=== PATIENT | male | born 1960 | race Two or more races ===

== ENCOUNTER 2025-01-19 02:18 | Inpatient (IN) | payer MEDICARE, MEDICAID ==
[~2025-01-19] VITALS: Ht 170.2 cm; Wt 87.7 kg
--- NOTE | 2025-01-19 02:33 | ECG ---
[facility] Test Date: 2025-01-19 Test Time: 02:29:07 Pat Name: MAGUI YUSUF Department: ED Room: 0286T Gender: M Stitcher Utility: CAMILA : 1960 Requested By: EMERGENCY EMERGENCY Order Number: [id number] Reading MD: Maxi Yeung Measurements Intervals [place] Rate: 117 P: 83 LA: 109 QRS: 43 QRSD: 100 T: -83 QT: 313 QTc: 437 Interpretive Statements Sinus tachycardia Probable inferior infarct, age indeterminate Repol abnrm, severe global ischemia (LM/MVD) Electronically Signed On 01-21-2025 14:44:02 PDT by Mxai Yeung Please click the below link to view image of tracing.
[2025-01-19 02:56] LABS: Basophils # (auto) 0.1 10 ^3/uL (0-0.2); Basophils % (auto) 0.4 % (0.0-2.0); Eosinophils # (auto) 0 10 ^3/uL (0-0.8); Hematocrit 50.4 % (41.0-53.0); Lymphocytes # (auto) 1.3 10 ^3/uL (0.4-5.4); Lymphocytes % (auto) 7.8 % (10.0-50.0); Mean Corpuscular Hemoglobin 30.3 pg (28.0-32.0); Mean Corpuscular Hgb Conc. 33.8 g/dL (32.0-36.0); Mean Corpuscular Volume 89.9 fL (80.0-100.0); Monocytes # (auto) 0.5 10 ^3/uL (0-1.3); Neutrophils # (auto) 14.8 10 ^3/uL (1.6-8.6); Neutrophils % (auto) 88.8 % (37.0-80.0); Nucleated Red Blood Cells % 0.2 %; Platelet Count (auto) 378 10^3/uL (140-450); Red Blood Cells 5.61 10^6/uL (4.5-5.90); Red Cell Distribution Width 14.1 % (11.8-14.3); White Blood Cell 16.7 10^3/uL (4.4-10.8)
--- NOTE | 2025-01-19 03:00 | ED.PDOC ---
History of Present Illness HPI Comments 64 y/o M presents wtih 3x day history of 7/10 epigastric abdominal pain, that radiates into his right chest-wall, with associated nausea and multiple episodes of vomiting. Patient endorses on no recent injuries, travel, sick contact, spoiled food or illicit substances use, or further relevant information. He denies having any bloody or bilious vomitus, diarrhea, urinary symptoms, fever, chills, or further associated symptoms. Chief Complaint: Chest Pain Time Seen by MD: 02:20 Reviewed Notes: Nurses Notes, Medications, Allergies Allergies: Coded Allergies: NO KNOWN ALLERGIES (Unverified , 01/19/25) Information Source: Patient Mode of Arrival: Ambulatory Severity: Moderate Timing: Days Duration: Since onset Prehospital treatment: None Past Medical History PAST MEDICAL HISTORY: Denies Surgical History: Denies all surgeries Family History Family History: Unknown Social History Smoker: Non-Smoker Alcohol: Denies ETOH Use Drugs: Denies Drug Use Lives In: Home All Other Systems: Reviewed and Negative (Comprehensive systems review obtained and negative except for what is stated in the HPI.) Physical Exam General Appearance: No Apparent Distress, Normal HEENT: Normal ENT Inspection, Pharynx Normal, TMs Normal Neck: Full Range of Motion, Non-Tender, Normal, Normal Inspection Respiratory: Chest Non-Tender, Lungs Clear, No Accessory Muscle Use, No Respiratory Distress, Normal Breath Sounds Cardiovascular: No Edema, No JVD, No Murmur, No Gallop, Normal Peripheral Pulses, Regular Rate/Rhythm Breast Exam: Deferred Gastrointestinal: No Organomegaly, Non Tender, No Pulsatile Mass, Normal Bowel Sounds, Soft Genitalia: Deferred Pelvic: Deferred Rectal: Deferred Extremities: No calf tenderness, Normal capillary refill, Normal inspection, Normal range of motion, Non-tender, No pedal edema Musculoskeletal : Apperance: Normal Neurologic: Alert, carbonation equipment tender II-XII nml as Tested, No Motor Deficits, Normal Affect, Normal Mood, No Sensory Deficits Cerebellar Function: Normal Reflexes: Normal Skin: Dry, Normal Color, Warm Lymphatic: No Adenopathy Was a procedure done? Was a procedure done?: No EKG EKG : Pulse Rate (adult): 117 [place]: Normal Cardiac Rhythm: ST Block: None Hypertrophy: None ST: Normal Differential Dx Considerations may include: gastritis, gastroenteritis, GERD, PUD, OH, PE, ACS, URI, PNA, musculoskeletal pain, among others X-Ray, Labs, Meds, VS Vital Signs Date Time Temp Pulse Resp B/P (MAP) Pulse Ox O2 Delivery O2 Flow Rate FiO2 01/19/25 05:00 108 20 159/74 (102) 100 01/19/25 04:00 103 20 Nasal Cannula* 3 32 01/19/25 04:00 98.4 103 20 147/77 (100) 98.4 01/19/25 03:48 107 17 166/84 01/19/25 03:31 108 01/19/25 03:00 117 01/19/25 02:41 117 01/19/25 02:20 97.5 101 22 102/61 (75) 97 97.5 Lab Test 01/19/25 03:26 01/19/25 02:36 Range/Units Troponin I High Sensitivity 4 5 </=54 ng/L White Blood Count 16.7 H 4.4-10.8 10^3/uL Red Blood Count 5.61 4.5-5.90 10^6/uL Hemoglobin 17.0 13.5-17.5 g/dL Hematocrit 50.4 41.0-53.0 % Mean Corpuscular Volume 89.9 80.0-100.0 fL Mean Corpuscular Hemoglobin 30.3 28.0-32.0 pg Mean Corpuscular Hemoglobin Concent 33.8 32.0-36.0 g/dL Red Cell Distribution Width 14.1 11.8-14.3 % Platelet Count 378 140-450 10^3/uL Mean Platelet Volume 7.3 6.9-10.8 fL Neutrophils (%) (Auto) 88.8 H 37.0-80.0 % Lymphocytes (%) (Auto) 7.8 L 10.0-50.0 % Monocytes (%) (Auto) 3.0 0.0-12.0 % Eosinophils (%) (Auto) 0.0 0.0-7.0 % Basophils (%) (Auto) 0.4 0.0-2.0 % Neutrophils # (Auto) 14.8 H 1.6-8.6 10 ^3/uL Lymphocytes # (Auto) 1.3 0.4-5.4 10 ^3/uL Monocytes # (Auto) 0.5 0-1.3 10 ^3/uL Eosinophils # (Auto) 0 0-0.8 10 ^3/uL Basophils # (Auto) 0.1 0-0.2 10 ^3/uL Nucleated Red Blood Cells 0.2 % Sodium Level 138 136-145 mmol/L Potassium Level 4.3 3.5-5.1 mmol/L Chloride Level 102 98-107 mmol/L Carbon Dioxide Level 18 L 20-31 mmol/L Anion Gap 18 H 5-15 Blood Urea Nitrogen 28 H 9-23 mg/dL Creatinine 1.40 H 0.700-1.30 mg/dL Glomerular Filtration Rate Calc 55 >90 mL/min BUN/Creatinine Ratio 20.0 10.0-20.0 Serum Glucose 195 H 74-106 mg/dL Calcium Level 9.5 8.7-10.4 mg/dL Total Bilirubin 1.5 H 0.2-1.0 mg/dL Aspartate Amino Transferase (AST) 13 13-40 U/L Alanine Aminotransferase (ALT) 12 7-40 U/L Alkaline Phosphatase 145 H 46-116 U/L Total Protein 7.4 5.7-8.2 g/dL Albumin 4.7 3.2-4.8 g/dL Current Medications Medications (Trade) Dose Ordered Sig/Murali Route Start Time Stop Time Status Last Admin Sodium Chloride 1,000 ml @ 1,000 mls/hr Q1H ONCE IV 01/19/25 02:45 01/19/25 03:44 DC 01/19/25 03:46 Ondansetron HCl (Zofran) 4 mg ONCE ONCE IV 01/19/25 02:45 01/19/25 02:46 DC 01/19/25 03:47 Morphine Sulfate 4 mg ONCE ONCE IV 01/19/25 02:45 01/19/25 02:46 DC 01/19/25 03:48 Aspirin 324 mg ONCE ONCE PO 01/19/25 02:45 01/19/25 02:46 DC 01/19/25 03:47 Famotidine (Pepcid Injection) 20 mg ONCE ONCE IV 01/19/25 02:45 01/19/25 02:46 DC 01/19/25 03:57 Time of 1ST Reevaluation: 02:40 Reevaluation 1ST: Unchanged Patient Education/Counseling: Diagnosis, Treatment, Need For Follow Up Family Education/Counseling: No Family Present Additional Information Previous visits reviewed: N/A The following tests were ordered, and results were reviewed by me: troponin, EKG, CXR, CMP, CBC Additional Information was gathered from interviewing the following independent historians: N/A I reviewed and agreed with the following test results read by other providers: CXR I discussed treatment and results with medical personnel and: patient Departure 1 Departure Time of Disposition: 05:31 (Patient presented with abdominal pain that was concerning for possible appendicits, gastritis, cholecystitis, colitis, gastroenteritis, sbo, or orther possible surgical emergency. Data: 1. I ordered and reviewed the result of at least 3 labs including a CBC, BMP, and Urinalysis. 2. I independently interpreted the following tests: CT Abdoment and Pelvis is concerning for ureteral calculus and pancreatic mass .Risk:This patient has a high risk of morbidity due to further diagnostic testing or treatment and may suffer from an acute abdominal process disorder. Workup reveals ureteral calculus and pancreatic mass and patient should be admitted for further workup. and possible expert consultation. ) Impression: Primary Impression: Ureteral calculus Additional Impressions: Pancreatic mass Intractable abdominal pain Disposition: ADMITTED INPATIENT Admit to: Med Surg Condition: Guarded Critical Care Note Critical Care Time?: Yes Critical care comment: Intractable abdominal pain Authorized and Performed by: Momo Rodriguez MD Total critical care time: Approximately 39 minutes Due to a high probability of clinically significant, life threatening deterioration, the patient required my highest level of preparedness to intervene emergently and I personally spent this critical care time directly and personally managing the patient. This critical care time included obtaining a history; examining the patient; pulse oximetry; ordering and review of studies; arranging urgent treatment with development of a management plan; evaluation of patient's response to treatment; frequent reassessment; and, discussions with other providers. This critical care time was performed to assess and manage the high probability of imminent, life-threatening deterioration that could result in multi-organ failure. It was exclusive of separately billable procedures and treating other patients and teaching time. Please see my other sections and the rest of the note for further information on patient assessment and treatment. Stability Stability form required: No Heart Score Heart Score: Heart Score Response (Comments) Value History Slightly Suspicious 0 EKG Normal 0 Age >65 2 Risk Factors 1 or 2 risk factors 1 Troponin 1-2 x's Normal limit 1 Total 4 I personally scribed for MOMO RODRIGUEZ MD ([email or web address]) on 01/19/25 at 03:00. Electronically submitted by Ridge Panchal ([email or web address]). MOMO RODRIGUEZ MD Jan 19, 2025 03:00
[2025-01-19 03:33] LABS: Alanine Aminotransferase 12 U/L (7-40); Albumin 4.7 g/dL (3.2-4.8); Anion Gap 18 (5-15); Calcium 9.5 mg/dL (8.7-10.4); Chloride 102 mmol/L (98-107); Potassium 4.3 mmol/L (3.5-5.1); Sodium 138 mmol/L (136-145); Total Protein 7.4 g/dL (5.7-8.2)
[2025-01-19 03:35] LABS: Alkaline Phosphatase 145 U/L (46-116); Aspartate Aminotransferase 13 U/L (13-40); Bilirubin, Total 1.5 mg/dL (0.2-1.0); Blood Urea Nitrogen 28 mg/dL (9-23); Carbon Dioxide 18 mmol/L (20-31); Glucose 195 mg/dL (74-106)
[2025-01-19] MEDS: SODIUM CHLORIDE 0.9% 1,000 ML IV ONE ×2 (03:46→06:31)
[2025-01-19] MEDS: ASPirin 81 mg TAB PO ONE (03:47)
[2025-01-19] MEDS: ONDANSETRON HCL 4 MG/2 ML VIAL IV ONE (03:47)
[2025-01-19] MEDS: MORPHINE SULFATE 4 MG/ML SYR/VIAL IV ONE (03:48)
[2025-01-19] MEDS: FAMOTIDINE (10MG/ML) 2ML VL IV ONE (03:57)
[2025-01-19 04:00] VITALS: PULSE 103; RESP 20
--- NOTE | 2025-01-19 04:04 | DVH ---
CHEST RADIOGRAPH Indication: CHEST PAIN Technique: Single frontal view of the chest was obtained COMPARISON: None FINDINGS: Lines and Tubes: None Lungs: Clear Pleura: No effusion. No pneumothorax. Cardiomediastinal contours: Unremarkable Bones: Unremarkable IMPRESSION: 1. No acute disease.
--- NOTE | 2025-01-19 05:24 | DVH ---
Exam: CT CT AB PEL WITH IV CON ONLY History: Epigastric pain and vomiting Comparison Study: None Contrast: Type of contrast: Omnipaque 300 Contrast injected: 100 cc Contrast wasted: 0 TECHNIQUE: A digital restaurant hourly team member image was obtained. During the uneventful, intravenous administration of c ontrast material, multislice data acquisition was obtained through the abdomen and pelvis. The data s et was subsequently reconstructed into axial images. Images were reviewed on a work station using a c ombination of axial and multiplanar using a variety of window levels and settings. Radiation Dose Information: CT Dose: CTDI volume is 18.98 mGy. Dose-length product is 1064.98 mGy*cm FINDINGS: Lung Bases: No acute or significant lung base finding. Normal heart size. No pleural or pericardial effusion. Liver: The liver is normal in size. No focal lesions. Normal hepatic vascular enhancement. Gallbladder and Biliary Tree: The gallbladder is unremarkable. No biliary ductal dilatation. Spleen: Unremarkable Pancreas: Diffuse atrophy of the pancreatic parenchyma. There is a solid mass in the pancreatic tail measuring 3.2 cm. No ductal dilatation. Adrenal Glands: Unremarkable Kidneys: Kidneys enhance symmetrically. There is mild left hydroureteronephrosis due to 6 mm distal l eft ureteral calculus. There is a nonobstructing 4 mm right intrarenal calculus. Right renal cyst me asures 4.5 cm. Urinary bladder: Multiple small bladder stones noted. Bowel: Small hiatal hernia. Small bowel is normal in caliber. Sigmoid diverticulosis without acute d iverticulitis. Normal appendix. Peritoneal cavity: No pneumoperitoneum. No ascites. Lymphadenopathy: No mesenteric, retroperitoneal or periportal lymphadenopathy. Abdominal Wall and Mesentery: Unremarkable. Vasculature: The visualized abdominal aorta is normal in size and caliber. Abdominal and pelvic vess els demonstrate normal enhancement. Pelvic Organs: Enlarged prostate measuring 6.3 cm. Musculoskeletal: No acute fracture. Innumerable sclerotic lesions throughout the lumbar spine the la rgest in the L2 vertebral body, as well as in the sacrum and iliac bones. Soft tissues: Fat containing umbilical hernia. IMPRESSION: 1. Left hydroureteronephrosis due to 6 mm obstructing distal left ureteral calculus. Nonobstructive r ight intrarenal calculus. 2. 3.2 cm solid mass in the pancreatic tail. MRI of the abdomen without and with intravenous contrast using a pancreatic protocol, with MRCP and/or tissue sampling is strongly recommended. 3. Bladder calculi. 4. Enlarged prostate. Correlation with PSA levels and/or urological consultation recommended. 5. Multiple sclerotic osseous lesions. Osseous metastases are not excluded. Nuclear medicine bone sc an recommended. All CT scans at this medical facility are performed using dose modulation techniques as appropriate t o a performed exam including the following: Automated exposure control was utilized; adjustment of th e MA and/or KV according to patient size; and use of iterative reconstruction technique.
[2025-01-19] MEDS: KETOROLAC TROMETH 30 MG/ML 1ML VIAL IV ONE (05:38)
[2025-01-19] MEDS: TAMSULOSIN HYDROCHLORIDE 0.4 MG CAP PO ONE (05:38)
[2025-01-19] MEDS ORDERED: VANCOMYCIN PER PHARMACY 0 MG IV SCH (06:15)
[2025-01-19] MEDS ORDERED: MORPHINE SULFATE INJ 2 MG/ml SYRG IV PRN (06:15)
[2025-01-19] MEDS ORDERED: NITROGLYCERIN 0.4 MG SL TAB SL PRN (06:15)
--- NOTE | 2025-01-19 06:19 | DVHHPRES ---
History of Present Illness Resident Creating Document: MALCOLM ART RESIDENT History of Present Illness This is a 64-year-old male with past medical history of kidney stone, status post nephrolithotomy, status post cardiac arrest 3 times, CHF, GERD presented to the ED with a chief complaint of intractable nausea and vomiting for last 3 days prior to this admission. The patient states that he started vomiting since last not able to eat or drink, continuous vomiting, projectile in nature, greenish in sometime contains the regurgitant food material and foul-smelling associated with epigastric pain which is 8 out 10, radiates to the back. Patient also mentioned that 3 years ago he was hospitalized in [place] for 1 month and treated for kidney stone. The patient denies fever, chills, shortness of breath, dizziness, dysuria, hematuria, altered bowel habit, positive sick contact or any recent traveling. Past Medical History Kidney Stone, GERD, CHF Past Surgical History Open nephrolithotomy Family History Noncontributory Past Social History Lives Alone Smoked cigar, nonalcoholic and never tried any drugs Review of Systems Constitutional: No: Fever, Chills, Sweats, Weakness, Malaise, Other Eyes: No: Pain, Vision change, Conjunctivae inflammation, Eyelid inflammation, Other, Redness ENT: No: Ear pain, Ear discharge, Nose pain, Nose discharge, Nose congestion, Mouth pain, Mouth swelling, Throat pain, Throat swelling, Other Respiratory: No: Cough, Dry, Shortness of breath, SOB with excertion, Wheezing, Hemoptysis, Pleuritic Pain, Sputum, Wheezing, Other Cardiovascular: No: Chest Pain, Palpitations, Orthopnea, Paroxysmal Noc. Dyspnea, Edema, Lt Headedness, Other Gastrointestinal: Nausea, Vomiting, Abdominal Pain; No: Diarrhea, Constipation, Melena, Hematochezia, Other Genitourinary: No Dysuria, No Frequency, No Incontinence, No Hematuria, No Retention, No Other Musculoskeletal: No: other, neck pain, shoulder pain, arm pain, back pain, hand pain, leg pain, foot pain Skin: No: Rash, Lesions, Jaundice, Bruising, Other Neurological: No: Weakness, Numbness, Incoordination, Change in speech, Confusion, Seizures, Other Allergies: Coded Allergies: NO KNOWN ALLERGIES (Unverified , 01/19/25) Medications Current Medications Medications Dose Ordered Sig/Murali Route Start Time Stop Time Status Last Admin Dose Admin Nitroglycerin 0.4 mg Q5MINP PRN SL 01/19/25 06:15 UNV Morphine Sulfate 2 mg Q30M PRN IV 01/19/25 06:15 UNV Vancomycin HCl 0 ml @ 0 mls/hr UD IV 01/19/25 06:15 UNV Exam Vital Signs Vital Signs Date Time Temp Pulse Resp B/P (MAP) Pulse Ox O2 Delivery O2 Flow Rate FiO2 01/19/25 05:53 102 01/19/25 05:00 20 159/74 (102) 100 01/19/25 04:00 Nasal Cannula* 3 32 01/19/25 04:00 98.4 98.4 Exam Physical examination: General Appearance: Alert, Oriented X3, Cooperative, mild distress HEENT: Atraumatic, PERRLA, EOMI, Mucous membrane moist/pink Respiratory: Bilateral mild crackles Cardiovascular: Regular rate, Normal S1, Normal S2, No murmurs, no chest wall tenderness Abdominal: Epigastric tenderness present, abdomen is mildly distended Normal bowel sounds, Soft, , No hepatospenomegaly Extremities: No clubbing, No cyanosis, No edema, Normal pulses, No tenderness/swelling Skin: No rashes, No breakdown, No significant lesion Neuro: Normal speech, Strength at 5/5 X4 ext, Normal tone, Sensation intact, grossly intact cranial nerves Psych/Mental Status: Mental status NL, Mood NL Labs/Xrays Labs Test 01/19/25 05:38 01/19/25 02:36 Range/Units White Blood Count 16.7 H 4.4-10.8 10^3/uL Red Blood Count 5.61 4.5-5.90 10^6/uL Hemoglobin 17.0 13.5-17.5 g/dL Hematocrit 50.4 41.0-53.0 % Mean Corpuscular Volume 89.9 80.0-100.0 fL Mean Corpuscular Hemoglobin 30.3 28.0-32.0 pg Mean Corpuscular Hemoglobin Concent 33.8 32.0-36.0 g/dL Red Cell Distribution Width 14.1 11.8-14.3 % Platelet Count 378 140-450 10^3/uL Mean Platelet Volume 7.3 6.9-10.8 fL Neutrophils (%) (Auto) 88.8 H 37.0-80.0 % Lymphocytes (%) (Auto) 7.8 L 10.0-50.0 % Monocytes (%) (Auto) 3.0 0.0-12.0 % Eosinophils (%) (Auto) 0.0 0.0-7.0 % Basophils (%) (Auto) 0.4 0.0-2.0 % Neutrophils # (Auto) 14.8 H 1.6-8.6 10 ^3/uL Lymphocytes # (Auto) 1.3 0.4-5.4 10 ^3/uL Monocytes # (Auto) 0.5 0-1.3 10 ^3/uL Eosinophils # (Auto) 0 0-0.8 10 ^3/uL Basophils # (Auto) 0.1 0-0.2 10 ^3/uL Nucleated Red Blood Cells 0.2 % Sodium Level 138 136-145 mmol/L Potassium Level 4.3 3.5-5.1 mmol/L Chloride Level 102 98-107 mmol/L Carbon Dioxide Level 18 L 20-31 mmol/L Anion Gap 18 H 5-15 Blood Urea Nitrogen 28 H 9-23 mg/dL Creatinine 1.40 H 0.700-1.30 mg/dL Glomerular Filtration Rate Calc 55 >90 mL/min BUN/Creatinine Ratio 20.0 10.0-20.0 Serum Glucose 195 H 74-106 mg/dL Calcium Level 9.5 8.7-10.4 mg/dL Total Bilirubin 1.5 H 0.2-1.0 mg/dL Aspartate Amino Transferase (AST) 13 13-40 U/L Alanine Aminotransferase (ALT) 12 7-40 U/L Alkaline Phosphatase 145 H 46-116 U/L Total Protein 7.4 5.7-8.2 g/dL Albumin 4.7 3.2-4.8 g/dL Assessment/Plan Assessment/Plan Assessment and plan: # Intractable nausea and vomiting secondary to left hydroureteronephrosis # Severe anion gap and non anion gap metabolic acidosis likely due to lactic acidosis and intractable vomiting # Sepsis due to above # Possible pancreatic mass, rule out pancreatitis # History of GERD - CT abdomen pelvis showed . Left hydroureteronephrosis due to 6 mm obstructing distal left ureteral calculus. Nonobstructive right intrarenal calculus. 3.2 cm solid mass in the pancreatic tail. MRI of the abdomen without and with intravenous contrast using a pancreatic protocol, with MRCP and/or tissue sampling is strongly recommended. Bladder calculi. - BMP revealed anion gap metabolic acidosis - 1L IV bolus NS given - Ordered ABG, CEA, CA 19-9, blood culture, urine bacterial culture, lactic acid, ultrasound of whole abdomen - IV normal saline 500 ml bolus - IV vancomycin as per pharmacy and IV meropenem 1 g Q 8 hours - IV Protonix 40 mg daily - IV ondansetron 4 mg Q 8 p.r.n. 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 # PUD prophylaxis - Protonix 40 mg IV daily # DVT prophylaxis - Lovenox 40 mg sc daily Goal of care discussed with the patient for more than 20 minutes full code Plan discussed with Dr. Flynn Plan discussed with: Patient, Other (RN) My Orders Orders - MALCOLM ART RESIDENT Procedure Category Date Status Time Admit ADMIT 01/19/25 Transmitted 06:08 Nitroglycerin PHA 01/19/25 Logged Sublingual (Ntrostat 06:15 Morphine Sulfate PHA 01/19/25 In Process Injection 06:15 Oxygen By Nasal RT 01/19/25 Transmitted Cannula 06:08 Notify Of Changes JON 01/19/25 In Process From Base 06:08 Certified Paralegal For JON 01/19/25 In Process 24 Hours 06:08 Rhythm Strips Once JON 01/19/25 In Process Every Shift 06:08 Abdomen Complete US 01/19/25 Logged Sonogram 06:10 Carcinoembryonic LAB 01/19/25 Logged Antigen 06:10 Carbohydrate Antigen LAB 01/19/25 Logged 19-9 Echo 2d Mode Cardiac US 01/19/25 Logged DOP 06:11 Abg W/ Co-Ox RT 01/19/25 Logged 06:11 Lactic Acid W/ Reflex LAB 01/19/25 Logged Order 06:11 Blood Culture SOFI 01/19/25 Logged 06:11 Urine Bacterial SOFI 01/19/25 Logged Culture 06:11 Sodium Chloride 0.9% PHA 01/19/25 Logged 06:15 Vancomycin Per PHA 01/19/25 Logged Pharmacy 06:15 Meropenem 1gm Ivpb PHA 01/19/25 Logged (Merrem 1gm/ Ns) 06:30 Meropenem 1gm Ivpb PHA 01/19/25 Logged (Merrem 1gm/ Ns) 14:00 Ondansetron Hcl PHA 01/19/25 Transmitted (Zofran) 06:30 Pantoprazole PHA 01/19/25 Transmitted (Protonix) 10:00 Urinalysis LAB 01/19/25 Verified 06:18 Date of Service: Jan 19, 2025 Billing Provider: LAVONNE FLYNN MD Common Visit Codes: 55134-UXTCTUB INP/OBS CARE (HIGH) Secondary Visit Codes: 63414-DFOPLAIT CARE PLAN 30 MINUTES MALCOLM ART RESIDENT Jan 19, 2025 06:19 LAVONNE FLYNN MD Jan 19, 2025 21:50
[2025-01-19] MEDS ORDERED: ONDANSETRON HCL 4 MG/2 ML VIAL IV PRN (06:30)
[2025-01-19] MEDS: MEROPENEM 1GM IVPB 50 ML IV ONE (06:31)
--- NOTE | 2025-01-19 06:37 | ECG ---
[facility] Test Date: 2025-01-19 Test Time: 05:53:49 Pat Name: MAGUI YUSUF Department: ED Room: 0286T Gender: M Cardiothoracic Icu Rn: : 1960 Requested By: EMERGENCY EMERGENCY Order Number: [id number] Reading MD: Maxi Yeung Measurements Intervals [place] Rate: 102 P: 63 [place]: 141 QRS: 53 QRSD: 143 T: -65 QT: 333 QTc: 434 Interpretive Statements Sinus tachycardia Nonspecific intraventricular conduction delay Borderline repolarization abnormality Electronically Signed On 01-21-2025 14:51:14 PDT by Maxi Yeung Please click the below link to view image of tracing.
--- NOTE | 2025-01-19 06:37 | ECG ---
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
[2025-01-19 06:59] LABS: Base Excess -3.5 mmol/L (-2.0-3.0)
[2025-01-19] MEDS: SODIUM CHLORIDE 0.9% 500 ML IV ONE (07:35)
--- NOTE | 2025-01-19 07:49 | DVH ---
INDICATION: Possible pancreatic mass TECHNIQUE: Multiple real-time sonographic images of the abdomen were obtained. COMPARISON: CT scan of the abdomen pelvis performed on 01/19/2025. FINDINGS: The liver is homogenous in echogenicity. The liver measures 14.3 cm. No intrahepatic bilia ry ductal dilatation is noted. The gallbladder wall measures 0.2 cm and is unremarkable. No gallstones or sludge is seen. The com mon duct measures 0.5 cm and is unremarkable. No pericholecystic fluid is noted. The right kidney measures 12.1 cm. No hydronephrosis. There is a cyst in the lower pole of the right kidney measuring 4.6 x 6.3 x 4.3 cm. Punctate nonobstructive right intrarenal calculus adjacent to th e right renal cyst. The left kidney measures 11.3 cm. Mild left hydronephrosis. The spleen measures 11.7 cm, within normal limits. The echogenicity is within normal limits. The pancreas is obscured by bowel gas. The pancreatic mass described on recent CT is not detected by ultrasound. The visualized portions of the IVC and aorta are grossly unremarkable. IMPRESSION: 1. Pancreas obscured by bowel gas and the pancreatic mass in question is not evaluated. MRI of the ab domen, with without and with intravenous contrast using a pancreatic protocol with MRCP is recommende d for further evaluation. 2. Left hydronephrosis. 3. Right renal cyst and nonobstructive intrarenal calculus.
[2025-01-19 08:00] VITALS: PULSE 97; RESP 18; O2SAT 98
[2025-01-19] MEDS: VANCOMYCIN 1GM/250ML KIT 250 ML IV SCH (09:10)
[2025-01-19] MEDS: PANTOPRAZOLE 40 MG/10 ML VIAL INJ IV SCH (10:00)
--- NOTE | 2025-01-19 10:34 | DVHINCON2 ---
Date of service: Jan 19, [address] Palumbo Reason for Consultation ureteral stone, elevated PSA History of Present Illness History Source: RN Notes, Notes HPI 64 yo male admitted for abdominal pain with nausea and vomiting. CT showed a 6 mm distal left sided stone with mild hydro. PSA elevated at 75. Pt is currently pain free. He has urinary incontinence. Home Meds Unable to Obtain Active Prescriptions or Reported Meds Review of Systems Gastrointestinal: Abdominal Pain H&P Exam Vital Signs Vital Signs Date Time Temp Pulse Resp B/P (MAP) Pulse Ox O2 Delivery O2 Flow Rate FiO2 01/19/25 08:01 103 01/19/25 08:00 18 98 Nasal Cannula* 3 32 01/19/25 08:00 98.6 114/61 (78) 98.6 General Appeara: Well developed, Well nourished, Normal Appearance Neuro/Mental St: Alert, Oriented Appearance: Appropriate appearance, Appropriate insight Eye contact/ Speech: Cooperative, Good eye contact, Normal speech Skin Exam: Normal inspection, Normal color, Warm/dry Labs/Xrays [place] [address] Ph: [phone] DIAGNOSTIC IMAGING Diagnostic Imaging Report : [id number] Signed PATIENT: MAGUI YUSUF ACCT: [id number] UNIT: [id number] : 1960 LOC: ER ROOM / BED: / AGE / SEX: 64 / M ADM STATUS: REG ER SERVICE 0411 ORDERING PHYSICIAN: MOMO SEARS MD PROCEDURE(s): ABPLIV - CT AB PEL WITH IV CON ONLY REASON: epigastric pain and vomiting ORDER NUMBER(s): [id number], ACCESSION NUMBER(s): [id number] Exam: CT CT AB PEL WITH IV CON ONLY History: Epigastric pain and vomiting Comparison Study: None Contrast: Type of contrast: Omnipaque 300 Contrast injected: 100 cc Contrast wasted: 0 TECHNIQUE: A digital vibration engineer image was obtained. During the uneventful, intravenous administration of contrast material, multislice data acquisition was obtained through the abdomen and pelvis. The data set was subsequently reconstructed into axial images. Images were reviewed on a work station using a combination of axial and multiplanar using a variety of window levels and settings. Radiation Dose Information: CT Dose: CTDI volume is 18.98 mGy. Dose-length product is 1064.98 mGy*cm FINDINGS: Lung Bases: No acute or significant lung base finding. Normal heart size. No pleural or pericardial effusion. Liver: The liver is normal in size. No focal lesions. Normal hepatic vascular enhancement. Gallbladder and Biliary Tree: The gallbladder is unremarkable. No biliary ductal dilatation. Spleen: Unremarkable Pancreas: Diffuse atrophy of the pancreatic parenchyma. There is a solid mass in the pancreatic tail measuring 3.2 cm. No ductal dilatation. Adrenal Glands: Unremarkable Kidneys: Kidneys enhance symmetrically. There is mild left hydroureteronephrosis due to 6 mm distal left ureteral calculus. There is a nonobstructing 4 mm right intrarenal calculus. Right renal cyst measures 4.5 cm. Urinary bladder: Multiple small bladder stones noted. Bowel: Small hiatal hernia. Small bowel is normal in caliber. Sigmoid diverticulosis without acute diverticulitis. Normal appendix. Peritoneal cavity: No pneumoperitoneum. No ascites. Lymphadenopathy: No mesenteric, retroperitoneal or periportal lymphadenopathy. Abdominal Wall and Mesentery: Unremarkable. Vasculature: The visualized abdominal aorta is normal in size and caliber. Abdominal and pelvic vessels demonstrate normal enhancement. Pelvic Organs: Enlarged prostate measuring 6.3 cm. Musculoskeletal: No acute fracture. Innumerable sclerotic lesions throughout the lumbar spine the largest in the L2 vertebral body, as well as in the sacrum and iliac bones. Soft tissues: Fat containing umbilical hernia. IMPRESSION: 1. Left hydroureteronephrosis due to 6 mm obstructing distal left ureteral calc ulus. Nonobstructive right intrarenal calculus. 2. 3.2 cm solid mass in the pancreatic tail. MRI of the abdomen without and with intravenous contrast using a pancreatic protocol, with MRCP and/or tissue sampling is strongly recommended. 3. Bladder calculi. 4. Enlarged prostate. Correlation with PSA levels and/or urological consultation recommended. 5. Multiple sclerotic osseous lesions. Osseous metastases are not excluded. Nuclear medicine bone scan recommended. All CT scans at this medical facility are performed using dose modulation techniques as appropriate to a performed exam including the following: Automated exposure control was utilized; adjustment of the MA and/or KV according to patient size; and use of iterative reconstruction technique. ATED BY: KEHINDE SANCHEZ MD DICTATED DATE/TIME: 01/19/25521 SIGNED BY: KEHINDE SANCHEZ MD SIGNED DATE/TIME: 01/19/25521 CC: [address] [address] Ph: [phone] DIAGNOSTIC IMAGING Diagnostic Imaging Report : [id number] Signed PATIENT: MAGUI YUSUF ACCT: [id number] UNIT: [id number] : 1960 LOC: [facility] ROOM / BED: [facility] / A AGE / SEX: 64 / M ADM STATUS: ADM IN SERVICE 1710 ORDERING PHYSICIAN: CARMEN PALUMBO MD PROCEDURE(s): BONNM - BONE WHOLE BODY REASON: BONE METS ORDER NUMBER(s): [id number], ACCESSION NUMBER(s): [id number] Procedure: NM BONE WHOLE BODY Exam Date: 01/20/2025 09:59 AM Reason for study/Clinical History: BONE METS Comparison Study: None Prior correlative imaging: CT dated 01/19/2025 Nuclear Medicine Whole Body Bone Scan Technique: Following the intravenous administration of 24.5 millicuries of technetium 99m labeled MDP, whole body images in the anterior and posterior projections were obtained 3 hours following the administration of radiopharmaceutical. Findings: There is mild symmetric multifocal activity overlying both shoulders consistent with mild degenerative change. The expected mild activity is noted overlying both kidneys and the bladder without evidence of obstruction. Multiple increased small areas of increased radiopharmaceutical activity are present including the upper sternum, pelvis and spine. Impression: Multiple areas of increased radiopharmaceutical activity are present including the sternum, pelvis and spine. These likely correspond to sclerotic lesions noted on CT dated 01/19/2025 and are suspicious for metastatic disease. Mild multifocal activity consistent with degenerative changes as described above. ATED BY: WALT STARR MD DICTATED DATE/TIME: 01/20/251215 SIGNED BY: WALT STARR MD SIGNED DATE/TIME: 01/20/251215 CC: Labs Test 01/19/25 07:24 01/19/25 06:53 01/19/25 05:38 01/19/25 02:36 Range/Units Serum Osmolality 302 H 278-298 mOsm/kg Lactic Acid Level 1.6 0.4-2.0 mmol/L Beta-Hydroxybutyric Acid 0.739 H < 0.4 mmol/L Plasma/Serum Blood Alcohol < 3.0 <10 mg/dL Blood Gas Specimen Type Arterial Blood Gas Sample Site Right brachial Blood Gas Patient Temperature 37.0 Arterial Blood Date Drawn [id number] Arterial Blood pH 7.417 7.350-7.450 Arterial Blood Partial Pressure CO2 31.6 L 35.0-48.0 mmHg Arterial Blood Partial Pressure O2 69.7 L 83.0-108.0 mmHg Arterial Blood HCO3 19.9 L 21.0-28.0 mmol/L Arterial Blood Oxygen Saturation 93.8 L 94.0-98.0 % Arterial Blood Base Excess -3.5 L -2.0-3.0 mmol/L Arterial Blood Oxyhemoglobin 91.1 L 94.0-98.0 % Arterial Blood Carboxyhemoglobin 2.5 H 0.5-1.5 % Arterial Blood Methemoglobin 0.4 0.0-1.5 % Arturo Test N/a Blood Gas Total Hemoglobin 15.10 13.5-17.5 g/dL Blood Gas Liter Flow 4.00 Blood Gas Modality Nasal cannula FiO2 % 36.0 Troponin I High Sensitivity 6 </=54 ng/L Lipase 42 12-53 U/L Thyroid Stimulating Hormone (TSH) 0.61 0.55-4.78 uIU/mL White Blood Count 16.7 H 4.4-10.8 10^3/uL Red Blood Count 5.61 4.5-5.90 10^6/uL Hemoglobin 17.0 13.5-17.5 g/dL Hematocrit 50.4 41.0-53.0 % Mean Corpuscular Volume 89.9 80.0-100.0 fL Mean Corpuscular Hemoglobin 30.3 28.0-32.0 pg Mean Corpuscular Hemoglobin Concent 33.8 32.0-36.0 g/dL Red Cell Distribution Width 14.1 11.8-14.3 % Platelet Count 378 140-450 10^3/uL Mean Platelet Volume 7.3 6.9-10.8 fL Neutrophils (%) (Auto) 88.8 H 37.0-80.0 % Lymphocytes (%) (Auto) 7.8 L 10.0-50.0 % Monocytes (%) (Auto) 3.0 0.0-12.0 % Eosinophils (%) (Auto) 0.0 0.0-7.0 % Basophils (%) (Auto) 0.4 0.0-2.0 % Neutrophils # (Auto) 14.8 H 1.6-8.6 10 ^3/uL Lymphocytes # (Auto) 1.3 0.4-5.4 10 ^3/uL Monocytes # (Auto) 0.5 0-1.3 10 ^3/uL Eosinophils # (Auto) 0 0-0.8 10 ^3/uL Basophils # (Auto) 0.1 0-0.2 10 ^3/uL Nucleated Red Blood Cells 0.2 % Sodium Level 138 136-145 mmol/L Potassium Level 4.3 3.5-5.1 mmol/L Chloride Level 102 98-107 mmol/L Carbon Dioxide Level 18 L 20-31 mmol/L Anion Gap 18 H 5-15 Blood Urea Nitrogen 28 H 9-23 mg/dL Creatinine 1.40 H 0.700-1.30 mg/dL Glomerular Filtration Rate Calc 55 >90 mL/min BUN/Creatinine Ratio 20.0 10.0-20.0 Serum Glucose 195 H 74-106 mg/dL Hemoglobin A1c 6.2 H <5.7 % A1C Calcium Level 9.5 8.7-10.4 mg/dL Total Bilirubin 1.5 H 0.2-1.0 mg/dL Aspartate Amino Transferase (AST) 13 13-40 U/L Alanine Aminotransferase (ALT) 12 7-40 U/L Alkaline Phosphatase 145 H 46-116 U/L B-Type Natriuretic Peptide 20.93 0-100 pg/mL Total Protein 7.4 5.7-8.2 g/dL Albumin 4.7 3.2-4.8 g/dL Assessment/Plan Problem List: (1) Ureteral calculus (2) Renal cyst (3) Elevated PSA, greater than or equal to 20 ng/ml (4) Intractable abdominal pain (5) Pancreatic mass (6) Cancer, metastatic to bone Plan NPO after midnight left ESWL and possible stent and TRUS prostate biopsy TBA possibly tomorrow if equipment is available Plan discussed with: Patient, Other MADISON SALAZAR SUPPLIER QUALITY ENGINEERING MANAGER Jan 19, 2025 10:34
[2025-01-19] MEDS: MEROPENEM 1GM IVPB 50 ML IV SCH (14:00)
--- NOTE | 2025-01-19 16:29 | DVHSR ---
APPROVED REPORT EXAM: Two-dimensional and M-mode echocardiogram with Doppler and color Doppler. Blood Pressure: 142/77 mmHg INDICATION CHF RISK FACTORS Height: 67, Weight: 174 DIMENSIONS LVDd4.1 (3.8-5.7cm)LA (2D)3.8 (1.9-4.0cm)Aortic Root3.2 (2.0-3.7cm) LVDs2.8 (2.5-4.0cm)LA (MM) (1.9-4.0cm)Aortic Cusp Exc1.7 (1.5-2.0cm) EF (%) 60.0 (55-70%)Rt. Atrium3.7 (1.9-4.0cm)Asc. Aorta cm Mitral Valve MitralMitral Stenosis E wave0.58m/sMV Mean GR.mmHg A wave0.79m/sMV Peak GR.mmHg E/A ratio0.72D MVAcm2 DECEL [id number] 1/2 Eeev46ve IVRTmsDop MVA4.35cm2 Aortic Valve Aortic ValveAortic Stenosis V10.91m/Macy Mean GR.4mmHg V21.37m/Macy Peak GR.7mmHg LVOT Diameter2.0 (1.8-2.4cm)Doppler AVA2.09cm2 Pulmonic Valve V21.04m/s Tricuspid Valve TR Velocity1.75m/s [id number] Conclusion lvef 70% by visual estimate mild LVH left atrium enlarged no severe valve abnormalities noted
--- NOTE | 2025-01-19 17:17 | DVHPN2 ---
Progress Note Date Seen: Jan 19, 2025 Medical Necessity Reason Pt with a Central, PICC or Fol: No Subjective Patient reports: No new complaints Review of Systems: HEENT:Normal, CVS:Normal, RESPIRATORY:Normal, GI:Normal, :Normal, MSK:Normal, NEURO:Normal Objective vital signs Vital Sign Date Time Temp Pulse Resp B/P (MAP) Pulse Ox O2 Delivery O2 Flow Rate FiO2 01/19/25 12:51 92 01/19/25 12:00 15 92/40 (57) 94 01/19/25 09:45 Room Air* 0 21 01/19/25 08:00 98.6 98.6 Total Intake and Output 01/18/25 01/18/25 01/19/25 15:00 23:00 07:00 Intake Total 1000 ml Balance 1000 ml medications Current Medications Medications Dose Ordered Sig/Murali Route Start Time Stop Time Status Last Admin Dose Admin Nitroglycerin 0.4 mg Q5MINP PRN SL 01/19/25 06:15 Morphine Sulfate 2 mg Q30M PRN IV 01/19/25 06:15 Vancomycin HCl 0 ml @ 0 mls/hr UD IV 01/19/25 06:15 Meropenem 50 ml @ 17 mls/hr Q8HR IV 01/19/25 14:00 01/19/25 14:00 17 MLS/HR Ondansetron HCl 4 mg Q8HPRN PRN IV 01/19/25 06:30 Pantoprazole Sodium 40 mg DAILY IV 01/19/25 10:00 Tamsulosin HCl 0.4 mg QPM PO 01/19/25 18:00 Finasteride 5 mg DAILY PO 01/20/25 10:00 Examination: GENERAL:Normal, HEENT:Normal, NECK:Normal, LUNGS:Normal, CVS:Normal, ABDOMEN:Normal, MSK:Normal, SKIN:Normal, NEURO:Normal, :Normal laboratory and microbiology Laboratory Tests 01/19/25 02:36 Test 01/19/25 02:36 Range/Units Serum Glucose 195 H 74-106 mg/dL Problem List/Assessment/Plan Problem List/Assessment/Plan #1 sepsis with ?uti: cultures, iv antibiotics #2 left renal stone with hydronephrosis: ivf #3 chronic diastolic heart failure #4 ? s/p cardiac arrest #5 bone mets: bone scan #6 pancreatic mass: mri abdomen once kidney function improves #7 acute renal failure ?vasomotor nephropathy #8 elevated psa ?prostate cancer #9 gerd advance care planning- full code- time spent 19 mins Plan discussed with: Patient Date of Service: Jan 19, 2025 Billing Provider: CARMEN RAMIREZ MD Common Visit Codes: [id number] INP/OBS CARE(HIGH) Secondary Visit Codes: [id number] CARE PLAN 30 MINUTES CARMEN RAMIREZ MD Jan 19, 2025 17:17
[2025-01-19] MEDS: SODIUM CHLORIDE 0.9% 1,000 ML IV SCH (17:48)
[2025-01-19] MEDS: TAMSULOSIN HYDROCHLORIDE 0.4 MG CAP PO SCH (18:19)
[2025-01-19 21:34] VITALS: BP 126/66; PULSE 91; RESP 17; TEMP 97.6; O2SAT 97
[2025-01-19 23:11] VITALS: BP 132/67; PULSE 86; RESP 18; TEMP 98; O2SAT 95
[2025-01-20] VITALS (7 sets, daily range): BP systolic 74–129; BP diastolic 48–78; PULSE 52–143; RESP 17–19; TEMP 96.7–99.6; O2SAT 95–96
[2025-01-20 07:00] LABS: Basophils # (auto) 0 10 ^3/uL (0-0.2); Basophils % (auto) 0.3 % (0.0-2.0); Eosinophils # (auto) 0 10 ^3/uL (0-0.8); Eosinophils % (auto) 0.2 % (0.0-7.0); Hematocrit 41.8 % (41.0-53.0); Hemoglobin 14.6 g/dL (13.5-17.5); Lymphocytes # (auto) 1.5 10 ^3/uL (0.4-5.4); Lymphocytes % (auto) 14.3 % (10.0-50.0); Mean Corpuscular Hemoglobin 30.9 pg (28.0-32.0); Mean Corpuscular Hgb Conc. 34.8 g/dL (32.0-36.0); Mean Corpuscular Volume 88.7 fL (80.0-100.0); Monocytes # (auto) 0.8 10 ^3/uL (0-1.3); Monocytes % (auto) 7.6 % (0.0-12.0); Neutrophils # (auto) 8.3 10 ^3/uL (1.6-8.6); Neutrophils % (auto) 77.6 % (37.0-80.0); Nucleated Red Blood Cells % 0.1 %; Platelet Count (auto) 267 10^3/uL (140-450); Red Blood Cells 4.72 10^6/uL (4.5-5.90); White Blood Cell 10.7 10^3/uL (4.4-10.8)
[2025-01-20 07:08] LABS: Anion Gap 11 (5-15); Calcium 9.3 mg/dL (8.7-10.4); Carbon Dioxide 24 mmol/L (20-31); Chloride 105 mmol/L (98-107); Sodium 140 mmol/L (136-145)
[2025-01-20 07:14] LABS: BUN/Creatinine Ratio 15.5 (10.0-20.0); Blood Urea Nitrogen 20 mg/dL (9-23)
[2025-01-20 07:15] LABS: Glucose 131 mg/dL (74-106)
[2025-01-20] MEDS: FINASTERIDE 5 MG TAB PO SCH (08:45)
--- NOTE | 2025-01-20 12:18 | DVH ---
Procedure: NM BONE WHOLE BODY Exam Date: 01/20/2025 09:59 AM Reason for study/Clinical History: BONE METS Comparison Study: None Prior correlative imaging: CT dated 01/19/2025 Nuclear Medicine Whole Body Bone Scan Technique: Following the intravenous administration of 24.5 millicuries of technetium 99m labeled MDP, whole bod y images in the anterior and posterior projections were obtained 3 hours following the administration of radiopharmaceutical. Findings: There is mild symmetric multifocal activity overlying both shoulders consistent with mild degenerativ e change. The expected mild activity is noted overlying both kidneys and the bladder without evidence of obstru ction. Multiple increased small areas of increased radiopharmaceutical activity are present including the up per sternum, pelvis and spine. Impression: Multiple areas of increased radiopharmaceutical activity are present including the sternum, pelvis an d spine. These likely correspond to sclerotic lesions noted on CT dated 01/19/2025 and are suspicious for metastatic disease. Mild multifocal activity consistent with degenerative changes as described above.
--- NOTE | 2025-01-20 12:59 | DVHPN2 ---
Progress Note Date Seen: Jan 20, 2025 Medical Necessity Reason Pt with a Central, PICC or Fol: No Subjective Patient reports: No new complaints Review of Systems: HEENT:Normal, CVS:Normal, RESPIRATORY:Normal, GI:Normal, :Normal, MSK:Normal, NEURO:Normal Objective vital signs Vital Sign Date Time Temp Pulse Resp B/P (MAP) Pulse Ox O2 Delivery O2 Flow Rate FiO2 01/20/25 08:00 88 17 Room Air* 0 21 01/20/25 05:00 98.8 129/78 (95) 95 98.8 Total Intake and Output 01/19/25 01/19/25 01/20/25 15:00 23:00 07:00 Intake Total 333.334 ml 0 ml Balance 333.334 ml 0 ml medications Current Medications Medications Dose Ordered Sig/Murali Route Start Time Stop Time Status Last Admin Dose Admin Nitroglycerin 0.4 mg Q5MINP PRN SL 01/19/25 06:15 Morphine Sulfate 2 mg Q30M PRN IV 01/19/25 06:15 Vancomycin HCl 0 ml @ 0 mls/hr UD IV 01/19/25 06:15 Meropenem 50 ml @ 17 mls/hr Q8HR IV 01/19/25 14:00 01/19/25 14:00 17 MLS/HR Ondansetron HCl 4 mg Q8HPRN PRN IV 01/19/25 06:30 Pantoprazole Sodium 40 mg DAILY IV 01/19/25 10:00 01/20/25 08:45 40 MG Tamsulosin HCl 0.4 mg QPM PO 01/19/25 18:00 01/19/25 18:19 0.4 MG Finasteride 5 mg DAILY PO 01/20/25 10:00 01/20/25 08:45 5 MG Sodium Chloride 1,000 ml @ 75 mls/hr [id number] IV 01/19/25 17:30 01/19/25 17:48 75 MLS/HR Vancomycin HCl 150 ml @ 150 mls/hr Q12H IV 01/20/25 13:00 Examination: GENERAL:Normal, HEENT:Normal, NECK:Normal, LUNGS:Normal, CVS:Normal, ABDOMEN:Normal, MSK:Normal, SKIN:Normal, NEURO:Normal, :Normal laboratory and microbiology Laboratory Tests 01/20/25 06:21 Test 01/20/25 06:21 Range/Units Serum Glucose 131 H 74-106 mg/dL Microbiology Date/Time Source Procedure Growth Status 01/19/25 07:24 Blood Blood Culture - Preliminary NO GROWTH AFTER 24 HOURS OF INCUBATION. Resulted Problem List/Assessment/Plan Problem List/Assessment/Plan #1 sepsis with ?uti: cultures, iv antibiotics #2 left renal stone with hydronephrosis: ivf #3 chronic diastolic heart failure #4 ? s/p cardiac arrest #5 bone mets #6 pancreatic mass: mri abdomen with contrast #7 acute renal failure ?vasomotor nephropathy #8 elevated psa ?prostate cancer #9 gerd advance care planning- full code- time spent 19 mins Plan discussed with: Patient My Orders My Orders Orders - CARMEN RAMIREZ MD Procedure Category Date Status Time Urinalysis LAB 01/19/25 Uncollected 17:10 Urine Bacterial SOFI 01/19/25 Logged Culture 17:10 Sodium Chloride 0.9% PHA 01/19/25 In Process 17:30 * Senior Scientist CONS 01/20/25 Transmitted Consult * Dietary Consult CONS 01/20/25 Transmitted 04:49 Bone Whole Body NM 01/20/25 Resulted 17:10 Dietary Evaluation Review Comments: 1) Ensure enlive 240ml BID if PO intake <50% estimated needs 2) Continue current POC Expected Outcomes/Goals: To maintain weight fu 3-5 days Date of Service: Jan 20, 2025 Billing Provider: CARMEN RAMIREZ MD Common Visit Codes: [id number] INP/OBS CARE(HIGH) Secondary Visit Codes: [id number] CARE PLAN 30 MINUTES CARMEN RAMIREZ MD Jan 20, 2025 12:59
[2025-01-20] MEDS ORDERED: VANCOMYCIN 750mg/150ml 150 ML IV SCH (13:00)
[2025-01-20] MEDS ORDERED: LORazepam 2MG/ML-1ML VIAL IV ONE (13:00)
[2025-01-20 17:48] LABS: Urine Bacteria None Seen /hpf (None Seen)
[2025-01-20 18:23] LABS: Urine Blood 2+ /uL (Negative); Urine Clarity Clear (Clear); Urine Color Yellow (Yellow); Urine Mucus FEW (None Seen); Urine Protein, UAD 1+ (Negative); Urine Specific Gravity 1.034 (1.001-1.035); Urine Squamous Epithelial Cell FEW /hpf (<5); Urine Urobilinogen 2 mg/dL (Negative); Urine WBC 1 /HPF (0-3); Urine pH 5.5 (5.0-9.0)
--- NOTE | 2025-01-20 20:13 | ECG ---
[facility] Test Date: 2025-01-20 Test Time: 19:56:10 Pat Name: MAGUI YUSUF Department: Room: 0286T A Gender: M Technical Mgr: hj : 1960 Requested By: CARMEN ANTHONY Order Number: [id number] Reading MD: Maxi Yeung Measurements Intervals [place] Rate: 144 P: 0 NC: 0 QRS: 48 QRSD: 84 T: 251 QT: 259 QTc: 401 Interpretive Statements Atrial fibrillation Ventricular premature complex Repolarization abnormality, prob rate related Electronically Signed On 01-21-2025 14:40:52 PDT by Maxi Yeung Please click the below link to view image of tracing.
[2025-01-20] MEDS: DIGOXIN (250MCG/ML) 2 ML AMPULE IV ONE (21:47)
[2025-01-20] MEDS: AMIODARONE BOLUS KIT 100 ML IV ONE (23:45)
[2025-01-21] VITALS (8 sets, daily range): BP systolic 97–133; BP diastolic 57–82; PULSE 66–90; RESP 17–20; TEMP 98–99.2; O2SAT 94–98
[2025-01-21] MEDS: AMIODARONE 360mg/200mL PREMIX 200 ML IV ONE
[2025-01-21] MEDS: AMIODARONE 360mg/200mL PREMIX 200 ML IV SCH (06:00)
[2025-01-21 06:13] LABS: Anion Gap 11 (5-15); Carbon Dioxide 24 mmol/L (20-31); Chloride 107 mmol/L (98-107); INR 0.97 (0.9-1.15); Partial Thromboplastin Time 23.9 SEC (24.5-34.5); Potassium 3.6 mmol/L (3.5-5.1); Prothrombin Time 10.3 sec (9.3-11.8); Sodium 142 mmol/L (136-145)
[2025-01-21 06:19] LABS: BUN/Creatinine Ratio 18.4 (10.0-20.0); Blood Urea Nitrogen 23 mg/dL (9-23); Glucose 141 mg/dL (74-106)
[2025-01-21] MEDS: GADOTERATE MEG 10 MMOL/20ml INJ (0.5MMOL/ml) IV ONE (10:22)
--- NOTE | 2025-01-21 13:57 | DVHPN2 ---
Progress Note - Dictate Date Seen: Jan 21, 2025 Has the PT tested + for MRSA If YES, has PT been informed?: No Medical Necessity Reason Pt with a Central, PICC or Fol: No Medical Necessity Reason Patient has PSA of 75.3 and abnormal nuclear medicine bone scan. We suspect that he has metastatic prostate cancer and he is needing to undergo prostate biopsy. Also he has a right nephrolithiasis, 4 mm and left distal ureteral calculus, 6 mm with mild hydronephrosis. vital signs Vital Sign Date Time Temp Pulse Resp B/P (MAP) Pulse Ox O2 Delivery O2 Flow Rate FiO2 01/21/25 08:00 Room Air* 0 21 01/21/25 08:00 87 01/21/25 05:00 98.2 18 123/72 (89) 97 98.2 Total Intake and Output 01/20/25 01/20/25 01/21/25 15:00 23:00 07:00 Intake Total 250 ml 400 ml Output Total 250 ml Balance 250 ml 150 ml medications Current Medications Medications Dose Ordered Sig/Murali Route Start Time Stop Time Status Last Admin Dose Admin Nitroglycerin 0.4 mg Q5MINP PRN SL 01/19/25 06:15 Morphine Sulfate 2 mg Q30M PRN IV 01/19/25 06:15 Meropenem 50 ml @ 17 mls/hr Q8HR IV 01/19/25 14:00 01/21/25 06:31 17 MLS/HR Ondansetron HCl 4 mg Q8HPRN PRN IV 01/19/25 06:30 Pantoprazole Sodium 40 mg DAILY IV 01/19/25 10:00 01/21/25 09:57 40 MG Tamsulosin HCl 0.4 mg QPM PO 01/19/25 18:00 01/20/25 18:16 0.4 MG Finasteride 5 mg DAILY PO 01/20/25 10:00 01/20/25 08:45 5 MG Sodium Chloride 1,000 ml @ 75 mls/hr [id number] IV 01/19/25 17:30 01/21/25 09:58 75 MLS/HR laboratory and microbiology Laboratory Tests 01/21/25 04:38 01/20/25 06:21 Test 01/21/25 04:38 Range/Units Serum Glucose 141 H 74-106 mg/dL Assessment/Plan Elevated PSA Right nephrolithiasis Left ureteral calculus Bladder calculus Transrectal ultrasound-guided prostate needle biopsy Cystoscopy with bladder stone removal and left ureteral stent placement Left ureteral shockwave lithotripsy Right renal shockwave lithotripsy Dietary Evaluation Review Comments: 1) Ensure enlive 240ml BID if PO intake <50% estimated needs 2) Continue current POC Expected Outcomes/Goals: To maintain weight fu 3-5 days Plan discussed with: Patient, Other JESUS GUTIERREZ MD Jan 21, 2025 13:57
--- NOTE | 2025-01-21 15:02 | DVH ---
MRI MRI ABDOMEN W AND WO INDICATION: PANCREATIC MASS COMPARISON: 01/19/25 PROCEDURE: Multiplanar multisequence MRI images were obtained of the abdomen without intravenous cont rast FINDINGS: Lung Base: Normal. Liver: Normal. Gallbladder and biliary tree: Normal Pancreas: Normal. Spleen: 2.7 x 2.9 x 2.2 cm solid lesion in the pancreatic tail with similar diffusion restriction as the spleen and similar enhancement of the spleen. Pancreas appears atrophic. Bowel: Mild colonic diverticulosis. Adrenal glands: Normal. Kidneys and ureters: 6.7 cm right lower pole kidney cyst. Peritoneum: Normal. Lymph nodes: Normal. Vessels: Normal Abdominal wall: Normal. Bones: Multiple small osseous lesions in the thoracic and vertebral bodies. IMPRESSION: 2.7 x 2.9 x 2.2 cm solid lesion in the pancreatic tail with similar diffusion restriction as the sple en and similar enhancement of the spleen. This could be ectopic splenic tissue with other etiology juarez ch as a pancreatic mass not excluded. A nuclear medicine scan could be considered for further evaluat ion.
--- NOTE | 2025-01-21 15:02 | DVHPN2 ---
Progress Note Date Seen: Jan 21, 2025 Medical Necessity Reason Pt with a Central, PICC or Fol: No Subjective Patient reports: No new complaints Review of Systems: HEENT:Normal, CVS:Normal, RESPIRATORY:Normal, GI:Normal, :Normal, MSK:Normal, NEURO:Normal Objective vital signs Vital Sign Date Time Temp Pulse Resp B/P (MAP) Pulse Ox O2 Delivery O2 Flow Rate FiO2 01/21/25 08:00 Room Air* 0 21 01/21/25 08:00 87 01/21/25 05:00 98.2 18 123/72 (89) 97 98.2 Total Intake and Output 01/20/25 01/20/25 01/21/25 15:00 23:00 07:00 Intake Total 250 ml 400 ml Output Total 250 ml Balance 250 ml 150 ml medications Current Medications Medications Dose Ordered Sig/Murali Route Start Time Stop Time Status Last Admin Dose Admin Nitroglycerin 0.4 mg Q5MINP PRN SL 01/19/25 06:15 Morphine Sulfate 2 mg Q30M PRN IV 01/19/25 06:15 Meropenem 50 ml @ 17 mls/hr Q8HR IV 01/19/25 14:00 01/21/25 14:25 17 MLS/HR Ondansetron HCl 4 mg Q8HPRN PRN IV 01/19/25 06:30 Pantoprazole Sodium 40 mg DAILY IV 01/19/25 10:00 01/21/25 09:57 40 MG Tamsulosin HCl 0.4 mg QPM PO 01/19/25 18:00 01/20/25 18:16 0.4 MG Finasteride 5 mg DAILY PO 01/20/25 10:00 01/20/25 08:45 5 MG Sodium Chloride 1,000 ml @ 75 mls/hr [id number] IV 01/19/25 17:30 01/21/25 09:58 75 MLS/HR Examination: GENERAL:Normal, HEENT:Normal, NECK:Normal, LUNGS:Normal, CVS:Normal, ABDOMEN:Normal, MSK:Normal, SKIN:Normal, NEURO:Normal, :Normal laboratory and microbiology Laboratory Tests 01/21/25 04:38 01/20/25 06:21 Test 01/21/25 04:38 Range/Units Serum Glucose 141 H 74-106 mg/dL Microbiology Date/Time Source Procedure Growth Status 01/20/25 17:38 Voided Urine Urine Culture - Preliminary Resulted 01/19/25 07:24 Blood Blood Culture - Preliminary NO GROWTH AFTER 48 HOURS OF INCUBATION. Resulted Problem List/Assessment/Plan Problem List/Assessment/Plan #1 sepsis with ?uti: cultures, iv antibiotics #2 left renal stone with hydronephrosis: ivf, eswl #3 chronic diastolic heart failure #4 ? s/p cardiac arrest #5 bone mets #6 pancreatic mass: mri abdomen with contrast #7 acute renal failure ?vasomotor nephropathy #8 elevated psa ?prostate cancer: cysto in am/biopsy #9 gerd advance care planning- full code- time spent 19 mins Plan discussed with: Patient Dietary Evaluation Review Comments: 1) Ensure enlive 240ml BID if PO intake <50% estimated needs 2) Continue current POC Expected Outcomes/Goals: To maintain weight fu 3-5 days Date of Service: Jan 21, 2025 Billing Provider: CARMEN RAMIREZ MD Common Visit Codes: [id number] INP/OBS CARE(HIGH) CARMEN RAMIREZ MD Jan 21, 2025 15:02
[2025-01-22] VITALS (8 sets, daily range): BP systolic 104–184; BP diastolic 55–95; PULSE 73–98; RESP 18–21; TEMP 97.3–98.6; O2SAT 94–100
--- NOTE | 2025-01-22 10:36 | DVHPN2 ---
Progress Note Date Seen: Jan 22, 2025 Has the PT tested + for MRSA If YES, has PT been informed?: No Medical Necessity Reason Pt with a Central, PICC or Fol: No Subjective Patient reports: No new complaints Review of Systems: HEENT:Normal, CVS:Normal, RESPIRATORY:Normal, GI:Normal, :Normal, MSK:Normal, NEURO:Normal Objective vital signs Vital Sign Date Time Temp Pulse Resp B/P (MAP) Pulse Ox O2 Delivery O2 Flow Rate FiO2 01/22/25 09:00 98.6 81 20 155/86 (109) 96 98.6 01/21/25 20:00 Room Air* 0 21 Total Intake and Output 01/21/25 01/21/25 01/22/25 15:00 23:00 07:00 Intake Total 1040 ml 830 ml Balance 1040 ml 830 ml medications Current Medications Medications Dose Ordered Sig/Murali Route Start Time Stop Time Status Last Admin Dose Admin Nitroglycerin 0.4 mg Q5MINP PRN SL 01/19/25 06:15 Morphine Sulfate 2 mg Q30M PRN IV 01/19/25 06:15 Ondansetron HCl 4 mg Q8HPRN PRN IV 01/19/25 06:30 Pantoprazole Sodium 40 mg DAILY IV 01/19/25 10:00 01/21/25 09:57 40 MG Tamsulosin HCl 0.4 mg QPM PO 01/19/25 18:00 01/21/25 18:02 0.4 MG Finasteride 5 mg DAILY PO 01/20/25 10:00 01/20/25 08:45 5 MG Sodium Chloride 1,000 ml @ 75 mls/hr [id number] IV 01/19/25 17:30 01/21/25 09:58 75 MLS/HR Ceftriaxone Sodium 50 ml @ 100 mls/hr DAILY@09 IV 01/23/25 09:00 UNV Examination: GENERAL:Normal, HEENT:Normal, NECK:Normal, LUNGS:Normal, CVS:Normal, ABDOMEN:Normal, MSK:Normal, SKIN:Normal, NEURO:Normal, :Normal laboratory and microbiology Laboratory Tests 01/22/25 00:19 01/21/25 04:38 01/20/25 06:21 Test 01/21/25 04:38 Range/Units Serum Glucose 141 H 74-106 mg/dL Microbiology Date/Time Source Procedure Growth Status 01/20/25 17:38 Voided Urine Urine Culture - Preliminary Resulted 01/19/25 07:24 Blood Blood Culture - Preliminary NO GROWTH AFTER 72 HOURS OF INCUBATION. Resulted Problem List/Assessment/Plan Problem List/Assessment/Plan #1 sepsis with ?uti: cultures, iv antibiotics #2 left renal stone with hydronephrosis: ivf, eswl #3 chronic diastolic heart failure #4 ? s/p cardiac arrest #5 bone mets #6 pancreatic mass: liver/spleen scan #7 acute renal failure ?vasomotor nephropathy #8 elevated psa ?prostate cancer: cysto in am/biopsy #9 gerd left message for son Hasmukh advance care planning- full code- time spent 19 mins Plan discussed with: Patient My Orders My Orders Orders - CARMEN RAMIREZ MD Procedure Category Date Status Time Ceftriaxone 1gm/50ml PHA 01/23/25 Logged D5w (Rocephin) 09:00 Basic Metabolic Panel LAB 01/23/25 Verified 06:00 Complete Blood Count LAB 01/23/25 Verified 06:00 Liver Spleen Static NM 01/22/25 Logged Only 10:29 Dietary Evaluation Review Comments: 1) Ensure enlive 240ml BID if PO intake <50% estimated needs 2) Continue current POC Expected Outcomes/Goals: To maintain weight fu 3-5 days Date of Service: Jan 22, 2025 Billing Provider: CARMEN RAMIREZ MD Common Visit Codes: [id number] INP/OBS CARE(HIGH) CARMEN RAMIREZ MD Jan 22, 2025 10:36
--- NOTE | 2025-01-22 11:06 | ECG ---
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
[2025-01-22] MEDS: cefTRIAXone 1GM/50ML D5W 50 ML IV SCH (14:00)
[2025-01-22] MEDS: CIPROFLOXACIN 400MG/200ML 200 ML IV ONE (14:18)
[2025-01-22] MEDS ORDERED: MIDAZOLAM HCL 2MG/2ML 2ml VIAL (1mg/ml) ONE (14:22)
[2025-01-22] MEDS ORDERED: fentaNYL CITRATE 100 MCG/2 ML VL ONE (14:22)
[2025-01-22] MEDS ORDERED: PROPOFOL 10 MG/ML 20 ML IV ONE (14:38)
[2025-01-22] MEDS ORDERED: DexAMETHasone SOD PHOS 10MG/1ML VIAL INJ ONE (14:38)
[2025-01-22] MEDS: IOHEXOL 300 MG/ML 100ML BOTTLE IJ ONE (14:38)
--- NOTE | 2025-01-22 15:41 | DVHNC2 ---
Procedure - OPERATIVE REPORT Pre-op. Diagnosis: Elevated PSA- 77.5 / suspect prostate caner left hydronephrosis left distal ureteral calculus 6-8 mm bladder calculi Post-op. Diagnosis: Same as pre-op diagnosis Operation: Prostate Biopsyl, saturation extended pattern - CPT 45288 Transrectal ultrasound - CPT 62923 Anesthesia: general [facility] Indications: Patient has elevated PSA and symptomatic left ureteral calculus with hydronephrosis. Patient had been prepped with fleet enema, was started on antibiotics and had abstained from blood thinners for at least 7 days. Complication including but not limited to infection, bleeding into urethra, bladder, rectum, ejaculate, as well as urinary retention were discussed, informed consent was obtained. Details of Procedure: Patient was placed in the lithotomy position. A trans-rectal ultrasound was inserted, prostate was measured at 80.1 grams. Next, extended twelve core biopsies were obtained thru a transrectall technique and under real-time ultrasound. Patient tolerated the procedure well and was transferred to the recovery in satisfactory condition. next the patient was prepped and draped in usual sterile manner in the lithotomy position. Cystoscope was used to access the urethra in the bladder. Patient has very large prostate with high median lobe, making the evaluation difficult. Bladder stones were identified and removed using evacuation technique of irrigation and grasping forceps. The left ureteric orifice was then cannulated with sensory guidewire and advanced proximally to the renal pelvis. Five Portuguese by 20 6 cm polaris loop ureteral stent was then placed. During the placement of the stent, I attempted to manipulate the distal ureteral stone more proximally into the mid ureteral segment. Unfortunately the stone was in the pelvic inlet and access to the stone for the lithotripsy was not possible in the supine position. Given patient's cardiac history, anesthesiology did not recommend p sera positioning of the patient. So procedure was terminated at this point without performing lithotripsy. When patient is stabilized, we will have patient return for a ureteroscope epic laser lithotripsy of the ureteral calculus. Maldonado catheter was inserted and patient was awakened and taken to recovery room in stable condition Specimens: 12 Cores Complications: None Findings: left distal ureteral calculus attempted for manipulation without success. Left ureteral stent placed Maldonado catheter inserted prostate gland over 80 g in size and 12 core extended biopsies were taken JESUS GUTIERREZ MD Jan 22, 2025 15:41
[2025-01-22] MEDS: hydrALAZINE HCL 20 MG/ML VL IV PRN (18:49)
[2025-01-23] VITALS (8 sets, daily range): BP systolic 100–146; BP diastolic 53–84; PULSE 77–86; RESP 17–18; TEMP 97.3–98.1; O2SAT 95–98
[2025-01-23] MEDS: HYDROcodone-ACET 5/325MG TAB PO PRN (05:33)
[2025-01-23 07:38] LABS: Basophils # (auto) 0 10 ^3/uL (0-0.2); Basophils % (auto) 0.3 % (0.0-2.0); Eosinophils # (auto) 0 10 ^3/uL (0-0.8); Hematocrit 44.6 % (41.0-53.0); Hemoglobin 15.4 g/dL (13.5-17.5); Lymphocytes # (auto) 0.8 10 ^3/uL (0.4-5.4); Lymphocytes % (auto) 7.2 % (10.0-50.0); Mean Corpuscular Hemoglobin 30.4 pg (28.0-32.0); Mean Corpuscular Hgb Conc. 34.7 g/dL (32.0-36.0); Mean Corpuscular Volume 87.6 fL (80.0-100.0); Monocytes # (auto) 0.7 10 ^3/uL (0-1.3); Monocytes % (auto) 5.8 % (0.0-12.0); Neutrophils % (auto) 86.7 % (37.0-80.0); Nucleated Red Blood Cells % 0.1 %; Platelet Count (auto) 279 10^3/uL (140-450); Red Blood Cells 5.09 10^6/uL (4.5-5.90); Red Cell Distribution Width 13.7 % (11.8-14.3); White Blood Cell 11.5 10^3/uL (4.4-10.8)
[2025-01-23 07:55] LABS: Calcium 9.4 mg/dL (8.7-10.4); Potassium 4.1 mmol/L (3.5-5.1); Sodium 141 mmol/L (136-145)
[2025-01-23 07:56] LABS: Anion Gap 9 (5-15); Carbon Dioxide 23 mmol/L (20-31)
[2025-01-23 07:57] LABS: Chloride 109 mmol/L (98-107)
[2025-01-23 08:01] LABS: BUN/Creatinine Ratio 19.3 (10.0-20.0); Blood Urea Nitrogen 21 mg/dL (9-23)
[2025-01-23 08:10] LABS: Glucose 160 mg/dL (74-106)
[2025-01-23] MEDS: amLODIPine BESYLATE 5 MG TAB PO SCH (09:18)
--- NOTE | 2025-01-23 12:15 | DVH ---
Procedure: NM LIVER SPLEEN STATIC ONLY Exam Date: 01/23/2025 10:45 AM Reason for study/Clinical History: ectopic splenic tissue Comparison Study: CT dated 01/19/2025 MRI dated 01/21/2025 Nuclear Medicine Liver Spleen Scan Technique: The patient received an intravenous injection of 5.5 millicuries of technetium 99m labele d sulfur colloid. After a short delay, anterior and posterior images of the upper abdomen, and anter ior and right lateral inspiration and expiration views were obtained. Findings/IMPRESSION: Unremarkable examination. Findings of ectopic splenic tissue versus pancreatic tail mass in question from prior CT and MRI are indeterminate based on current exam due to lack of SPECT imaging and size of lesions in question. Based upon re-review of prior imaging (CT dated 01/19/2025 and MRI dated 01/21/2025) these lesions fa vor benign splenules. Pancreatic tail lesion can not be completely excluded. Endoscopic ultrasound guided biopsy could be considered to further evaluate if clinically indicated. Recommend repeat multiphasic CT or MRI of the abdomen in 3 months could also be considered to assess for stability.
--- NOTE | 2025-01-23 18:17 | DVHPN2 ---
Subjective in bed resting Reviewed: H&P, Labs Changes from previous H/P or p: No Changes Eyes: No Pain, No Vision change, No Conjunctivae inflammation, No Eyelid inflammation, No Other, No Redness ENT: No Ear pain, No Ear discharge, No Nose pain, No Nose discharge, No Nose congestion, No Mouth pain, No Mouth swelling, No Throat pain, No Throat swelling, No Other Cardiovascular: No Chest Pain, No Palpitations, No Orthopnea, No Paroxysmal Noc. Dyspnea, No Edema, No Lt Headedness, No Other Respiratory: No Cough, No Dry, No Shortness of breath, No SOB with excertion, No Wheezing, No Hemoptysis, No Pleuritic Pain, No Sputum, No Other Gastrointestinal: Nausea, Vomiting, Abdominal Pain; No Diarrhea, No Constipation, No Melena, No Hematochezia, No Other Genitourinary: No Dysuria, No Frequency, No Incontinence, No Hematuria, No Retention, No Other Musculoskeletal: No other, No neck pain, No shoulder pain, No arm pain, No back pain, No hand pain, No leg pain, No foot pain Skin: No Rash, No Lesions, No Jaundice, No Bruising, No Other Objective Vitals Vital Signs Date Time Temp Pulse Resp B/P (MAP) Pulse Ox O2 Delivery O2 Flow Rate FiO2 01/23/25 16:30 98.0 82 18 101/53 (69) 97 98.0 01/23/25 08:00 Room Air* 0 21 Intake/Output Intake and Output 01/23/25 07:00 Intake Total 450 ml Output Total 850 ml Balance -400 ml Intake Oral 400 ml IV Total 50 ml Output Urine Total 850 ml # Voids 1 # Bowel Movements 1 General Appearance: Alert, Oriented X3 Cardiovascular: Regular rate, Normal S1, Normal S2 Abdomen: Normal bowel sounds Medications Current Medications Medications Dose Ordered Sig/Murali Route Start Time Stop Time Status Last Admin Dose Admin Nitroglycerin 0.4 mg Q5MINP PRN SL 01/19/25 06:15 Morphine Sulfate 2 mg Q30M PRN IV 01/19/25 06:15 Ondansetron HCl 4 mg Q8HPRN PRN IV 01/19/25 06:30 Pantoprazole Sodium 40 mg DAILY IV 01/19/25 10:00 01/23/25 09:17 40 MG Tamsulosin HCl 0.4 mg QPM PO 01/19/25 18:00 01/23/25 18:07 0.4 MG Finasteride 5 mg DAILY PO 01/20/25 10:00 01/23/25 09:17 5 MG Sodium Chloride 1,000 ml @ 75 mls/hr [id number] IV 01/19/25 17:30 01/21/25 09:58 75 MLS/HR Ceftriaxone Sodium 50 ml @ 100 mls/hr DAILY@09 IV 01/22/25 14:00 01/23/25 09:17 100 MLS/HR Amlodipine Besylate 10 mg DAILY PO 01/23/25 10:00 01/23/25 09:18 10 MG Hydralazine HCl 10 mg Q6HP PRN IV 01/22/25 17:15 01/22/25 18:49 10 MG Acetaminophen/ Hydrocodone Bitart 1 tab Q6HPRN PRN PO 01/23/25 03:30 01/23/25 11:31 1 TAB Laboratory Results Laboratory Tests 01/23/25 06:55 Chemistry Test 01/23/25 06:55 Calcium Level 9.4 mg/dL (8.7-10.4) Urinalysis Test 01/20/25 17:38 Urine Color Yellow (Yellow) Urine Clarity Clear (Clear) Urine pH 5.5 (5.0-9.0) Urine Specific [place] 1.034 (1.001-1.035) Urine Protein 1+ (Negative) H Urine Ketones 1+ (Negative) H Urine Blood 2+ /uL (Negative) H Urine Nitrite Negative (Negative) Urine Bilirubin Negative (Negative) Urine Urobilinogen 2 mg/dL (Negative) H Urine Leukocyte Esterase Negative /uL (Negative) Urine RBC 78 /hpf (0 - 3) Urine Microscopic WBC 1 /HPF (0-3) Urine Squamous Epithelial Cells Few /hpf (<5) Urine Bacteria None seen /hpf (None Seen) Urine Mucus Few (None Seen) Urine Glucose Normal mg/dL (Normal) Microbiology Microbiology Date/Time Source Procedure Growth Status 01/20/25 17:38 Voided Urine Urine Culture - Final Complete 01/19/25 07:24 Blood Blood Culture - Preliminary NO GROWTH AFTER 72 HOURS OF INCUBATION. Resulted Assessment/Plan Assessment/Plan #1 sepsis with ?uti: cultures, iv antibiotics #2 left renal stone with hydronephrosis: ivf, eswl #3 chronic diastolic heart failure #4 ? s/p cardiac arrest #5 bone mets #6 pancreatic mass: liver/spleen scan #7 acute renal failure ?vasomotor nephropathy #8 elevated psa ?prostate cancer: cysto in am/biopsy #9 gerd Plan discussed with: Patient Date of Service: Jan 23, 2025 Billing Provider: RHEA THORNTON MD Common Visit Codes: [id number] INP/OBS CARE(HIGH) RHEA THORNTON MD Jan 23, 2025 18:17
[2025-01-24] VITALS (7 sets, daily range): BP systolic 115–156; BP diastolic 70–88; PULSE 81–91; RESP 16–20; TEMP 96.6–98; O2SAT 96–98
--- NOTE | 2025-01-24 18:25 | DVHPN2 ---
Subjective in bed resting, some hematuria noted on silva bag and tube Reviewed: H&P, Labs Changes from previous H/P or p: No Changes Eyes: No Pain, No Vision change, No Conjunctivae inflammation, No Eyelid inflammation, No Other, No Redness ENT: No Ear pain, No Ear discharge, No Nose pain, No Nose discharge, No Nose congestion, No Mouth pain, No Mouth swelling, No Throat pain, No Throat swelling, No Other Cardiovascular: No Chest Pain, No Palpitations, No Orthopnea, No Paroxysmal Noc. Dyspnea, No Edema, No Lt Headedness, No Other Respiratory: No Cough, No Dry, No Shortness of breath, No SOB with excertion, No Wheezing, No Hemoptysis, No Pleuritic Pain, No Sputum, No Other Gastrointestinal: Nausea, Vomiting, Abdominal Pain; No Diarrhea, No Constipation, No Melena, No Hematochezia, No Other Genitourinary: No Dysuria, No Frequency, No Incontinence, No Hematuria, No Retention, No Other Musculoskeletal: No other, No neck pain, No shoulder pain, No arm pain, No back pain, No hand pain, No leg pain, No foot pain Skin: No Rash, No Lesions, No Jaundice, No Bruising, No Other Objective Vitals Vital Signs Date Time Temp Pulse Resp B/P (MAP) Pulse Ox O2 Delivery O2 Flow Rate FiO2 01/24/25 16:47 96.6 81 20 123/71 (88) 97 96.6 01/24/25 08:00 Room Air* 0 21 Intake/Output Intake and Output 01/24/25 07:00 Intake Total 1450 ml Output Total 950 ml Balance 500 ml Intake Oral 1400 ml IV Total 50 ml Output Urine Total 950 ml General Appearance: Alert, Oriented X3 Cardiovascular: Regular rate, Normal S1, Normal S2 Abdomen: Normal bowel sounds Medications Current Medications Medications Dose Ordered Sig/Murali Route Start Time Stop Time Status Last Admin Dose Admin Nitroglycerin 0.4 mg Q5MINP PRN SL 01/19/25 06:15 Morphine Sulfate 2 mg Q30M PRN IV 01/19/25 06:15 Ondansetron HCl 4 mg Q8HPRN PRN IV 01/19/25 06:30 Pantoprazole Sodium 40 mg DAILY IV 01/19/25 10:00 01/24/25 09:26 40 MG Tamsulosin HCl 0.4 mg QPM PO 01/19/25 18:00 01/24/25 17:22 0.4 MG Finasteride 5 mg DAILY PO 01/20/25 10:00 01/24/25 09:29 5 MG Sodium Chloride 1,000 ml @ 75 mls/hr [id number] IV 01/19/25 17:30 01/24/25 17:23 75 MLS/HR Ceftriaxone Sodium 50 ml @ 100 mls/hr DAILY@09 IV 01/22/25 14:00 01/24/25 09:26 100 MLS/HR Amlodipine Besylate 10 mg DAILY PO 01/23/25 10:00 01/24/25 09:25 10 MG Hydralazine HCl 10 mg Q6HP PRN IV 01/22/25 17:15 01/22/25 18:49 10 MG Acetaminophen/ Hydrocodone Bitart 1 tab Q6HPRN PRN PO 01/23/25 03:30 01/24/25 12:52 1 TAB Laboratory Results Laboratory Tests 01/23/25 06:55 Urinalysis Test 01/20/25 17:38 Urine Color Yellow (Yellow) Urine Clarity Clear (Clear) Urine pH 5.5 (5.0-9.0) Urine Specific [place] 1.034 (1.001-1.035) Urine Protein 1+ (Negative) H Urine Ketones 1+ (Negative) H Urine Blood 2+ /uL (Negative) H Urine Nitrite Negative (Negative) Urine Bilirubin Negative (Negative) Urine Urobilinogen 2 mg/dL (Negative) H Urine Leukocyte Esterase Negative /uL (Negative) Urine RBC 78 /hpf (0 - 3) Urine Microscopic WBC 1 /HPF (0-3) Urine Squamous Epithelial Cells Few /hpf (<5) Urine Bacteria None seen /hpf (None Seen) Urine Mucus Few (None Seen) Urine Glucose Normal mg/dL (Normal) Microbiology Microbiology Date/Time Source Procedure Growth Status 01/20/25 17:38 Voided Urine Urine Culture - Final Complete 01/19/25 07:24 Blood Blood Culture - Final NO GROWTH AFTER 5 DAYS OF INCUBATION. Complete Assessment/Plan Assessment/Plan #1 sepsis with ?uti: cultures, iv antibiotics #2 left renal stone with hydronephrosis: left distal ureteral calculus attempted for manipulation without success. Left ureteral stent placed Silva catheter inserted Continues to have hematuria Monitor CBC and BMP #3 chronic diastolic heart failure #4 ? s/p cardiac arrest #5 bone mets #6 pancreatic mass: liver/spleen scan #7 acute renal failure ?vasomotor nephropathy #8 elevated psa ?prostate cancer: cysto in am/biopsy #9 gerd Plan discussed with: Patient Date of Service: Jan 24, 2025 Billing Provider: RHEA THORNTON MD Common Visit Codes: [id number] INP/OBS CARE(HIGH) RHEA THORNTON MD Jan 24, 2025 18:25
[2025-01-25] VITALS (7 sets, daily range): BP systolic 112–137; BP diastolic 69–90; PULSE 79–86; RESP 16–48; TEMP 97.1–100.4; O2SAT 94–97
[2025-01-25 06:41] LABS: Basophils # (auto) 0 10 ^3/uL (0-0.2); Basophils % (auto) 0.5 % (0.0-2.0); Eosinophils # (auto) 0.2 10 ^3/uL (0-0.8); Eosinophils % (auto) 2.5 % (0.0-7.0); Hematocrit 41.1 % (41.0-53.0); Hemoglobin 14.1 g/dL (13.5-17.5); Lymphocytes # (auto) 1.6 10 ^3/uL (0.4-5.4); Lymphocytes % (auto) 19.6 % (10.0-50.0); Mean Corpuscular Hemoglobin 29.9 pg (28.0-32.0); Mean Corpuscular Hgb Conc. 34.4 g/dL (32.0-36.0); Mean Corpuscular Volume 86.9 fL (80.0-100.0); Monocytes # (auto) 0.8 10 ^3/uL (0-1.3); Neutrophils # (auto) 5.3 10 ^3/uL (1.6-8.6); Neutrophils % (auto) 67.4 % (37.0-80.0); Nucleated Red Blood Cells % 0.1 %; Platelet Count (auto) 274 10^3/uL (140-450); Red Blood Cells 4.73 10^6/uL (4.5-5.90); Red Cell Distribution Width 13.5 % (11.8-14.3); White Blood Cell 7.9 10^3/uL (4.4-10.8)
[2025-01-25 06:48] LABS: Anion Gap 10 (5-15); Carbon Dioxide 23 mmol/L (20-31); Potassium 3.7 mmol/L (3.5-5.1); Sodium 142 mmol/L (136-145)
[2025-01-25 06:50] LABS: Calcium 8.9 mg/dL (8.7-10.4); Chloride 109 mmol/L (98-107)
[2025-01-25 06:55] LABS: BUN/Creatinine Ratio 17.4 (10.0-20.0); Blood Urea Nitrogen 15 mg/dL (9-23)
[2025-01-25 06:59] LABS: Glucose 139 mg/dL (74-106)
--- NOTE | 2025-01-25 19:27 | DVHPN2 ---
Subjective in bed resting, some hematuria noted on silva bag and tube Reviewed: H&P, Labs Changes from previous H/P or p: No Changes Eyes: No Pain, No Vision change, No Conjunctivae inflammation, No Eyelid inflammation, No Other, No Redness ENT: No Ear pain, No Ear discharge, No Nose pain, No Nose discharge, No Nose congestion, No Mouth pain, No Mouth swelling, No Throat pain, No Throat swelling, No Other Cardiovascular: No Chest Pain, No Palpitations, No Orthopnea, No Paroxysmal Noc. Dyspnea, No Edema, No Lt Headedness, No Other Respiratory: No Cough, No Dry, No Shortness of breath, No SOB with excertion, No Wheezing, No Hemoptysis, No Pleuritic Pain, No Sputum, No Other Gastrointestinal: Nausea, Vomiting, Abdominal Pain; No Diarrhea, No Constipation, No Melena, No Hematochezia, No Other Genitourinary: No Dysuria, No Frequency, No Incontinence, No Hematuria, No Retention, No Other Musculoskeletal: No other, No neck pain, No shoulder pain, No arm pain, No back pain, No hand pain, No leg pain, No foot pain Skin: No Rash, No Lesions, No Jaundice, No Bruising, No Other Objective Vitals Vital Signs Date Time Temp Pulse Resp B/P (MAP) Pulse Ox O2 Delivery O2 Flow Rate FiO2 01/25/25 17:00 97.1 84 48 137/90 (106) 97 97.1 01/25/25 08:10 Room Air* 0 21 Intake/Output Intake and Output 01/25/25 07:00 Intake Total 2600 ml Output Total 1220 ml Balance 1380 ml Intake Oral 1600 ml IV Total 1000 ml Output Urine Total 1220 ml General Appearance: Alert, Oriented X3 Cardiovascular: Regular rate, Normal S1, Normal S2 Abdomen: Normal bowel sounds Medications Current Medications Medications Dose Ordered Sig/Murali Route Start Time Stop Time Status Last Admin Dose Admin Nitroglycerin 0.4 mg Q5MINP PRN SL 01/19/25 06:15 Morphine Sulfate 2 mg Q30M PRN IV 01/19/25 06:15 Ondansetron HCl 4 mg Q8HPRN PRN IV 01/19/25 06:30 Pantoprazole Sodium 40 mg DAILY IV 01/19/25 10:00 01/25/25 08:52 40 MG Tamsulosin HCl 0.4 mg QPM PO 01/19/25 18:00 01/25/25 18:25 0.4 MG Finasteride 5 mg DAILY PO 01/20/25 10:00 01/25/25 08:52 5 MG Sodium Chloride 1,000 ml @ 75 mls/hr [id number] IV 01/19/25 17:30 01/25/25 02:21 75 MLS/HR Ceftriaxone Sodium 50 ml @ 100 mls/hr DAILY@09 IV 01/22/25 14:00 01/25/25 08:51 100 MLS/HR Amlodipine Besylate 10 mg DAILY PO 01/23/25 10:00 01/25/25 08:53 10 MG Hydralazine HCl 10 mg Q6HP PRN IV 01/22/25 17:15 01/22/25 18:49 10 MG Acetaminophen/ Hydrocodone Bitart 1 tab Q6HPRN PRN PO 01/23/25 03:30 01/24/25 12:52 1 TAB Laboratory Results Laboratory Tests 01/25/25 06:00 Chemistry Test 01/25/25 06:00 Calcium Level 8.9 mg/dL (8.7-10.4) Urinalysis Test 01/20/25 17:38 Urine Color Yellow (Yellow) Urine Clarity Clear (Clear) Urine pH 5.5 (5.0-9.0) Urine Specific [place] 1.034 (1.001-1.035) Urine Protein 1+ (Negative) H Urine Ketones 1+ (Negative) H Urine Blood 2+ /uL (Negative) H Urine Nitrite Negative (Negative) Urine Bilirubin Negative (Negative) Urine Urobilinogen 2 mg/dL (Negative) H Urine Leukocyte Esterase Negative /uL (Negative) Urine RBC 78 /hpf (0 - 3) Urine Microscopic WBC 1 /HPF (0-3) Urine Squamous Epithelial Cells Few /hpf (<5) Urine Bacteria None seen /hpf (None Seen) Urine Mucus Few (None Seen) Urine Glucose Normal mg/dL (Normal) Microbiology Microbiology Date/Time Source Procedure Growth Status 01/20/25 17:38 Voided Urine Urine Culture - Final Complete 01/19/25 07:24 Blood Blood Culture - Final NO GROWTH AFTER 5 DAYS OF INCUBATION. Complete Assessment/Plan Assessment/Plan #1 sepsis with ?uti: cultures, iv antibiotics #2 left renal stone with hydronephrosis: left distal ureteral calculus attempted for manipulation without success. Left ureteral stent placed Silva catheter inserted Continues to have hematuria Monitor CBC and BMP #3 chronic diastolic heart failure #4 ? s/p cardiac arrest #5 bone mets #6 pancreatic mass: liver/spleen scan #7 acute renal failure ?vasomotor nephropathy #8 elevated psa ?prostate cancer: cysto in am/biopsy #9 gerd Plan discussed with: Patient Date of Service: Jan 25, 2025 Billing Provider: RHEA THORNTON MD Common Visit Codes: [id number] INP/OBS CARE(HIGH) RHEA THORNTON MD Jan 25, 2025 19:27
[2025-01-26] VITALS (8 sets, daily range): BP systolic 97–152; BP diastolic 56–76; PULSE 72–88; RESP 17–18; TEMP 97–98.8; O2SAT 95–98
[2025-01-26 06:43] LABS: Basophils # (auto) 0.1 10 ^3/uL (0-0.2); Basophils % (auto) 0.6 % (0.0-2.0); Eosinophils # (auto) 0.3 10 ^3/uL (0-0.8); Eosinophils % (auto) 2.9 % (0.0-7.0); Hematocrit 40.5 % (41.0-53.0); Lymphocytes # (auto) 1.7 10 ^3/uL (0.4-5.4); Mean Corpuscular Hemoglobin 30.4 pg (28.0-32.0); Mean Corpuscular Hgb Conc. 34.6 g/dL (32.0-36.0); Mean Corpuscular Volume 87.8 fL (80.0-100.0); Monocytes # (auto) 0.8 10 ^3/uL (0-1.3); Monocytes % (auto) 8.7 % (0.0-12.0); Neutrophils # (auto) 6.3 10 ^3/uL (1.6-8.6); Neutrophils % (auto) 68.8 % (37.0-80.0); Nucleated Red Blood Cells % 0.1 %; Platelet Count (auto) 268 10^3/uL (140-450); Red Blood Cells 4.61 10^6/uL (4.5-5.90); Red Cell Distribution Width 13.8 % (11.8-14.3); White Blood Cell 9.1 10^3/uL (4.4-10.8)
[2025-01-26 06:54] LABS: Sodium 144 mmol/L (136-145)
[2025-01-26 06:55] LABS: Anion Gap 10 (5-15); Calcium 8.9 mg/dL (8.7-10.4); Carbon Dioxide 24 mmol/L (20-31)
[2025-01-26 07:00] LABS: BUN/Creatinine Ratio 19.4 (10.0-20.0); Blood Urea Nitrogen 18 mg/dL (9-23)
[2025-01-26 07:01] LABS: Chloride 110 mmol/L (98-107); Glucose 188 mg/dL (74-106)
--- NOTE | 2025-01-26 15:03 | DVHPN2 ---
Progress Note Date Seen: Jan 26, 2025 Has the PT tested + for MRSA If YES, has PT been informed?: No Medical Necessity Reason Pt with a Central, PICC or Fol: Yes The following are medically ne: Silva Catheter Reason for silva catheter: Strict I&O Subjective Patient reports: No new complaints Review of Systems: HEENT:Normal, CVS:Normal, RESPIRATORY:Normal, GI:Normal, :Normal, MSK:Normal, NEURO:Normal Objective vital signs Vital Sign Date Time Temp Pulse Resp B/P (MAP) Pulse Ox O2 Delivery O2 Flow Rate FiO2 01/26/25 12:59 97.0 82 18 109/60 (76) 98 97.0 01/26/25 08:10 Room Air* 0 21 Total Intake and Output 01/25/25 01/25/25 01/26/25 15:00 23:00 07:00 Intake Total 950 ml 250 ml Output Total 650 ml 100 ml Balance 300 ml 150 ml medications Current Medications Medications Dose Ordered Sig/Murali Route Start Time Stop Time Status Last Admin Dose Admin Nitroglycerin 0.4 mg Q5MINP PRN SL 01/19/25 06:15 Morphine Sulfate 2 mg Q30M PRN IV 01/19/25 06:15 Ondansetron HCl 4 mg Q8HPRN PRN IV 01/19/25 06:30 Pantoprazole Sodium 40 mg DAILY IV 01/19/25 10:00 01/26/25 09:33 40 MG Tamsulosin HCl 0.4 mg QPM PO 01/19/25 18:00 01/25/25 18:25 0.4 MG Finasteride 5 mg DAILY PO 01/20/25 10:00 01/26/25 09:33 5 MG Sodium Chloride 1,000 ml @ 75 mls/hr [id number] IV 01/19/25 17:30 01/26/25 09:34 75 MLS/HR Ceftriaxone Sodium 50 ml @ 100 mls/hr DAILY@09 IV 01/22/25 14:00 01/26/25 09:34 100 MLS/HR Amlodipine Besylate 10 mg DAILY PO 01/23/25 10:00 01/26/25 09:34 10 MG Hydralazine HCl 10 mg Q6HP PRN IV 01/22/25 17:15 01/22/25 18:49 10 MG Acetaminophen/ Hydrocodone Bitart 1 tab Q6HPRN PRN PO 01/23/25 03:30 01/24/25 12:52 1 TAB Examination: GENERAL:Normal, HEENT:Normal, NECK:Normal, LUNGS:Normal, CVS:Normal, ABDOMEN:Normal, MSK:Normal, SKIN:Normal, NEURO:Normal, :Normal laboratory and microbiology Laboratory Tests 01/26/25 06:13 Test 01/26/25 06:13 Range/Units Serum Glucose 188 H 74-106 mg/dL Microbiology Date/Time Source Procedure Growth Status 01/20/25 17:38 Voided Urine Urine Culture - Final Complete 01/19/25 07:24 Blood Blood Culture - Final NO GROWTH AFTER 5 DAYS OF INCUBATION. Complete Problem List/Assessment/Plan Problem List/Assessment/Plan #1 sepsis with ?uti: cultures, iv antibiotics #2 left renal stone with hydronephrosis: s/p stent #3 chronic diastolic heart failure #4 ? 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
[2025-01-27 01:00] VITALS: BP 101/59; PULSE 80; RESP 18; TEMP 98.6; O2SAT 99
[2025-01-27 05:00] VITALS: BP 110/62; PULSE 77; RESP 18; TEMP 98.8; O2SAT 96
[2025-01-27] MEDS: PANTOPRAZOLE 40 MG TAB PO SCH (05:57)
[2025-01-27 09:00] VITALS: BP 133/73; PULSE 79; RESP 17; TEMP 98.1; O2SAT 97
[2025-01-27 12:47] VITALS: BP 98/61; PULSE 80; RESP 19; TEMP 97.9; O2SAT 95
--- NOTE | 2025-01-27 14:13 | DVHDS2 ---
Discharge Summary Date of Admission Jan 19, 2025 at 06:08 Date of Discharge: Jan 27, 2025 Labs/Diagnostic Data: Laboratory Results Test 01/26/25 06:13 01/22/25 15:10 01/22/25 00:19 01/21/25 04:38 White Blood Count 9.1 10^3/uL (4.4-10.8) Red Blood Count 4.61 10^6/uL (4.5-5.90) Hemoglobin 14.0 g/dL (13.5-17.5) Hematocrit 40.5 % (41.0-53.0) Mean Corpuscular Volume 87.8 fL (80.0-100.0) Mean Corpuscular Hemoglobin 30.4 pg (28.0-32.0) Mean Corpuscular Hemoglobin Concent 34.6 g/dL (32.0-36.0) Red Cell Distribution Width 13.8 % (11.8-14.3) Platelet Count 268 10^3/uL (140-450) Mean Platelet Volume 7.3 fL (6.9-10.8) Neutrophils (%) (Auto) 68.8 % (37.0-80.0) Lymphocytes (%) (Auto) 19.0 % (10.0-50.0) Monocytes (%) (Auto) 8.7 % (0.0-12.0) Eosinophils (%) (Auto) 2.9 % (0.0-7.0) Basophils (%) (Auto) 0.6 % (0.0-2.0) Neutrophils # (Auto) 6.3 10 ^3/uL (1.6-8.6) Lymphocytes # (Auto) 1.7 10 ^3/uL (0.4-5.4) Monocytes # (Auto) 0.8 10 ^3/uL (0-1.3) Eosinophils # (Auto) 0.3 10 ^3/uL (0-0.8) Basophils # (Auto) 0.1 10 ^3/uL (0-0.2) Nucleated Red Blood Cells 0.1 % Sodium Level 144 mmol/L (136-145) Potassium Level 4.0 mmol/L (3.5-5.1) Chloride Level 110 mmol/L (98-107) Carbon Dioxide Level 24 mmol/L (20-31) Anion Gap 10 (5-15) Blood Urea Nitrogen 18 mg/dL (9-23) Creatinine 0.93 mg/dL (0.700-1.30) Glomerular Filtration Rate Calc 91 mL/min (>90) BUN/Creatinine Ratio 19.4 (10.0-20.0) Serum Glucose 188 mg/dL (74-106) Calcium Level 8.9 mg/dL (8.7-10.4) Vancomycin Level Trough < 3.0 ug/mL (5-10) Prothrombin Time 10.3 sec (9.3-11.8) Prothrombin Time INR 0.97 (0.9-1.15) Activated Partial Thromboplast Time 23.9 SEC (24.5-34.5) Test 01/20/25 17:38 01/20/25 13:27 01/20/25 06:21 01/19/25 07:24 Urine Color Yellow (Yellow) Urine Clarity Clear (Clear) Urine pH 5.5 (5.0-9.0) Urine Specific [place] 1.034 (1.001-1.035) Urine Protein 1+ (Negative) Urine Ketones 1+ (Negative) Urine Blood 2+ /uL (Negative) Urine Nitrite Negative (Negative) Urine Bilirubin Negative (Negative) Urine Urobilinogen 2 mg/dL (Negative) Urine Leukocyte Esterase Negative /uL (Negative) Urine RBC 78 /hpf (0 - 3) Urine Microscopic WBC 1 /HPF (0-3) Urine Squamous Epithelial Cells Few /hpf (<5) Urine Bacteria None seen /hpf (None Seen) Urine Mucus Few (None Seen) Urine Glucose Normal mg/dL (Normal) CA 19-9 Antigen 26 U/mL (0-35) Random Vancomycin Level < 3.0 ug/mL (5-10) Serum Osmolality 302 mOsm/kg (278-298) Lactic Acid Level 1.6 mmol/L (0.4-2.0) Beta-Hydroxybutyric Acid 0.739 mmol/L (< 0.4) Plasma/Serum Blood Alcohol < 3.0 mg/dL (<10) Test 01/19/25 06:53 01/19/25 05:38 01/19/25 02:36 Blood Gas Specimen Type Arterial Blood Gas Sample Site Right brachial Blood Gas Patient Temperature 37.0 Arterial Blood Date Drawn [id number] Arterial Blood pH 7.417 (7.350-7.450) Arterial Blood Partial Pressure CO2 31.6 mmHg (35.0-48.0) Arterial Blood Partial Pressure O2 69.7 mmHg (83.0-108.0) Arterial Blood HCO3 19.9 mmol/L (21.0-28.0) Arterial Blood Oxygen Saturation 93.8 % (94.0-98.0) Arterial Blood Base Excess -3.5 mmol/L (-2.0-3.0) Arterial Blood Oxyhemoglobin 91.1 % (94.0-98.0) Arterial Blood Carboxyhemoglobin 2.5 % (0.5-1.5) Arterial Blood Methemoglobin 0.4 % (0.0-1.5) Arturo Test N/a Blood Gas Total Hemoglobin 15.10 g/dL (13.5-17.5) Blood Gas Liter Flow 4.00 Blood Gas Modality Nasal cannula FiO2 % 36.0 Troponin I High Sensitivity 6 ng/L (</=54) Lipase 42 U/L (12-53) Thyroid Stimulating Hormone (TSH) 0.61 uIU/mL (0.55-4.78) Hemoglobin A1c 6.2 % A1C (<5.7) Total Bilirubin 1.5 mg/dL (0.2-1.0) Aspartate Amino Transferase (AST) 13 U/L (13-40) Alanine Aminotransferase (ALT) 12 U/L (7-40) Alkaline Phosphatase 145 U/L (46-116) B-Type Natriuretic Peptide 20.93 pg/mL (0-100) Total Protein 7.4 g/dL (5.7-8.2) Albumin 4.7 g/dL (3.2-4.8) Carcinoembryonic Antigen 2.55 ng/mL (<=5.0) Prostate Specific Antigen 75.31 ng/mL (0.0-4.0) Other Laboratory Tests 01/26/25 06:13 Brief Hx & Hospital Course: see dictated note Condition at Discharge: Fair Final Diagnosis/Problems List prostate cancer Discharge Disposition: [facility] Facility Discharge Instruct/Medications Diet: Regular Activity: No Restrictions, As Tolerated Follow Up/Referral: fu with urology/oncology in 1-2 wks Medications: per mar dc with silva Discharge Statement: "Patient was advised to return to the ER or call 911 if any headaches, dizziness, shortness of breath, chest pain, abdominal pain, bleeding, fevers, or worsening of medical condition. Patient was counseled about treatment plan, medications, possible side effects, patientverbalized understanding. All questions were answered to the best of my ability. This discharge took greater then 30 minutes in planning, reviewing documentation, counseling the patient, and discussing with other team members." ASSESSMENT ASSESSMENT Assessment prostate cancer Date of Service: Jan 27, 2025 Billing Provider: CARMEN RAMIREZ MD Common Visit Codes: 08425-SYQ/OBS DISCH DAY >30min CARMEN RAMIREZ MD Jan 27, 2025 14:13
--- NOTE | 2025-01-27 14:49 | DVHDS ---
DATE OF DISCHARGE: 01/25/2025 HISTORY OF PRESENT ILLNESS: The patient is a 64-year-old gentleman who was admitted with history of nausea, vomiting and has a previous history of kidney stones, CHF, GERD, and history of cardiac arrest. HOSPITAL COURSE: The patient had a CT of the abdomen and pelvis that showed evidence of left hydronephrosis with a 6 mm obstructing distal left ureteral calculus as well as a mass in the pancreatic tail and bladder calculi and BPH along with multiple sclerotic osseous lesions. The patient had a bone scan that showed evidence of increased uptake in sternum, pelvis, and spine suggestive of metastatic disease. The patient had MRI of the abdomen and pelvis that showed a solid lesion on the pancreatic tail with similar diffusion restriction as the spleen. Liver, spleen scan done also suggested possible findings of ectopic splenic tissue. The patient had urine cultures that were negative. The patient's PSA was elevated at 75 and the CEA and CA 19-9 were negative. Hemoglobin A1c was 6.2. The patient was seen in Urology consult by Dr. Jenkins. The patient underwent prostate biopsy along with a left ureteral stent placement. Left ureteral calculus removal was unsuccessful. The patient will now be discharged to a halfway facility with medications as per med reconciliation. He will follow up with Oncology as well as Dr. Jenkins in the next 1-2 weeks. I have also explained this in detail to his son, Hasmukh. Echocardiogram done showed an ejection fraction of 70%. FINAL DIAGNOSES: * Sepsis, questionably secondary to UTI. * Left renal stone with hydronephrosis, status post stent placement. * Metastatic prostate cancer. * Chronic diastolic heart failure. * Prior history of cardiac arrest. * Acute renal failure, questionable vasomotor nephropathy. 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 * GERD. Time spent in discharge plan, review of plan with the patient, nursing, and family was 39 minutes. MD HERMAN Goins/MICHAEL/AMI TID: [id number] RECEIPT: [id number]
== END 2025-01-27 19:05 | DRG 853 ==
LOC: ER 02:18 → OVERFLOW 06:08 → TELE-WESTW 21:34 → WEST WING 01-26 23:54
PROVIDERS: ADMIT Internal Medicine; ATTEND Internal Medicine
PROC: 0TCB8ZZ Extirpation of Matter from Bladder, Via Natural or Artificial Opening Endoscopic (ICD-10-PCS; 2025-01-22)
PROC: 0VB08ZX Excision of Prostate, Via Natural or Artificial Opening Endoscopic, Diagnostic (ICD-10-PCS; principal; 2025-01-22 14:47)
PROC: 0T778DZ Dilation of Left Ureter with Intraluminal Device, Via Natural or Artificial Opening Endoscopic (ICD-10-PCS; 2025-01-22 14:47)
DX: A41.9 Sepsis, unspecified organism (principal); N17.0 Acute kidney failure with tubular necrosis; N13.6 Pyonephrosis; C79.51 Secondary malignant neoplasm of bone; I50.32 Chronic diastolic (congestive) heart failure; E87.20 Acidosis, unspecified; N21.0 Calculus in bladder; K21.9 Gastro-esophageal reflux disease without esophagitis; K86.9 Disease of pancreas, unspecified; F17.210 Nicotine dependence, cigarettes, uncomplicated; E80.6 Other disorders of bilirubin metabolism; I11.0 Hypertensive heart disease with heart failure; C61 Malignant neoplasm of prostate; N40.0 Benign prostatic hyperplasia without lower urinary tract symptoms; Z87.442 Personal history of urinary calculi; Z86.74 Personal history of sudden cardiac arrest
CPT/HCPCS: 36415; 36600; 71045; 74177; 74183; 76700; 78215; 78306; 80048; 80053; 80202; 80320; 81001; 82010; 82360; 82378; 82565; 82805; 83036; 83605; 83690; 83880; 83930; 84153; 84443; 84484; 85025; 85610; 85730; 86301; 86850; 86900; 86901; 87040; 87086; 93005; 93306; 97110; 97116; 97163; 97530; 99291; A4344; G0378; J1100; J1885; J2185; J2250; J2405; J2470; J2704; J3490

== ENCOUNTER 2025-03-24 08:22 | Inpatient (IN) | payer MEDICARE, MEDICAID ==
[~2025-03-24] VITALS: Ht 167.6 cm; Wt 75.8 kg
--- NOTE | 2025-03-24 08:40 | ECG ---
[facility] Test Date: 2025-03-24 Test Time: 08:29:00 Pat Name: MAGUI YUSUF Department: ED Room: [facility]T Gender: M Orthotic Aide: BASILIO : 1960 Requested By: LICO MAKI Order Number: [id number] Reading MD: Maxi Yeung Measurements Intervals [place] Rate: 100 P: 81 IN: 125 QRS: 68 QRSD: 97 T: -87 QT: 361 QTc: 466 Interpretive Statements Sinus tachycardia Abnormal R-wave progression, late transition Inferior infarct, age indeterminate Lateral leads are also involved Electronically Signed On 03-30-2025 17:28:16 PDT by Maxi Yeung Please click the below link to view image of tracing.
--- NOTE | 2025-03-24 08:54 | ED.PDOC ---
Altered Mental Status HPI Comments 65 y/o M, BIBA, with PMHx of CHF and HTN presents to the ED for CC of ALOC. EMS reports, patient is coming from nursing facility where staff called d/t patient becoming increasingly altered x1day. EMS relays, per staff patient's baseline is normally altered however, he has now had a change in behavior. In route to the ED, patient was given 500mL IVF with no change in behavior. At this time patient c/o pain to his penile area by holding the area; patient has a Maldonado catheter in place. No other symptoms or modifying factors are obtainable at this time. Time Seen by MD: 08:45 Reviewed Notes: Nurses Notes, Hospice Director Notes, Medications, Allergies Allergies: Coded Allergies: NO KNOWN ALLERGIES (Unverified , 03/24/25) Information Source: Emergency Med Personnel Mode of Arrival: EMS Severity: Moderate Timing: Days Duration: Since onset Prehospital treatment: IVF Quality: Change in Behavior Recent: None History of: Indwelling Maldonado Associated Signs and Symptoms: None Past Medical History PAST MEDICAL HISTORY: CHF, HTN Surgical History: Unknown Family History Family History: Unknown Social History Smoker: Non-Smoker Alcohol: Denies ETOH Use Drugs: Denies Drug Use Lives In: Home Genitourinary: reports: others (penile pain) Unable to Obtain due to: Altered Mental Status Physical Exam General Appearance: Moderate Distress HEENT: Normal ENT Inspection, Pharynx Normal, TMs Normal Neck: Full Range of Motion, Non-Tender, Normal, Normal Inspection Respiratory: Chest Non-Tender, Lungs Clear, No Accessory Muscle Use, No Respiratory Distress, Normal Breath Sounds Cardiovascular: No Edema, No JVD, No Murmur, No Gallop, Normal Peripheral Pulses, Regular Rate/Rhythm Breast Exam: Deferred Gastrointestinal: No Organomegaly, Non Tender, No Pulsatile Mass, Normal Bowel Sounds, Soft Genitalia: Deferred Pelvic: Deferred Rectal: Deferred Extremities: Decreased range of motion, No calf tenderness, No pedal edema Musculoskeletal : Apperance: Normal Neurologic: Disoriented Cerebellar Function: NOT DONE Reflexes: NOT DONE Skin: Pallor Lymphatic: No Adenopathy EKG EKG : Pulse Rate (adult): 100 [place]: Normal Cardiac Rhythm: ST Block: None Hypertrophy: None ST: Normal Was a procedure done? Was a procedure done?: No Differential Diagnosis (ALOC) Differential Diagnosis: Dehydration, Hypoglycemia, Sepsis X-Ray, Labs, Meds, VS Vital Signs Date Time Temp Pulse Resp B/P (MAP) Pulse Ox O2 Delivery O2 Flow Rate FiO2 03/24/25 08:55 98.8 101 18 102/71 95 98.8 03/24/25 08:55 100 03/24/25 08:29 100 Lab Test 03/24/25 11:04 Range/Units White Blood Count Pending Red Blood Count Pending Hemoglobin Pending Hematocrit Pending Mean Corpuscular Volume Pending Mean Corpuscular Hemoglobin Pending Mean Corpuscular Hemoglobin Concent Pending Red Cell Distribution Width Pending Platelet Count Pending Mean Platelet Volume Pending Neutrophils (%) (Auto) Pending Lymphocytes (%) (Auto) Pending Monocytes (%) (Auto) Pending Basophils (%) (Auto) Pending Neutrophils # (Auto) Pending Lymphocytes # (Auto) Pending Monocytes # (Auto) Pending Sodium Level Pending Potassium Level Pending Chloride Level Pending Carbon Dioxide Level Pending Anion Gap Pending Blood Urea Nitrogen Pending Creatinine Pending Glomerular Filtration Rate Calc Pending BUN/Creatinine Ratio Pending Serum Glucose Pending Calcium Level Pending Troponin I High Sensitivity Pending [place] [id number] Ph: [phone] DIAGNOSTIC IMAGING Diagnostic Imaging Report : [id number] Signed PATIENT: MAGUI VEGA ACCT: [id number] UNIT: [id number] : 1960 LOC: ER ROOM / BED: / AGE / SEX: 65 / M ADM STATUS: REG ER SERVICE [id number] ORDERING PHYSICIAN: LICO MAKI MD PROCEDURE(s): CXRP - CHEST PORTABLE REASON: sob ORDER NUMBER(s): [id number], ACCESSION NUMBER(s): [id number] INDICATION: sob TECHNIQUE: Frontal view of the chest. COMPARISON: None FINDINGS: . The heart and mediastinal contours are grossly unremarkable. There is no evidence of pleural disease. The lungs are clear. The bony structures of the chest are intact without fracture. IMPRESSION: 1. No evidence of acute disease. ATED BY: TO PLASCENCIA MD DICTATED DATE/TIME: 03/24/25 1005 SIGNED BY: TO PLASCENCIA MD SIGNED DATE/TIME: 03/24/25 1005 CC: Patient alert. Chronic condition. Chest x-ray reviewed does not show any acute changes. Vitals stable. He does not ambulate. Establish intravenous access. Was given fluids. Reviewed his history. Difficult to get any information from the patient. Continue monitoring. Time of 1ST Reevaluation: 09:15 Reevaluation 1ST: Unchanged Patient Education/Counseling: Diagnosis, Treatment Family Education/Counseling: No Family Present SEPSIS Sepsis Screen Physician Orders Troponin-I Hs (03/24/25 09:41) Complete Blood Count (03/24/25 09:41) Urinalysis (03/24/25 09:41) Chest Portable (03/24/25 09:41) Hardwood Floor Installation Helper (03/24/25 09:41) Troponin-I Hs (03/24/25 10:41) Troponin-I Hs (03/24/25 12:41) Basic Metabolic Panel (03/24/25 09:41) Vital Signs Date Time Temp Pulse Resp B/P (MAP) Pulse Ox O2 Delivery O2 Flow Rate FiO2 03/24/25 08:55 98.8 101 18 102/71 95 98.8 03/24/25 08:55 100 03/24/25 08:29 100 Laboratory Tests Test 03/24/25 11:04 White Blood Count Pending Departure 1 Departure Time of Disposition: 11:20 Impression: Primary Impression: Metabolic encephalopathy Disposition: ADMITTED INPATIENT Admit to: Med Surg Condition: Guarded Critical Care Note Critical Care Time?: No Stability Stability form required: No Heart Score Heart Score: Heart Score Response (Comments) Value History N/A 0 EKG N/A 0 Age N/A 0 Risk Factors N/A 0 Troponin N/A 0 Total 0 I personally scribed for LICO MAKI MD ([email or web address]) on 03/24/25 at 08:54. Electronically submitted by Aracelis Sidhu ([email or web address]). I personally scribed for LICO MAKI MD ([email or web address]) on 03/24/25 at 08:55. Electronically submitted by Aracelis Sidhu ([email or web address]). I personally scribed for LICO MAKI MD ([email or web address]) on 03/24/25 at 10:11. Electronically submitted by Aracelis Sidhu ([email or web address]). LICO MAKI MD Mar 24, 2025 08:54
--- NOTE | 2025-03-24 10:08 | DVH ---
INDICATION: sob TECHNIQUE: Frontal view of the chest. COMPARISON: None FINDINGS: . The heart and mediastinal contours are grossly unremarkable. There is no evidence of pleural disea se. The lungs are clear. The bony structures of the chest are intact without fracture. IMPRESSION: 1. No evidence of acute disease.
[2025-03-24 11:21] LABS: Hematocrit 33.5 % (41.0-53.0); Hemoglobin 11.4 g/dL (13.5-17.5); Mean Corpuscular Hemoglobin 29.0 pg (28.0-32.0); Mean Corpuscular Volume 85.0 fL (80.0-100.0); Nucleated Red Blood Cells % 0.0 %
[2025-03-24 11:30] LABS: Chloride 105 mmol/L (98-107); Potassium 4.0 mmol/L (3.5-5.1); Sodium 142 mmol/L (136-145)
[2025-03-24 11:31] LABS: Anion Gap 6 (5-15); Calcium 8.7 mg/dL (8.7-10.4); Carbon Dioxide 31 mmol/L (20-31)
[2025-03-24 11:36] LABS: BUN/Creatinine Ratio 27.6 (10.0-20.0)
[2025-03-24 11:37] LABS: Blood Urea Nitrogen 34 mg/dL (9-23); Glucose 137 mg/dL (74-106)
[2025-03-24 12:15] VITALS: PULSE 99; RESP 16; O2SAT 99
[2025-03-24] MEDS: SODIUM CHLORIDE 0.9% 1,000 ML IVB ONE (14:33)
[2025-03-24] MEDS ORDERED: ONDANSETRON HCL 4 MG/2 ML VIAL IV PRN (15:00)
--- NOTE | 2025-03-24 17:54 | DVHHP2 ---
History of Present Illness Reason for Visit: Altered mental status History of Present Illness The patient is a 65-year-old male with past medical history of CHF and hypertension who presented to [facility] ED for evaluation of altered level of consciousness. As reported by EMS, patient is residing at nursing facility when staff member called related to patient becoming increasingly altered for the past 1 day. As reported by staff, patient's baseline is normally altered however, he has now had a change in behavior, complaining of penile pain by holding the area, has Maldonado catheter in place. Patient was seen and evaluated in the ED, laboratory data shows WBC 10.1, platelets 393, sodium 142, potassium 4.0, BUN 34, creatinine 1.23, glucose 137, troponin 8, calcium 8.7, blood pressure 102/71, heart rate 99, temperature 98.8 F, O2 saturation 95% on room air. Chest x-ray show no evidence of acute disease. Please see medication orders section in the computer. On my assessment, patient denied chest pain, no headache, no dizziness, no shortness of breath, no diarrhea, no nausea, no vomiting, no fever, no chills. Patient was admitted for further evaluation and medical management. Past Medical History CHF, HTN Past Surgical History Unknown given patient's mental status Family History Reviewed, noncontributory to the management of this case. Past Social History The patient lives at home, denies smoking, alcohol or illicit drugs abuse. Review of Systems Constitutional: Yes: Weakness; No: Fever, Chills, Sweats, Malaise, Other Eyes: No: Pain, Vision change, Conjunctivae inflammation, Eyelid inflammation, Other, Redness ENT: No: Ear pain, Ear discharge, Nose pain, Nose discharge, Nose congestion, Mouth pain, Mouth swelling, Throat pain, Throat swelling, Other Respiratory: No: Cough, Dry, Shortness of breath, SOB with excertion, Wheezing, Hemoptysis, Pleuritic Pain, Sputum, Wheezing, Other Cardiovascular: No: Chest Pain, Palpitations, Orthopnea, Paroxysmal Noc. Dyspnea, Edema, Lt Headedness, Other Gastrointestinal: No: Nausea, Vomiting, Abdominal Pain, Diarrhea, Constipation, Melena, Hematochezia, Other Genitourinary: No Dysuria, No Frequency, No Incontinence, No Hematuria, No Retention; Other (Maldonado catheter in place) Musculoskeletal: No: other, neck pain, shoulder pain, arm pain, back pain, hand pain, leg pain, foot pain Skin: No: Rash, Lesions, Jaundice, Bruising, Other Neurological: Confusion; No: Weakness, Numbness, Incoordination, Change in speech, Seizures, Other Allergies: Coded Allergies: NO KNOWN ALLERGIES (Unverified , 03/24/25) Medications Current Medications Medications Dose Ordered Sig/Murali Route Start Time Stop Time Status Last Admin Dose Admin Tamsulosin HCl 0.4 mg QPM PO 03/24/25 18:00 Finasteride 5 mg DAILY PO 03/25/25 10:00 Amlodipine Besylate 5 mg DAILY PO 03/25/25 10:00 Pantoprazole Sodium 40 mg DAILY IV 03/25/25 10:00 Sodium Chloride 10 ml Q8HR IV 03/24/25 22:00 Acetaminophen/ Hydrocodone Bitart 1 tab Q4HP PRN PO 03/24/25 15:00 Ondansetron HCl 4 mg Q4HP PRN IV 03/24/25 15:00 Docusate Sodium 100 mg BIDPRN PRN PO 03/24/25 15:00 Acetaminophen 650 mg Q6HP PRN PO 03/24/25 15:00 Exam Vital Signs Vital Signs Date Time Temp Pulse Resp B/P (MAP) Pulse Ox O2 Delivery O2 Flow Rate FiO2 03/24/25 16:30 105 17 111/76 (88) 96 03/24/25 12:15 Nasal Cannula* 2 28 03/24/25 08:55 98.8 98.8 General Appearance: Alert, Cooperative, No acute distress, Other (Oriented x2) HEENT: Atraumatic, PERRLA, EOMI, Mucous membr. moist/pink Respiratory: Normal air movement Cardiovascular: Regular rate, Normal S1, Normal S2, No murmurs Abdominal: Normal bowel sounds, Soft, No tenderness, No hepatospenomegaly, No masses Extremities: No clubbing, No cyanosis, No edema, Normal pulses, No tenderness/swelling Skin: No rashes, No significant lesion Neuro: Normal speech, Normal tone, Sensation intact, Cranial nerves 3-12 NL, Reflexes 2+, Other (Generalized weakness) Psych/Mental Status: Mood NL, Other (Altered mental status) Labs/Xrays Labs Test 03/24/25 15:10 03/24/25 11:04 Range/Units Troponin I High Sensitivity 9 </=54 ng/L White Blood Count 10.1 4.4-10.8 10^3/uL Red Blood Count 3.94 L 4.5-5.90 10^6/uL Hemoglobin 11.4 L 13.5-17.5 g/dL Hematocrit 33.5 L 41.0-53.0 % Mean Corpuscular Volume 85.0 80.0-100.0 fL Mean Corpuscular Hemoglobin 29.0 28.0-32.0 pg Mean Corpuscular Hemoglobin Concent 34.1 32.0-36.0 g/dL Red Cell Distribution Width 15.0 H 11.8-14.3 % Platelet Count 393 140-450 10^3/uL Mean Platelet Volume 6.7 L 6.9-10.8 fL Neutrophils (%) (Auto) 77.0 37.0-80.0 % Lymphocytes (%) (Auto) 16.2 10.0-50.0 % Monocytes (%) (Auto) 5.6 0.0-12.0 % Eosinophils (%) (Auto) 0.6 0.0-7.0 % Basophils (%) (Auto) 0.6 0.0-2.0 % Neutrophils # (Auto) 7.8 1.6-8.6 10 ^3/uL Lymphocytes # (Auto) 1.6 0.4-5.4 10 ^3/uL Monocytes # (Auto) 0.6 0-1.3 10 ^3/uL Eosinophils # (Auto) 0.1 0-0.8 10 ^3/uL Basophils # (Auto) 0.1 0-0.2 10 ^3/uL Nucleated Red Blood Cells 0.0 % Sodium Level 142 136-145 mmol/L Potassium Level 4.0 3.5-5.1 mmol/L Chloride Level 105 98-107 mmol/L Carbon Dioxide Level 31 20-31 mmol/L Anion Gap 6 5-15 Blood Urea Nitrogen 34 H 9-23 mg/dL Creatinine 1.23 0.700-1.30 mg/dL Glomerular Filtration Rate Calc 64 >90 mL/min BUN/Creatinine Ratio 27.6 H 10.0-20.0 Serum Glucose 137 H 74-106 mg/dL Calcium Level 8.7 8.7-10.4 mg/dL B-Type Natriuretic Peptide 33.45 0-100 pg/mL PATIENT: MAGUI VEGA ACCT: [id number] UNIT: [id number] : 1960 LOC: ER ROOM / BED: / AGE / SEX: 65 / M ADM STATUS: REG ER SERVICE [id number] ORDERING PHYSICIAN: LICO MAKI MD PROCEDURE(s): CXRP - CHEST PORTABLE REASON: sob ORDER NUMBER(s): [id number], ACCESSION NUMBER(s): [id number] INDICATION: sob TECHNIQUE: Frontal view of the chest. COMPARISON: None FINDINGS: The heart and mediastinal contours are grossly unremarkable. There is no evidence of pleural disease. The lungs are clear. The bony structures of the chest are intact without fracture. IMPRESSION: 1. No evidence of acute disease. SEPSIS Sepsis Screen Date sepsis recognized/suspect: Mar 24, 2025 Time Sepsis recognized/suspect: 1214 Recent Procedure: No On Antibiotic Therapy: No Respiratory Rate >20: No Heart Rate >90: No Temp<36 C (96.8 F) or >38.3 C: No SBP <90 or MAP <65 mmHG: No New Acute Mental Status Change: No Is the patient on CPAP, BIPAP,: No Physician Orders Tamsulosin Hydrochloride (Flomax) (03/24/25 18:00) Finasteride Tablet (Proscar Tablet) (03/25/25 10:00) Amlodipine Tablet (Norvasc Tablet) (03/25/25 10:00) Pantoprazole (Protonix) (03/25/25 10:00) Allergies (03/24/25 14:53) Code Status (03/24/25 14:53) Sodium Chloride Lock (Saline Lock Ns) (03/24/25 22:00) Oxygen Per Hour (03/24/25 14:53) Hydrocodone-Acet 5/325mg Tab ([place] 5/32 (03/24/25 15:00) Ondansetron Hcl (Zofran) (03/24/25 15:00) Docusate Sodium Capsule (Colace Capsule) (03/24/25 15:00) Fall Risk Precautions In Place QSHIFT (03/24/25 14:53) Complete Blood Count (03/25/25 04:00) Comprehensive Metabolic Panel (03/25/25 04:00) Cardiac Diet-2gna,Lofat,Lochol (03/24/25 Dinner) Condition: Serious (03/24/25 14:53) Acetaminophen Tablet (Tylenol Tablet) (03/24/25 15:00) Maintain Bed Rest (03/24/25 14:53) Sequential Compression Device (03/24/25 ) Admit (03/24/25 17:53) Nitroglycerin Sublingual (Ntrostat Subli (03/24/25 18:00) Morphine Sulfate Injection (03/24/25 18:00) Stat Ekg For Chest Pain (03/24/25 17:53) Notify Md Of Changes From Base (03/24/25 17:53) Welder Fitter Gas For 24 Hours (03/24/25 17:53) Emergency Dysrhythmia Protocol (03/24/25 17:53) Rhythm Strips Once Every Shift (03/24/25 17:53) Oxygen By Nasal Cannula (03/24/25 17:53) Vital Signs Date Time Temp Pulse Resp B/P (MAP) Pulse Ox O2 Delivery O2 Flow Rate FiO2 03/24/25 16:30 105 17 111/76 (88) 96 03/24/25 16:17 106 03/24/25 14:43 97 17 97/59 (72) 03/24/25 12:15 99 16 99 Nasal Cannula* 2 28 03/24/25 12:15 14 16 165/147 (153) 99 03/24/25 12:09 99 Laboratory Tests Test 03/24/25 11:04 White Blood Count 10.1 10^3/uL (4.4-10.8) Assessment/Plan Assessment/Plan Metabolic encephalopathy Altered mental status Generalized weakness Plan 1. Admit to telemetry unit 2. Breathing treatment 3. Pain control management 4. Management of fluids and electrolytes 5. Consultation for hospitalist 6. Diagnostic tests head CT 7. DVT prophylaxis-on SCDs 8. Repeat labs CBC, CMP in a.m. 9. Continue with current medical management 10. Treatment plan discussed with patient and RN. Patient verbalized understanding. Plan discussed with: Patient, Other (RN) My Orders Orders - BABAR HANNON DNP Procedure Category Date Status Time Tamsulosin PHA 03/24/25 In Process Hydrochloride (Flomax) 18:00 Finasteride Tablet PHA 03/25/25 In Process (Proscar Tablet) 10:00 Amlodipine Tablet PHA 03/25/25 In Process (Norvasc Tablet) 10:00 Pantoprazole PHA 03/25/25 In Process (Protonix) 10:00 Allergies JON 03/24/25 In Process 14:53 Code Status CODE 03/24/25 Transmitted 14:53 Sodium Chloride Lock PHA 03/24/25 In Process (Saline Lock Ns) 22:00 Oxygen Per Hour RT 03/24/25 Transmitted 14:53 Hydrocodone-Acet PHA 03/24/25 In Process 5/325mg Tab ([place] 15:00 Ondansetron Hcl PHA 03/24/25 In Process (Zofran) 15:00 Docusate Sodium PHA 03/24/25 In Process Capsule (Colace 15:00 Fall Risk Precautions JON 03/24/[address] 14:53 Complete Blood Count LAB 03/25/25 Verified 04:00 Comprehensive LAB 03/25/25 Verified Metabolic Panel 04:00 Cardiac DIET 03/24/25 Transmitted Diet-2gna,Lofat,Lochol Dinner Condition: Serious JON 03/24/25 In Process 14:53 Acetaminophen Tablet PHA 03/24/25 In Process (Tylenol Tablet) 15:00 Maintain Bed Rest JON 03/24/25 In Process 14:53 Sequential JON 03/24/25 In Process Compression Device Admit ADMIT 03/24/25 Verified 17:53 Nitroglycerin [facility] 03/24/25 Verified Sublingual (Ntrostat 18:00 Morphine Sulfate PHA 03/24/25 Verified Injection 18:00 Stat Ekg For Chest [facility] 03/24/25 Verified Pain 17:53 Notify Md Of Changes [facility] 03/24/25 Verified From Base 17:53 Welder Fitter Gas For [facility] 03/24/25 Verified 24 Hours 17:53 Emergency Dysrhythmia [facility] 03/24/25 Verified Protocol 17:53 Rhythm Strips Once [facility] 03/24/25 Verified Every Shift 17:53 Oxygen By Nasal RT 03/24/25 Verified Cannula 17:53 Problem List: (1) Metabolic encephalopathy (2) Altered mental status (3) Generalized weakness Date of Service: Mar 24, 2025 Billing Provider: BABAR HANNON DNP Common Visit Codes: [id number] INP/OBS CARE (HIGH) BABAR HANNON DNP Mar 24, 2025 17:54
[2025-03-24] MEDS ORDERED: NITROGLYCERIN 0.4 MG SL TAB SL PRN (18:00)
[2025-03-24] MEDS ORDERED: MORPHINE SULFATE INJ 2 MG/ml SYRG IV PRN (18:00)
[2025-03-24] MEDS: TAMSULOSIN HYDROCHLORIDE 0.4 MG CAP PO SCH (18:36)
[2025-03-24] MEDS: SODIUM CHLOR 0.9% PF (SALINE LOCK) 10ML VIAL/SYR IV SCH (20:41)
[2025-03-25] VITALS (7 sets, daily range): BP systolic 81–136; BP diastolic 60–79; PULSE 103–109; RESP 16–18; TEMP 97.5–97.7; O2SAT 93–99
[2025-03-25 06:28] LABS: Hematocrit 33.8 % (41.0-53.0); Hemoglobin 11.3 g/dL (13.5-17.5); Mean Corpuscular Hemoglobin 28.5 pg (28.0-32.0); Mean Corpuscular Volume 85.3 fL (80.0-100.0); Nucleated Red Blood Cells % 0.1 %
[2025-03-25 07:17] LABS: Alanine Aminotransferase 16 U/L (7-40); Albumin 3.3 g/dL (3.2-4.8); Alkaline Phosphatase 79 U/L (46-116); Anion Gap 12 (5-15); BUN/Creatinine Ratio 30.6 (10.0-20.0); Bilirubin, Total 0.8 mg/dL (0.2-1.0); Carbon Dioxide 22 mmol/L (20-31); Potassium 3.6 mmol/L (3.5-5.1); Sodium 143 mmol/L (136-145); Total Protein 6.0 g/dL (5.7-8.2)
[2025-03-25 07:20] LABS: Blood Urea Nitrogen 33 mg/dL (9-23); Calcium 8.3 mg/dL (8.7-10.4); Chloride 109 mmol/L (98-107); Glucose 150 mg/dL (74-106)
[2025-03-25] MEDS: FINASTERIDE 5 MG TAB PO SCH (10:44)
[2025-03-25] MEDS: PANTOPRAZOLE 40 MG/10 ML VIAL INJ IV SCH (10:44)
--- NOTE | 2025-03-25 15:42 | DVHPN2 ---
Subjective Patient denies any symptoms. Encephalopathic. Reviewed: Care Plan, H&P, Labs, Medications Changes from previous H/P or p: No Changes General: Per HPI Eyes: No Pain, No Vision change, No Conjunctivae inflammation, No Eyelid inflammation, No Other, No Redness ENT: No Ear pain, No Ear discharge, No Nose pain, No Nose discharge, No Nose congestion, No Mouth pain, No Mouth swelling, No Throat pain, No Throat swelling, No Other Cardiovascular: No Chest Pain, No Palpitations, No Orthopnea, No Paroxysmal Noc. Dyspnea, No Edema, No Lt Headedness, No Other Respiratory: No Cough, No Dry, No Shortness of breath, No SOB with excertion, No Wheezing, No Hemoptysis, No Pleuritic Pain, No Sputum, No Other Gastrointestinal: No Nausea, No Vomiting, No Abdominal Pain, No Diarrhea, No Constipation, No Melena, No Hematochezia, No Other Genitourinary: No Dysuria, No Frequency, No Incontinence, No Hematuria, No Retention; Other (Maldonado catheter in place) Musculoskeletal: No other, No neck pain, No shoulder pain, No arm pain, No back pain, No hand pain, No leg pain, No foot pain Skin: No Rash, No Lesions, No Jaundice, No Bruising, No Other Objective Vitals Vital Signs Date Time Temp Pulse Resp B/P (MAP) Pulse Ox O2 Delivery O2 Flow Rate FiO2 03/25/25 14:20 105 23 103/67 (79) 100 03/25/25 14:18 97.7 97.7 03/24/25 12:15 Nasal Cannula* 2 28 General Appearance: Alert, Oriented X3, Cooperative, No acute distress HEENT: Atraumatic, PERRLA Neck: Carotid [place] Cardiovascular: Normal S1, Normal S2 Abdomen: Normal bowel sounds, Soft, No tenderness, No hepatospenomegaly, No masses Musculoskeletal: Normal sensory function, Normal motor function Skin: Dry, Intact Psych/Mental Status: Mental status NL, Mood NL Medications Current Medications Medications Dose Ordered Sig/Murali Route Start Time Stop Time Status Last Admin Dose Admin Tamsulosin HCl 0.4 mg QPM PO 03/24/25 18:00 03/24/25 18:36 0.4 MG Finasteride 5 mg DAILY PO 03/25/25 10:00 03/25/25 10:44 5 MG Amlodipine Besylate 5 mg DAILY PO 03/25/25 10:00 Pantoprazole Sodium 40 mg DAILY IV 03/25/25 10:00 03/25/25 10:44 40 MG Sodium Chloride 10 ml Q8HR IV 03/24/25 22:00 03/25/25 14:14 10 ML Acetaminophen/ Hydrocodone Bitart 1 tab Q4HP PRN PO 03/24/25 15:00 Ondansetron HCl 4 mg Q4HP PRN IV 03/24/25 15:00 Docusate Sodium 100 mg BIDPRN PRN PO 03/24/25 15:00 Acetaminophen 650 mg Q6HP PRN PO 03/24/25 15:00 Nitroglycerin 0.4 mg Q5MINP PRN SL 03/24/25 18:00 Morphine Sulfate 2 mg Q30M PRN IV 03/24/25 18:00 Ceftriaxone Sodium 50 ml @ 100 mls/hr DAILY@09 IV 03/25/25 14:45 Laboratory Results Laboratory Tests 03/25/25 06:03 Chemistry Test 03/25/25 06:03 Albumin 3.3 g/dL (3.2-4.8) Calcium Level 8.3 mg/dL (8.7-10.4) L Total Protein 6.0 g/dL (5.7-8.2) LFT Test 03/25/25 06:03 Alanine Aminotransferase (ALT) 16 U/L (7-40) Alkaline Phosphatase 79 U/L (46-116) Aspartate Amino Transferase (AST) 26 U/L (13-40) Total Bilirubin 0.8 mg/dL (0.2-1.0) Labs and/or images reviewed: Labs reviewed by me, Image(s) reviewed by me Assessment/Plan Assessment/Plan Impression: -acute metabolic encephalopathy -rule out sepsis -history of dementia -chronic systolic heart failure Plan: -CT scan of the head -IV hydration -antibiotic therapy: Rocephin -blood and urine cultures -repeat labs in a.m. Total time spent with patient discussing and formulating plan of care: 35 minutes. This medical document was created using an electronic medical record system with [employer] dictation system. Although this document has been carefully reviewed, there may still be some phonetic and typographical errors. These areas are purely typographical due to imperfections of the software programs, and do not reflect any compromise in the patient's medical care. Plan discussed with: Patient, Other (RN) My Orders Orders - CHARLETTE SANDERS NP Procedure Category Date Status Time Urinalysis LAB 03/25/25 Logged 14:42 Blood Culture SOFI 03/25/25 Logged 14:[address] 03/25/25 Logged 14:42 Ceftriaxone 1gm/50ml PHA 03/25/25 In Process D5w (Rocephin) 14:45 Date of Service: Mar 25, 2025 Billing Provider: CHARLETTE SANDERS NP Common Visit Codes: [id number] INP/OBS CARE(HIGH) CHARLETTE SANDERS NP Mar 25, 2025 15:42
--- NOTE | 2025-03-25 16:12 | DVH ---
Procedure: CT HEAD WITHOUT CONTRAST Study Date and Requested Time: 03/25/2025 03:29 PM History: aloc Comparison: None Dose: CTDI: 60.23 mGy DLP: 1.71 mGycm Technique: Multiplanar images obtained through the brain without intravenous contrast. Findings: Vtul-ep-ffggbrwl diffuse brain Atrophy. Mild chronic small vessel ischemic changes. No hemorrhages, masses, mass effect, midline shift, herniation or cytotoxic edema following a large v ascular territory. No intra-axial or extra-axial fluid collections. Mild prominence of the ventricles , the proportion with cortical atrophy. The basal cisterns are patent. The pituitary gland, sella and parasellar regions are unremarkable. The cerebellar tonsils are in nor mal position. The cerebellum is unremarkable. The orbits and globes are unremarkable. The paranasal sinuses and mastoids are clear. There are no wo rrisome calvarial lesions. There is density within the left external auditory canal. Correlate for p ossible cerumen versus foreign body. Recommend further evaluation under direct visualization. Impression: No evidence of acute intracranial abnormality. Mild prominence of the ventricles out of proportion with cortical atrophy which may be seen with norm al pressure hydrocephalus in the right clinical setting.
[2025-03-25] MEDS: cefTRIAXone 1GM/50ML D5W 50 ML IV SCH (17:12)
[2025-03-25 20:02] LABS: Urine Amorphous Crystal FEW /hpf (None Seen); Urine Protein, UAD 1+ (Negative); Urine WBC Clumps PRESENT /hpf (None Seen)
[2025-03-26] VITALS (10 sets, daily range): BP systolic 111–140; BP diastolic 59–99; PULSE 98–105; RESP 17–20; TEMP 96.7–97.8; O2SAT 95–98
--- NOTE | 2025-03-26 10:55 | DVHPN2 ---
Subjective Patient denies any symptoms. Encephalopathic. Reviewed: Care Plan, H&P, Labs, Medications Changes from previous H/P or p: No Changes General: Per HPI Eyes: No Pain, No Vision change, No Conjunctivae inflammation, No Eyelid inflammation, No Other, No Redness ENT: No Ear pain, No Ear discharge, No Nose pain, No Nose discharge, No Nose congestion, No Mouth pain, No Mouth swelling, No Throat pain, No Throat swelling, No Other Cardiovascular: No Chest Pain, No Palpitations, No Orthopnea, No Paroxysmal Noc. Dyspnea, No Edema, No Lt Headedness, No Other Respiratory: No Cough, No Dry, No Shortness of breath, No SOB with excertion, No Wheezing, No Hemoptysis, No Pleuritic Pain, No Sputum, No Other Gastrointestinal: No Nausea, No Vomiting, No Abdominal Pain, No Diarrhea, No Constipation, No Melena, No Hematochezia, No Other Genitourinary: No Dysuria, No Frequency, No Incontinence, No Hematuria, No Retention; Other (Maldonado catheter in place) Musculoskeletal: No other, No neck pain, No shoulder pain, No arm pain, No back pain, No hand pain, No leg pain, No foot pain Skin: No Rash, No Lesions, No Jaundice, No Bruising, No Other Objective Vitals Vital Signs Date Time Temp Pulse Resp B/P (MAP) Pulse Ox O2 Delivery O2 Flow Rate FiO2 03/26/25 09:15 126/59 03/26/25 09:04 97.7 99 20 96 97.7 03/26/25 08:00 Room Air* 0 21 Intake/Output Intake and Output 03/26/25 07:00 Intake Total 150 ml Output Total 900 ml Balance -750 ml Intake Oral 100 ml IV Total 50 ml Output Urine Total 900 ml # Bowel Movements 1 General Appearance: Alert, Oriented X3, Cooperative, No acute distress HEENT: Atraumatic, PERRLA Neck: Carotid [place] Cardiovascular: Normal S1, Normal S2 Abdomen: Normal bowel sounds, Soft, No tenderness, No hepatospenomegaly, No masses Musculoskeletal: Normal sensory function, Normal motor function Skin: Dry, Intact Psych/Mental Status: Mental status NL, Mood NL Medications Current Medications Medications Dose Ordered Sig/Murali Route Start Time Stop Time Status Last Admin Dose Admin Tamsulosin HCl 0.4 mg QPM PO 03/24/25 18:00 03/24/25 18:36 0.4 MG Finasteride 5 mg DAILY PO 03/25/25 10:00 03/26/25 09:15 5 MG Amlodipine Besylate 5 mg DAILY PO 03/25/25 10:00 03/26/25 09:15 5 MG Pantoprazole Sodium 40 mg DAILY IV 03/25/25 10:00 03/26/25 09:15 40 MG Sodium Chloride 10 ml Q8HR IV 03/24/25 22:00 03/26/25 06:27 10 ML Acetaminophen/ Hydrocodone Bitart 1 tab Q4HP PRN PO 03/24/25 15:00 Ondansetron HCl 4 mg Q4HP PRN IV 03/24/25 15:00 Docusate Sodium 100 mg BIDPRN PRN PO 03/24/25 15:00 Acetaminophen 650 mg Q6HP PRN PO 03/24/25 15:00 Nitroglycerin 0.4 mg Q5MINP PRN SL 03/24/25 18:00 Morphine Sulfate 2 mg Q30M PRN IV 03/24/25 18:00 Ceftriaxone Sodium 50 ml @ 100 mls/hr DAILY@09 IV 03/25/25 14:45 03/26/25 09:12 100 MLS/HR Laboratory Results Laboratory Tests 03/25/25 06:03 Urinalysis Test 03/25/25 18:18 Urine Color Light-orange (Yellow) Urine Clarity Turbid (Clear) H Urine pH 5.5 (5.0-9.0) Urine Specific [place] 1.020 (1.001-1.035) Urine Protein 1+ (Negative) H Urine Ketones 1+ (Negative) H Urine Blood 1+ /uL (Negative) H Urine Nitrite Negative (Negative) Urine Bilirubin Negative (Negative) Urine Urobilinogen Normal mg/dL (Negative) Urine Leukocyte Esterase 3+ /uL (Negative) Urine RBC 14 /hpf (0 - 3) Urine WBC Clumps Present /hpf (None Seen) Urine Microscopic WBC 146 /HPF (0-3) H Urine Squamous Epithelial Cells Few /hpf (<5) Urine Amorphous Crystals Few /hpf (None Seen) Urine Bacteria Few /hpf (None Seen) H Urine Mucus Few (None Seen) Urine Glucose Normal mg/dL (Normal) Labs and/or images reviewed: Labs reviewed by me, Image(s) reviewed by me Assessment/Plan Assessment/Plan Impression: -acute metabolic encephalopathy , secondary to UTI -rule out sepsis -history of dementia -chronic systolic heart failure -complicated cystitis Plan: -CT scan of the head: Negative for any acute intracranial pathology -IV hydration -antibiotic therapy: Rocephin -blood and urine cultures: Pending -PUD, DVT prophylaxis Total time spent with patient discussing and formulating plan of care: 35 minutes. This medical document was created using an electronic medical record system with [employer] dictation system. Although this document has been carefully reviewed, there may still be some phonetic and typographical errors. These areas are purely typographical due to imperfections of the software programs, and do not reflect any compromise in the patient's medical care. Plan discussed with: Patient, Other (RN) My Orders Orders - CHARLETTE SANDERS NP Procedure Category Date Status Time Blood Culture SOFI 03/25/25 In Process 14:[address] 03/25/25 Resulted 14:42 Ceftriaxone 1gm/50ml PHA 03/25/25 In Process D5w (Rocephin) 14:45 Date of Service: Mar 26, 2025 Billing Provider: CHARLETTE SANDERS NP Common Visit Codes: [id number] INP/OBS CARE(HIGH) CHARLETTE SANDERS NP Mar 26, 2025 10:55
[2025-03-26] MEDS ORDERED: VANCOMYCIN PER PHARMACY 0 MG IV SCH (14:00)
[2025-03-26] MEDS: VANCOMYCIN 1GM/250ML KIT 250 ML IV ONE (15:11)
[2025-03-26] MEDS: Ensure HIGH Protein Chocolate 8oz Bottle PO SCH (18:00)
[2025-03-27] VITALS (8 sets, daily range): BP systolic 104–135; BP diastolic 64–85; PULSE 90–106; RESP 15–20; TEMP 97.5–98.9; O2SAT 92–99
[2025-03-27 08:05] LABS: Hematocrit 31.6 % (41.0-53.0); Hemoglobin 10.5 g/dL (13.5-17.5); Mean Corpuscular Hemoglobin 28.7 pg (28.0-32.0); Mean Corpuscular Volume 86.8 fL (80.0-100.0); Nucleated Red Blood Cells % 0.3 %
--- NOTE | 2025-03-27 16:23 | DVHPN2 ---
Subjective Patient denies any symptoms. Encephalopathic. Reviewed: Care Plan, H&P, Labs, Medications Changes from previous H/P or p: No Changes General: Per HPI Eyes: No Pain, No Vision change, No Conjunctivae inflammation, No Eyelid inflammation, No Other, No Redness ENT: No Ear pain, No Ear discharge, No Nose pain, No Nose discharge, No Nose congestion, No Mouth pain, No Mouth swelling, No Throat pain, No Throat swelling, No Other Cardiovascular: No Chest Pain, No Palpitations, No Orthopnea, No Paroxysmal Noc. Dyspnea, No Edema, No Lt Headedness, No Other Respiratory: No Cough, No Dry, No Shortness of breath, No SOB with excertion, No Wheezing, No Hemoptysis, No Pleuritic Pain, No Sputum, No Other Gastrointestinal: No Nausea, No Vomiting, No Abdominal Pain, No Diarrhea, No Constipation, No Melena, No Hematochezia, No Other Genitourinary: No Dysuria, No Frequency, No Incontinence, No Hematuria, No Retention; Other (Maldonado catheter in place) Musculoskeletal: No other, No neck pain, No shoulder pain, No arm pain, No back pain, No hand pain, No leg pain, No foot pain Skin: No Rash, No Lesions, No Jaundice, No Bruising, No Other Objective Vitals Vital Signs Date Time Temp Pulse Resp B/P (MAP) Pulse Ox O2 Delivery O2 Flow Rate FiO2 03/27/25 12:59 98.5 101 20 120/64 (82) 95 98.5 03/27/25 09:07 Room Air* 0 21 Intake/Output Intake and Output 03/27/25 07:00 Intake Total 790 ml Output Total 500 ml Balance 290 ml Intake Oral 790 ml Output Urine Total 500 ml # Bowel Movements 1 General Appearance: Alert, Oriented X3, Cooperative, No acute distress HEENT: Atraumatic, PERRLA Neck: Carotid [place] Cardiovascular: Normal S1, Normal S2 Abdomen: Normal bowel sounds, Soft, No tenderness, No hepatospenomegaly, No masses Musculoskeletal: Normal sensory function, Normal motor function Skin: Dry, Intact Psych/Mental Status: Mental status NL, Mood NL Medications Current Medications Medications Dose Ordered Sig/Murali Route Start Time Stop Time Status Last Admin Dose Admin Tamsulosin HCl 0.4 mg QPM PO 03/24/25 18:00 03/24/25 18:36 0.4 MG Finasteride 5 mg DAILY PO 03/25/25 10:00 03/26/25 09:15 5 MG Amlodipine Besylate 5 mg DAILY PO 03/25/25 10:00 03/26/25 09:15 5 MG Pantoprazole Sodium 40 mg DAILY IV 03/25/25 10:00 03/27/25 11:30 40 MG Sodium Chloride 10 ml Q8HR IV 03/24/25 22:00 03/27/25 13:42 10 ML Acetaminophen/ Hydrocodone Bitart 1 tab Q4HP PRN PO 03/24/25 15:00 Ondansetron HCl 4 mg Q4HP PRN IV 03/24/25 15:00 Docusate Sodium 100 mg BIDPRN PRN PO 03/24/25 15:00 Acetaminophen 650 mg Q6HP PRN PO 03/24/25 15:00 Nitroglycerin 0.4 mg Q5MINP PRN SL 03/24/25 18:00 Morphine Sulfate 2 mg Q30M PRN IV 03/24/25 18:00 Ceftriaxone Sodium 50 ml @ 100 mls/hr DAILY@09 IV 03/25/25 14:45 03/27/25 09:11 100 MLS/HR Vancomycin HCl 0 ml @ 0 mls/hr UD IV 03/26/25 14:00 Enteral Nutritional Formula 240 ml BIDWM PO 03/26/25 18:00 03/27/25 09:11 240 ML Mupirocin 1 applic BID EACHNOSTRI 03/27/25 22:00 04/01/25 21:59 UNV Laboratory Results Laboratory Tests 03/25/25 06:03 03/27/25 05:51 Urinalysis Test 03/25/25 18:18 Urine Color Light-orange (Yellow) Urine Clarity Turbid (Clear) H Urine pH 5.5 (5.0-9.0) Urine Specific [place] 1.020 (1.001-1.035) Urine Protein 1+ (Negative) H Urine Ketones 1+ (Negative) H Urine Blood 1+ /uL (Negative) H Urine Nitrite Negative (Negative) Urine Bilirubin Negative (Negative) Urine Urobilinogen Normal mg/dL (Negative) Urine Leukocyte Esterase 3+ /uL (Negative) Urine RBC 14 /hpf (0 - 3) Urine WBC Clumps Present /hpf (None Seen) Urine Microscopic WBC 146 /HPF (0-3) H Urine Squamous Epithelial Cells Few /hpf (<5) Urine Amorphous Crystals Few /hpf (None Seen) Urine Bacteria Few /hpf (None Seen) H Urine Mucus Few (None Seen) Urine Glucose Normal mg/dL (Normal) Microbiology Microbiology Date/Time Source Procedure Growth Status 03/26/25 10:48 Nose MRSA Screen - Final Methicillin Resistant S.aureus Complete 03/25/25 15:27 Blood Blood Culture - Preliminary NO GROWTH AFTER 48 HOURS OF INCUBATION. Resulted Labs and/or images reviewed: Labs reviewed by me, Image(s) reviewed by me Assessment/Plan Assessment/Plan Impression: -acute metabolic encephalopathy , secondary to UTI -rule out sepsis -history of dementia -chronic systolic heart failure -complicated cystitis Plan: Events: MRSA of the nares. Start nasal Bactroban. Poor oral intake continue nutritional supplementation with meals -CT scan of the head: Negative for any acute intracranial pathology -IV hydration -antibiotic therapy: Rocephin -blood culture, probable contamination -PUD, DVT prophylaxis Total time spent with patient discussing and formulating plan of care: 35 minutes. This medical document was created using an electronic medical record system with Splother dictation system. Although this document has been carefully reviewed, there may still be some phonetic and typographical errors. These areas are purely typographical due to imperfections of the software programs, and do not reflect any compromise in the patient's medical care. Plan discussed with: Patient, Other (RN) My Orders Orders - CHARLETTE SANDERS NP Procedure Category Date Status Time Mupirocin 2% Oint PHA 03/27/25 Logged Mrsa Nares (Bactroban 22:00 NS PHA 03/27/25 Verified 16:30 Basic Metabolic Panel LAB 03/28/25 Verified 04:00 Pt Request For Service PT 03/27/25 Verified 16:20 * Canteen Operator CONS 03/27/25 Verified Consult Date of Service: Mar 27, 2025 Billing Provider: CHARLETTE SANDERS NP Common Visit Codes: [id number] INP/OBS CARE(HIGH) CHARLETTE SANDERS NP Mar 27, 2025 16:23
[2025-03-27] MEDS: SODIUM CHLORIDE 0.9% 1,000 ML IV SCH (17:00)
[2025-03-27] MEDS: VANCOMYCIN 1GM/250ML KIT 250 ML IV SCH (17:01)
[2025-03-27] MEDS: LORazepam 2MG/ML-1ML VIAL IV ONE (17:24)
[2025-03-27] MEDS: MUPIROCIN 2% OINT 15gm or 22gm FOR MRSA NARES EACHNOSTRI SCH (21:36)
[2025-03-28] VITALS (9 sets, daily range): BP systolic 99–128; BP diastolic 47–90; PULSE 94–104; RESP 16–20; TEMP 96.9–98; O2SAT 92–99
[2025-03-28 07:44] LABS: Hematocrit 38.0 % (41.0-53.0); Hemoglobin 13.4 g/dL (13.5-17.5); Mean Corpuscular Hemoglobin 32.8 pg (28.0-32.0); Mean Corpuscular Volume 92.8 fL (80.0-100.0); Nucleated Red Blood Cells % 0.1 %
[2025-03-28 07:52] LABS: Potassium 4.5 mmol/L (3.5-5.1)
[2025-03-28 07:53] LABS: Anion Gap 12 (5-15)
[2025-03-28 07:58] LABS: BUN/Creatinine Ratio 16.5 (10.0-20.0); Glucose 96 mg/dL (74-106)
[2025-03-28 08:00] LABS: Blood Urea Nitrogen 30 mg/dL (9-23); Calcium 8.6 mg/dL (8.7-10.4); Carbon Dioxide 20 mmol/L (20-31); Chloride 95 mmol/L (98-107); Sodium 127 mmol/L (136-145)
[2025-03-28] MEDS: SODIUM CHLORIDE 0.9% 1,000 ML IV SCH (10:49)
--- NOTE | 2025-03-28 14:14 | DVHPN2 ---
Subjective Patient denies any symptoms. Encephalopathic. Reviewed: Care Plan, H&P, Labs, Medications Changes from previous H/P or p: No Changes General: Per HPI Eyes: No Pain, No Vision change, No Conjunctivae inflammation, No Eyelid inflammation, No Other, No Redness ENT: No Ear pain, No Ear discharge, No Nose pain, No Nose discharge, No Nose congestion, No Mouth pain, No Mouth swelling, No Throat pain, No Throat swelling, No Other Cardiovascular: No Chest Pain, No Palpitations, No Orthopnea, No Paroxysmal Noc. Dyspnea, No Edema, No Lt Headedness, No Other Respiratory: No Cough, No Dry, No Shortness of breath, No SOB with excertion, No Wheezing, No Hemoptysis, No Pleuritic Pain, No Sputum, No Other Gastrointestinal: No Nausea, No Vomiting, No Abdominal Pain, No Diarrhea, No Constipation, No Melena, No Hematochezia, No Other Genitourinary: No Dysuria, No Frequency, No Incontinence, No Hematuria, No Retention; Other (Maldonado catheter in place) Musculoskeletal: No other, No neck pain, No shoulder pain, No arm pain, No back pain, No hand pain, No leg pain, No foot pain Skin: No Rash, No Lesions, No Jaundice, No Bruising, No Other Objective Vitals Vital Signs Date Time Temp Pulse Resp B/P (MAP) Pulse Ox O2 Delivery O2 Flow Rate FiO2 03/28/25 09:00 97.2 104 18 106/47 (66) 96 97.2 03/28/25 08:00 Room Air* 0 21 Intake/Output Intake and Output 03/28/25 07:00 Intake Total 0 ml Output Total 350 ml Balance -350 ml Intake Oral 0 ml Output Urine Total 350 ml # Bowel Movements 4 General Appearance: Alert, Oriented X3, Cooperative, No acute distress HEENT: Atraumatic, PERRLA Neck: Carotid [place] Cardiovascular: Normal S1, Normal S2 Abdomen: Normal bowel sounds, Soft, No tenderness, No hepatospenomegaly, No masses Musculoskeletal: Normal sensory function, Normal motor function Skin: Dry, Intact Psych/Mental Status: Mental status NL, Mood NL Medications Current Medications Medications Dose Ordered Sig/Murali Route Start Time Stop Time Status Last Admin Dose Admin Tamsulosin HCl 0.4 mg QPM PO 03/24/25 18:00 03/24/25 18:36 0.4 MG Finasteride 5 mg DAILY PO 03/25/25 10:00 03/28/25 10:02 5 MG Amlodipine Besylate 5 mg DAILY PO 03/25/25 10:00 03/26/25 09:15 5 MG Pantoprazole Sodium 40 mg DAILY IV 03/25/25 10:00 03/28/25 10:00 40 MG Sodium Chloride 10 ml Q8HR IV 03/24/25 22:00 03/28/25 14:03 10 ML Acetaminophen/ Hydrocodone Bitart 1 tab Q4HP PRN PO 03/24/25 15:00 Ondansetron HCl 4 mg Q4HP PRN IV 03/24/25 15:00 Docusate Sodium 100 mg BIDPRN PRN PO 03/24/25 15:00 Acetaminophen 650 mg Q6HP PRN PO 03/24/25 15:00 Nitroglycerin 0.4 mg Q5MINP PRN SL 03/24/25 18:00 Morphine Sulfate 2 mg Q30M PRN IV 03/24/25 18:00 Ceftriaxone Sodium 50 ml @ 100 mls/hr DAILY@09 IV 03/25/25 14:45 03/28/25 10:00 100 MLS/HR Vancomycin HCl 0 ml @ 0 mls/hr UD IV 03/26/25 14:00 Enteral Nutritional Formula 240 ml BIDWM PO 03/26/25 18:00 03/28/25 09:52 240 ML Mupirocin 1 applic BID EACHNOSTRI 03/27/25 22:00 04/01/25 21:59 03/28/25 10:12 1 APPLIC Vancomycin HCl 250 ml @ 200 mls/hr Q12H IV 03/27/25 17:00 03/28/25 05:04 200 MLS/HR Sodium Chloride 1,000 ml @ 100 mls/hr Q10H IV 03/28/25 10:15 03/28/25 10:49 100 MLS/HR Laboratory Results Laboratory Tests 03/28/25 06:08 Chemistry Test 03/28/25 06:08 Calcium Level 8.6 mg/dL (8.7-10.4) L Urinalysis Test 03/25/25 18:18 Urine Color Light-orange (Yellow) Urine Clarity Turbid (Clear) H Urine pH 5.5 (5.0-9.0) Urine Specific [place] 1.020 (1.001-1.035) Urine Protein 1+ (Negative) H Urine Ketones 1+ (Negative) H Urine Blood 1+ /uL (Negative) H Urine Nitrite Negative (Negative) Urine Bilirubin Negative (Negative) Urine Urobilinogen Normal mg/dL (Negative) Urine Leukocyte Esterase 3+ /uL (Negative) Urine RBC 14 /hpf (0 - 3) Urine WBC Clumps Present /hpf (None Seen) Urine Microscopic WBC 146 /HPF (0-3) H Urine Squamous Epithelial Cells Few /hpf (<5) Urine Amorphous Crystals Few /hpf (None Seen) Urine Bacteria Few /hpf (None Seen) H Urine Mucus Few (None Seen) Urine Glucose Normal mg/dL (Normal) Microbiology Microbiology Date/Time Source Procedure Growth Status 03/26/25 10:48 Nose MRSA Screen - Final Methicillin Resistant S.aureus Complete 03/25/25 15:27 Blood Blood Culture - Preliminary NO GROWTH AFTER 48 HOURS OF INCUBATION. Resulted Labs and/or images reviewed: Labs reviewed by me, Image(s) reviewed by me Assessment/Plan Assessment/Plan Impression: -acute metabolic encephalopathy , secondary to UTI -rule out sepsis -history of dementia -chronic systolic heart failure -complicated cystitis -metastatic prostate cancer Plan: Events: Continues to have altered mental status. Patient unable to have MRI yesterday given inability to remain still despite receiving IV Ativan. Sitter CT of the head with IV contrast once renal function has improved. -stop vancomycin -increase normal saline to 100 mL/hour -antibiotic therapy: Rocephin -blood culture, probable contamination -PUD, DVT prophylaxis -long discussion made with the patient's sister, Shaniqua Boateng, regarding plan of care and patient's current diagnosis. She is agreeable for imaging of the brain before making any decision on treatment for patient's metastatic cancer. Total time spent with patient discussing and formulating plan of care: 35 minutes. This medical document was created using an electronic medical record system with [employer] dictation system. Although this document has been carefully reviewed, there may still be some phonetic and typographical errors. These areas are purely typographical due to imperfections of the software programs, and do not reflect any compromise in the patient's medical care. Plan discussed with: Patient, Other (RN, Sister) My Orders Orders - CHARLETTE SANDERS [employer]SPORTER RADIOLOGY Procedure Category Date Status Time Mupirocin 2% Oint PHA 03/27/25 In Process Mrsa Nares (Bactroban 22:00 Pt Request For Service PT 03/27/25 Logged 16:20 * L D Rn CONS 03/27/25 Transmitted Consult * Urology Consult CONS 03/27/25 Transmitted 16:41 Vancomycin Per JON 03/29/25 In Process Pharmacy Protoc 05:00 Vancomycin,Trough LAB 03/29/25 Verified 04:00 Vancomycin 1gm/250ml PHA 03/27/25 In Process Kit 17:00 Brain Head Wo W MRI 03/28/25 Logged Contrast 16:48 Sodium Chloride 0.9% PHA 03/28/25 In Process 10:15 Urine Bacterial SOFI 03/28/25 In Process Culture 10:04 * Neurology Consult CONS 03/28/25 Transmitted 10:12 Vitamin D 25-Hydroxy LAB 03/28/25 In Process D2 + D3 10:22 Vitamin B1 (Thiamine) LAB 03/28/25 In Process 10:22 Vitamin B12 LAB 03/28/25 In Process 10:22 Basic Metabolic Panel LAB 03/29/25 Verified 05:00 Basic Metabolic Panel LAB 03/30/25 Verified 05:00 Basic Metabolic Panel LAB 03/31/25 Verified 05:00 Complete Blood Count LAB 03/29/25 Verified 05:00 Complete Blood Count LAB 03/30/25 Verified 05:00 Complete Blood Count LAB 03/31/25 Verified 05:00 * L D Rn CONS 03/28/25 Transmitted Consult Date of Service: Mar 28, 2025 Billing Provider: CHARLETTE SANDERS TRANSPOR[employer] RADIOLOGY Common Visit Codes: [id number] INP/OBS CARE(HIGH) CHARLETTE SANDERS NP Mar 28, 2025 14:14
[2025-03-29] VITALS (11 sets, daily range): BP systolic 86–151; BP diastolic 49–87; PULSE 95–104; RESP 16–19; TEMP 97–97.9; O2SAT 98–100
[2025-03-29 07:00] LABS: Hematocrit 29.8 % (41.0-53.0); Hemoglobin 10.0 g/dL (13.5-17.5); Mean Corpuscular Hemoglobin 28.9 pg (28.0-32.0); Mean Corpuscular Volume 86.5 fL (80.0-100.0); Nucleated Red Blood Cells % 0.2 %
[2025-03-29 07:10] LABS: Anion Gap 12 (5-15); Carbon Dioxide 24 mmol/L (20-31)
[2025-03-29 07:15] LABS: BUN/Creatinine Ratio 15.5 (10.0-20.0); Blood Urea Nitrogen 15 mg/dL (9-23)
[2025-03-29 07:17] LABS: Calcium 8.4 mg/dL (8.7-10.4); Chloride 112 mmol/L (98-107); Glucose 113 mg/dL (74-106); Potassium 3.4 mmol/L (3.5-5.1); Sodium 148 mmol/L (136-145)
[2025-03-29] MEDS: POTASSIUM CHLORIDE 40 MEQ, LIDOCAINE 1% (LOCAL ANESTH.) 4 ML in SODIUM CHL 0.9% 250 ML IV ONE (08:00)
[2025-03-29] MEDS: SOD CHL 0.45% 1,000 ML IV SCH (10:45)
--- NOTE | 2025-03-29 13:55 | DVHPN2 ---
Subjective Patient denies any symptoms. Encephalopathic. Reviewed: Care Plan, H&P, Labs, Medications Changes from previous H/P or p: No Changes General: Per HPI Eyes: No Pain, No Vision change, No Conjunctivae inflammation, No Eyelid inflammation, No Other, No Redness ENT: No Ear pain, No Ear discharge, No Nose pain, No Nose discharge, No Nose congestion, No Mouth pain, No Mouth swelling, No Throat pain, No Throat swelling, No Other Cardiovascular: No Chest Pain, No Palpitations, No Orthopnea, No Paroxysmal Noc. Dyspnea, No Edema, No Lt Headedness, No Other Respiratory: No Cough, No Dry, No Shortness of breath, No SOB with excertion, No Wheezing, No Hemoptysis, No Pleuritic Pain, No Sputum, No Other Gastrointestinal: No Nausea, No Vomiting, No Abdominal Pain, No Diarrhea, No Constipation, No Melena, No Hematochezia, No Other Genitourinary: No Dysuria, No Frequency, No Incontinence, No Hematuria, No Retention; Other (Maldonado catheter in place) Musculoskeletal: No other, No neck pain, No shoulder pain, No arm pain, No back pain, No hand pain, No leg pain, No foot pain Skin: No Rash, No Lesions, No Jaundice, No Bruising, No Other Objective Vitals Vital Signs Date Time Temp Pulse Resp B/P (MAP) Pulse Ox O2 Delivery O2 Flow Rate FiO2 03/29/25 09:15 128/87 03/29/25 08:39 97.8 97 18 100 97.8 03/29/25 08:00 Room Air* 0 21 Intake/Output Intake and Output 03/29/25 07:00 Intake Total 1400 ml Output Total 800 ml Balance 600 ml Intake Oral 1400 ml Output Urine Total 800 ml # Bowel Movements 14 General Appearance: Alert, Oriented X3, Cooperative, No acute distress HEENT: Atraumatic, PERRLA Neck: Carotid [place]its [place] Cardiovascular: Normal S1, Normal S2 Abdomen: Normal bowel sounds, Soft, No tenderness, No hepatospenomegaly, No masses Musculoskeletal: Normal sensory function, Normal motor function Skin: Dry, Intact Psych/Mental Status: Mental status NL, Mood NL Medications Current Medications Medications Dose Ordered Sig/Murali Route Start Time Stop Time Status Last Admin Dose Admin Tamsulosin HCl 0.4 mg QPM PO 03/24/25 18:00 03/24/25 18:36 0.4 MG Finasteride 5 mg DAILY PO 03/25/25 10:00 03/29/25 09:14 5 MG Amlodipine Besylate 5 mg DAILY PO 03/25/25 10:00 03/29/25 09:15 5 MG Pantoprazole Sodium 40 mg DAILY IV 03/25/25 10:00 03/29/25 09:14 40 MG Sodium Chloride 10 ml Q8HR IV 03/24/25 22:00 03/29/25 05:06 10 ML Acetaminophen/ Hydrocodone Bitart 1 tab Q4HP PRN PO 03/24/25 15:00 Ondansetron HCl 4 mg Q4HP PRN IV 03/24/25 15:00 Docusate Sodium 100 mg BIDPRN PRN PO 03/24/25 15:00 Acetaminophen 650 mg Q6HP PRN PO 03/24/25 15:00 Nitroglycerin 0.4 mg Q5MINP PRN SL 03/24/25 18:00 Morphine Sulfate 2 mg Q30M PRN IV 03/24/25 18:00 Ceftriaxone Sodium 50 ml @ 100 mls/hr DAILY@09 IV 03/25/25 14:45 03/29/25 09:13 100 MLS/HR Enteral Nutritional Formula 240 ml BIDWM PO 03/26/25 18:00 03/29/25 08:00 240 ML Mupirocin 1 applic BID EACHNOSTRI 03/27/25 22:00 04/01/25 21:59 03/29/25 10:00 1 APPLIC Sodium Chloride 1,000 ml @ 100 mls/hr Q10H IV 03/29/25 10:45 03/29/25 10:45 100 MLS/HR Laboratory Results Laboratory Tests 03/29/25 04:45 Chemistry Test 03/29/25 04:45 Calcium Level 8.4 mg/dL (8.7-10.4) L Urinalysis Test 03/25/25 18:18 Urine Color Light-orange (Yellow) Urine Clarity Turbid (Clear) H Urine pH 5.5 (5.0-9.0) Urine Specific [place] 1.020 (1.001-1.035) Urine Protein 1+ (Negative) H Urine Ketones 1+ (Negative) H Urine Blood 1+ /uL (Negative) H Urine Nitrite Negative (Negative) Urine Bilirubin Negative (Negative) Urine Urobilinogen Normal mg/dL (Negative) Urine Leukocyte Esterase 3+ /uL (Negative) Urine RBC 14 /hpf (0 - 3) Urine WBC Clumps Present /hpf (None Seen) Urine Microscopic WBC 146 /HPF (0-3) H Urine Squamous Epithelial Cells Few /hpf (<5) Urine Amorphous Crystals Few /hpf (None Seen) Urine Bacteria Few /hpf (None Seen) H Urine Mucus Few (None Seen) Urine Glucose Normal mg/dL (Normal) Microbiology Microbiology Date/Time Source Procedure Growth Status 03/28/25 13:15 Urine - [place] Urine Culture - Preliminary Resulted 03/26/25 10:48 Nose MRSA Screen - Final Methicillin Resistant S.aureus Complete 03/25/25 15:27 Blood Blood Culture - Preliminary NO GROWTH AFTER 72 HOURS OF INCUBATION. Resulted Labs and/or images reviewed: Labs reviewed by me, Image(s) reviewed by me Assessment/Plan Assessment/Plan Impression: -acute metabolic encephalopathy , secondary to UTI -rule out sepsis -history of dementia -chronic systolic heart failure -complicated cystitis -metastatic prostate cancer Plan: Events: Improvement with his neurological, although still confused. Renal function improved. Repeat urine culture with no growth -potassium replacement -continue IV hydration -CT scan with IV contrast to the brain pending -antibiotic therapy: Rocephin -blood culture, probable contamination -PUD, DVT prophylaxis Plan of care discussed with the patient's sister. Total time spent with patient discussing and formulating plan of care: 35 minutes. This medical document was created using an electronic medical record system with [employer] dictation system. Although this document has been carefully reviewed, there may still be some phonetic and typographical errors. These areas are purely typographical due to imperfections of the software programs, and do not reflect any compromise in the patient's medical care. Plan discussed with: Patient, Other (RN) My Orders Orders - CHARLETTE SANDERS [employer]SEM[employer]ER Procedure Category Date Status Time Urinalysis LAB 03/29/25 Uncollected 07:53 Blood Culture SOFI 03/29/25 In Process 07:[address] 03/29/25 Logged 10:29 Pt Request For Service PT 03/29/25 Logged 10:29 Sod Chl 0.45% (Sodium PHA 03/29/25 In Process Chloride 0.45% Via 10:45 Communication Order ORDERS 03/29/25 Transmitted 10:31 Date of Service: Mar 29, 2025 Billing Provider: CHARLETTE SANDERS NP Common Visit Codes: [id number] INP/OBS CARE(HIGH) CHARLETTE SANDERS NP Mar 29, 2025 13:55
[2025-03-29 19:10] LABS: Urine Protein, UAD 2+ (Negative)
[2025-03-30] VITALS (7 sets, daily range): BP systolic 98–128; BP diastolic 45–86; PULSE 77–103; RESP 18–19; TEMP 97.6–98.3; O2SAT 96–100
--- NOTE | 2025-03-30 10:48 | DVH ---
PROCEDURE: MRI BRAIN HEAD WO W CONTRAST INDICATION: METS EXAM DATE: 03/28/2025 08:45 AM COMPARISON: None TECHNIQUE: MRI of the brain with 15 cc clariscan intravenous contrast. FINDINGS: Diffusion-weighted imaging was not obtained. There is no evidence of acute intracranial hemorrhage, extra-axial collection, mass effect, midline s hift, herniation or hydrocephalus. The ventricles, sulci and cisterns appear age appropriate. Mild periventricular white matter disease including a lesion in the left de luna radiata measuring up to 14 mml with associated enhancement. The major vascular flow voids are present. The visualized paranasal sinuses and mastoid air cells are clear. The surrounding soft tissues and o sseous structures are unremarkable. IMPRESSION: 1. Mild white matter disease including a lesion in the left de luna radiata measuring up to 14 mm with associated enhancement raising concern for demyelinating disease. A mass lesion is not entirely excl uded. Clinical correlation and continued follow-up is recommended. HS:Y
[2025-03-30] MEDS ORDERED: IOHEXOL 300 MG/ML 100ML BOTTLE IJ ONE (11:47)
--- NOTE | 2025-03-30 12:24 | DVH ---
CT brain without contrast CLINICAL INDICATION: rule out metastatic disease Comparison: MR brain done 03/28/2025 FINDINGS: The study was performed in a multidetector scanner. This study performed taking axial image s from the skull base up to the vertex prior to and following IV administration of 100 mL Omnipaque 3 00. Both brain and bone windows are photographed. Dose lowering techniques have been used including automated exposure control and adjustment of mA and /or KV according to patient size. No areas of parenchymal hemorrhage or edema No abnormal enhancing masses in the brain No hydrocephalus or midline shift. On bone windows no lytic or blastic lesions of bone. IMPRESSION: 1. No evidence of metastatic disease or of acute intracranial pathology 2. Senescent changes. Computed Tomographic Radiation Dosimetry Report: Total CTDI vol = 54 mGy Total DLP = 870 mGy-cm All C T scans at this medical facility are performed using dose modulation techniques as appropriate to a p erformed exam including the following: Automated exposure control was utilized; adjustment of the MA and/or KvP according to patient size; and use of iterative reconstruction technique.
[2025-03-30 13:52] LABS: Hematocrit 29.8 % (41.0-53.0); Hemoglobin 9.9 g/dL (13.5-17.5); Mean Corpuscular Hemoglobin 28.8 pg (28.0-32.0); Mean Corpuscular Volume 86.7 fL (80.0-100.0); Nucleated Red Blood Cells % 0.0 %
[2025-03-30 13:56] LABS: Potassium 3.8 mmol/L (3.5-5.1); Sodium 144 mmol/L (136-145)
[2025-03-30 13:57] LABS: Anion Gap 11 (5-15); Carbon Dioxide 21 mmol/L (20-31)
[2025-03-30 13:59] LABS: Calcium 8.0 mg/dL (8.7-10.4); Chloride 112 mmol/L (98-107)
[2025-03-30 14:02] LABS: BUN/Creatinine Ratio 23.8 (10.0-20.0); Blood Urea Nitrogen 19 mg/dL (9-23)
[2025-03-30 14:04] LABS: Glucose 131 mg/dL (74-106)
--- NOTE | 2025-03-30 14:31 | ECG ---
[facility] Test Date: 2025-03-26 Test Time: 01:39:32 Pat Name: MAGUI YUSUF Department: [facility] ED Room: [facility] A Gender: M Demand Generator Manager: RYLAN : 1960 Requested By: LICO MAKI Order Number: [id number] Reading MD: Maxi Yeung Measurements Intervals [place] Rate: 137 P: 0 FL: 0 QRS: 78 QRSD: 130 T: 268 QT: 445 QTc: 672 Interpretive Statements baseline artifact precludes adequate Rhythm assessment. Artifact in lead(s) I,II,aVR,aVL,aVF,V1,V3,V4,V5,V6 Electronically Signed On 03-30-2025 18:01:08 PDT by Maxi Yeung Please click the below link to view image of tracing.
--- NOTE | 2025-03-30 15:33 | DVHPN2 ---
Subjective Patient denies any symptoms. Encephalopathic. Reviewed: Care Plan, H&P, Labs, Medications Changes from previous H/P or p: No Changes General: Per HPI Eyes: No Pain, No Vision change, No Conjunctivae inflammation, No Eyelid inflammation, No Other, No Redness ENT: No Ear pain, No Ear discharge, No Nose pain, No Nose discharge, No Nose congestion, No Mouth pain, No Mouth swelling, No Throat pain, No Throat swelling, No Other Cardiovascular: No Chest Pain, No Palpitations, No Orthopnea, No Paroxysmal Noc. Dyspnea, No Edema, No Lt Headedness, No Other Respiratory: No Cough, No Dry, No Shortness of breath, No SOB with excertion, No Wheezing, No Hemoptysis, No Pleuritic Pain, No Sputum, No Other Gastrointestinal: No Nausea, No Vomiting, No Abdominal Pain, No Diarrhea, No Constipation, No Melena, No Hematochezia, No Other Genitourinary: No Dysuria, No Frequency, No Incontinence, No Hematuria, No Retention; Other ([place] catheter in place) Musculoskeletal: No other, No neck pain, No shoulder pain, No arm pain, No back pain, No hand pain, No leg pain, No foot pain Skin: No Rash, No Lesions, No Jaundice, No Bruising, No Other Objective Vitals Vital Signs Date Time Temp Pulse Resp B/P (MAP) Pulse Ox O2 Delivery O2 Flow Rate FiO2 03/30/25 09:47 98/45 03/30/25 09:00 97.6 77 18 97 97.6 03/30/25 08:00 Room Air* 0 21 Intake/Output Intake and Output 03/30/25 07:00 Intake Total 2074 ml Output Total 700 ml Balance 1374 ml Intake Oral 950 ml IV Total 1124 ml Output Urine Total 700 ml # Bowel Movements 11 General Appearance: Alert, Oriented X3, Cooperative, No acute distress HEENT: Atraumatic, PERRLA Neck: Carotid [place] Cardiovascular: Normal S1, Normal S2 Abdomen: Normal bowel sounds, Soft, No tenderness, No hepatospenomegaly, No masses Musculoskeletal: Normal sensory function, Normal motor function Skin: Dry, Intact Psych/Mental Status: Mental status NL, Mood NL Medications Current Medications Medications Dose Ordered Sig/Murali Route Start Time Stop Time Status Last Admin Dose Admin Tamsulosin HCl 0.4 mg QPM PO 03/24/25 18:00 03/24/25 18:36 0.4 MG Finasteride 5 mg DAILY PO 03/25/25 10:00 03/30/25 09:42 5 MG Amlodipine Besylate 5 mg DAILY PO 03/25/25 10:00 03/29/25 09:15 5 MG Pantoprazole Sodium 40 mg DAILY IV 03/25/25 10:00 03/30/25 09:43 40 MG Sodium Chloride 10 ml Q8HR IV 03/24/25 22:00 03/30/25 04:40 10 ML Acetaminophen/ Hydrocodone Bitart 1 tab Q4HP PRN PO 03/24/25 15:00 Ondansetron HCl 4 mg Q4HP PRN IV 03/24/25 15:00 Docusate Sodium 100 mg BIDPRN PRN PO 03/24/25 15:00 Acetaminophen 650 mg Q6HP PRN PO 03/24/25 15:00 Nitroglycerin 0.4 mg Q5MINP PRN SL 03/24/25 18:00 Morphine Sulfate 2 mg Q30M PRN IV 03/24/25 18:00 Ceftriaxone Sodium 50 ml @ 100 mls/hr DAILY@09 IV 03/25/25 14:45 03/30/25 09:43 100 MLS/HR Enteral Nutritional Formula 240 ml BIDWM PO 03/26/25 18:00 03/30/25 08:00 240 ML Mupirocin 1 applic BID EACHNOSTRI 03/27/25 22:00 04/01/25 21:59 03/30/25 09:46 1 APPLIC Sodium Chloride 1,000 ml @ 100 mls/hr Q10H IV 03/29/25 10:45 03/29/25 19:45 100 MLS/HR Laboratory Results Laboratory Tests 03/30/25 13:26 Chemistry Test 03/30/25 13:26 Calcium Level 8.0 mg/dL (8.7-10.4) L Urinalysis Test 03/25/25 18:18 03/29/25 18:43 Urine RBC 14 /hpf (0 - 3) Urine WBC Clumps Present /hpf (None Seen) Urine Microscopic WBC 146 /HPF (0-3) H Urine Squamous Epithelial Cells Few /hpf (<5) Urine Amorphous Crystals Few /hpf (None Seen) Urine Bacteria Few /hpf (None Seen) H Urine Mucus Few (None Seen) Urine Color Light-orange (Yellow) Urine Clarity Ex.turbid (Clear) Urine pH 5.5 (5.0-9.0) Urine Specific [place] 1.017 (1.001-1.035) Urine Protein 2+ (Negative) H Urine Ketones 1+ (Negative) H Urine Blood 2+ /uL (Negative) H Urine Nitrite Negative (Negative) Urine Bilirubin Negative (Negative) Urine Urobilinogen Normal mg/dL (Negative) Urine Leukocyte Esterase 3+ /uL (Negative) Urine Glucose Normal mg/dL (Normal) Microbiology Microbiology Date/Time Source Procedure Growth Status 03/29/25 09:29 Blood Blood Culture - Preliminary NO GROWTH AFTER 24 HOURS OF INCUBATION. Resulted 03/28/25 13:15 Urine - [place] Urine Culture - Final Complete 03/26/25 10:48 Nose MRSA Screen - Final Methicillin Resistant S.aureus Complete Labs and/or images reviewed: Labs reviewed by me, Image(s) reviewed by me Assessment/Plan Assessment/Plan Impression: -acute metabolic encephalopathy , secondary to UTI -rule out sepsis -history of dementia -chronic systolic heart failure -complicated cystitis -metastatic prostate cancer Plan: Events: Patient with worsening neurological status. Patient appears to have visual hallucinations., questionable acute delirium. Repeat blood culture negative. Repeat urine culture negative. BNP and CBC unremarkable. CT scan of the head with IV contrast negative for any metastatic disease. -potassium replacement -continue IV hydration -awaiting neurology consultation -antibiotic therapy: Rocephin -blood culture, probable contamination -PUD, DVT prophylaxis Plan of care discussed with the patient's sister. Total time spent with patient discussing and formulating plan of care: 35 minutes. This medical document was created using an electronic medical record system with [employer] dictation system. Although this document has been carefully reviewed, there may still be some phonetic and typographical errors. These areas are purely typographical due to imperfections of the software programs, and do not reflect any compromise in the patient's medical care. Plan discussed with: Patient, Other (RN) Date of Service: Mar 30, 2025 Billing Provider: CHARLETTE SANDERS NP Common Visit Codes: 51146-[id number] INP/OBS CARE(HIGH) Procedure Codes: 42913-[id number] SEDATION INITIAL 15 CHARLETTE SANDERS NP Mar 30, 2025 15:33
[2025-03-30] MEDS: HYDROcodone-ACET 5/325MG TAB PO PRN (20:28)
[2025-03-31] VITALS (7 sets, daily range): BP systolic 95–138; BP diastolic 45–68; PULSE 83–125; RESP 12–18; TEMP 97.2–98.1; O2SAT 95–100
[2025-03-31] MEDS: TEMAZEPAM 15 MG CAP PO PRN (00:51)
[2025-03-31 07:16] LABS: Hematocrit 26.7 % (41.0-53.0); Hemoglobin 8.9 g/dL (13.5-17.5); Mean Corpuscular Hemoglobin 28.7 pg (28.0-32.0); Mean Corpuscular Volume 85.8 fL (80.0-100.0); Nucleated Red Blood Cells % 0.2 %
[2025-03-31 07:26] LABS: Anion Gap 9 (5-15); Carbon Dioxide 24 mmol/L (20-31)
[2025-03-31 07:31] LABS: BUN/Creatinine Ratio 13.9 (10.0-20.0); Blood Urea Nitrogen 11 mg/dL (9-23); Glucose 97 mg/dL (74-106)
[2025-03-31 07:33] LABS: Calcium 8.0 mg/dL (8.7-10.4); Chloride 112 mmol/L (98-107); Potassium 3.3 mmol/L (3.5-5.1); Sodium 145 mmol/L (136-145)
[2025-03-31] MEDS: POTASSIUM CHLORIDE 40 MEQ in SOD CHL 0.45% 1,000 ML IV SCH (11:45)
--- NOTE | 2025-03-31 13:18 | DVHPN2 ---
Subjective Patient denies any symptoms. Encephalopathic. Reviewed: Care Plan, H&P, Labs, Medications Changes from previous H/P or p: No Changes General: Per HPI Eyes: No Pain, No Vision change, No Conjunctivae inflammation, No Eyelid inflammation, No Other, No Redness ENT: No Ear pain, No Ear discharge, No Nose pain, No Nose discharge, No Nose congestion, No Mouth pain, No Mouth swelling, No Throat pain, No Throat swelling, No Other Cardiovascular: No Chest Pain, No Palpitations, No Orthopnea, No Paroxysmal Noc. Dyspnea, No Edema, No Lt Headedness, No Other Respiratory: No Cough, No Dry, No Shortness of breath, No SOB with excertion, No Wheezing, No Hemoptysis, No Pleuritic Pain, No Sputum, No Other Gastrointestinal: No Nausea, No Vomiting, No Abdominal Pain, No Diarrhea, No Constipation, No Melena, No Hematochezia, No Other Genitourinary: No Dysuria, No Frequency, No Incontinence, No Hematuria, No Retention; Other ([place]on[place] catheter in place) Musculoskeletal: No other, No neck pain, No shoulder pain, No arm pain, No back pain, No hand pain, No leg pain, No foot pain Skin: No Rash, No Lesions, No Jaundice, No Bruising, No Other Objective Vitals Vital Signs Date Time Temp Pulse Resp B/P (MAP) Pulse Ox O2 Delivery O2 Flow Rate FiO2 03/31/25 10:00 95/45 03/31/25 08:00 87 16 99 Room Air* 0 21 03/31/25 01:00 97.9 97.9 Intake/Output Intake and Output 03/31/25 07:00 Intake Total 1300 ml Output Total 700 ml Balance 600 ml Intake Oral 350 ml IV Total 950 ml Output Urine Total 700 ml General Appearance: Alert, Oriented X3, Cooperative, No acute distress HEENT: Atraumatic, PERRLA Neck: Carotid [place]its [place] Cardiovascular: Normal S1, Normal S2 Abdomen: Normal bowel sounds, Soft, No tenderness, No hepatospenomegaly, No masses Musculoskeletal: Normal sensory function, Normal motor function Skin: Dry, Intact Psych/Mental Status: Mental status NL, Mood NL Medications Current Medications Medications Dose Ordered Sig/Murali Route Start Time Stop Time Status Last Admin Dose Admin Tamsulosin HCl 0.4 mg QPM PO 03/24/25 18:00 03/30/25 18:03 0.4 MG Finasteride 5 mg DAILY PO 03/25/25 10:00 03/31/25 09:35 5 MG Amlodipine Besylate 5 mg DAILY PO 03/25/25 10:00 03/29/25 09:15 5 MG Pantoprazole Sodium 40 mg DAILY IV 03/25/25 10:00 03/31/25 09:34 40 MG Sodium Chloride 10 ml Q8HR IV 03/24/25 22:00 03/31/25 06:28 10 ML Acetaminophen/ Hydrocodone Bitart 1 tab Q4HP PRN PO 03/24/25 15:00 03/30/25 20:28 1 TAB Ondansetron HCl 4 mg Q4HP PRN IV 03/24/25 15:00 Docusate Sodium 100 mg BIDPRN PRN PO 03/24/25 15:00 Acetaminophen 650 mg Q6HP PRN PO 03/24/25 15:00 Nitroglycerin 0.4 mg Q5MINP PRN SL 03/24/25 18:00 Morphine Sulfate 2 mg Q30M PRN IV 03/24/25 18:00 Ceftriaxone Sodium 50 ml @ 100 mls/hr DAILY@09 IV 03/25/25 14:45 03/31/25 09:36 100 MLS/HR Enteral Nutritional Formula 240 ml BIDWM PO 03/26/25 18:00 03/31/25 08:06 240 ML Mupirocin 1 applic BID EACHNOSTRI 03/27/25 22:00 04/01/25 21:59 03/31/25 10:00 1 APPLIC Temazepam 30 mg HSPRN PRN PO 03/31/25 00:45 03/31/25 00:51 30 MG Potassium Chloride 40 meq/ Sodium Chloride 1,020 ml @ 60 mls/hr Q17H IV 03/31/25 11:45 04/01/25 04:44 Laboratory Results Laboratory Tests 03/31/25 06:35 Chemistry Test 03/30/25 13:26 03/31/25 06:35 Calcium Level 8.0 mg/dL (8.7-10.4) L 8.0 mg/dL (8.7-10.4) L Urinalysis Test 03/25/25 18:18 03/29/25 18:43 Urine RBC 14 /hpf (0 - 3) Urine WBC Clumps Present /hpf (None Seen) Urine Microscopic WBC 146 /HPF (0-3) H Urine Squamous Epithelial Cells Few /hpf (<5) Urine Amorphous Crystals Few /hpf (None Seen) Urine Bacteria Few /hpf (None Seen) H Urine Mucus Few (None Seen) Urine Color Light-orange (Yellow) Urine Clarity Ex.turbid (Clear) Urine pH 5.5 (5.0-9.0) Urine Specific [place] 1.017 (1.001-1.035) Urine Protein 2+ (Negative) H Urine Ketones 1+ (Negative) H Urine Blood 2+ /uL (Negative) H Urine Nitrite Negative (Negative) Urine Bilirubin Negative (Negative) Urine Urobilinogen Normal mg/dL (Negative) Urine Leukocyte Esterase 3+ /uL (Negative) Urine Glucose Normal mg/dL (Normal) Microbiology Microbiology Date/Time Source Procedure Growth Status 03/29/25 09:29 Blood Blood Culture - Preliminary NO GROWTH AFTER 48 HOURS OF INCUBATION. Resulted 03/28/25 13:15 Urine - [place] Urine Culture - Final Complete 03/26/25 10:48 Nose MRSA Screen - Final Methicillin Resistant S.aureus Complete Labs and/or images reviewed: Labs reviewed by me, Image(s) reviewed by me Assessment/Plan Assessment/Plan Impression: -acute metabolic encephalopathy , secondary to UTI -rule out sepsis -history of dementia -chronic systolic heart failure -complicated cystitis -metastatic prostate cancer Plan: Events: Patient with worsening neurological status. Medicated with Temazepam yesterday evening. Remains altered mental status -potassium replacement -continue IV hydration -awaiting neurology consultation -antibiotic therapy: Rocephin -blood culture, probable contamination -PUD, DVT prophylaxis Plan of care discussed with the patient's sister. Total time spent with patient discussing and formulating plan of care: 35 minutes. This medical document was created using an electronic medical record system with [employer] dictation system. Although this document has been carefully reviewed, there may still be some phonetic and typographical errors. These areas are purely typographical due to imperfections of the software programs, and do not reflect any compromise in the patient's medical care. Plan discussed with: Patient, Other (Rn) My Orders Orders - CHARLETTE SANDERS ECHO TECHNICIAN Procedure Category Date Status Time Sod Chl 0.45% PHA 03/31/25 In Process (Sodi... W/Potassium 11:45 Date of Service: Mar 31, 2025 Billing Provider: CHARLETTE SANDERS NP Common Visit Codes: [id number] INP/OBS CARE(HIGH) CHARLETTE SANDERS NP Mar 31, 2025 13:18
--- NOTE | 2025-03-31 22:34 | DVHINCON2 ---
Date of service: Mar 31, 2025 Referring Physician Kingsley Reason for Consultation Altered mental status History of Present Illness Mr. De Oliveira is a 65 years old gentleman with a history of hypertension, congestive heart failure, he was brought to the [facility] on 03/24[facility]2025 with a chief company of altered mental status. At this time, he is awake, oriented to person, place, he knows year, but is not a good historian. Apparently, the patient was noticed to be increasingly altered mentally for one days before he was brought to the hospital, and in the hospital, the patient was found to have urinary tract infection, according to her his nurse, on 03/30/2025, the patient was agitated, combative, and uncooperative. And he has a lot of improvement mentally today MRI showed abnormal enhancement, but I have no access to the imaging, I have left message to the radiology Re imaging loading Blood culture, 03/25/2025: Staphylococcus hominis subsp homis Urinalysis, 03/25/2025: WBC: 146, urine WBC clumps: Present, urine leukocyte esterase: 3+ WBC/HB/PLT/MCV, 03/31/2025: 4.4/8.9/312/85.8 Liver function tests, 03/25/2025: Unremarkable BUN/CR, 03/24/25: 3 4/1.23, 03/25/2025:33/1.08, 03/28/2025: 30/1.82, 03/29/2025: 15/0.97, 03/31/2025: 11/0.79 CRP, 03/25/25: 1.81 Vitamin B12, 03/28/2025: 218 CT head, 03/30/2025: 1. No evidence of metastatic disease or of acute intracranial pathology 2. Senescent changes. MRI head wwo 03/28/2025: Mild white matter disease including a lesion in the left de luna radiata measuring up to 14 mm with associated enhancement raising concern for demyelinating disease. A mass lesion is not entirely excluded. Clinical correlation and continued follow-up is recommended. Past Medical History Hypertension, congestive heart failure Past Surgical History Unknown Family History: FH: liver cancer G8 FATHER FH: stomach cancer G8 MOTHER Family History Liver cancer, stomach cancer Social History Smoker: Non-Smoker Alcohol: Denies ETOH Use Drugs: Denies Drug Use Allergies: Coded Allergies: NO KNOWN ALLERGIES (Unverified , 01/19/25) Home Meds Unable to Obtain Active Prescriptions or Reported Meds Current Medications Current Medications Medications (Trade) Dose Ordered Sig/Murali Route PRN Reason Start Time Stop Time Status Last Admin Temazepam (Restoril) 30 mg HSPRN PRN PO FOR INSOMNIA 03/31/25 00:45 03/31/25 13:19 DC 03/31/25 00:51 Potassium Chloride 40 meq/ Sodium Chloride 1,020 ml @ 60 mls/hr Q17H IV 03/31/25 11:45 04/01/25 04:44 03/31/25 11:45 Review of Systems Unobtainable Vital Signs Vital Signs Date Time Temp Pulse Resp B/P (MAP) Pulse Ox O2 Delivery O2 Flow Rate FiO2 03/31/25 21:00 98.1 98 18 112/61 (78) 95 98.1 03/31/25 08:00 Room Air* 0 21 Physical Exam GENERAL EXAM: General: the patient is well developed and nourished. No acute distress. HEENT: Normocephalic, neck is supple, no carotid bruits. No mass. RESPIRATORY: Normal respiratory effort with symmetrical lung expansion. Lungs clear to auscultation. CARDIOVASCULAR: Regular rate and rhythm with no murmurs. S1, S2. ABDOMEN: Soft, nontender, normal bowel sound NEUROLOGICAL: MENTAL STATUS: Awake and alert. Oriented to person, place, time and general circumstances. Able to give personal history. The patient is aware of recent events SPEECH, LANGUAGE, HIGHER CORTICAL FUNCTION: no aphasia or dysathria. CRANIAL NERVES: #2: Intact visual [place] to confrontation. #3,4,6: Pupils are equal, round and reactive. EOMs full and conjugate. #5: Facial sensation intact in all three divisions bilaterally. Mandibular strength intact. #7: Facial muscles symmetrical and strength intact. #8: Hearing grossly normal to voice. #9,10: Uvula and soft palate rise in the midline. Swallow and voice are normal. #11: Trapezius and sternomastoid strength intact bilaterally. #12: Tongue midline. No fasciculations or atrophy. SENSATION: Sensation to touch and pinprick is normal. MOTOR: Normal tone in the upper and lower extremity. Normal muscle bulk. No fasciculations. No abnormal movements or posturing. Muscle strength of the major groups in the upper extremities is 5/5. Muscle strength of the major groups in the lower extremities is 5/5. REFLEXES: Deep tendon reflexes are symmetrical. No pathological reflexes. CEREBELLAR/COORDINATION: Deferred GAIT/STATION: deferred. Labs/Diagnostic Data Labs Test 03/31/25 06:35 03/29/25 18:43 03/28/25 12:00 03/28/25 06:08 Range/Units White Blood Count 4.4 # 4.4-10.8 10^3/uL Red Blood Count 3.11 L 4.5-5.90 10^6/uL Hemoglobin 8.9 L 13.5-17.5 g/dL Hematocrit 26.7 #L 41.0-53.0 % Mean Corpuscular Volume 85.8 80.0-100.0 fL Mean Corpuscular Hemoglobin 28.7 28.0-32.0 pg Mean Corpuscular Hemoglobin Concent 33.4 32.0-36.0 g/dL Red Cell Distribution Width 15.7 H 11.8-14.3 % Platelet Count 312 140-450 10^3/uL Mean Platelet Volume 6.9 6.9-10.8 fL Neutrophils (%) (Auto) 61.2 37.0-80.0 % Lymphocytes (%) (Auto) 26.9 10.0-50.0 % Monocytes (%) (Auto) 8.0 0.0-12.0 % Eosinophils (%) (Auto) 3.0 0.0-7.0 % Basophils (%) (Auto) 0.9 0.0-2.0 % Neutrophils # (Auto) 2.7 1.6-8.6 10 ^3/uL Lymphocytes # (Auto) 1.2 0.4-5.4 10 ^3/uL Monocytes # (Auto) 0.4 0-1.3 10 ^3/uL Eosinophils # (Auto) 0.1 0-0.8 10 ^3/uL Basophils # (Auto) 0 0-0.2 10 ^3/uL Nucleated Red Blood Cells 0.2 % Sodium Level 145 136-145 mmol/L Potassium Level 3.3 L 3.5-5.1 mmol/L Chloride Level 112 H 98-107 mmol/L Carbon Dioxide Level 24 20-31 mmol/L Anion Gap 9 5-15 Blood Urea Nitrogen 11 9-23 mg/dL Creatinine 0.79 0.700-1.30 mg/dL Glomerular Filtration Rate Calc 97 >90 mL/min BUN/Creatinine Ratio 13.9 10.0-20.0 Serum Glucose 97 74-106 mg/dL Calcium Level 8.0 L 8.7-10.4 mg/dL Urine Color Light-orange Yellow Urine Clarity Ex.turbid Clear Urine pH 5.5 5.0-9.0 Urine Specific [place] 1.017 1.001-1.035 Urine Protein 2+ H Negative Urine Ketones 1+ H Negative Urine Blood 2+ H Negative /uL Urine Nitrite Negative Negative Urine Bilirubin Negative Negative Urine Urobilinogen Normal Negative mg/dL Urine Leukocyte Esterase 3+ Negative /uL Urine Glucose Normal Normal mg/dL Vitamin B12 Level 218 211-911 pg/mL Test 03/27/25 05:51 03/25/25 18:18 03/25/25 06:03 03/24/25 15:10 Range/Units Random Vancomycin Level 8.7 5-10 ug/mL Urine RBC 14 0 - 3 /hpf Urine WBC Clumps Present None Seen /hpf Urine Microscopic WBC 146 H 0-3 /HPF Urine Squamous Epithelial Cells Few <5 /hpf Urine Amorphous Crystals Few None Seen /hpf Urine Bacteria Few H None Seen /hpf Urine Mucus Few None Seen Erythrocyte Sedimentation Rate 33 H 0-20 mm/hr Total Bilirubin 0.8 0.2-1.0 mg/dL Aspartate Amino Transferase (AST) 26 13-40 U/L Alanine Aminotransferase (ALT) 16 7-40 U/L Alkaline Phosphatase 79 46-116 U/L C-Reactive Protein High Sensitivity 1.81 H <1.0 mg/dL Total Protein 6.0 5.7-8.2 g/dL Albumin 3.3 3.2-4.8 g/dL Troponin I High Sensitivity 9 </=54 ng/L Test 03/24/25 11:04 Range/Units B-Type Natriuretic Peptide 33.45 0-100 pg/mL Microbiology Date/Time Source Procedure Growth Status 03/29/25 09:29 Blood Blood Culture - Preliminary NO GROWTH AFTER 48 HOURS OF INCUBATION. Resulted 03/28/25 13:15 Urine - [place] Urine Culture - Final Complete 03/26/25 10:48 Nose MRSA Screen - Final Methicillin Resistant S.aureus Complete Assessment Altered mental status, combative, Likely metabolic encephalopathy secondary to UTI Rule out other etiology Abnormal MR brain scan ? Etiology Urinary tract infection Sepsis Plan/Recommendation Monitoring Supportive treatment Telemetry IV antibiotics Haldol for agitation GI prophylaxis DVT prophylaxis More recommendation per clinical course Progress: Poor This medical document was created using an electronic medical record system with [employer] dictation system. Although this document has been carefully reviewed, there may still be some phonetic and typographical errors. These areas are purely typographical due to imperfections of the software programs, and do not reflect any compromise in the patient's medical care. Plan discussed with: Other LUNA BARBA MD Mar 31, 2025 22:34
[2025-04-01] VITALS (9 sets, daily range): BP systolic 91–121; BP diastolic 35–70; PULSE 87–96; RESP 16–18; TEMP 97.2–98.6; O2SAT 94–98
--- NOTE | 2025-04-01 09:56 | DVHPN2 ---
Progress Note - Dictate Date Seen: Apr 01, 2025 Medical Necessity Reason Pt with a Central, PICC or Fol: Yes The following are medically ne: Maldonado Catheter Subjective Mr. De Oliveira is a 65 years old gentleman with a history of hypertension, congestive heart failure, he was brought to the [facility] on 03/24/2025 with a chief company of altered mental status. I have seen and examined the patient, I have discussed with his nurse and sitter, he is oriented to person, place, he knows year, socially appropriate, no new complaints Again I have worked with MRI center again, and we found out the patient did not have MRI scan, the report was wrong. Radiology has deleted the MR report in his chart Blood culture, 03/25/2025: Staphylococcus hominis subsp homis Urinalysis, 03/25/2025: WBC: 146, urine WBC clumps: Present, urine leukocyte esterase: 3+ WBC/HB/PLT/MCV, 03/31/2025: 4.4/8.9/312/85.8 Liver function tests, 03/25/2025: Unremarkable BUN/CR, 03/24/25: 3 4/1.23, 03/25/2025:33/1.08, 03/28/2025: 30/1.82, 03/29/2025: 15/0.97, 03/31/2025: 11/0.79 CRP, 03/25/25: 1.81 Vitamin B12, 03/28/2025: 218 CT head, 03/30/2025: 1. No evidence of metastatic disease or of acute intracranial pathology 2. Senescent changes. vital signs Vital Sign Date Time Temp Pulse Resp B/P (MAP) Pulse Ox O2 Delivery O2 Flow Rate FiO2 04/01/25 08:45 98.6 95 16 91/50 (64) 98 98.6 03/31/25 20:00 Room Air* 0 21 Total Intake and Output 03/31/25 03/31/25 04/01/25 15:00 23:00 07:00 Intake Total 50 ml 0 ml 1560 ml Output Total 325 ml 400 ml Balance 50 ml -325 ml 1160 ml medications Current Medications Medications Dose Ordered Sig/Murali Route Start Time Stop Time Status Last Admin Dose Admin Tamsulosin HCl 0.4 mg QPM PO 03/24/25 18:00 03/31/25 18:19 0.4 MG Finasteride 5 mg DAILY PO 03/25/25 10:00 03/31/25 09:35 5 MG Amlodipine Besylate 5 mg DAILY PO 03/25/25 10:00 03/29/25 09:15 5 MG Pantoprazole Sodium 40 mg DAILY IV 03/25/25 10:00 03/31/25 09:34 40 MG Sodium Chloride 10 ml Q8HR IV 03/24/25 22:00 04/01/25 06:00 10 ML Ondansetron HCl 4 mg Q4HP PRN IV 03/24/25 15:00 Docusate Sodium 100 mg BIDPRN PRN PO 03/24/25 15:00 Acetaminophen 650 mg Q6HP PRN PO 03/24/25 15:00 Nitroglycerin 0.4 mg Q5MINP PRN SL 03/24/25 18:00 Enteral Nutritional Formula 240 ml BIDWM PO 03/26/25 18:00 03/31/25 18:20 240 ML Mupirocin 1 applic BID EACHNOSTRI 03/27/25 22:00 04/01/25 21:59 03/31/25 22:00 1 APPLIC Haloperidol Lactate 2.5 mg Q8HP PRN IM 03/31/25 23:15 objective General: the patient is well developed and nourished. No acute distress. MENTAL STATUS: Subjective SPEECH, LANGUAGE, HIGHER CORTICAL FUNCTION: no aphasia or dysathria. CRANIAL NERVES: Pupils are equal, round and reactive. EOMs full and conjugate.Facial sensation intact in all three divisions bilaterally. Mandibular strength intact. Facial muscles symmetrical and strength intact. Tongue midline. No fasciculations or atrophy. SENSATION: Sensation to touch and pinprick is normal. MOTOR: Normal tone in the upper and lower extremity. Normal muscle bulk. No fasciculations. No abnormal movements or posturing. Muscle strength of the major groups in the extremities is 5/5. REFLEXES: Deep tendon reflexes are symmetrical. No pathological reflexes. CEREBELLAR/COORDINATION: Deferred GAIT/STATION: deferred. laboratory and microbiology Laboratory Tests 03/31/25 06:35 Test 03/31/25 06:35 Range/Units Serum Glucose 97 74-106 mg/dL Problem List Altered mental status, combative, Likely metabolic encephalopathy secondary to UTI Rule out other etiology Abnormal MR brain scan ? Etiology Urinary tract infection Sepsis Assessment/Plan Monitoring Supportive treatment Telemetry IV antibiotics Haldol for agitation GI prophylaxis DVT prophylaxis More recommendation per clinical course This medical document was created using an electronic medical record system with [employer] dictation system. Although this document has been carefully reviewed, there may still be some phonetic and typographical errors. These areas are purely typographical due to imperfections of the software programs, and do not reflect any compromise in the patient's medical care. Prognosis poor Dietary Evaluation Review Comments: 1) Continue Ensure High Protein bid 2) Encourage optimal PO intake 3) Follow-up with cardiology, urology, and neurology 4) Continue to monitor I&O, labs, and skin integrity Expected Outcomes/Goals: 1) appetite and labs to improve 2) f/u in 3-5 days Plan discussed with: Other Total Time (mins): 45 LUNA BARBA MD Apr 01, 2025 09:56
[2025-04-01] MEDS: ACETAMINOPHEN 325 MG TAB PO PRN (10:22)
--- NOTE | 2025-04-01 15:32 | DVHPN2 ---
Subjective Patient denies any symptoms. Reviewed: Care Plan, H&P, Labs, Medications Changes from previous H/P or p: No Changes General: Per HPI Eyes: No Pain, No Vision change, No Conjunctivae inflammation, No Eyelid inflammation, No Other, No Redness ENT: No Ear pain, No Ear discharge, No Nose pain, No Nose discharge, No Nose congestion, No Mouth pain, No Mouth swelling, No Throat pain, No Throat swelling, No Other Cardiovascular: No Chest Pain, No Palpitations, No Orthopnea, No Paroxysmal Noc. Dyspnea, No Edema, No Lt Headedness, No Other Respiratory: No Cough, No Dry, No Shortness of breath, No SOB with excertion, No Wheezing, No Hemoptysis, No Pleuritic Pain, No Sputum, No Other Gastrointestinal: No Nausea, No Vomiting, No Abdominal Pain, No Diarrhea, No Constipation, No Melena, No Hematochezia, No Other Genitourinary: No Dysuria, No Frequency, No Incontinence, No Hematuria, No Retention; Other (Maldonado catheter in place) Musculoskeletal: No other, No neck pain, No shoulder pain, No arm pain, No back pain, No hand pain, No leg pain, No foot pain Skin: No Rash, No Lesions, No Jaundice, No Bruising, No Other Objective Vitals Vital Signs Date Time Temp Pulse Resp B/P (MAP) Pulse Ox O2 Delivery O2 Flow Rate FiO2 04/01/25 13:00 98.4 90 18 95/48 (64) 98 98.4 04/01/25 08:00 Room Air* 0 21 Intake/Output Intake and Output 04/01/25 06:59 Intake Total 1610 ml Output Total 725 ml Balance 885 ml Intake Oral 600 ml IV Total 1010 ml Output Urine Total 725 ml Stool Total 0 ml General Appearance: Alert, Oriented X3, Cooperative, No acute distress HEENT: Atraumatic, PERRLA Neck: Carotid Bruits [place] Cardiovascular: Normal S1, Normal S2 Abdomen: Normal bowel sounds, Soft, No tenderness, No hepatospenomegaly, No masses Musculoskeletal: Normal sensory function, Normal motor function Skin: Dry, Intact Psych/Mental Status: Mental status NL, Mood NL Medications Current Medications Medications Dose Ordered Sig/Murali Route Start Time Stop Time Status Last Admin Dose Admin Tamsulosin HCl 0.4 mg QPM PO 03/24/25 18:00 03/31/25 18:19 0.4 MG Finasteride 5 mg DAILY PO 03/25/25 10:00 04/01/25 10:13 5 MG Amlodipine Besylate 5 mg DAILY PO 03/25/25 10:00 03/29/25 09:15 5 MG Pantoprazole Sodium 40 mg DAILY IV 03/25/25 10:00 04/01/25 10:13 40 MG Sodium Chloride 10 ml Q8HR IV 03/24/25 22:00 04/01/25 06:00 10 ML Ondansetron HCl 4 mg Q4HP PRN IV 03/24/25 15:00 Docusate Sodium 100 mg BIDPRN PRN PO 03/24/25 15:00 Acetaminophen 650 mg Q6HP PRN PO 03/24/25 15:00 04/01/25 10:22 650 MG Nitroglycerin 0.4 mg Q5MINP PRN SL 03/24/25 18:00 Enteral Nutritional Formula 240 ml BIDWM PO 03/26/25 18:00 04/01/25 08:00 240 ML Mupirocin 1 applic BID EACHNOSTRI 03/27/25 22:00 04/01/25 21:59 03/31/25 22:00 1 APPLIC Haloperidol Lactate 2.5 mg Q8HP PRN IM 03/31/25 23:15 Laboratory Results Laboratory Tests 03/31/25 06:35 Urinalysis Test 03/25/25 18:18 03/29/25 18:43 Urine RBC 14 /hpf (0 - 3) Urine WBC Clumps Present /hpf (None Seen) Urine Microscopic WBC 146 /HPF (0-3) H Urine Squamous Epithelial Cells Few /hpf (<5) Urine Amorphous Crystals Few /hpf (None Seen) Urine Bacteria Few /hpf (None Seen) H Urine Mucus Few (None Seen) Urine Color Light-orange (Yellow) Urine Clarity Ex.turbid (Clear) Urine pH 5.5 (5.0-9.0) Urine Specific [place] 1.017 (1.001-1.035) Urine Protein 2+ (Negative) H Urine Ketones 1+ (Negative) H Urine Blood 2+ /uL (Negative) H Urine Nitrite Negative (Negative) Urine Bilirubin Negative (Negative) Urine Urobilinogen Normal mg/dL (Negative) Urine Leukocyte Esterase 3+ /uL (Negative) Urine Glucose Normal mg/dL (Normal) Microbiology Microbiology Date/Time Source Procedure Growth Status 03/29/25 09:29 Blood Blood Culture - Preliminary NO GROWTH AFTER 72 HOURS OF INCUBATION. Resulted 03/28/25 13:15 Urine - Maldonado Port Urine Culture - Final Complete 03/26/25 10:48 Nose MRSA Screen - Final Methicillin Resistant S.aureus Complete Labs and/or images reviewed: Labs reviewed by me, Image(s) reviewed by me Assessment/Plan Assessment/Plan Impression: -acute metabolic encephalopathy , secondary to UTI -rule out sepsis -history of dementia -chronic systolic heart failure -complicated cystitis -metastatic prostate cancer Plan: Events: Patient now alert and oriented x4. neurology consultation/recommendations were reviewed. Patient is requesting treatment for his metastatic cancer. Social service consultation placed for transfer to higher level of care. We will discuss plan of care with family. -potassium replacement -continue IV hydration -antibiotic therapy: Rocephin -PUD, DVT prophylaxis -repeat labs in a.m. Total time spent with patient discussing and formulating plan of care: 35 minutes. This medical document was created using an electronic medical record system with [employer] dictation system. Although this document has been carefully reviewed, there may still be some phonetic and typographical errors. These areas are purely typographical due to imperfections of the software programs, and do not reflect any compromise in the patient's medical care. Plan discussed with: Patient, Other (RN) Date of Service: Apr 01, 2025 Billing Provider: CHARLETTE SANDERS NP Common Visit Codes: [id number] INP/OBS CARE(HIGH) CHARLETTE SANDERS NP Apr 01, 2025 15:32
[2025-04-02] VITALS (9 sets, daily range): BP systolic 93–110; BP diastolic 40–68; PULSE 79–89; RESP 16–20; TEMP 97.5–98.7; O2SAT 95–100
[2025-04-02 08:16] LABS: Anion Gap 8 (5-15); Carbon Dioxide 23 mmol/L (20-31); Chloride 113 mmol/L (98-107); Potassium 3.6 mmol/L (3.5-5.1); Sodium 144 mmol/L (136-145)
[2025-04-02 08:22] LABS: BUN/Creatinine Ratio 12.8 (10.0-20.0); Blood Urea Nitrogen 11 mg/dL (9-23); Calcium 7.9 mg/dL (8.7-10.4); Glucose 136 mg/dL (74-106)
[2025-04-02 08:23] LABS: Magnesium 1.8 mg/dL (1.6-2.6)
--- NOTE | 2025-04-02 14:01 | DVHPN2 ---
Subjective Patient denies any symptoms. Reviewed: Care Plan, H&P, Labs, Medications Changes from previous H/P or p: No Changes General: Per HPI Eyes: No Pain, No Vision change, No Conjunctivae inflammation, No Eyelid inflammation, No Other, No Redness ENT: No Ear pain, No Ear discharge, No Nose pain, No Nose discharge, No Nose congestion, No Mouth pain, No Mouth swelling, No Throat pain, No Throat swelling, No Other Cardiovascular: No Chest Pain, No Palpitations, No Orthopnea, No Paroxysmal Noc. Dyspnea, No Edema, No Lt Headedness, No Other Respiratory: No Cough, No Dry, No Shortness of breath, No SOB with excertion, No Wheezing, No Hemoptysis, No Pleuritic Pain, No Sputum, No Other Gastrointestinal: No Nausea, No Vomiting, No Abdominal Pain, No Diarrhea, No Constipation, No Melena, No Hematochezia, No Other Genitourinary: No Dysuria, No Frequency, No Incontinence, No Hematuria, No Retention; Other (Maldonado catheter in place) Musculoskeletal: No other, No neck pain, No shoulder pain, No arm pain, No back pain, No hand pain, No leg pain, No foot pain Skin: No Rash, No Lesions, No Jaundice, No Bruising, No Other Objective Vitals Vital Signs Date Time Temp Pulse Resp B/P (MAP) Pulse Ox O2 Delivery O2 Flow Rate FiO2 04/02/25 13:14 98.3 87 18 101/51 (68) 95 98.3 04/02/25 08:00 Room Air* 0 21 Intake/Output Intake and Output 04/02/25 07:00 Intake Total 880 ml Output Total 800 ml Balance 80 ml Intake Oral 880 ml Output Urine Total 800 ml # Bowel Movements 1 General Appearance: Alert, Oriented X3, Cooperative, No acute distress HEENT: Atraumatic, PERRLA Neck: Carotid Bruits [place] Cardiovascular: Normal S1, Normal S2 Abdomen: Normal bowel sounds, Soft, No tenderness, No hepatospenomegaly, No masses Musculoskeletal: Normal sensory function, Normal motor function Skin: Dry, Intact Psych/Mental Status: Mental status NL, Mood NL Medications Current Medications Medications Dose Ordered Sig/Murali Route Start Time Stop Time Status Last Admin Dose Admin Tamsulosin HCl 0.4 mg QPM PO 03/24/25 18:00 03/31/25 18:19 0.4 MG Finasteride 5 mg DAILY PO 03/25/25 10:00 04/02/25 09:12 5 MG Amlodipine Besylate 5 mg DAILY PO 03/25/25 10:00 03/29/25 09:15 5 MG Pantoprazole Sodium 40 mg DAILY IV 03/25/25 10:00 04/02/25 09:12 40 MG Sodium Chloride 10 ml Q8HR IV 03/24/25 22:00 04/02/25 13:28 10 ML Ondansetron HCl 4 mg Q4HP PRN IV 03/24/25 15:00 Docusate Sodium 100 mg BIDPRN PRN PO 03/24/25 15:00 Acetaminophen 650 mg Q6HP PRN PO 03/24/25 15:00 04/02/25 01:47 650 MG Nitroglycerin 0.4 mg Q5MINP PRN SL 03/24/25 18:00 Enteral Nutritional Formula 240 ml BIDWM PO 03/26/25 18:00 04/02/25 08:10 240 ML Haloperidol Lactate 2.5 mg Q8HP PRN IM 03/31/25 23:15 Laboratory Results Laboratory Tests 03/31/25 06:35 04/02/25 07:20 Chemistry Test 04/02/25 07:20 Calcium Level 7.9 mg/dL (8.7-10.4) L Magnesium Level 1.8 mg/dL (1.6-2.6) Urinalysis Test 03/25/25 18:18 03/29/25 18:43 Urine RBC 14 /hpf (0 - 3) Urine WBC Clumps Present /hpf (None Seen) Urine Microscopic WBC 146 /HPF (0-3) H Urine Squamous Epithelial Cells Few /hpf (<5) Urine Amorphous Crystals Few /hpf (None Seen) Urine Bacteria Few /hpf (None Seen) H Urine Mucus Few (None Seen) Urine Color Light-orange (Yellow) Urine Clarity Ex.turbid (Clear) Urine pH 5.5 (5.0-9.0) Urine Specific [place] 1.017 (1.001-1.035) Urine Protein 2+ (Negative) H Urine Ketones 1+ (Negative) H Urine Blood 2+ /uL (Negative) H Urine Nitrite Negative (Negative) Urine Bilirubin Negative (Negative) Urine Urobilinogen Normal mg/dL (Negative) Urine Leukocyte Esterase 3+ /uL (Negative) Urine Glucose Normal mg/dL (Normal) Microbiology Microbiology Date/Time Source Procedure Growth Status 03/29/25 09:29 Blood Blood Culture - Preliminary NO GROWTH AFTER 72 HOURS OF INCUBATION. Resulted 03/28/25 13:15 Urine - Maldonado Port Urine Culture - Final Complete 03/26/25 10:48 Nose MRSA Screen - Final Methicillin Resistant S.aureus Complete Labs and/or images reviewed: Labs reviewed by me, Image(s) reviewed by me Assessment/Plan Assessment/Plan Impression: -acute metabolic encephalopathy , secondary to UTI -rule out sepsis -history of dementia -chronic systolic heart failure -complicated cystitis -metastatic prostate cancer Plan: Events: Social service consultation was placed for transfer to higher level of care for oncology services. Contacted hospitalist here at capacity. Discussion was made with patient's son, Carroll regarding discharge planning. Patient will be transferred back to long term facility for physical therapy, as well as follow up with outpatient Oncology. -antibiotic therapy: Rocephin -PUD, DVT prophylaxis Total time spent with patient discussing and formulating plan of care: 35 minutes. This medical document was created using an electronic medical record system with [employer] dictation system. Although this document has been carefully reviewed, there may still be some phonetic and typographical errors. These areas are purely typographical due to imperfections of the software programs, and do not reflect any compromise in the patient's medical care. Plan discussed with: Patient, Other (RN) My Orders Orders - CHARLETTE SANDERS NP Procedure Category Date Status Time * Epic Interface Analyst CONS 04/01/25 Transmitted Consult Date of Service: Apr 02, 2025 Billing Provider: CHARLETTE SANDERS NP Common Visit Codes: [id number] INP/OBS CARE(HIGH) CHARLETTE SANDERS NP Apr 02, 2025 14:01
[2025-04-02 18:07] LABS: Vitamin D-2 25-Hydroxy <1.0 ng/mL (.); Vitamin D-3 25-Hydroxy 4.2 ng/mL (.)
[2025-04-02] MEDS: HALOPERIDOL LACTATE 5 MG/ML INJ VIAL IM PRN (18:14)
[2025-04-02] MEDS ORDERED: LORazepam 2MG/ML-1ML VIAL IV PRN (21:30)
--- NOTE | 2025-04-02 22:10 | DVHPN2 ---
Progress Note - Dictate Date Seen: Apr 02, 2025 Medical Necessity Reason Pt with a Central, PICC or Fol: Yes The following are medically ne: Maldonado Catheter Subjective Mr. De Oliveira is a 65 years old gentleman with a history of hypertension, congestive heart failure, he was brought to the [facility] on 03/24/2025 with a chief company of altered mental status. I have seen and examined the patient, I have discussed with his nurse and sitter, he is oriented to person, place, he knows year, socially appropriate, no new complaints But he was agitated earlier and received Haldol Blood culture, 03/25/2025: Staphylococcus hominis subsp homis Urinalysis, 03/25/2025: WBC: 146, urine WBC clumps: Present, urine leukocyte esterase: 3+ WBC/HB/PLT/MCV, 03/31/2025: 4.4/8.9/312/85.8 Liver function tests, 03/25/2025: Unremarkable BUN/CR, 03/24/25: 3 4/1.23, 03/25/2025:33/1.08, 03/28/2025: 30/1.82, 03/29/2025: 15/0.97, 03/31/2025: 11/0.79 CRP, 03/25/25: 1.81 Vitamin B12, 03/28/2025: 218 CT head, 03/30/2025: 1. No evidence of metastatic disease or of acute intracranial pathology 2. Senescent changes. vital signs Vital Sign Date Time Temp Pulse Resp B/P (MAP) Pulse Ox O2 Delivery O2 Flow Rate FiO2 04/02/25 21:00 97.9 89 18 108/68 (81) 97 97.9 04/02/25 20:21 Room Air* 0 21 Total Intake and Output 04/01/25 04/01/25 04/02/25 15:00 23:00 07:00 Intake Total 400 ml 480 ml Output Total 550 ml 250 ml Balance -150 ml 230 ml medications Current Medications Medications Dose Ordered Sig/Murali Route Start Time Stop Time Status Last Admin Dose Admin Tamsulosin HCl 0.4 mg QPM PO 03/24/25 18:00 04/02/25 17:26 0.4 MG Finasteride 5 mg DAILY PO 03/25/25 10:00 04/02/25 09:12 5 MG Amlodipine Besylate 5 mg DAILY PO 03/25/25 10:00 03/29/25 09:15 5 MG Pantoprazole Sodium 40 mg DAILY IV 03/25/25 10:00 04/02/25 09:12 40 MG Sodium Chloride 10 ml Q8HR IV 03/24/25 22:00 04/02/25 21:04 10 ML Ondansetron HCl 4 mg Q4HP PRN IV 03/24/25 15:00 Docusate Sodium 100 mg BIDPRN PRN PO 03/24/25 15:00 Acetaminophen 650 mg Q6HP PRN PO 03/24/25 15:00 04/02/25 01:47 650 MG Nitroglycerin 0.4 mg Q5MINP PRN SL 03/24/25 18:00 Enteral Nutritional Formula 240 ml BIDWM PO 03/26/25 18:00 04/02/25 18:00 240 ML Haloperidol Lactate 2.5 mg Q8HP PRN IM 03/31/25 23:15 04/02/25 18:14 2.5 MG Lorazepam 1 mg ONCE PRN IV 04/02/25 21:30 04/02/25 23:59 objective General: the patient is well developed and nourished. No acute distress. MENTAL STATUS: Subjective SPEECH, LANGUAGE, HIGHER CORTICAL FUNCTION: no aphasia or dysathria. CRANIAL NERVES: Pupils are equal, round and reactive. EOMs full and conjugate.Facial sensation intact in all three divisions bilaterally. Mandibular strength intact. Facial muscles symmetrical and strength intact. Tongue midline. No fasciculations or atrophy. SENSATION: Sensation to touch and pinprick is normal. MOTOR: Normal tone in the upper and lower extremity. Normal muscle bulk. No fasciculations. No abnormal movements or posturing. Muscle strength of the major groups in the extremities is 5/5. REFLEXES: Deep tendon reflexes are symmetrical. No pathological reflexes. CEREBELLAR/COORDINATION: Deferred GAIT/STATION: deferred. laboratory and microbiology Laboratory Tests 04/02/25 07:20 03/31/25 06:35 Test 04/02/25 07:20 Range/Units Serum Glucose 136 H 74-106 mg/dL Problem List Altered mental status, combative, Likely metabolic encephalopathy secondary to UTI Rule out other etiology Abnormal MR brain scan ? Etiology Urinary tract infection Sepsis Assessment/Plan Monitoring Supportive treatment Telemetry MRI head IV antibiotics Haldol for agitation GI prophylaxis DVT prophylaxis More recommendation per clinical course This medical document was created using an electronic medical record system with [employer] dictation system. Although this document has been carefully reviewed, there may still be some phonetic and typographical errors. These areas are purely typographical due to imperfections of the software programs, and do not reflect any compromise in the patient's medical care. Prognosis poor Dietary Evaluation Review Comments: 1) Continue Ensure High Protein bid 2) Encourage optimal PO intake 3) Follow-up with cardiology, urology, and neurology 4) Continue to monitor I&O, labs, and skin integrity Expected Outcomes/Goals: 1) appetite and labs to improve 2) f/u in 3-5 days Plan discussed with: Other LUNA BARBA MD Apr 02, 2025 22:10
[2025-04-02] MEDS: DOCUSATE SOD 100 MG CAP PO PRN (22:32)
[2025-04-03 01:00] VITALS: BP 106/70; PULSE 93; RESP 18; TEMP 98.2; O2SAT 95
[2025-04-03 05:01] VITALS: BP 94/54; PULSE 98; RESP 18; TEMP 98.1; O2SAT 96
[2025-04-03 08:45] VITALS: BP 111/70; PULSE 92; RESP 20; TEMP 98.4; O2SAT 96
[2025-04-03 12:24] VITALS: BP 126/72; PULSE 89; RESP 20; TEMP 98.1; O2SAT 98
--- NOTE | 2025-04-03 13:59 | DVHDS2 ---
Discharge Summary Date of Admission Mar 24, 2025 at 17:53 Date of Discharge: Apr 03, 2025 Admitting Diagnosis Altered mental status Labs/Diagnostic Data: Laboratory Results Test 04/02/25 07:20 03/31/25 06:35 03/29/25 18:43 03/28/25 12:00 Sodium Level 144 mmol/L (136-145) Potassium Level 3.6 mmol/L (3.5-5.1) Chloride Level 113 mmol/L (98-107) Carbon Dioxide Level 23 mmol/L (20-31) Anion Gap 8 (5-15) Blood Urea Nitrogen 11 mg/dL (9-23) Creatinine 0.86 mg/dL (0.700-1.30) Glomerular Filtration Rate Calc 95 mL/min (>90) BUN/Creatinine Ratio 12.8 (10.0-20.0) Serum Glucose 136 mg/dL (74-106) Calcium Level 7.9 mg/dL (8.7-10.4) Magnesium Level 1.8 mg/dL (1.6-2.6) White Blood Count 4.4 10^3/uL (4.4-10.8) Red Blood Count 3.11 10^6/uL (4.5-5.90) Hemoglobin 8.9 g/dL (13.5-17.5) Hematocrit 26.7 % (41.0-53.0) Mean Corpuscular Volume 85.8 fL (80.0-100.0) Mean Corpuscular Hemoglobin 28.7 pg (28.0-32.0) Mean Corpuscular Hemoglobin Concent 33.4 g/dL (32.0-36.0) Red Cell Distribution Width 15.7 % (11.8-14.3) Platelet Count 312 10^3/uL (140-450) Mean Platelet Volume 6.9 fL (6.9-10.8) Neutrophils (%) (Auto) 61.2 % (37.0-80.0) Lymphocytes (%) (Auto) 26.9 % (10.0-50.0) Monocytes (%) (Auto) 8.0 % (0.0-12.0) Eosinophils (%) (Auto) 3.0 % (0.0-7.0) Basophils (%) (Auto) 0.9 % (0.0-2.0) Neutrophils # (Auto) 2.7 10 ^3/uL (1.6-8.6) Lymphocytes # (Auto) 1.2 10 ^3/uL (0.4-5.4) Monocytes # (Auto) 0.4 10 ^3/uL (0-1.3) Eosinophils # (Auto) 0.1 10 ^3/uL (0-0.8) Basophils # (Auto) 0 10 ^3/uL (0-0.2) Nucleated Red Blood Cells 0.2 % Urine Color Light-orange (Yellow) Urine Clarity Ex.turbid (Clear) Urine pH 5.5 (5.0-9.0) Urine Specific [place] 1.017 (1.001-1.035) Urine Protein 2+ (Negative) Urine Ketones 1+ (Negative) Urine Blood 2+ /uL (Negative) Urine Nitrite Negative (Negative) Urine Bilirubin Negative (Negative) Urine Urobilinogen Normal mg/dL (Negative) Urine Leukocyte Esterase 3+ /uL (Negative) Urine Glucose Normal mg/dL (Normal) Vitamin D 25-Hydroxy 4.5 ng/mL (.) 25-Hydroxy Vitamin D2 <1.0 ng/mL (.) 25-Hydroxy Vitamin D3 4.2 ng/mL (.) Test 03/28/25 06:08 03/27/25 05:51 03/25/25 18:18 03/25/25 06:03 Vitamin B12 Level 218 pg/mL (211-911) Random Vancomycin Level 8.7 ug/mL (5-10) Urine RBC 14 /hpf (0 - 3) Urine WBC Clumps Present /hpf (None Seen) Urine Microscopic WBC 146 /HPF (0-3) Urine Squamous Epithelial Cells Few /hpf (<5) Urine Amorphous Crystals Few /hpf (None Seen) Urine Bacteria Few /hpf (None Seen) Urine Mucus Few (None Seen) Erythrocyte Sedimentation Rate 33 mm/hr (0-20) Total Bilirubin 0.8 mg/dL (0.2-1.0) Aspartate Amino Transferase (AST) 26 U/L (13-40) Alanine Aminotransferase (ALT) 16 U/L (7-40) Alkaline Phosphatase 79 U/L (46-116) C-Reactive Protein High Sensitivity 1.81 mg/dL (<1.0) Total Protein 6.0 g/dL (5.7-8.2) Albumin 3.3 g/dL (3.2-4.8) Test 03/24/25 15:10 03/24/25 11:04 Troponin I High Sensitivity 9 ng/L (</=54) B-Type Natriuretic Peptide 33.45 pg/mL (0-100) Other Laboratory Tests 04/02/25 07:20 03/31/25 06:35 Brief Hx & Hospital Course: History of Present Illness The patient is a 65-year-old male with past medical history of CHF and hypertension who presented to [facility] ED for evaluation of altered level of consciousness. As reported by EMS, patient is residing at nursing facility when staff member called related to patient becoming increasingly altered for the past 1 day. As reported by staff, patient's baseline is normally altered however, he has now had a change in behavior, complaining of penile pain by holding the area, has Maldonado catheter in place. Patient was seen and evaluated in the ED, laboratory data shows WBC 10.1, platelets 393, sodium 142, potassium 4.0, BUN 34, creatinine 1.23, glucose 137, troponin 8, calcium 8.7, blood pressure 102/71, heart rate 99, temperature 98.8 F, O2 saturation 95% on room air. Chest x-ray show no evidence of acute disease. Please see medication orders section in the computer. On my assessment, patient denied chest pain, no headache, no dizziness, no shortness of breath, no diarrhea, no nausea, no vomiting, no fever, no chills. Patient was admitted for further evaluation and medical management. Course of hospitalization: Patient had CT scan of the head with with out IV contrast rule out metastatic disease to the brain given recent diagnosis of metastatic prostate cancer. Patient was started on empiric antibiotic therapy for UTI. Blood and urine cultures thus far negative. Patient had persistent metabolic encephalopathy/delirium while in the hospital. Neurology consultation was obtained. Patient regained appropriate neurological status, now A&O x4. Long discussion was made with the patient regarding discharge planning with respect to treatment of his cancer versus hospice care. At this time he wishes to be seen by an oncologist for treatment if deemed appropriate. Attempts for made to transfer patient to higher level of care, for which acceptance was denied due to capacity at multiple facilities. Long discussion was also made with the patient's family including sister Shaniqua as well as son Carroll. They are agreeable to assist with outpatient follow up with Oncology and are agreeable for the patient to be discharged back to [facility]. Physical examination General: Alert and Oriented x3. No acute distress. Well-nourished. Eyes: EOMI. Anicteric. HENT: Moist mucous membranes. Lungs: Clear to auscultation bilaterally. No accessory muscle use. Cardiovascular: Regular rate and rhythm. No murmur. No JVD. Abdomen: Soft, non-tender and non-distended. No palpable masses. Extremities: No edema. Non-tender. Skin: No rashes or lesions. Warm. Neurologic: No focal neurological deficits. CN II-XII grossly intact, but not individually tested. Psychiatric: Cooperative. Appropriate mood and affect. Total time spent with patient discussing and formulating plan of care: 35 minutes. This medical document was created using an electronic medical record system with [employer] dictation system. Although this document has been carefully reviewed, there may still be some phonetic and typographical errors. These areas are purely typographical due to imperfections of the software programs, and do not reflect any compromise in the patient's medical care. Consults/Reason for consult Neurology: Altered mental status Condition at Discharge: Poor Final Diagnosis/Problems List -acute metabolic encephalopathy , secondary to UTI -rule out sepsis -history of dementia -chronic systolic heart failure -complicated cystitis -metastatic prostate cancer Discharge Disposition: [facility] Discharge Instruct/Medications Diet: Regular Activity: No Restrictions, As Tolerated Follow Up/Referral: Follow up with Oncology as outpatient patient Medications: Continue all home medications Unable to Obtain Active Prescriptions or Reported Meds 36 Discharge Statement: "Patient was advised to return to the ER or call 911 if any headaches, dizziness, shortness of breath, chest pain, abdominal pain, bleeding, fevers, or worsening of medical condition. Patient was counseled about treatment plan, medications, possible side effects, patientverbalized understanding. All questions were answered to the best of my ability. This discharge took greater then 30 minutes in planning, reviewing documentation, counseling the patient, and discussing with other team members." ASSESSMENT ASSESSMENT Assessment Metabolic Encephalopathy Date of Service: Apr 03, 2025 Billing Provider: CHARLETTE SANDERS NP Common Visit Codes: 95966-JZF/OBS DISCH DAY >30min CHARLETTE SANDERS NP Apr 03, 2025 13:59
[2025-04-03 16:41] VITALS: BP 111/69; TEMP 36.7
[2025-04-03 17:44] VITALS: BP 107/60; PULSE 91; RESP 20; TEMP 97.9; O2SAT 99
[2025-04-05 09:06] LABS: Vitamin B1, Whole Blood 64.1 nmol/L (66.5-200.0)
== END 2025-04-03 18:45 | DRG 871 ==
LOC: ER 08:22 → EDBD 08:22 → EDUNIT# 17:53 → OVERFLOW 17:53 → TELE-WESTW 17:54
PROVIDERS: ADMIT Nurse Practitioner Acute Care; ATTEND Nurse Practitioner Acute Care
DX: A41.9 Sepsis, unspecified organism (principal); G93.41 Metabolic encephalopathy; I50.22 Chronic systolic (congestive) heart failure; C79.31 Secondary malignant neoplasm of brain; N17.9 Acute kidney failure, unspecified; I11.0 Hypertensive heart disease with heart failure; N30.90 Cystitis, unspecified without hematuria; C61 Malignant neoplasm of prostate; Z80.0 Family history of malignant neoplasm of digestive organs
CPT/HCPCS: 36415; 70450; 70460; 70553; 71045; 80048; 80053; 80202; 81001; 81003; 82306; 82565; 82607; 83735; 83880; 84425; 84484; 85025; 85652; 86141; 87040; 87077; 87081; 87086; 87186; 93005; 97110; 97163; G0378; J2003; J2470

== ENCOUNTER 2025-04-13 20:58 | Inpatient (IN) | payer MEDICARE, MEDICAID ==
[~2025-04-13] VITALS: Ht 170.2 cm; Wt 77.5 kg
[2025-04-13 22:45] LABS: Hematocrit 29.8 % (41.0-53.0); Hemoglobin 10.2 g/dL (13.5-17.5); Mean Corpuscular Hemoglobin 28.6 pg (28.0-32.0); Mean Corpuscular Volume 83.5 fL (80.0-100.0); Nucleated Red Blood Cells % 0.1 %
[2025-04-13] MEDS: NITROGLYCERIN 0.4 MG SL TAB SL ONE (22:50)
[2025-04-13 23:03] LABS: Alanine Aminotransferase 13 U/L (7-40); Alkaline Phosphatase 79 U/L (46-116); Anion Gap 9 (5-15); BUN/Creatinine Ratio 20.4 (10.0-20.0); Bilirubin, Total 0.4 mg/dL (0.2-1.0); Blood Urea Nitrogen 23 mg/dL (9-23); Carbon Dioxide 32 mmol/L (20-31); Chloride 105 mmol/L (98-107); Potassium 2.9 mmol/L (3.5-5.1); Sodium 146 mmol/L (136-145)
[2025-04-13 23:04] LABS: Albumin 3.0 g/dL (3.2-4.8); Calcium 8.2 mg/dL (8.7-10.4); Glucose 183 mg/dL (74-106); Total Protein 5.5 g/dL (5.7-8.2)
--- NOTE | 2025-04-13 23:43 | ED.PDOC ---
History of Present Illness HPI Comments HPI: Poor Historian. 65-year-old male presents to the emergency department by ambulance from the post acute care for chief complaint left chest pain nonradiating constant with the associated nausea and vomiting and mild shortness of breath. Patient states that he had this chest pain for at least four months but got worse. He was given ASA en route by paramedics. Denies any other acute symptoms. When evaluated patient is noted to have left upper quadrant tenderness to palpation as well. Past Medical History: Past Surgical History: 01/19/25 Left Hydroureteronephrosis admission Final Diagnosis/Problems List * Sepsis, questionably secondary to UTI. * Left renal stone with hydronephrosis, status post stent placement. * Metastatic prostate cancer. * Chronic diastolic heart failure. * Prior history of cardiac arrest. * Acute renal failure, questionable vasomotor nephropathy. 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 * GERD. 03/24/25 AMS admission FINAL DIAGNOSES: -acute metabolic encephalopathy , secondary to UTI -rule out sepsis -history of dementia -chronic systolic heart failure -complicated cystitis -metastatic prostate cancer REVIEW OF SYSTEMS: CONSTITUTIONAL: Denies acute: fever, diaphoresis, chills, generalized weakness. HEAD: Denies acute: headache, photophobia Eyes: Denies acute: Double vision, vision loss, eye pain, eye discharge. EARS: Denies acute: tinnitus, hearing loss, ear discharge, ear pain, THROAT: Denies acute: sore throat, swelling, difficulty swallowing , pain with swallowing, change in voice. NECK: Denies acute: neck pain, neck swelling, stiff neck. HEART: Denies acute : palpitations, LUNGS: Denies acute: SOB, wheezing, cough, hemoptysis ABDOMEN: Denies acute: abdominal pain, diarrhea, melena , hematemesis, hematochezia SKIN: Denies acute: rash, redness, lesions, itchiness. EXTREMITIES: Denies acute: calf pain, numbness, tingling, weakness, denies pain in extremity. Denies acute: Low back pain. Neuro: Denies acute: focal neurological deficit, motor or sensory focal neurological deficit, tremors, seizure like activity, confusion, dizziness, change in mental status, loss of bowel or bladder function, cauda equina like symptoms. : Denies acute: dysuria, hematuria, flank pain, increase in urinary frequency. PSYCH: Denies acute: hallucination, suicidal ideation, homicidal ideation. PHYSICAL EXAM: General: -----mild---acute distress, awake and alert. Head: normocephalic, atraumatic. Neck: supple, trachea is midline, no swelling. Throat: Normal phonation. Eyes:, no erythema, no purulent discharge, no proptosis, no icterus. Heart: regular rate, regular rhythm, noted slight number. Lungs: no apparent respiratory distress, Able to speak in full sentences. No wheezing, no rhonchi, no crackles. No stridors Clear to auscultation bilaterally. Abdomen: Left upper quadrant tender to palpation, non distended, soft, no guarding, no rebound, + bowel sounds. Neuro: Awake, Alert, oriented to name, self, situation, follows commands GCS=15. Speech is normal. Skin: no petechia, no purpura, no cyanosis, slightly-pale, not jaundice. Lower extremities: --no - Pitting edema no deformity, no focal swelling, no calf TTP. Makes eye contact. moves all four extremities. Face: no apparent facial droop. ED COURSE: DISCLAIMER: This medical document was created using an electronic medical record system with voice recognition software and computerized dictation system. Although this document has been carefully reviewed, there might still be some phonetic and typographical errors. Occasional wrong-word or "sound-alike" substitutions may have occurred due to the inherent limitations of voice recognition software. These areas are purely typographical due to imperfections of the software programs and do not reflect any compromise in the patient's medical care. Please read the chart carefully and recognize, using context, where these substitutions have occurred. Chief Complaint: Chest Pain Time Seen by MD: 23:28 Reviewed Notes: Allergies Allergies: Coded Allergies: NO KNOWN ALLERGIES (Unverified , 01/19/25) Home Meds Active Scripts Pantoprazole Sodium Sesquihydr (Pantoprazole Sodium) 40 Mg Tab, 40 MG PO DAILY@0600 for 30 Days, #30 TAB Prov:ISRAEL ECHEVERRIA RESIDENT 04/17/25 Ergocalciferol (VITAMIN D 49957 UNIT) 50,[address] [place], [address] UNIT PO Q7D for 30 Days, #4 CAP Prov:ISRAEL ECHEVERRIA RESIDENT 04/17/25 Acetaminophen (Acetaminophen) 325 Mg Tab, 650 MG PO Q6HP PRN for 5 Days, #40 TAB Prov:ISRAEL ECHEVERRIA RESIDENT 04/17/25 Information Source: Patient Mode of Arrival: EMS Past Medical History PAST MEDICAL HISTORY: CHF, HTN Surgical History: Unknown Family History Family History: Unknown Social History Smoker: Non-Smoker Alcohol: Denies ETOH Use Drugs: Denies Drug Use Lives In: Home Was a procedure done? Was a procedure done?: No Differential Dx Considerations may include: Ddx include but not limitied to gastritis, musculoskeletal pain, radiculopathy, atypical chest pain, dissection, aneurysm, ACS, unstable angina, hiatal hernia, GERD, anxiety, costochondritis, PE, pneumothroax, neoplasm, cardiac ischemia, drug abuse, anemia. X-Ray, Labs, Meds, VS Vital Signs Date Time Temp Pulse Resp B/P (MAP) Pulse Ox O2 Delivery O2 Flow Rate FiO2 04/14/25 00:00 92 15 102/60 (74) 98 04/13/25 23:50 120/102 04/13/25 23:09 98.7 87 19 120/102 (108) 99 98.7 04/13/25 23:08 Room Air* 0 21 04/13/25 23:05 102 04/13/25 22:50 111/73 04/13/25 22:12 95 04/13/25 21:21 98.5 102 18 108/62 99 98.5 04/13/25 21:02 99 Lab Test 04/13/25 23:31 04/13/25 22:04 Range/Units Troponin I High Sensitivity 3 L < 3 L </=54 ng/L White Blood Count 8.6 4.4-10.8 10^3/uL Red Blood Count 3.57 L 4.5-5.90 10^6/uL Hemoglobin 10.2 L 13.5-17.5 g/dL Hematocrit 29.8 L 41.0-53.0 % Mean Corpuscular Volume 83.5 80.0-100.0 fL Mean Corpuscular Hemoglobin 28.6 28.0-32.0 pg Mean Corpuscular Hemoglobin Concent 34.3 32.0-36.0 g/dL Red Cell Distribution Width 16.8 H 11.8-14.3 % Platelet Count 444 140-450 10^3/uL Mean Platelet Volume 7.1 6.9-10.8 fL Neutrophils (%) (Auto) 78.3 37.0-80.0 % Lymphocytes (%) (Auto) 14.6 10.0-50.0 % Monocytes (%) (Auto) 6.4 0.0-12.0 % Eosinophils (%) (Auto) 0.3 0.0-7.0 % Basophils (%) (Auto) 0.4 0.0-2.0 % Neutrophils # (Auto) 6.7 1.6-8.6 10 ^3/uL Lymphocytes # (Auto) 1.2 0.4-5.4 10 ^3/uL Monocytes # (Auto) 0.5 0-1.3 10 ^3/uL Eosinophils # (Auto) 0 0-0.8 10 ^3/uL Basophils # (Auto) 0 0-0.2 10 ^3/uL Nucleated Red Blood Cells 0.1 % Sodium Level 146 H 136-145 mmol/L Potassium Level 2.9 L 3.5-5.1 mmol/L Chloride Level 105 98-107 mmol/L Carbon Dioxide Level 32 H 20-31 mmol/L Anion Gap 9 5-15 Blood Urea Nitrogen 23 9-23 mg/dL Creatinine 1.13 0.700-1.30 mg/dL Glomerular Filtration Rate Calc 71 >90 mL/min BUN/Creatinine Ratio 20.4 H 10.0-20.0 Serum Glucose 183 H 74-106 mg/dL Hemoglobin A1c 6.0 H <5.7 % A1C Calcium Level 8.2 L 8.7-10.4 mg/dL Total Bilirubin 0.4 0.2-1.0 mg/dL Aspartate Amino Transferase (AST) 12 L 13-40 U/L Alanine Aminotransferase (ALT) 13 7-40 U/L Alkaline Phosphatase 79 46-116 U/L B-Type Natriuretic Peptide 76.54 0-100 pg/mL Total Protein 5.5 L 5.7-8.2 g/dL Albumin 3.0 L 3.2-4.8 g/dL [address] [address] Ph: [phone] DIAGNOSTIC IMAGING Diagnostic Imaging Report : [id number] Signed PATIENT: MAGUI YUSUF ACCT: [id number] UNIT: [id number] : 1960 LOC: ER ROOM / BED: / AGE / SEX: 65 / M ADM STATUS: REG ER SERVICE 234 ORDERING PHYSICIAN: PATRICIA MILLS DO PROCEDURE(s): ABPL - CT AB PEL WO CON-NO ORAL OR IV REASON: n/v L sided abd pain. ORDER NUMBER(s): [id number], ACCESSION NUMBER(s): [id number] Exam: CT CT AB PEL WO CON-NO ORAL OR IV History: n/v L sided abd pain. Comparison Study: None Technique: Multidetector spiral CT of the abdomen was performed from lung bases to pubic symphysis. Imaging was performed without IV contrast. Axial, coronal and sagittal multiplanar reformats were obtained from the axial data set by the technologist. Radiation Dose : 1. Abdomen/Pelvis: CTDIvol 13.59 mGy, DLP 3.92 mGy*cm. Findings: Evaluation of solid organs is limited due to lack of intravenous contrast use. Assessment further limited by beam hardening and streak artifact from arms down positioning. Lower Chest: Trace right pleural effusion and pericardial effusion. Mild right basilar atelectasis. Normal heart size. Multivessel coronary atherosclerosis. Liver: Unremarkable. Gallbladder and Biliary Tree: Unremarkable Pancreas: Diffuse atrophy with unchanged homogeneous 2.4 cm lesion in the tail. Spleen: Unremarkable. Adrenal Glands: Unremarkable. Kidneys/Ureters: Left ureteral stent adequately positioned with mild persistent hydroureter. Mild right hydroureter also present. Unchanged right renal sinus cyst with wall or adjacent calcifications. Bladder: Circumferential wall thickening. Small layering intraluminal calcifications redemonstrated. Pelvic Organs: Prostatomegaly. Bowel: Similar wall thickening of the distal esophagus. The stomach, duodenum, and small bowel are unremarkable. The appendix is normal. Mild circumferential rectal wall thickening. Otherwise unremarkable large bowel. Vasculature: Mild atherosclerosis. Lymphadenopathy: No obvious adenopathy. Peritoneum: No ascites, free air, or fluid collection. Abdominal Wall: No significant hernia. Musculoskeletal: No acute findings. Similar burden of diffuse sclerotic metastases throughout the imaged spine and pelvis, with some interval increase in size. IMPRESSION: 1. Adequately positioned left ureteral stent with bilateral hydroureter. No evidence of ureteral stone. Nonobstructing calcifications in the right collecting system and the urinary bladder. 2. Circumferential bladder wall thickening and prostatomegaly suggesting chronic outlet obstruction. 3. Circumferential rectal thickening suggestive of proctitis, correlate with symptoms. 4. Unchanged pancreatic tail mass. 5. Interval enlargement of several sclerotic osseous metastases from 01/19/2025, although no definitive new lesion is identified. Radiation optimization: All CT scans at this facility use at least one of these dose optimization techniques: automated exposure control mA and/or kV adjustment per patient size (includes targeted exams where dose is matched to clinical indication) or iterative reconstruction. ATED BY: ANABELA STARR MD DICTATED DATE/TIME: 04/14/2519 SIGNED BY: ANABELA STARR MD SIGNED DATE/TIME: 04/14/2519 CC: Time of 1ST Reevaluation: 23:58 Reevaluation 1ST: Unchanged Patient Education/Counseling: Other (patient has dementia) Family Education/Counseling: Other Comments MDM: patient presented with the above HPI.--chest pain---workup was initiated. patient was found with the above mentioned diagnosis. the following medications were ordered: please refer to order lists of meds and tests obtained by myself Dr. Mills. Patient ED course and VS have been stabilized. Patient has been reassessed in the ED and remained in a stable condition. Pertinent incidental findings were discussed with the patient and/or family. Patient/family voices understanding and is agreeable with plan. Patient has been observed in the ED adequate length of time to insure improvement/stability. Escalation of care considered: Consideration of escalation to observation or admission Patient was ADMITTED to the medicine team for further evaluation and treatment of their presentation. All the reports of any imaging studies that were ordered by myself were reviewed by myself. SEPSIS Sepsis Screen Date sepsis recognized/suspect: Apr 13, 2025 Time Sepsis recognized/suspect: 2120 Recent Procedure: No On Antibiotic Therapy: No Respiratory Rate >20: No Heart Rate >90: Yes Temp<36 C (96.8 F) or >38.3 C: No SBP <90 or MAP <65 mmHG: No New Acute Mental Status Change: No Is the patient on CPAP, BIPAP,: No Physician Orders Electrocardigram (04/13/25 21:27) Electrocardigram (04/13/25 22:27) Electrocardigram (04/14/25 00:27) Radiation Oncology Therapist (04/13/25 ) Chest Portable (04/13/25 21:44) Ct Ab Pel Wo Con-No Oral Or Iv (04/13/25 23:42) Vital Signs Date Time Temp Pulse Resp B/P (MAP) Pulse Ox O2 Delivery O2 Flow Rate FiO2 04/14/25 00:00 92 15 102/60 (74) 98 04/13/25 23:50 120/102 04/13/25 23:09 98.7 87 19 120/102 (108) 99 98.7 04/13/25 23:08 Room Air* 0 21 04/13/25 23:05 102 04/13/25 22:50 111/73 04/13/25 22:12 95 04/13/25 21:21 98.5 102 18 108/62 99 98.5 04/13/25 21:02 99 Laboratory Tests Test 04/13/25 22:04 White Blood Count 8.6 10^3/uL (4.4-10.8) Departure 1 Departure Time of Disposition: 23:43 Impression: Primary Impression: Chest pain Additional Impression: Abnormal finding on CT scan Disposition: ADMITTED INPATIENT Admit to: Tele Condition: Guarded e-Prescriptions Pantoprazole Sodium Sesquihydr (Pantoprazole Sodium) 40 Mg Tab 40 MG PO DAILY@0600 for 30 Days, #30 TAB Prov: ISRAEL ECHEVERRIA RESIDENT 04/17/25 Ergocalciferol (VITAMIN D 66823 UNIT) 50,[address] [place] [address] UNIT PO Q7D for 30 Days, #4 CAP Prov: ISRAEL ECHEVERRIA RESIDENT 04/17/25 Acetaminophen (Acetaminophen) 325 Mg Tab 650 MG PO Q6HP PRN for 5 Days, #40 TAB Prov: ISRAEL ECHEVERRIA RESIDENT 04/17/25 Discharged With: Self Critical Care Note Critical Care Time?: No Heart Score Heart Score: Heart Score Response (Comments) Value History Moderate Suspicious 1 EKG Normal 0 Age >65 2 Risk Factors >3 or Hx ASHD 2 Troponin Normal limit 0 Total 5 I personally scribed for PATRICIA MILLS DO ([email or web address]) on 04/13/25 at 23:43. Electronically submitted by Ridge Panchal ([email or web address]). I personally scribed for PATRICIA MILLS DO ([email or web address]) on 04/13/25 at 23:51. Electronically submitted by Ridge Panchal ([email or web address]). PATRICIA MILLS DO Apr 13, 2025 23:43
[2025-04-14] MEDS ORDERED: ACETAMINOPHEN 325 MG TAB PO PRN (00:15)
[2025-04-14] MEDS ORDERED: MORPHINE SULFATE INJ 2 MG/ml SYRG IV PRN (00:15)
[2025-04-14] MEDS ORDERED: HYDROcodone-ACET 5/325MG TAB PO PRN (00:15)
[2025-04-14] MEDS ORDERED: NITROGLYCERIN 0.4 MG SL TAB SL PRN (00:15)
--- NOTE | 2025-04-14 00:17 | DVH ---
CHEST RADIOGRAPH Indication: cp Technique: 1 view Comparison: XY CHEST PORTABLE on DOS: 01/19/25 FINDINGS: Lines and Tubes: None Lungs/Pleura: Development of bilateral interstitial opacities. No focal consolidation. No evident pl eural abnormality. Nodular opacities in the right apex are unchanged and likely represent calcified g ranulomas. Cardiomediastinum: Heart size within normal limits for technique. Other: No acute osseous abnormality. IMPRESSION: 1. Bilateral interstitial opacities new from prior exam suggesting pulmonary edema or atypical infect ion.
--- NOTE | 2025-04-14 00:23 | DVH ---
Exam: CT CT AB PEL WO CON-NO ORAL OR IV History: n/v L sided abd pain. Comparison Study: None Technique: Multidetector spiral CT of the abdomen was performed from lung bases to pubic symphysis. I maging was performed without IV contrast. Axial, coronal and sagittal multiplanar reformats were obta ined from the axial data set by the technologist. Radiation Dose : 1. Abdomen/Pelvis: CTDIvol 13.59 mGy, DLP 3.92 mGy*cm. Findings: Evaluation of solid organs is limited due to lack of intravenous contrast use. Assessment further castellanos ited by beam hardening and streak artifact from arms down positioning. Lower Chest: Trace right pleural effusion and pericardial effusion. Mild right basilar atelectasis. N ormal heart size. Multivessel coronary atherosclerosis. Liver: Unremarkable. Gallbladder and Biliary Tree: Unremarkable Pancreas: Diffuse atrophy with unchanged homogeneous 2.4 cm lesion in the tail. Spleen: Unremarkable. Adrenal Glands: Unremarkable. Kidneys/Ureters: Left ureteral stent adequately positioned with mild persistent hydroureter. Mild rig ht hydroureter also present. Unchanged right renal sinus cyst with wall or adjacent calcifications. Bladder: Circumferential wall thickening. Small layering intraluminal calcifications redemonstrated. Pelvic Organs: Prostatomegaly. Bowel: Similar wall thickening of the distal esophagus. The stomach, duodenum, and small bowel are un remarkable. The appendix is normal. Mild circumferential rectal wall thickening. Otherwise unremarka ble large bowel. Vasculature: Mild atherosclerosis. Lymphadenopathy: No obvious adenopathy. Peritoneum: No ascites, free air, or fluid collection. Abdominal Wall: No significant hernia. Musculoskeletal: No acute findings. Similar burden of diffuse sclerotic metastases throughout the livier ged spine and pelvis, with some interval increase in size. IMPRESSION: 1. Adequately positioned left ureteral stent with bilateral hydroureter. No evidence of ureteral ston e. Nonobstructing calcifications in the right collecting system and the urinary bladder. 2. Circumferential bladder wall thickening and prostatomegaly suggesting chronic outlet obstruction. 3. Circumferential rectal thickening suggestive of proctitis, correlate with symptoms. 4. Unchanged pancreatic tail mass. 5. Interval enlargement of several sclerotic osseous metastases from 01/19/2025, although no definiti ve new lesion is identified. Radiation optimization: All CT scans at this facility use at least one of these dose optimization tami hniques: automated exposure control mA and/or kV adjustment per patient size (includes targeted exam s where dose is matched to clinical indication) or iterative reconstruction.
[2025-04-14] MEDS: ONDANSETRON HCL 4 MG/2 ML VIAL IV PRN (00:31)
[2025-04-14] MEDS: POTASSIUM CHL 20 Meq TABLET PO ONE (00:31)
--- NOTE | 2025-04-14 00:55 | DVHHP2 ---
History of Present Illness Reason for Visit: Chest pain History of Present Illness The patient is a 65-year-old male with past medical history of CHF, hypertension, GERD, and kidney stones who presented to [facility] ED with complaint of chest pain for the past 4 months. Patient reports has been experiencing left-sided chest pain, nonradiating, constant, associated with nausea, vomiting, shortness of breaths, getting worse that prompted this visit. Patient was recently admitted here at [facility] on January 19, 2025 for altered mental status and discharged home with multiple diagnosis. Patient was seen and evaluated in the ED, laboratory data shows WBC 8.6, hemoglobin 10.2, hematocrit 29.8, platelets 444, sodium 146, potassium 2.9, BUN 23, creatinine 1.13, glucose 183, BNP 76.54, protein 5.0, albumin 3.0, troponin < 3, blood pressure 120/102, heart rate 86, temperature 98.7 F, O2 saturation 99% on room air. Imaging reports pending, please see medication orders section in the computer. On my assessment, patient denied chest pain, no headache, no dizziness, no diaphore sis, currently on oxygen, no nausea, no vomiting, no fever, no chills. Patient was admitted for further evaluation and medical management. Past Medical History CHF, HTN, GERD, Kidney stones, Metastatic prostate cancer. Past Surgical History Left renal stone with hydronephrosis, status post stent placement. Family History Reviewed, noncontributory to the management of this case. Past Social History The patient lives at home, denies smoking, alcohol or illicit drugs abuse. Review of Systems Constitutional: Yes: Weakness; No: Fever, Chills, Sweats, Malaise, Other Eyes: No: Pain, Vision change, Conjunctivae inflammation, Eyelid inflammation, Other, Redness ENT: No: Ear pain, Ear discharge, Nose pain, Nose discharge, Nose congestion, Mouth pain, Mouth swelling, Throat pain, Throat swelling, Other Respiratory: Shortness of breath; No: Cough, Dry, SOB with excertion, Wheezing, Hemoptysis, Pleuritic Pain, Sputum, Wheezing, Other Cardiovascular: Chest Pain; No: Palpitations, Orthopnea, Paroxysmal Noc. Dyspnea, Edema, Lt Headedness, Other Gastrointestinal: No: Nausea, Vomiting, Abdominal Pain, Diarrhea, Constipation, Melena, Hematochezia, Other Genitourinary: No Dysuria, No Frequency, No Incontinence, No Hematuria, No Retention, No Other Musculoskeletal: No: other, neck pain, shoulder pain, arm pain, back pain, hand pain, leg pain, foot pain Neurological: No: Weakness, Numbness, Incoordination, Change in speech, Confusion, Seizures, Other Allergies: Coded Allergies: NO KNOWN ALLERGIES (Unverified , 01/19/25) Exam Vital Signs Vital Signs Date Time Temp Pulse Resp B/P (MAP) Pulse Ox O2 Delivery O2 Flow Rate FiO2 04/13/25 23:50 120/102 04/13/25 23:09 98.7 87 19 99 98.7 04/13/25 23:08 Room Air* 0 21 General Appearance: Alert, Oriented X3, Cooperative, No acute distress HEENT: Atraumatic, PERRLA, EOMI, Mucous membr. moist/pink Respiratory: Normal air movement Cardiovascular: Regular rate, Normal S1, Normal S2, No murmurs Abdominal: Normal bowel sounds, Soft, No tenderness, No hepatospenomegaly, No masses Extremities: No clubbing, No cyanosis, No edema, Normal pulses, No tenderness/swelling Skin: No rashes, No breakdown, No significant lesion Neuro: Normal speech, Normal tone, Sensation intact, Cranial nerves 3-12 NL, Reflexes 2+, Other (Generalized weakness) Psych/Mental Status: Mental status NL, Mood NL Labs/Xrays Labs Test 04/13/25 23:31 04/13/25 22:04 Range/Units Troponin I High Sensitivity 3 L </=54 ng/L White Blood Count 8.6 4.4-10.8 10^3/uL Red Blood Count 3.57 L 4.5-5.90 10^6/uL Hemoglobin 10.2 L 13.5-17.5 g/dL Hematocrit 29.8 L 41.0-53.0 % Mean Corpuscular Volume 83.5 80.0-100.0 fL Mean Corpuscular Hemoglobin 28.6 28.0-32.0 pg Mean Corpuscular Hemoglobin Concent 34.3 32.0-36.0 g/dL Red Cell Distribution Width 16.8 H 11.8-14.3 % Platelet Count 444 140-450 10^3/uL Mean Platelet Volume 7.1 6.9-10.8 fL Neutrophils (%) (Auto) 78.3 37.0-80.0 % Lymphocytes (%) (Auto) 14.6 10.0-50.0 % Monocytes (%) (Auto) 6.4 0.0-12.0 % Eosinophils (%) (Auto) 0.3 0.0-7.0 % Basophils (%) (Auto) 0.4 0.0-2.0 % Neutrophils # (Auto) 6.7 1.6-8.6 10 ^3/uL Lymphocytes # (Auto) 1.2 0.4-5.4 10 ^3/uL Monocytes # (Auto) 0.5 0-1.3 10 ^3/uL Eosinophils # (Auto) 0 0-0.8 10 ^3/uL Basophils # (Auto) 0 0-0.2 10 ^3/uL Nucleated Red Blood Cells 0.1 % Sodium Level 146 H 136-145 mmol/L Potassium Level 2.9 L 3.5-5.1 mmol/L Chloride Level 105 98-107 mmol/L Carbon Dioxide Level 32 H 20-31 mmol/L Anion Gap 9 5-15 Blood Urea Nitrogen 23 9-23 mg/dL Creatinine 1.13 0.700-1.30 mg/dL Glomerular Filtration Rate Calc 71 >90 mL/min BUN/Creatinine Ratio 20.4 H 10.0-20.0 Serum Glucose 183 H 74-106 mg/dL Calcium Level 8.2 L 8.7-10.4 mg/dL Total Bilirubin 0.4 0.2-1.0 mg/dL Aspartate Amino Transferase (AST) 12 L 13-40 U/L Alanine Aminotransferase (ALT) 13 7-40 U/L Alkaline Phosphatase 79 46-116 U/L B-Type Natriuretic Peptide 76.54 0-100 pg/mL Total Protein 5.5 L 5.7-8.2 g/dL Albumin 3.0 L 3.2-4.8 g/dL SEPSIS Sepsis Screen Date sepsis recognized/suspect: Apr 13, 2025 Time Sepsis recognized/suspect: 2120 Recent Procedure: No On Antibiotic Therapy: No Respiratory Rate >20: No Heart Rate >90: Yes Temp<36 C (96.8 F) or >38.3 C: No SBP <90 or MAP <65 mmHG: No New Acute Mental Status Change: No Is the patient on CPAP, BIPAP,: No Physician Orders Electrocardigram (04/13/25 21:27) Troponin-I Hs (04/14/25 00:27) Electrocardigram (04/13/25 22:27) Electrocardigram (04/14/25 00:27) Sewage Plant Supervisor (04/13/25 ) Chest Portable (04/13/25 21:44) Ct Ab Pel Wo Con-No Oral Or Iv (04/13/25 23:42) Admit (04/14/25 00:12) Allergies (04/14/25 00:12) Code Status (04/14/25 00:12) Sodium Chloride Lock (Saline Lock Ns) (04/14/25 06:00) Oxygen Per Hour (04/14/25 00:12) Hydrocodone-Acet 5/325mg Tab (Bryan 5/32 (04/14/25 00:15) Ondansetron Hcl (Zofran) (04/14/25 00:15) Docusate Sodium Capsule (Colace Capsule) (04/14/25 00:15) Complete Blood Count (04/15/25 04:00) Comprehensive Metabolic Panel (04/15/25 04:00) Cardiac Diet-2gna,Lofat,Lochol (04/14/25 Breakfast) Condition: Serious (04/14/25 00:12) Acetaminophen Tablet (Tylenol Tablet) (04/14/25 00:15) Bedrest With Bathroom Privileg (04/14/25 00:12) Sequential Compression Device (04/14/25 ) Nitroglycerin Sublingual (Ntrostat Subli (04/14/25 00:15) Morphine Sulfate Injection (04/14/25 00:15) Stat Ekg For Chest Pain (04/14/25 00:12) Notify Md Of Changes From Base (04/14/25 00:12) Pipefitter For 24 Hours (04/14/25 00:12) Emergency Dysrhythmia Protocol (04/14/25 00:12) Rhythm Strips Once Every Shift (04/14/25 00:12) Oxygen By Nasal Cannula (04/14/25 00:12) Hemoglobin A1c (04/14/25 00:12) Potassium Er Tablet (Klor-Con Tablet) (04/14/25 00:15) Vital Signs Date Time Temp Pulse Resp B/P (MAP) Pulse Ox O2 Delivery O2 Flow Rate FiO2 04/13/25 23:50 120/102 04/13/25 23:09 98.7 87 19 120/102 (108) 99 98.7 04/13/25 23:08 Room Air* 0 21 04/13/25 22:50 111/73 04/13/25 22:12 95 04/13/25 21:21 98.5 102 18 108/62 99 98.5 04/13/25 21:02 99 Laboratory Tests Test 04/13/25 22:04 White Blood Count 8.6 10^3/uL (4.4-10.8) Medications Medications Dose Ordered Sig/Murali Route Start Time Stop Time Status Last Admin Dose Admin Nitroglycerin 0.4 mg ONCE ONCE SL 04/13/25 21:45 04/13/25 21:47 DC 04/13/25 22:50 0.4 MG Assessment/Plan Assessment/Plan Chest pain Hyperglycemia Hypokalemia Generalized weakness Plan 1. Admit to telemetry unit 2. Breathing treatment 3. Pain control management 4. Management of fluids and electrolytes 5. Consultation for hospitalist 6. Diagnostic tests chest x-ray 7. DVT prophylaxis on aspirin 8. Repeat labs CBC, CMP in a.m. 9. Continue with current medical management 10. Treatment plan discussed with patient and RN. Patient verbalized understanding. Plan discussed with: Patient, Other (RN) My Orders Orders - BABAR HANNON DNP Procedure Category Date Status Time Admit ADMIT 04/14/25 Transmitted 00:12 Allergies JON 04/14/25 Transmitted 00:12 Code Status CODE 04/14/25 Transmitted 00:12 Sodium Chloride Lock PHA 04/14/25 Transmitted (Saline Lock Ns) 06:00 Oxygen Per Hour RT 04/14/25 Transmitted 00:12 Hydrocodone-Acet PHA 04/14/25 Transmitted 5/325mg Tab (Bryan 00:15 Ondansetron Hcl PHA 04/14/25 Transmitted (Zofran) 00:15 Docusate Sodium PHA 04/14/25 Transmitted Capsule (Colace 00:15 Complete Blood Count LAB 04/15/25 Verified 04:00 Comprehensive LAB 04/15/25 Verified Metabolic Panel 04:00 Cardiac DIET 04/14/25 Transmitted Diet-2gna,Lofat,Lochol Breakfast Condition: Serious JON 04/14/25 Transmitted 00:12 Acetaminophen Tablet PHA 04/14/25 Transmitted (Tylenol Tablet) 00:15 Bedrest With Bathroom [facility] 04/14/25 Transmitted Privileg 00:12 Sequential [facility] 04/14/25 Transmitted Compression Device Nitroglycerin [facility] 04/14/25 Transmitted Sublingual (Ntrostat 00:15 Morphine Sulfate [facility] 04/14/25 Transmitted Injection 00:15 Stat Ekg For Chest [facility] 04/14/25 Transmitted Pain 00:12 Notify Md Of Changes [facility] 04/14/25 Transmitted From Base 00:12 Pipefitter For [facility] 04/14/25 Transmitted 24 Hours 00:12 Emergency Dysrhythmia [facility] 04/14/25 Transmitted Protocol 00:12 Rhythm Strips Once [facility] 04/14/25 Transmitted Every Shift 00:12 Oxygen By Nasal 04/14/25 Transmitted Cannula 00:12 Hemoglobin A1c LAB 04/14/25 Transmitted 00:12 Potassium Er Tablet [facility] 04/14/25 Transmitted (Klor-Con Tablet) 00:15 Problem List: (1) Chest pain (2) Hyperglycemia (3) Hypokalemia (4) Generalized weakness Date of Service: Apr 14, 2025 Billing Provider: BABAR HANNON DNP Common Visit Codes: [id number] INP/OBS CARE (HIGH) BABAR HANNON DNP Apr 14, 2025 00:55
[2025-04-14] MEDS: SODIUM CHLOR 0.9% PF (SALINE LOCK) 10ML VIAL/SYR IV SCH (05:42)
--- NOTE | 2025-04-14 06:26 | ECG ---
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
--- NOTE | 2025-04-14 06:26 | ECG ---
[facility] Test Date: 2025-04-13 Test Time: 21:02:15 Pat Name: MAGUI YUSUF Department: [facility] ED Patient ID: [facility]-[id number] Room: 0217T Gender: M Aerial Crop Duster: CAMILA : 1960 Requested By: PATRICIA MILLS Order Number: [id number] Reading MD: Maxi Yeung Measurements Intervals [place] Rate: 99 P: 71 GA: 123 QRS: 53 QRSD: 88 T: 269 QT: 320 QTc: 411 Interpretive Statements Sinus rhythm Borderline repolarization abnormality Electronically Signed On 04-15-2025 18:46:14 PDT by Maxi Yeung Please click the below link to view image of tracing.
[2025-04-14] MEDS: IOHEXOL 350 MG/ML 100ML IJ ONE (09:36)
[2025-04-14 09:40] LABS: Hematocrit 30.4 % (41.0-53.0); Hemoglobin 10.5 g/dL (13.5-17.5); Mean Corpuscular Hemoglobin 29.2 pg (28.0-32.0); Mean Corpuscular Volume 84.8 fL (80.0-100.0); Nucleated Red Blood Cells % 0.1 %
[2025-04-14 09:46] LABS: Anion Gap 14 (5-15); Carbon Dioxide 31 mmol/L (20-31); Chloride 104 mmol/L (98-107)
[2025-04-14 09:47] LABS: Calcium 8.7 mg/dL (8.7-10.4)
[2025-04-14 09:52] LABS: BUN/Creatinine Ratio 17.5 (10.0-20.0); Blood Urea Nitrogen 20 mg/dL (9-23); Triglycerides 122 mg/dL (< 150)
[2025-04-14 09:53] LABS: Magnesium 2.0 mg/dL (1.6-2.6)
[2025-04-14 09:54] LABS: Cholesterol 136 mg/dL (< 200); HDL Cholesterol 40 mg/dL (40-59)
--- NOTE | 2025-04-14 10:06 | ECG ---
[facility] Test Date: 2025-04-14 Test Time: 10:03:42 Pat Name: MAGUI YUSUF Department: ED Room: 0217T Gender: M Email Campaign Specialist: SKIP : 1960 Requested By: PATRICIA MILLS Order Number: [id number] Reading MD: Maxi Yeung Measurements Intervals [place] Rate: 103 P: 70 ME: 178 QRS: 67 QRSD: 92 T: 258 QT: 339 QTc: 444 Interpretive Statements Sinus tachycardia Ventricular premature complex Abnormal T, consider ischemia, diffuse leads Electronically Signed On 04-15-2025 18:46:53 PDT by Maxi Yeung Please click the below link to view image of tracing.
[2025-04-14 10:14] LABS: Glucose 153 mg/dL (74-106); Potassium 3.0 mmol/L (3.5-5.1); Sodium 149 mmol/L (136-145)
--- NOTE | 2025-04-14 11:02 | DVH ---
CTA Chest with intravenous contrast INDICATION: Rule out PE COMPARISON: None TECHNIQUE: Multidetector spiral CTA of the chest was performed of the chest with intravenous contrast . PULMONARY ANGIOGRAPHY PROTOCOL was utilized using a bolus-tracking technique centered on the main p ulmonary artery. Axial, coronal and sagittal multiplanar and MIP reformats were performed. Radiation Dose : 1. Chest: CTDI volume is 20.72 mGy. Dose-length product is 540.55 mGy*cm The dose indicators for CT are the volume Computed Tomography (CT) Dose Index (CTDIvol) and the Dose Length Product (DLP), and are measured in units of mGy and mGy-cm, respectively. These indicators are not patient dose, but values generated from the CT scanner acquisition factors. The report includes radiation exposure data for exposures received during this examination. Findings: Pulmonary artery: No pulmonary embolism Lower neck: Moderate diffuse thickening of the esophagus. Lungs: No focal consolidation, pleural effusion or pneumothorax. Heart/Vascular Structures: Cardiomegaly. Coronary artery calcifications. Vascular calcifications of t he aorta. Lymph Nodes: No adenopathy Pleura: Small right pleural effusion. Musculoskeletal: No acute osseous abnormality. Diffuse sclerotic osseous metastatic disease. Soft tissues: Normal. Upper abdomen: Limited portions of the upper abdomen are unremarkable. IMPRESSION: No pulmonary embolism. Small right pleural effusion. Nonspecific diffuse esophageal wall thickening. This can be seen in esophagitis. Clinical correlatio n advised.
[2025-04-14 11:12] LABS: INR 1.03 (0.9-1.15); Partial Thromboplastin Time 25.9 SEC (24.5-34.5); Prothrombin Time 10.9 sec (9.3-11.8)
--- NOTE | 2025-04-14 16:59 | DVHPNRES ---
Progress Note Date Seen: Apr 14, 2025 Resident Creating Document: KESHAV EMRCEDES RESIDENT Medical Necessity Reason Pt with a Central, PICC or Fol: No Subjective Review of Systems Aaron De Oliveira is a 65-year-old male patient who presents to ED with chief complaint of ground coffee emesis, dyspnea in Functional Class III and increased stabbing chest pain in the past 24 hours. Patient has relevant history of prostate cancer with metastases to bone (including spine and sternum). Patient denies chills, fever, unintentional weight loss, diarrhea, constipation, nausea and motor or sensory deficits. Past medical history: Hypertension, prostate cancer with bone metastases (including spine and sternum) status post ureteral stent placement, stable pancreatic tail mass, GERD, history of multiple UTIs, dementia, questionable COPD Surgical history: Ureteral stents placed Family history: Noncontributory Social history: Lives in [place] alone (next of kin are two sons). Current tobacco abuse (20 pack-year history of smoking). Denies current alcohol and other drug abuse Allergies: Denies Home medication: Pantoprazole Patient seen and examined at bedside. Last episode of vomiting was approximately 24 hours ago. We will progress to clear liquid diet. Due to presenting desaturation and history of prostate cancer, completed Angio CT which ruled out pulmonary embolism, and thickening of esophagus. Objective vital signs Vital Sign Date Time Temp Pulse Resp B/P (MAP) Pulse Ox O2 Delivery O2 Flow Rate FiO2 04/14/25 15:10 99 17 104/49 (67) 94 04/14/25 11:52 97.6 97.6 04/13/25 23:08 Room Air* 0 21 Total Intake and Output 04/13/25 04/13/25 04/14/25 15:00 23:00 07:00 Output Total 35 ml Balance -35 ml medications Current Medications Medications Dose Ordered Sig/Murali Route Start Time Stop Time Status Last Admin Dose Admin Sodium Chloride 10 ml Q8HR IV 04/14/25 06:00 04/14/25 14:00 10 ML Acetaminophen/ Hydrocodone Bitart 1 tab Q4HP PRN PO 04/14/25 00:15 Docusate Sodium 100 mg BIDPRN PRN PO 04/14/25 00:15 Acetaminophen 650 mg Q6HP PRN PO 04/14/25 00:15 Examination Patient lying in bed, in no acute distress General: Lucid, afebrile, mucosae are moist Cardiovascular: Normal S1 and S2. No murmurs, gallops or rubs Respiratory: Normal ventilation mechanics. Clear lung sounds on auscultation. Saturating 88% in room air Abdomen: Soft, nontender, no organomegaly, normal bowel sounds MSK/skin: Mobilizes 4 limbs. Skin is dry and warm Neurological: Oriented in 3 spheres, Bradypsychia. No motor no sensitive deficits. Pupils are isocoric and reactive laboratory and microbiology Laboratory Tests 04/14/25 01:14 Test 04/14/25 01:14 Range/Units Serum Glucose 153 H 74-106 mg/dL Problem List/Assessment/Plan Problem List/Assessment/Plan ASSESSMENT Questionable upper GI bleed Ruled out pulmonary embolism Ruled out acute coronary syndrome Musculoskeletal chest pain secondary to bone metastases Prostate cancer with bone metastases (spine and sternum) - status post ureteral stent placement Hypokalemia Normocytic anemia Questionable COPD Stable pancreatic tail mass GERD History of multiple UTIs Probable dementia Hypertension PLAN Completed angio CT which ruled out pulmonary embolism, evidenced thickening of esophagus. Currently on IV pantoprazole, avoid blood thinners, patient is on SCDs for DVT prophylaxis Progress diet to clear liquid diet Monitor H&H. If stable, we will recommend follow up with GI as outpatient. If hemoglobin decreases, we will consult GI for eventual EGD Obtain troponin (negative in three opportunities), EKG and type of chest pain rule out acute coronary syndrome. Chest pain likely secondary to musculoskeletal due to metastasis Goals of care discussed with patient for over 18 minutes: Full code status. He also asked to discuss with son, son agrees with full code status at this time. Discussed plan with Dr. Mcleod, patient and nurses: Patient's last emesis was approximately 24 hours, we will progress diet to clear liquid diet at this point. Currently on IV pantoprazole, avoiding blood thinners, on SCDs. We will evaluate 18 and trend, in if anemia worsens we will consult GI specialist. Patient has poor prognosis. Plan discussed with: Patient, Son (Hasmukh), Other (Nurses) My Orders My Orders Orders - KESHAV MERCEDES RESIDENT Procedure Category Date Status Time Drug Screen LAB 04/14/25 Logged 08:14 Urinalysis LAB 04/14/25 Logged 08:14 Rapid Influenza A&B LAB 04/14/25 Logged 08:17 Covid19 Antigen Mandie LAB 04/14/25 Logged Mrsa Screen SOFI 04/14/25 Uncollected 08:[address] 04/14/25 Resulted Contrast 09:29 Date of Service: Apr 14, 2025 Billing Provider: ISMAEL MCLEOD MD Common Visit Codes: [id number] INP/OBS CARE(HIGH) KESHAV MERCEDES RESIDENT Apr 14, 2025 16:59 ISMAEL MCLEOD MD Apr 21, 2025 21:20
[2025-04-14 17:00] VITALS: BP 121/61; PULSE 103; RESP 16; TEMP 97.9; O2SAT 95
[2025-04-14 17:09] VITALS: BP 125/65; PULSE 103
[2025-04-14] MEDS: PANTOPRAZOLE 40 MG/10 ML VIAL INJ IV ONE (18:36)
[2025-04-14] MEDS: POTASSIUM CHL 20MEQ/100ML 100 ML IV SCH ×2 (18:42→23:50)
[2025-04-14 20:00] VITALS: PULSE 112; PULSE 92; RESP 18; O2SAT 95
[2025-04-14] MEDS: PANTOPRAZOLE 40 MG/10 ML VIAL INJ IV SCH (21:40)
[2025-04-14 22:49] VITALS: BP 145/66; PULSE 86; RESP 19; TEMP 98.2; O2SAT 98
[2025-04-15] VITALS (9 sets, daily range): BP systolic 97–119; BP diastolic 52–72; PULSE 63–93; RESP 16–18; TEMP 97.7–98.1; O2SAT 95–100
[2025-04-15 03:11] LABS: COVID19 ANTIGEN SOFIA FIA NEGATIVE (NEGATIVE)
--- NOTE | 2025-04-15 07:27 | ECG ---
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
[2025-04-15 10:57] LABS: Hematocrit 26.1 % (41.0-53.0); Mean Corpuscular Hemoglobin 28.4 pg (28.0-32.0); Mean Corpuscular Volume 85.2 fL (80.0-100.0); Nucleated Red Blood Cells % 0.0 %
[2025-04-15 11:09] LABS: Chloride 104 mmol/L (98-107); Potassium 4.1 mmol/L (3.5-5.1); Sodium 143 mmol/L (136-145)
[2025-04-15 11:10] LABS: Anion Gap 5 (5-15)
[2025-04-15 11:13] LABS: Hemoglobin 8.7 g/dL (13.5-17.5)
[2025-04-15 11:15] LABS: BUN/Creatinine Ratio 21.4 (10.0-20.0)
[2025-04-15 11:16] LABS: Magnesium 1.9 mg/dL (1.6-2.6)
[2025-04-15 11:23] LABS: Blood Urea Nitrogen 27 mg/dL (9-23); Calcium 8.3 mg/dL (8.7-10.4); Carbon Dioxide 34 mmol/L (20-31); Glucose 171 mg/dL (74-106)
--- NOTE | 2025-04-15 17:14 | DVHPNRES ---
Progress Note Date Seen: Apr 15, 2025 Resident Creating Document: ISRAEL LONGORIA RESIDENT Medical Necessity Reason Pt with a Central, PICC or Fol: No Subjective Review of Systems Aaron De Oliveira is a 65-year-old male patient who presents to ED with chief complaint of ground coffee emesis, dyspnea in Functional Class III and increased stabbing chest pain in the past 24 hours. Patient has relevant history of prostate cancer with metastases to bone (including spine and sternum). Patient denies chills, fever, unintentional weight loss, diarrhea, constipation, nausea and motor or sensory deficits. Past medical history: Hypertension, prostate cancer with bone metastases (including spine and sternum) status post ureteral stent placement, stable pancreatic tail mass, GERD, history of multiple UTIs, dementia, questionable COPD Surgical history: Ureteral stents placed Family history: Noncontributory Social history: Lives in [place] alone (next of kin are two sons). Current tobacco abuse (20 pack-year history of smoking). Denies current alcohol and other drug abuse Allergies: Denies Home medication: Pantoprazole 04/15/2025 interval events: Patient seen and examined at bedside. He denies any chest pain, shortness of breath, fever, back pain, or any other complaints today. Objective vital signs Vital Sign Date Time Temp Pulse Resp B/P (MAP) Pulse Ox O2 Delivery O2 Flow Rate FiO2 04/15/25 16:55 97.7 85 18 108/59 (75) 98 97.7 04/15/25 07:40 Room Air* 0 21 Total Intake and Output 04/14/25 04/14/25 04/15/25 15:00 23:00 07:00 Intake Total 100 ml 300 ml Balance 100 ml 300 ml medications Current Medications Medications Dose Ordered Sig/Murali Route Start Time Stop Time Status Last Admin Dose Admin Sodium Chloride 10 ml Q8HR IV 04/14/25 06:00 04/15/25 14:00 10 ML Acetaminophen/ Hydrocodone Bitart 1 tab Q4HP PRN PO 04/14/25 00:15 Docusate Sodium 100 mg BIDPRN PRN PO 04/14/25 00:15 Acetaminophen 650 mg Q6HP PRN PO 04/14/25 00:15 Pantoprazole Sodium 40 mg BID IV 04/14/25 22:00 04/15/25 09:41 40 MG Examination Pt is lying on bed General Appearance: Alert, Oriented X3, Cooperative, Mild distress HEENT: Atraumatic, Mucous membranes moist/pink Respiratory: Clear to auscultation, Normal air movement, No added sounds Cardiovascular: Regular rate, Normal S1, Normal S2, No murmurs Abdominal/ : Active bowel sounds, Soft, no distention, no tenderness Extremities: No edema, Normal pulses, No tenderness/swelling Skin: No Significant rash, except past surgical scars Neuro: Normal speech, sensorimotor deficits none Psych/Mental Status: Mental status NL, Mood NL Nurse was there as senior restaurant manager during examination laboratory and microbiology Laboratory Tests 04/15/25 10:07 Test 04/15/25 10:07 Range/Units Serum Glucose 171 H 74-106 mg/dL Microbiology Date/Time Source Procedure Growth Status 04/15/25 01:30 Nose MRSA Screen - Final Complete Problem List/Assessment/Plan Problem List/Assessment/Plan Assessment Chest pain secondary to bone metastasis Prostate cancer with bone metastases (spine and sternum) - status post ureteral stent placement Questionable upper GI bleed Ruled out pulmonary embolism Ruled out acute coronary syndrome Hypokalemia Normocytic anemia Questionable COPD Stable pancreatic tail mass GERD History of multiple UTIs Probable dementia Hypertension PLAN Completed angio CT which ruled out pulmonary embolism, evidenced thickening of esophagus. Currently on IV pantoprazole, avoid blood thinners, patient is on SCDs for DVT prophylaxis Progress diet to clear liquid diet Monitor H&H. If stable, we will recommend follow up with GI as outpatient. If hemoglobin decreases, we will consult GI for eventual EGD Obtain troponin (negative in three opportunities), EKG and type of chest pain rule out acute coronary syndrome. Chest pain likely secondary to musculoskeletal due to metastasis Discussion regarding hospice in a longterm facility continued with the patient and son GI prophylaxis: Not indicated DVT prophylaxis: Lovenox Diet: Cardiac Goals of care discussed with the patient for more than 27 minutes: Full code status Case discussed with Dr. Purcell, patient and RN Cosigned by Dr Nguyễn PGY2, Resident Plan discussed with: Patient, Other (RN) Date of Service: Apr 15, 2025 Billing Provider: ISMAEL PURCELL MD Common Visit Codes: [id number] INP/OBS CARE(HIGH) ISRAEL LONGORIA RESIDENT Apr 15, 2025 17:13 ISRAEL ECHEVERRIA RESIDENT Apr 16, 2025 07:13 KESHAV MERCEDES RESIDENT Apr 17, 2025 07:00 ISMAEL PURCELL MD Apr 21, 2025 22:08
[2025-04-16] VITALS (8 sets, daily range): BP systolic 110–137; BP diastolic 60–83; PULSE 83–92; RESP 16–18; TEMP 97.6–98.4; O2SAT 95–100
[2025-04-16 06:58] LABS: Alkaline Phosphatase 69 U/L (46-116); Anion Gap 8 (5-15); BUN/Creatinine Ratio 14.6 (10.0-20.0); Blood Urea Nitrogen 18 mg/dL (9-23); Carbon Dioxide 30 mmol/L (20-31); Chloride 106 mmol/L (98-107); Potassium 4.0 mmol/L (3.5-5.1); Sodium 144 mmol/L (136-145)
[2025-04-16 06:59] LABS: Alanine Aminotransferase < 9 U/L (7-40); Calcium 8.4 mg/dL (8.7-10.4); Glucose 143 mg/dL (74-106); Total Protein 5.6 g/dL (5.7-8.2)
[2025-04-16 07:00] LABS: Bilirubin, Total 0.6 mg/dL (0.2-1.0)
[2025-04-16 07:03] LABS: Albumin 3.0 g/dL (3.2-4.8)
[2025-04-16 07:07] LABS: Hematocrit 25.3 % (41.0-53.0); Hemoglobin 8.5 g/dL (13.5-17.5); Mean Corpuscular Hemoglobin 28.8 pg (28.0-32.0); Mean Corpuscular Volume 85.5 fL (80.0-100.0)
[2025-04-16 08:06] LABS: Total Cells Counted 100.0 (100)
--- NOTE | 2025-04-16 20:14 | DVHPNRES ---
Progress Note Date Seen: Apr 16, 2025 Resident Creating Document: ISRAEL LONGORIA RESIDENT Medical Necessity Reason Pt with a Central, PICC or Fol: No Subjective Review of Systems Alvino De Oliveira is a 65-year-old male patient who presents to ED with chief complaint of ground coffee emesis, dyspnea in Functional Class III and increased stabbing chest pain in the past 24 hours. Patient has relevant history of prostate cancer with metastases to bone (including spine and sternum). Patient denies chills, fever, unintentional weight loss, diarrhea, constipation, nausea and motor or sensory deficits. Past medical history: Hypertension, prostate cancer with bone metastases (including spine and sternum) status post ureteral stent placement, stable pancreatic tail mass, GERD, history of multiple UTIs, dementia, questionable COPD Surgical history: Ureteral stents placed Family history: Noncontributory Social history: Lives in [place] alone (next of kin are two sons). Current tobacco abuse (20 pack-year history of smoking). Denies current alcohol and other drug abuse Allergies: Denies Home medication: Pantoprazole 04/16/2025 interval events: Patient seen and examined at bedside. Disposition to custodial facility was discussed with patient, patient is kin to go home with rehab facilities. He denies any chest pain, shortness of breath, fever, back pain, or any other complaints today Objective vital signs Vital Sign Date Time Temp Pulse Resp B/P (MAP) Pulse Ox O2 Delivery O2 Flow Rate FiO2 04/16/25 17:00 98.4 89 16 116/67 (83) 99 98.4 04/16/25 08:00 Room Air* 0 21 Total Intake and Output 04/15/25 04/15/25 04/16/25 15:00 23:00 07:00 Intake Total 240 ml 400 ml Balance 240 ml 400 ml medications Current Medications Medications Dose Ordered Sig/Murali Route Start Time Stop Time Status Last Admin Dose Admin Sodium Chloride 10 ml Q8HR IV 04/14/25 06:00 04/16/25 13:59 10 ML Acetaminophen/ Hydrocodone Bitart 1 tab Q4HP PRN PO 04/14/25 00:15 Docusate Sodium 100 mg BIDPRN PRN PO 04/14/25 00:15 Acetaminophen 650 mg Q6HP PRN PO 04/14/25 00:15 Pantoprazole Sodium 40 mg DAILY@0600 PO 04/17/25 06:00 Examination Pt is lying on bed General Appearance: Alert, Oriented X3, Cooperative, Mild distress HEENT: Atraumatic, Mucous membranes moist/pink Respiratory: Clear to auscultation, Normal air movement, No added sounds Cardiovascular: Regular rate, Normal S1, Normal S2, No murmurs Abdominal/ : Active bowel sounds, Soft, no distention, no tenderness Extremities: No edema, Normal pulses, No tenderness/swelling Skin: No Significant rash, except past surgical scars Neuro: Normal speech, sensorimotor deficits none Psych/Mental Status: Mental status NL, Mood NL Nurse was there as power lineman technician during examination laboratory and microbiology Laboratory Tests 04/16/25 05:59 Test 04/16/25 05:59 Range/Units Serum Glucose 143 H 74-106 mg/dL Microbiology Date/Time Source Procedure Growth Status 04/15/25 01:30 Nose MRSA Screen - Final Complete Problem List/Assessment/Plan Problem List/Assessment/Plan ASSESSMENT #Questionable upper GI bleed #Ruled out pulmonary embolism #Ruled out acute coronary syndrome #Musculoskeletal chest pain secondary to bone metastases #Prostate cancer with bone metastases (spine and sternum) - status post ureteral stent placement #Hypokalemia #Normocytic anemia #Questionable COPD #Stable pancreatic tail mass #GERD #History of multiple UTIs #Probable dementia #Hypertension PLAN Completed angio CT which ruled out pulmonary embolism, evidenced thickening of esophagus. Currently on PO pantoprazole, avoid blood thinners, patient is on SCDs for DVT prophylaxis Progress diet to clear liquid diet Monitor H&H. If stable, we will recommend follow up with GI as outpatient. If hemoglobin decreases, we will consult GI for eventual EGD Obtain troponin (negative in three opportunities), EKG and type of chest pain rule out acute coronary syndrome. Chest pain likely secondary to musculoskeletal due to metastasis Social service on board: Planning discharge with home health for physical therapy sessions. GI prophylaxis: protonix DVT prophylaxis: On SCDs due to possible GI bleeding, anemia Diet: Cardiac Goals of care discussed with the patient for more than 27 minutes: Full code status Case discussed with Dr. Purcell, patient and RN Cosigning senior Resident: Chica Mercedes, agree with progress note Cosigned Dr Nguyễn PGY2, resident Plan discussed with: Patient, Other (RN) My Orders My Orders Orders - ISRAEL LONGORIA Procedure Category Date Status Time * Event Marketing Specialist CONS 04/16/25 Transmitted Consult Date of Service: Apr 16, 2025 Billing Provider: ISMAEL PURCELL MD Common Visit Codes: [id number] INP/OBS CARE(HIGH) ISRAEL LONGORIA RESIDENT Apr 16, 2025 20:13 ISRAEL ECHEVERRIA RESIDENT Apr 17, 2025 06:55 CHICA MERCEDES RESIDENT Apr 17, 2025 07:06 ISMAEL PURCELL MD Apr 24, 2025 21:13
[2025-04-17 01:00] VITALS: BP 101/55; PULSE 79; RESP 16; TEMP 97.9; O2SAT 98
[2025-04-17 05:00] VITALS: BP 106/70; PULSE 80; RESP 17; TEMP 98; O2SAT 98
[2025-04-17] MEDS: PANTOPRAZOLE 40 MG TAB PO SCH (05:30)
[2025-04-17 06:10] LABS: Hematocrit 26.0 % (41.0-53.0); Hemoglobin 8.9 g/dL (13.5-17.5); Mean Corpuscular Hemoglobin 29.0 pg (28.0-32.0); Mean Corpuscular Volume 85.1 fL (80.0-100.0); Nucleated Red Blood Cells % 0.1 %
[2025-04-17 06:33] LABS: Alkaline Phosphatase 69 U/L (46-116); Anion Gap 8 (5-15); BUN/Creatinine Ratio 15.8 (10.0-20.0); Bilirubin, Total 0.7 mg/dL (0.2-1.0); Blood Urea Nitrogen 19 mg/dL (9-23); Chloride 106 mmol/L (98-107); Potassium 3.7 mmol/L (3.5-5.1); Sodium 145 mmol/L (136-145); Total Protein 5.7 g/dL (5.7-8.2)
[2025-04-17 06:41] LABS: Alanine Aminotransferase < 9 U/L (7-40); Albumin 3.0 g/dL (3.2-4.8); Calcium 8.6 mg/dL (8.7-10.4); Carbon Dioxide 31 mmol/L (20-31); Glucose 124 mg/dL (74-106)
[2025-04-17] MEDS: ERGOCALCIFEROL 50,000 UNIT(1.25MG) CAP PO SCH (08:56)
[2025-04-17 09:00] VITALS: BP 109/68; PULSE 87; RESP 20; TEMP 97; O2SAT 96
--- NOTE | 2025-04-17 11:01 | DVHDSRES ---
Discharge Summary Date of Admission Resident Creating Document: ISRAEL LONGORIA Apr 14, 2025 at 00:12 Date of Discharge: Apr 17, 2025 Admitting Diagnosis Chest pain due to Prostate cancer with bone metastasis Upper/lower GI bleeding secondary to thickening in esophagus and rectum Labs/Diagnostic Data: Laboratory Results Test 04/17/25 05:20 04/16/25 05:59 04/15/25 10:07 04/15/25 01:30 White Blood Count 7.2 10^3/uL (4.4-10.8) Red Blood Count 3.06 10^6/uL (4.5-5.90) Hemoglobin 8.9 g/dL (13.5-17.5) Hematocrit 26.0 % (41.0-53.0) Mean Corpuscular Volume 85.1 fL (80.0-100.0) Mean Corpuscular Hemoglobin 29.0 pg (28.0-32.0) Mean Corpuscular Hemoglobin Concent 34.1 g/dL (32.0-36.0) Red Cell Distribution Width 17.1 % (11.8-14.3) Platelet Count 428 10^3/uL (140-450) Mean Platelet Volume 6.8 fL (6.9-10.8) Neutrophils (%) (Auto) 66.6 % (37.0-80.0) Lymphocytes (%) (Auto) 24.8 % (10.0-50.0) Monocytes (%) (Auto) 7.2 % (0.0-12.0) Eosinophils (%) (Auto) 0.9 % (0.0-7.0) Basophils (%) (Auto) 0.5 % (0.0-2.0) Neutrophils # (Auto) 4.8 10 ^3/uL (1.6-8.6) Lymphocytes # (Auto) 1.8 10 ^3/uL (0.4-5.4) Monocytes # (Auto) 0.5 10 ^3/uL (0-1.3) Eosinophils # (Auto) 0.1 10 ^3/uL (0-0.8) Basophils # (Auto) 0 10 ^3/uL (0-0.2) Nucleated Red Blood Cells 0.1 % Sodium Level 145 mmol/L (136-145) Potassium Level 3.7 mmol/L (3.5-5.1) Chloride Level 106 mmol/L (98-107) Carbon Dioxide Level 31 mmol/L (20-31) Anion Gap 8 (5-15) Blood Urea Nitrogen 19 mg/dL (9-23) Creatinine 1.20 mg/dL (0.700-1.30) Glomerular Filtration Rate Calc 66 mL/min (>90) BUN/Creatinine Ratio 15.8 (10.0-20.0) Serum Glucose 124 mg/dL (74-106) Calcium Level 8.6 mg/dL (8.7-10.4) Total Bilirubin 0.7 mg/dL (0.2-1.0) Aspartate Amino Transferase (AST) 11 U/L (13-40) Alanine Aminotransferase (ALT) < 9 U/L (7-40) Alkaline Phosphatase 69 U/L (46-116) Total Protein 5.7 g/dL (5.7-8.2) Albumin 3.0 g/dL (3.2-4.8) Differential Total Cells Counted 100.0 (100) Neutrophils % (Manual) 80 (37.0-80.0) Band Neutrophils % (Manual) 1 Lymphocytes % (Manual) 17 (10.0-50.0) Monocytes % (Manual) 2 (0-12) Eosinophils % (Manual) 0 (0-7) Basophils % (Manual) 0 (0.0-2.0) Metamyelocytes % (manual) 0 Myelocytes % (Manual) 0 Promyelocytes % (Manual) 0 Blast Cells % (Manual) 0 Reactive Lymphocytes 0 Platelet Estimate Adequate Phosphorus Level 2.3 mg/dL (2.4-5.1) Magnesium Level 1.9 mg/dL (1.6-2.6) Influenza Type A Antigen Negative (Negative) Influenza Type B Antigen Negative (Negative) SARS-CoV-2 Antigen (Rapid) Negative (NEGATIVE) Test 04/14/25 10:33 04/14/25 01:14 04/13/25 22:04 Prothrombin Time 10.9 sec (9.3-11.8) Prothrombin Time INR 1.03 (0.9-1.15) Activated Partial Thromboplast Time 25.9 SEC (24.5-34.5) Vitamin B12 Level 381 pg/mL (211-911) Vitamin D 25-Hydroxy 7.7 ng/mL (30.0-100) Troponin I High Sensitivity 3 ng/L (</=54) Triglycerides Level 122 mg/dL (< 150) Cholesterol Level 136 mg/dL (< 200) LDL Cholesterol 81 mg/dL (< 100) HDL Cholesterol 40 mg/dL (40-59) Thyroid Stimulating Hormone (TSH) 1.44 uIU/mL (0.55-4.78) Hemoglobin A1c 6.0 % A1C (<5.7) B-Type Natriuretic Peptide 76.54 pg/mL (0-100) Other Laboratory Tests 04/17/25 05:20 Brief Hx & Hospital Course: 65-year-old male with a history of metastatic prostate cancer involving the spine and sternum presented to the ED with ground coffee emesis, class 3 dyspnea on exertion, and worsening stabbing chest pain over the past 24 hours. His medical history include hypertension GERD, pancreatic tail mass, multiple UTIs, probable dementia and questionable COPD. He is status post ureteral stent placement and has a 20 pack year of smoking history. On admission pulmonary embolism and acute coronary syndrome was ruled out by CT angio and EKG respectively. Chest pain was attributed to musculoskeletal causes related to bone metastasis. Also, the upper/ lower GI bleeding can be attributed to the esophageal and rectum thickening, patient refused any further treatment, hb was on range that transfusion was not required. The patient was managed conservatively with oral pantoprazole, SCDs for DVT prophylaxis and a cardiac diet. However, the patient started having coffee-ground hematemesis on 04/18/2025, GI was consulted. Endoscopy done today revealed, sliding hiatal hernia, erosive gastritis, mild gastroparesis, duodenitis of the duodenal bulb and postbulbar area with superficial erosions. The patient was continued on Protonix 40 mg oral b.i.d, Reglan 5 mg IV, Carafate suspension. That was advanced to soft mechanical diet, the patient was able to tolerate the diet. The patient deemed hemodynamically stable on the day of discharge, verbalized understanding of the discharge plan, patient is discharge to SNF and advised to follow up with PCP and GI in 2 weeks. Pt is lying on bed General Appearance: Alert, Oriented X3, Cooperative, Mild distress HEENT: Atraumatic, Mucous membranes moist/pink Respiratory: Clear to auscultation, Normal air movement, No added sounds Cardiovascular: Regular rate, Normal S1, Normal S2, No murmurs Abdominal/ : Active bowel sounds, Soft, no distention, no tenderness Extremities: No edema, Normal pulses, No tenderness/swelling Skin: No Significant rash, except past surgical scars Neuro: Normal speech, sensorimotor deficits none Psych/Mental Status: Mental status NL, Mood NL Nurse was there as grease remover during examination Operations or Procedures CT abdomen pelvis: abdomen pelvis CT:1. Adequately positioned left ureteral stent with bilateral hydroureter. No evidence of ureteral stone. Nonobstructing calcifications in the right collecting system and the urinary bladder. 2. Circumferential bladder wall thickening and prostatomegaly suggesting chronic outlet obstruction. 3. Circumferential rectal thickening suggestive of proctitis, correlate with symptoms. 4. Unchanged pancreatic tail mass. CT angiogram: No evidence of pulmonary embolism, notable for esophageal wall thickening, raising concern for possible upper GI pathology. EKG: No ischemic changes. Findings not consistent with acute coronary syndrome. Chest x-ray: 1. Bilateral interstitial opacities new from prior exam suggesting pulmonary edema or atypical infection. Endoscopy of the upper GI tract: 3 cm sliding-type hiatal hernia with grade C linear erosive esophagitis with circumferential and linear ulcers extending into the distal 10 cm of the esophagus from which biopsies were obtained, mild gastroparesis with retained gastric food contents, [id number] duodenitis of the duodenal bulb and postbulbar area with superficial erosions. Condition at Discharge: Stable Final Diagnosis/Problems List Musculoskeletal chest pain secondary to bone metastasis Prostate cancer with bone metastasis to spine and sternum status post ureteral stent placement Ruled out pulmonary embolism Ruled out acute coronary syndrome Hypokalemia resolved Normocytic anemia, possible due to upper/lower GI Bleeding COPD, stable upper/lower GI Bleeding possible due to esophageal and rectum thickening Stable pancreatic tail mass GERD History of multiple UTIs Probable dementia Hypertension Discharge Disposition: Home Discharge Instruct/Medications Diet: Consistent carbohydrate, Cardiac 2g Na,low cholest Activity: No Restrictions, As Tolerated Follow Up/Referral: Follow up with PCP in 2 weeks Scheduled Ergocalciferol (Vitamin D 38456 Unit), 50,000 UNIT PO Q7D Pantoprazole Sodium Sesquihydr (Pantoprazole Sodium), 40 MG PO DAILY@0600 Scheduled PRN Acetaminophen (Acetaminophen), 650 MG PO Q6HP PRN Discharge Statement: "Patient was advised to return to the ER or call 911 if any headaches, dizziness, shortness of breath, chest pain, abdominal pain, bleeding, fevers, or worsening of medical condition. Patient was counseled about treatment plan, medications, possible side effects, patientverbalized understanding. All questions were answered to the best of my ability. This discharge took greater then 30 minutes in planning, reviewing documentation, counseling the patient, and discussing with other team members." ASSESSMENT ASSESSMENT Assessment Ruled out pulmonary embolism Ruled out acute coronary syndrome Musculoskeletal chest pain secondary to bone metastasis Prostate cancer with bone metastasis to spine and sternum status post ureteral stent placement Hypokalemia resolved Normocytic anemia Questionable COPD Questionable GI bleed Stable pancreatic tail mass GERD History of multiple UTIs Probable dementia Hypertension Date of Service: Apr 17, 2025 Billing Provider: ISMAEL MCLEOD MD Common Visit Codes: [id number]/[id number] DISCH DAY >30min ISRAEL LONGORIA RESIDENT Apr 17, 2025 11:01 ISRAEL ECHEVERRIA RESIDENT Apr 17, 2025 20:14 KESHAV MERCEDES RESIDENT Apr 17, 2025 20:56 ISMAEL MCLEOD MD Apr 24, 2025 21:16
[2025-04-17 13:00] VITALS: BP 89/58; PULSE 89; RESP 20; TEMP 96.9; O2SAT 99
[2025-04-17 16:50] VITALS: BP 118/75; PULSE 92; RESP 20; TEMP 98.2; O2SAT 98
[2025-04-17] MEDS ORDERED: ERGO1CAP23 PO (20:59)
[2025-04-17] MEDS ORDERED: ACET-1882 PO (20:59)
[2025-04-17] MEDS ORDERED: PANT40T PO (20:59)
[2025-04-17 21:00] VITALS: BP 133/77; PULSE 97; RESP 18; TEMP 98.2; O2SAT 98
[2025-04-18 05:00] VITALS: BP 103/57; PULSE 83; RESP 17; TEMP 98; O2SAT 97
[2025-04-18 07:01] LABS: Anion Gap 8 (5-15); Carbon Dioxide 28 mmol/L (20-31); Potassium 3.9 mmol/L (3.5-5.1); Sodium 144 mmol/L (136-145)
[2025-04-18 07:02] LABS: Calcium 8.4 mg/dL (8.7-10.4); Chloride 108 mmol/L (98-107)
[2025-04-18 07:03] LABS: Hematocrit 25.9 % (41.0-53.0); Hemoglobin 8.7 g/dL (13.5-17.5); Mean Corpuscular Hemoglobin 29.2 pg (28.0-32.0); Mean Corpuscular Volume 86.7 fL (80.0-100.0); Nucleated Red Blood Cells % 0.1 %
[2025-04-18 07:07] LABS: BUN/Creatinine Ratio 12.2 (10.0-20.0); Blood Urea Nitrogen 15 mg/dL (9-23)
[2025-04-18 07:08] LABS: Glucose 129 mg/dL (74-106)
[2025-04-18 09:00] VITALS: BP 109/60; PULSE 75; RESP 18; TEMP 97.8; O2SAT 100
[2025-04-18] MEDS: Ensure HIGH Protein Chocolate 8oz Bottle PO SCH (11:46)
[2025-04-18 13:00] VITALS: BP 106/65; PULSE 62; RESP 18; TEMP 98; O2SAT 96
--- NOTE | 2025-04-18 15:32 | DVHPNRES ---
Progress Note Date Seen: Apr 18, 2025 Resident Creating Document: ISRAEL LONGORIA RESIDENT Medical Necessity Reason Pt with a Central, PICC or Fol: No Subjective Review of Systems Aaron De Oliveira is a 65-year-old male patient who presents to ED with chief complaint of ground coffee emesis, dyspnea in Functional Class III and increased stabbing chest pain in the past 24 hours. Patient has relevant history of prostate cancer with metastases to bone (including spine and sternum). Patient denies chills, fever, unintentional weight loss, diarrhea, constipation, nausea and motor or sensory deficits. Past medical history: Hypertension, prostate cancer with bone metastases (including spine and sternum) status post ureteral stent placement, stable pancreatic tail mass, GERD, history of multiple UTIs, dementia, questionable COPD Surgical history: Ureteral stents placed Family history: Noncontributory Social history: Lives in [place] alone (next of kin are two sons). Current tobacco abuse (20 pack-year history of smoking). Denies current alcohol and other drug abuse Allergies: Denies Home medication: Pantoprazole Patient was seen and examined at bedside. Overnight events were reviewed. Patient endorsed active coffee-ground emesis and complaint of chest pain in the afternoon. The patient was kept NPO, IV fluid was given, pantoprazole IV added, GI was consulted. He denies shortness of breath, fever, abdominal pain or any other complaints today. Objective vital signs Vital Sign Date Time Temp Pulse Resp B/P (MAP) Pulse Ox O2 Delivery O2 Flow Rate FiO2 04/18/25 13:00 98.0 62 18 106/65 (79) 96 98.0 04/18/25 08:00 Room Air* 0 21 Total Intake and Output 04/17/25 04/17/25 04/18/25 15:00 23:00 07:00 Intake Total 760 ml 475 ml Output Total 400 ml Balance 360 ml 475 ml medications Current Medications Medications Dose Ordered Sig/Murali Route Start Time Stop Time Status Last Admin Dose Admin Sodium Chloride 10 ml Q8HR IV 04/14/25 06:00 04/18/25 13:19 10 ML Acetaminophen/ Hydrocodone Bitart 1 tab Q4HP PRN PO 04/14/25 00:15 Docusate Sodium 100 mg BIDPRN PRN PO 04/14/25 00:15 Acetaminophen 650 mg Q6HP PRN PO 04/14/25 00:15 Pantoprazole Sodium 40 mg DAILY@0600 PO 04/17/25 06:00 04/18/25 06:18 40 MG Ergocalciferol 50,000 unit Q7D PO 04/17/25 07:00 04/17/25 08:56 50,000 UNIT Enteral Nutritional Formula 240 ml TIDWM PO 04/18/25 12:00 04/18/25 11:46 240 ML Examination Pt is lying on bed General Appearance: Alert, Oriented X3, Cooperative, Mild distress HEENT: Atraumatic, Mucous membranes moist/pink Respiratory: Clear to auscultation, Normal air movement, No added sounds Cardiovascular: Regular rate, Normal S1, Normal S2, No murmurs Abdominal/ : Active bowel sounds, Soft, no distention, no tenderness Extremities: No edema, Normal pulses, No tenderness/swelling Skin: No Significant rash, except past surgical scars Neuro: Normal speech, sensorimotor deficits none Psych/Mental Status: Mental status NL, Mood NL Nurse was there as tank car reconditioner during examination laboratory and microbiology Laboratory Tests 04/18/25 05:50 Test 04/18/25 05:50 Range/Units Serum Glucose 129 H 74-106 mg/dL Microbiology Date/Time Source Procedure Growth Status 04/15/25 01:30 Nose MRSA Screen - Final Complete Labs and/or images reviewed: Labs reviewed by me, Image(s) reviewed by me Problem List/Assessment/Plan Problem List/Assessment/Plan Assessment and plan: Upper GI bleed Diffuse esophageal wall thickening most likely esophagitis Circumferential rectal thickening suggestive of proctitis Patient started on clear liquid diet and well tolerated Keep patient NPO from midnight and EGD tomorrow GI consult appreciated Protonix 40 mg b.i.d. Carafate 1 g t.i.d. SCDs for DVT prophylaxis Monitor H&H. Chest pain rule out ACS Musculoskeletal chest pain secondary to bone metastases Ruled out pulmonary embolism Ruled out acute coronary syndrome EKG: No ischemic changes Troponin ordered, results pending Completed angio CT which ruled out pulmonary embolism, evidenced thickening of esophagus. Chest pain likely secondary to musculoskeletal due to metastasis Prostate cancer with bone metastases (spine and sternum) - status post ureteral stent placement History of multiple UTIs Hypokalemia Repleted Normocytic anemia monitor labs Questionable COPD Probable dementia Hypertension GI prophylaxis: protonix DVT prophylaxis: SCD Diet: Clear liquid, NPO midnight Goals of care discussed with the patient for more than 23 minutes: Full code status Case discussed with Dr. Purcell, patient and RN Plan discussed with: Patient, Other (RN) My Orders My Orders Orders - ISRAEL LONGORIA Procedure Category Date Status Time Schedule For Dc JON 04/17/25 In Process Clinic F/U 15:58 Cardiac DIET 04/18/25 Transmitted Diet-2gna,Lofat,Lochol Breakfast Nutritional PHA 04/18/25 In Process Supplements (Ensure 12:00 Date of Service: Apr 18, 2025 Billing Provider: ISMAEL PURCELL MD Common Visit Codes: [id number] INP/OBS CARE(HIGH) ISRAEL LONGORIA Apr 18, 2025 15:32 ISRAEL ECHEVERRIA Apr 18, 2025 19:07 CHRISTOPHER PACE Apr 19, 2025 15:44 ISMAEL PURCELL MD Apr 24, 2025 21:35
[2025-04-18 17:00] VITALS: BP 102/72; PULSE 89; RESP 20; TEMP 98.1; O2SAT 96
[2025-04-18] MEDS: PANTOPRAZOLE 40 MG/10 ML VIAL INJ IV SCH (17:47)
[2025-04-18 17:50] LABS: Hemoglobin 9.5 g/dL (13.5-17.5); Mean Corpuscular Hemoglobin 28.9 pg (28.0-32.0); Nucleated Red Blood Cells % 0.1 %
[2025-04-18 17:52] LABS: Hematocrit 28.3 % (41.0-53.0); Mean Corpuscular Volume 86.4 fL (80.0-100.0)
[2025-04-18 18:05] LABS: Alanine Aminotransferase 10 U/L (7-40); Alkaline Phosphatase 72 U/L (46-116); Anion Gap 8 (5-15); BUN/Creatinine Ratio 14.3 (10.0-20.0); Blood Urea Nitrogen 18 mg/dL (9-23); Carbon Dioxide 29 mmol/L (20-31); Chloride 107 mmol/L (98-107); Potassium 3.7 mmol/L (3.5-5.1); Sodium 144 mmol/L (136-145); Total Protein 6.0 g/dL (5.7-8.2)
[2025-04-18 18:06] LABS: Bilirubin, Total 0.6 mg/dL (0.2-1.0)
[2025-04-18 18:09] LABS: Albumin 3.1 g/dL (3.2-4.8); Calcium 8.5 mg/dL (8.7-10.4); Glucose 173 mg/dL (74-106)
--- NOTE | 2025-04-18 18:10 | DVH ---
ABDOMEN, (KUB) ONE VIEW REASON FOR EXAM: New episode of coffee ground emesis COMPARISON: CT CT AB PEL WO CON-NO ORAL OR IV on DOS: 04/13/25, MRI MRI ABDOMEN W AND WO on DOS: 5, US ABDOMEN COMPLETE SONOGRAM on DOS: 01/19/25, CT CT AB PEL WITH IV CON ONLY on DOS: 01/19/25 TECHNIQUE: A single view of the abdomen is obtained. FINDINGS: There is air within numerous small bowel loops without pathologic distention. There is mod erate air distending the stomach. The bowel gas pattern is nonspecific. The colonic stool burden is s mall. There is a left double-J stent. There is no supine evidence of pneumoperitoneum. There are dege nerative changes throughout the spine. Numerous blastic bony lesions are seen. IMPRESSION: Nonspecific bowel gas pattern.
[2025-04-18 20:00] VITALS: PULSE 92; RESP 17; O2SAT 100
[2025-04-18 20:59] VITALS: BP 90/63; PULSE 92; RESP 17; TEMP 97.9; O2SAT 100
[2025-04-19] VITALS (8 sets, daily range): BP systolic 95–110; BP diastolic 67–74; PULSE 89–95; RESP 16–17; TEMP 96.1–98.2; O2SAT 91–100
[2025-04-19 11:39] LABS: Hematocrit 29.2 % (41.0-53.0); Hemoglobin 9.7 g/dL (13.5-17.5); Mean Corpuscular Hemoglobin 28.8 pg (28.0-32.0); Mean Corpuscular Volume 86.5 fL (80.0-100.0); Nucleated Red Blood Cells % 0.0 %
[2025-04-19 11:45] LABS: Potassium 3.8 mmol/L (3.5-5.1); Sodium 145 mmol/L (136-145)
[2025-04-19 11:46] LABS: Anion Gap 10 (5-15); Carbon Dioxide 28 mmol/L (20-31)
[2025-04-19 11:50] LABS: Calcium 8.6 mg/dL (8.7-10.4); Chloride 107 mmol/L (98-107)
[2025-04-19 11:51] LABS: BUN/Creatinine Ratio 14.6 (10.0-20.0); Blood Urea Nitrogen 19 mg/dL (9-23)
[2025-04-19 11:56] LABS: Glucose 129 mg/dL (74-106)
[2025-04-19] MEDS: SUCRALFATE 1 GM/10 ML ORAL SUSP PO SCH (12:11)
--- NOTE | 2025-04-19 15:29 | DVHPNRES ---
Progress Note Date Seen: Apr 19, 2025 Resident Creating Document: CHRISTOPHER PACE RESIDENT Medical Necessity Reason Pt with a Central, PICC or Fol: No Subjective Review of Systems Aaron De Oliveira is a 65-year-old male patient who presents to ED with chief complaint of ground coffee emesis, dyspnea in Functional Class III and increased stabbing chest pain in the past 24 hours. Patient has relevant history of prostate cancer with metastases to bone (including spine and sternum). Patient denies chills, fever, unintentional weight loss, diarrhea, constipation, nausea and motor or sensory deficits. Past medical history: Hypertension, prostate cancer with bone metastases (including spine and sternum) status post ureteral stent placement, stable pancreatic tail mass, GERD, history of multiple UTIs, dementia, questionable COPD Surgical history: Ureteral stents placed Family history: Noncontributory Social history: Lives in [place] alone (next of kin are two sons). Current tobacco abuse (20 pack-year history of smoking). Denies current alcohol and other drug abuse Allergies: Denies Home medication: Pantoprazole Patient was seen and examined at bedside. No acute event happened overnight. Patient currently seen on bed and denies any abdominal pain, nausea, vomiting, diarrhea, fever. Vaping episode of hematemesis yesterday and repeat hemoglobin shows hemoglobin 7.6 on 04/18/2025 and 9.0 on 04/19/2025. GI consulted and recommended pantoprazole and sucralfate. Keep patient NPO midnight EGD tomorrow. Called NOK-Son (Ryan) and discussed the current management plan and agreed. Objective vital signs Vital Sign Date Time Temp Pulse Resp B/P (MAP) Pulse Ox O2 Delivery O2 Flow Rate FiO2 04/19/25 09:00 98.2 89 16 110/74 (86) 96 98.2 04/19/25 08:00 Room Air* 0 21 Total Intake and Output 04/18/25 04/18/25 04/19/25 15:00 23:00 07:00 Intake Total 613 ml 0 ml Balance 613 ml 0 ml medications Current Medications Medications Dose Ordered Sig/Murali Route Start Time Stop Time Status Last Admin Dose Admin Sodium Chloride 10 ml Q8HR IV 04/14/25 06:00 04/19/25 14:00 10 ML Acetaminophen/ Hydrocodone Bitart 1 tab Q4HP PRN PO 04/14/25 00:15 Docusate Sodium 100 mg BIDPRN PRN PO 04/14/25 00:15 Acetaminophen 650 mg Q6HP PRN PO 04/14/25 00:15 Ergocalciferol 50,000 unit Q7D PO 04/17/25 07:00 04/17/25 08:56 50,000 UNIT Enteral Nutritional Formula 240 ml TIDWM PO 04/18/25 12:00 04/19/25 08:00 240 ML Pantoprazole Sodium 40 mg BID IV 04/18/25 17:30 04/19/25 10:09 40 MG Sucralfate 1 gm QID@0600,1130,1700,2200 PO 04/19/25 11:30 04/19/25 12:11 1 GM Examination General Appearance: Alert, Oriented X3, Cooperative HEENT: Atraumatic, Mucous membranes moist/pink Respiratory: Clear to auscultation, Normal air movement, No added sounds Cardiovascular: Regular rate, Normal S1, Normal S2, No murmurs Abdominal/ : Active bowel sounds, Soft, no distention, no tenderness Extremities: No edema, Normal pulses, No tenderness/swelling Skin: No Significant rash, except past surgical scars Neuro: Normal speech, sensorimotor deficits none Psych/Mental Status: Mental status NL, Mood NL laboratory and microbiology Laboratory Tests 04/19/25 10:43 Test 04/19/25 10:43 Range/Units Serum Glucose 129 H 74-106 mg/dL Microbiology Date/Time Source Procedure Growth Status 04/15/25 01:30 Nose MRSA Screen - Final Complete Problem List/Assessment/Plan Problem List/Assessment/Plan Assessment and plan: Upper GI bleed and history of hematemesis yesterday Diffuse esophageal wall thickening most likely esophagitis Circumferential rectal thickening suggestive of proctitis Patient started on clear liquid diet and well tolerated Keep patient NPO from midnight and EGD tomorrow GI consult appreciated Protonix 40 mg b.i.d. Carafate 1 g t.i.d. SCDs for DVT prophylaxis Monitor H&H. Chest pain rule out ACS Musculoskeletal chest pain secondary to bone metastases Ruled out pulmonary embolism Ruled out acute coronary syndrome EKG: No ischemic changes Troponin ordered, results pending Completed angio CT which ruled out pulmonary embolism, evidenced thickening of esophagus. Chest pain likely secondary to musculoskeletal due to metastasis Prostate cancer with bone metastases (spine and sternum) - status post ureteral stent placement History of multiple UTIs Currently not on medication Hypokalemia Repleted Normocytic anemia monitor labs Questionable COPD Probable dementia Hypertension NS, NCS, low-fat diet GI prophylaxis: protonix DVT prophylaxis: SCD Diet: Clear liquid, NPO midnight Goals of care discussed with the patient for more than 21 minutes: Full code status Case discussed with Dr. Mcleod Plan discussed with: Patient, Other (Nurse, son over the phone) Date of Service: Apr 19, 2025 Billing Provider: ISMAEL MCLEOD MD Common Visit Codes: [id number] INP/OBS CARE(HIGH) CHRISTOPHER PACE RESIDENT Apr 19, 2025 15:29 ISMAEL MCLEOD MD Apr 24, 2025 22:13
--- NOTE | 2025-04-19 17:23 | DVHINCON2 ---
Date of service: Apr 19, [address] Nguyễn Reason for Consultation Upper GI bleed suspected esophagitis History of Present Illness The patient is a 65-year-old male with past medical history of CHF, hypertension, GERD, and kidney stones who presented to [facility] ED with complaint of chest pain for the past 4 months. Patient reports has been experiencing left-sided chest pain, nonradiating, constant, associated with nausea, vomiting, shortness of breaths, getting worse that prompted this visit. Patient was recently admitted here at [facility] on January 19, 2025 for altered mental status and discharged home with multiple diagnosis. GI was consulted because of an episode of moderate amount coffee-ground emesis and atypical chest pain. The patient was kept NPO, IV fluid was given, pantoprazole IV added, CT angiography on 04/14 had shown diffuse esophageal wall thickening suggestive of esophagitis. Patient also had minimal rectal wall thickening that could be related to his prostate cancer Past Medical History Past Medical History CHF, HTN, GERD, Kidney stones, Metastatic prostate cancer. Past Surgical History Past Surgical History Left renal stone with hydronephrosis, status post stent placement. Family History: FH: liver cancer G8 FATHER FH: stomach cancer G8 MOTHER Allergies: Coded Allergies: NO KNOWN ALLERGIES (Unverified , 01/19/25) Home Meds Active Scripts Pantoprazole Sodium Sesquihydr (Pantoprazole Sodium) 40 Mg Tab, 40 MG PO DAILY@0600 for 30 Days, #30 TAB Prov:ISRAEL ECHEVERRIA RESIDENT 04/17/25 Ergocalciferol (VITAMIN D 83948 UNIT) 50,000 [place], [address] UNIT PO Q7D for 30 Days, #4 CAP Prov:ISRAEL ECHEVERRIA 04/17/25 Acetaminophen (Acetaminophen) 325 Mg Tab, 650 MG PO Q6HP PRN for 5 Days, #40 TAB Prov:ISRAEL ECHEVERRIA 04/17/25 Current Medications Current Medications Medications (Trade) Dose Ordered Sig/Murali Route PRN Reason Start Time Stop Time Status Last Admin Pantoprazole Sodium (Protonix) 40 mg BID IV 04/18/25 17:30 04/19/25 10:09 Sucralfate (Carafate Susp) 1 gm QID@0600,1130,1700,2200 PO 04/19/25 11:30 04/19/25 12:11 Vital Signs Vital Signs Date Time Temp Pulse Resp B/P (MAP) Pulse Ox O2 Delivery O2 Flow Rate FiO2 04/19/25 13:00 97.7 95 16 100/67 (78) 97 97.7 04/19/25 08:00 Room Air* 0 21 Physical Exam General Appearance: Alert, Oriented X3, Cooperative, weak and lethargic HEENT: Atraumatic, Mucous membranes moist/pink Respiratory: Clear to auscultation, Normal air movement, No added sounds Cardiovascular: Regular rate, Normal S1, Normal S2, No murmurs Abdominal/ : Active bowel sounds, Soft, no distention, no tenderness Extremities: No edema, Normal pulses, No tenderness/swelling Skin: No Significant rash, except past surgical scars Neuro: Normal speech, sensorimotor deficits none Psych/Mental Status: Mental status NL, Mood NL Labs/Diagnostic Data Labs Test 04/19/25 10:43 04/18/25 17:40 04/16/25 05:59 04/15/25 10:07 Range/Units White Blood Count 9.0 4.4-10.8 10^3/uL Red Blood Count 3.37 L 4.5-5.90 10^6/uL Hemoglobin 9.7 L 13.5-17.5 g/dL Hematocrit 29.2 L 41.0-53.0 % Mean Corpuscular Volume 86.5 80.0-100.0 fL Mean Corpuscular Hemoglobin 28.8 28.0-32.0 pg Mean Corpuscular Hemoglobin Concent 33.3 32.0-36.0 g/dL Red Cell Distribution Width 17.2 H 11.8-14.3 % Platelet Count 453 H 140-450 10^3/uL Mean Platelet Volume 6.8 L 6.9-10.8 fL Neutrophils (%) (Auto) 71.2 37.0-80.0 % Lymphocytes (%) (Auto) 22.2 10.0-50.0 % Monocytes (%) (Auto) 5.3 0.0-12.0 % Eosinophils (%) (Auto) 0.8 0.0-7.0 % Basophils (%) (Auto) 0.5 0.0-2.0 % Neutrophils # (Auto) 6.4 1.6-8.6 10 ^3/uL Lymphocytes # (Auto) 2.0 0.4-5.4 10 ^3/uL Monocytes # (Auto) 0.5 0-1.3 10 ^3/uL Eosinophils # (Auto) 0.1 0-0.8 10 ^3/uL Basophils # (Auto) 0 0-0.2 10 ^3/uL Nucleated Red Blood Cells 0.0 % Sodium Level 145 136-145 mmol/L Potassium Level 3.8 3.5-5.1 mmol/L Chloride Level 107 98-107 mmol/L Carbon Dioxide Level 28 20-31 mmol/L Anion Gap 10 5-15 Blood Urea Nitrogen 19 9-23 mg/dL Creatinine 1.30 0.700-1.30 mg/dL Glomerular Filtration Rate Calc 60 >90 mL/min BUN/Creatinine Ratio 14.6 10.0-20.0 Serum Glucose 129 H 74-106 mg/dL Calcium Level 8.6 L 8.7-10.4 mg/dL Total Bilirubin 0.6 0.2-1.0 mg/dL Aspartate Amino Transferase (AST) 14 13-40 U/L Alanine Aminotransferase (ALT) 10 7-40 U/L Alkaline Phosphatase 72 46-116 U/L Total Protein 6.0 5.7-8.2 g/dL Albumin 3.1 L 3.2-4.8 g/dL Differential Total Cells Counted 100.0 100 Neutrophils % (Manual) 80 37.0-80.0 Band Neutrophils % (Manual) 1 Lymphocytes % (Manual) 17 10.0-50.0 Monocytes % (Manual) 2 0-12 Eosinophils % (Manual) 0 0-7 Basophils % (Manual) 0 0.0-2.0 Metamyelocytes % (manual) 0 Myelocytes % (Manual) 0 Promyelocytes % (Manual) 0 Blast Cells % (Manual) 0 Reactive Lymphocytes 0 Platelet Estimate Adequate Phosphorus Level 2.3 L 2.4-5.1 mg/dL Magnesium Level 1.9 1.6-2.6 mg/dL Test 04/15/25 01:30 04/14/25 10:33 04/14/25 01:14 04/13/25 22:04 Range/Units Influenza Type A Antigen Negative Negative Influenza Type B Antigen Negative Negative SARS-CoV-2 Antigen (Rapid) Negative NEGATIVE Prothrombin Time 10.9 9.3-11.8 sec Prothrombin Time INR 1.03 0.9-1.15 Activated Partial Thromboplast Time 25.9 24.5-34.5 SEC Vitamin B12 Level 381 211-911 pg/mL Vitamin D 25-Hydroxy 7.7 L 30.0-100 ng/mL Troponin I High Sensitivity 3 L </=54 ng/L Triglycerides Level 122 < 150 mg/dL Cholesterol Level 136 < 200 mg/dL LDL Cholesterol 81 < 100 mg/dL HDL Cholesterol 40 40-59 mg/dL Thyroid Stimulating Hormone (TSH) 1.44 0.55-4.78 uIU/mL Hemoglobin A1c 6.0 H <5.7 % A1C B-Type Natriuretic Peptide 76.54 0-100 pg/mL Microbiology Date/Time Source Procedure Growth Status 04/15/25 01:30 Nose MRSA Screen - Final Complete Chest and Abdominal X ray IMPRESSION: Nonspecific bowel gas pattern. Problems(with codes): (1) Coffee ground emesis (2) Chest pain (3) Abnormal finding on CT scan (4) Generalized weakness (5) Cancer, metastatic to bone (6) Elevated PSA, greater than or equal to 20 ng/ml (7) Metabolic encephalopathy Plan/Recommendation Plan Patient has been started on Protonix 40 mg IV q.12 hours I added sucralfate 1 g p.o. 4 times a day suspension Start him on clear liquid diet advance to full liquid I will arrange endoscopy in the next 24-48 hours pending OR availability Plan discussed with: Patient, Other (Nurse and resident) GERARDO PERSAUD MD Apr 19, 2025 17:23
[2025-04-20] VITALS (8 sets, daily range): BP systolic 102–128; BP diastolic 67–85; PULSE 85–97; RESP 14–18; TEMP 97.4–98.3; O2SAT 98–100
[2025-04-20] MEDS: DOCUSATE SOD 100 MG CAP PO PRN (04:28)
--- NOTE | 2025-04-20 07:13 | DVHPNRES ---
Progress Note Date Seen: Apr 20, 2025 Resident Creating Document: ISRAEL LONGORIA RESIDENT Medical Necessity Reason Pt with a Central, PICC or Fol: No Subjective Review of Systems A 65-year-old male patient who presents to ED with chief complaint of ground coffee emesis, dyspnea in Functional Class III and increased stabbing chest pain in the past 24 hours. Patient has relevant history of prostate cancer with metastases to bone (including spine and sternum). Patient denies chills, fever, unintentional weight loss, diarrhea, constipation, nausea and motor or sensory deficits. Past medical history: Hypertension, prostate cancer with bone metastases (including spine and sternum) status post ureteral stent placement, stable pancreatic tail mass, GERD, history of multiple UTIs, dementia, questionable COPD Surgical history: Ureteral stents placed Family history: Noncontributory Social history: Lives in [place] alone (next of kin are two sons). Current tobacco abuse (20 pack-year history of smoking). Denies current alcohol and other drug abuse Allergies: Denies Home medication: Pantoprazole Patient was seen and examined at bedside. No acute event happened overnight. He denies any chest pain, sob, fever, abdominal pain or any other complaints today. Scheduled for endoscopy tomorrow. Objective vital signs Vital Sign Date Time Temp Pulse Resp B/P (MAP) Pulse Ox O2 Delivery O2 Flow Rate FiO2 04/20/25 05:00 97.6 86 14 119/76 (90) 98 97.6 04/19/25 20:00 Room Air* 0 21 Total Intake and Output 04/19/25 04/19/25 04/20/25 15:00 23:00 07:00 Intake Total 720 ml Balance 720 ml medications Current Medications Medications Dose Ordered Sig/Murali Route Start Time Stop Time Status Last Admin Dose Admin Sodium Chloride 10 ml Q8HR IV 04/14/25 06:00 04/20/25 06:15 10 ML Acetaminophen/ Hydrocodone Bitart 1 tab Q4HP PRN PO 04/14/25 00:15 Docusate Sodium 100 mg BIDPRN PRN PO 04/14/25 00:15 04/20/25 04:28 100 MG Acetaminophen 650 mg Q6HP PRN PO 04/14/25 00:15 Ergocalciferol 50,000 unit Q7D PO 04/17/25 07:00 04/17/25 08:56 50,000 UNIT Enteral Nutritional Formula 240 ml TIDWM PO 04/18/25 12:00 04/19/25 08:00 240 ML Pantoprazole Sodium 40 mg BID IV 04/18/25 17:30 04/19/25 22:06 40 MG Sucralfate 1 gm QID@0600,1130,1700,2200 PO 04/19/25 11:30 04/20/25 06:11 1 GM Examination General Appearance: Alert, Oriented X3, Cooperative HEENT: Atraumatic, Mucous membranes moist/pink Respiratory: Clear to auscultation, Normal air movement, No added sounds Cardiovascular: Regular rate, Normal S1, Normal S2, No murmurs Abdominal/ : Active bowel sounds, Soft, no distention, no tenderness Extremities: No edema, Normal pulses, No tenderness/swelling Skin: No Significant rash, except past surgical scars Neuro: Normal speech, sensorimotor deficits none Psych/Mental Status: Mental status NL, Mood NL Nurse was with me as a material handling equipment stevedore. laboratory and microbiology Test 04/20/25 05:53 Range/Units Serum Glucose Pending Microbiology Date/Time Source Procedure Growth Status 04/15/25 01:30 Nose MRSA Screen - Final Complete Labs and/or images reviewed: Labs reviewed by me, Image(s) reviewed by me Problem List/Assessment/Plan Problem List/Assessment/Plan #Upper GI bleed #Diffuse esophageal wall thickening most likely esophagitis #Circumferential rectal thickening suggestive of proctitis Soft mechanical diet, IV fluids given Protonix 40 mg b.i.d. added GI on board Carafate started, scheduled for endoscopy tomorrow; to be kept NPO after breakfast tomorrow avoid blood thinners, patient is on SCDs for DVT prophylaxis Monitor H&H. #Chest pain rule out ACS #Musculoskeletal chest pain secondary to bone metastases #Ruled out acute coronary syndrome #Ruled out pulmonary embolism EKG: No ischemic changes Troponin ordered, results pending Completed angio CT which ruled out pulmonary embolism, evidenced thickening of esophagus. #Prostate cancer with bone metastases (spine and sternum) - status post ureteral stent placement #History of multiple UTIs #KETTY due to VMN Urinalysis ordered IV fluids given #Hypokalemia Repleted #Normocytic anemia, possible due to GI bleeding no need of transfusion for now Questionable COPD, stable Probable dementia Hypertension GI prophylaxis: Protonix DVT prophylaxis: patient has GI bleeding; on SCDs Diet: Soft mechanical diet; to be kept NPO after breakfast tomorrow Goals of care discussed with the patient for 20 minutes: Full code status Case discussed with Dr. Daley, patient and RN Plan discussed with: Patient, Other (RN) Addendum Addendum Addendum I was physically present for the steele portions of the service provided to patient by THE RESIDENT. I have reviewed the documentation, discussed the case with resident and agree with the resident's documentation except as noted. Also the patient's clinical case was discussed with the patient's nurse. This medical document was created using an electronic medical record system with computerized dictation system. Although this document has been carefully reviewed, there might still be some phonetic and typographical errors. These areas are purely typographical due to imperfections of the software programs, and do not reflect any compromise in the patient's medical care. Late signature. Date of Service: Apr 20, 2025 Billing Provider: VALERIY DALEY MD Common Visit Codes: [id number] INP/OBS CARE(HIGH) Secondary Visit Codes: [id number] CARE PLAN 30 MINUTES (20 minutes) ISRAEL LONGORIA RESIDENT Apr 20, 2025 07:13 ISRAEL ECHEVERRIA RESIDENT Apr 20, 2025 21:38 VALERIY DALEY MD Apr 21, 2025 06:37
[2025-04-20 07:19] LABS: Hematocrit 27.6 % (41.0-53.0); Hemoglobin 9.4 g/dL (13.5-17.5); Mean Corpuscular Hemoglobin 29.0 pg (28.0-32.0); Mean Corpuscular Volume 85.7 fL (80.0-100.0); Nucleated Red Blood Cells % 0.1 %
[2025-04-20 07:31] LABS: Anion Gap 12 (5-15); Carbon Dioxide 27 mmol/L (20-31); Potassium 3.8 mmol/L (3.5-5.1)
[2025-04-20 07:37] LABS: BUN/Creatinine Ratio 12.4 (10.0-20.0); Blood Urea Nitrogen 19 mg/dL (9-23); Magnesium 1.9 mg/dL (1.6-2.6)
[2025-04-20 07:46] LABS: Calcium 8.5 mg/dL (8.7-10.4); Chloride 107 mmol/L (98-107); Glucose 128 mg/dL (74-106); Sodium 146 mmol/L (136-145)
--- NOTE | 2025-04-20 14:21 | DVHPNRES ---
Progress Note Date Seen: Apr 20, 2025 Resident Creating Document: ISRAEL LONGORIA Medical Necessity Reason Pt with a Central, PICC or Fol: No Objective vital signs Vital Sign Date Time Temp Pulse Resp B/P (MAP) Pulse Ox O2 Delivery O2 Flow Rate FiO2 04/20/25 09:00 97.4 89 16 102/72 (82) 100 97.4 04/20/25 08:00 Room Air* 0 21 Total Intake and Output 04/19/25 04/19/25 04/20/25 15:00 23:00 07:00 Intake Total 720 ml Balance 720 ml medications Current Medications Medications Dose Ordered Sig/Murali Route Start Time Stop Time Status Last Admin Dose Admin Sodium Chloride 10 ml Q8HR IV 04/14/25 06:00 04/20/25 06:15 10 ML Acetaminophen/ Hydrocodone Bitart 1 tab Q4HP PRN PO 04/14/25 00:15 Docusate Sodium 100 mg BIDPRN PRN PO 04/14/25 00:15 04/20/25 04:28 100 MG Acetaminophen 650 mg Q6HP PRN PO 04/14/25 00:15 Ergocalciferol 50,000 unit Q7D PO 04/17/25 07:00 04/17/25 08:56 50,000 UNIT Enteral Nutritional Formula 240 ml TIDWM PO 04/18/25 12:00 04/19/25 08:00 240 ML Pantoprazole Sodium 40 mg BID IV 04/18/25 17:30 04/20/25 10:36 40 MG Sucralfate 1 gm QID@0600,1130,1700,2200 PO 04/19/25 11:30 04/20/25 06:11 1 GM laboratory and microbiology Laboratory Tests 04/20/25 05:53 Test 04/20/25 05:53 Range/Units Serum Glucose 128 H 74-106 mg/dL Microbiology Date/Time Source Procedure Growth Status 04/15/25 01:30 Nose MRSA Screen - Final Complete Problem List/Assessment/Plan Problem List/Assessment/Plan Upper GI bleed Diffuse esophageal wall thickening most likely esophagitis Circumferential rectal thickening suggestive of proctitis NPO, IV fluids given Protonix 40 mg b.i.d. added GI consulted. Carafate started, scheduled for endoscopy today. Currently on IV pantoprazole, avoid blood thinners, patient is on SCDs for DVT prophylaxis Monitor H&H. If stable, we will recommend follow up with GI as outpatient. If hemoglobin decreases, we will consult GI for eventual EGD Progress diet to soft diet. Chest pain rule out ACS EKG: No ischemic changes Troponin ordered, results pending Ruled out pulmonary embolism Completed angio CT which ruled out pulmonary embolism, evidenced thickening of esophagus. Musculoskeletal chest pain secondary to bone metastases Ruled out acute coronary syndrome EKG no ischemic changes, troponinx3 negative. Chest pain likely secondary to musculoskeletal due to metastasis Prostate cancer with bone metastases (spine and sternum) - status post ureteral stent placement History of multiple UTIs Hypokalemia Repleted Normocytic anemia monitor labs Questionable COPD Probable dementia Hypertension Social The patient is keen to go home with rehab facilities for physical therapy. Social service consulted regarding disposition. GI prophylaxis: Not indicated DVT prophylaxis: Lovenox Diet: Cardiac Goals of care discussed with the patient for more than 27 minutes: Full code status Case discussed with Dr. Purcell, patient and RN My Orders My Orders Orders - ISRAEL LONGORIA Procedure Category Date Status Time Basic Metabolic Panel LAB 04/21/25 Verified 04:00 Complete Blood Count LAB 04/21/25 Verified 04:00 ISRAEL LONGORIA Apr 20, 2025 14:21
--- NOTE | 2025-04-20 20:38 | DVHPN2 ---
Progress Note - Dictate Date Seen: Apr 20, 2025 Medical Necessity Reason Pt with a Central, PICC or Fol: No Subjective Patient is resting comfortably and sleepy Upper endoscopy was canceled today because of OR non availability vital signs Vital Sign Date Time Temp Pulse Resp B/P (MAP) Pulse Ox O2 Delivery O2 Flow Rate FiO2 04/20/25 19:51 15 Room Air* 0 21 04/20/25 17:00 97.7 96 128/85 (99) 98 97.7 Total Intake and Output 04/19/25 04/19/25 04/20/25 15:00 23:00 07:00 Intake Total 720 ml Balance 720 ml medications Current Medications Medications Dose Ordered Sig/Murali Route Start Time Stop Time Status Last Admin Dose Admin Sodium Chloride 10 ml Q8HR IV 04/14/25 06:00 04/20/25 14:00 10 ML Acetaminophen/ Hydrocodone Bitart 1 tab Q4HP PRN PO 04/14/25 00:15 Docusate Sodium 100 mg BIDPRN PRN PO 04/14/25 00:15 04/20/25 16:04 100 MG Acetaminophen 650 mg Q6HP PRN PO 04/14/25 00:15 Ergocalciferol 50,000 unit Q7D PO 04/17/25 07:00 04/17/25 08:56 50,000 UNIT Enteral Nutritional Formula 240 ml TIDWM PO 04/18/25 12:00 04/20/25 18:00 240 ML Pantoprazole Sodium 40 mg BID IV 04/18/25 17:30 04/20/25 10:36 40 MG Sucralfate 1 gm QID@0600,1130,1700,2200 PO 04/19/25 11:30 04/20/25 16:04 1 GM objective General Appearance: Alert, Oriented X3, Cooperative, weak and lethargic HEENT: Atraumatic, Mucous membranes moist/pink Respiratory: Clear to auscultation, Normal air movement, No added sounds Cardiovascular: Regular rate, Normal S1, Normal S2, No murmurs Abdominal/ : Active bowel sounds, Soft, no distention, no tenderness Extremities: No edema, Normal pulses, No tenderness/swelling Skin: No Significant rash, except past surgical scars Neuro: Normal speech, sensorimotor deficits none Psych/Mental Status: Mental status NL, Mood NL laboratory and microbiology Laboratory Tests 04/20/25 05:53 Test 04/20/25 05:53 Range/Units Serum Glucose 128 H 74-106 mg/dL Problems(with codes): (1) Esophagitis (2) Coffee ground emesis (3) Metabolic encephalopathy (4) Cancer, metastatic to bone (5) Generalized weakness (6) Abnormal finding on CT scan Prognosis Plan Soft mechanical diet tonight NPO at breakfast tomorrow Reschedule EGD for 04/21/2025 Discharge planning after the above Continue PPI and Carafate Dietary Evaluation Review Comments: protein and energy supplementation when off NPO, Pro-stat 1 pkt BID, Glucerna PO 240ml BID Expected Outcomes/Goals: Improved nutrition status, gradual wt increase Plan discussed with: Patient, Other (Nurse) GERARDO PERSAUD MD Apr 20, 2025 20:38
[2025-04-20 22:57] LABS: Urine Protein, UAD 2+ (Negative); Urine WBC Clumps PRESENT /hpf (None Seen)
[2025-04-21] VITALS (8 sets, daily range): BP systolic 95–125; BP diastolic 60–78; PULSE 82–94; RESP 12–20; TEMP 97.4–98.6; O2SAT 95–100
[2025-04-21] MEDS: SODIUM CHLORIDE 0.9% 1,000 ML IV SCH (05:11)
[2025-04-21 07:06] LABS: Hematocrit 26.0 % (41.0-53.0); Hemoglobin 8.9 g/dL (13.5-17.5); Mean Corpuscular Hemoglobin 29.0 pg (28.0-32.0); Mean Corpuscular Volume 85.1 fL (80.0-100.0); Nucleated Red Blood Cells % 0.1 %
[2025-04-21 07:14] LABS: Anion Gap 9 (5-15); Carbon Dioxide 26 mmol/L (20-31); Potassium 3.5 mmol/L (3.5-5.1); Sodium 143 mmol/L (136-145)
[2025-04-21 07:20] LABS: BUN/Creatinine Ratio 13.3 (10.0-20.0); Blood Urea Nitrogen 20 mg/dL (9-23)
[2025-04-21 07:23] LABS: Calcium 8.4 mg/dL (8.7-10.4); Chloride 108 mmol/L (98-107); Glucose 135 mg/dL (74-106)
[2025-04-21] MEDS ORDERED: GLYCOPYRROLATE 0.2 MG/ML 1ML VIAL ONE (13:25)
[2025-04-21] MEDS ORDERED: PROPOFOL 10 MG/ML 20 ML IV ONE (13:25)
--- NOTE | 2025-04-21 13:45 | DVHOP2 ---
Operative Report DATE OF OPERATION: 04/21/25 PROCEDURE: Upper Endoscopy with biopsy. PREOPERATIVE INDICATION: The patient is a 65 -year-old male undergoing endoscopy for upper GI bleed suspected esophagitis POSTOPERATIVE DIAGNOSES: 1. 3 cm sliding-type hiatal hernia with grade C linear erosive esophagitis with circumferential and linear ulcers extending into the distal 10 cm of the esophagus from which biopsies were obtained 2. Mild gastroparesis with retained gastric food contents 3. [id number] duodenitis of the duodenal bulb and postbulbar area with superficial erosions PROCEDURE PERFORMED BY: Gerardo Azul GI NURSE: Cameron SCOPE: Olympus videoendoscope. ASA CLASS: 3 PREOPERATIVE MEDICATIONS: MAC sedation, Clayton Braun PROCEDURE IN DETAIL: After obtaining an informed consent, the patient was placed on left lateral decubitus position. The patient was then sedated with the above medications. A bite block was placed between his teeth. The endoscope was then passed through the oropharynx, into the esophagus, and through the stomach and pylorus up to the second and third part of the duodenum. The endoscope was then withdrawn. The 2nd and 3rd part of the duodenum were normal and the duodenal bulb and postbulbar area showed duodenitis with superficial inflammatory nodules and erosions The pre-pyloric area and antrum showed mild antral gastritis. On retroflexion patient had moderate gastroparesis with retained gastric food contents. The endoscope was then withdrawn into distal esophagus where the patient had a 3 cm sliding-type hiatal hernia with the acute severe erosive esophagitis There were linear and circumferential ulcers extending into the distal 8-10 cm of the esophagus from which biopsies were obtained There was no fresh or old blood in the GI tract. The remaining distal and proximal esophagus and oropharynx were unremarkable The patient tolerated the procedure well without difficulty. COMPLICATIONS : None SPECIMENS: Duodenal biopsies Gastric biopsies Esophageal biopsies DISPOSITION: Transfer back to the floor Stable PLAN: 1. Await for biopsy result 2. Will place pt on Protonix 40 mg bid 3. Reglan 5 mg IV q.8 hours 4. Carafate suspension 1 g p.o. 4 times a day 5. Resume full liquid diet advance to soft mechanical GERARDO AZUL MD Apr 21, 2025 13:45
[2025-04-21] MEDS: METOCLOPRAMIDE HCL 5MG/ml INJ 2ml VIAL IV ONE (15:24)
--- NOTE | 2025-04-21 17:06 | DVHPNRES ---
Progress Note Date Seen: Apr 21, 2025 Resident Creating Document: ISRAEL LONGORIA RESIDENT Medical Necessity Reason Pt with a Central, PICC or Fol: No Subjective Review of Systems A 65-year-old male patient who presents to ED with chief complaint of ground coffee emesis, dyspnea in Functional Class III and increased stabbing chest pain in the past 24 hours. Patient has relevant history of prostate cancer with metastases to bone (including spine and sternum). Patient denies chills, fever, unintentional weight loss, diarrhea, constipation, nausea and motor or sensory deficits. Past medical history: Hypertension, prostate cancer with bone metastases (including spine and sternum) status post ureteral stent placement, stable pancreatic tail mass, GERD, history of multiple UTIs, dementia, questionable COPD Surgical history: Ureteral stents placed Family history: Noncontributory Social history: Lives in [place] alone (next of kin are two sons). Current tobacco abuse (20 pack-year history of smoking). Denies current alcohol and other drug abuse Allergies: Denies Home medication: Pantoprazole Patient was seen and examined at bedside. No acute event happened overnight. He denies any chest pain, sob, fever, abdominal pain or any other complaints today Objective vital signs Vital Sign Date Time Temp Pulse Resp B/P (MAP) Pulse Ox O2 Delivery O2 Flow Rate FiO2 04/21/25 14:10 82 15 107/58 (74) 95 04/21/25 13:40 Mask 6.0 95 04/21/25 13:40 97.8 97.8 Total Intake and Output 04/20/25 04/20/25 04/21/25 15:00 23:00 07:00 Intake Total 240 ml 0 ml Balance 240 ml 0 ml medications Current Medications Medications Dose Ordered Sig/Murali Route Start Time Stop Time Status Last Admin Dose Admin Sodium Chloride 10 ml Q8HR IV 04/14/25 06:00 04/21/25 14:00 10 ML Acetaminophen/ Hydrocodone Bitart 1 tab Q4HP PRN PO 04/14/25 00:15 Docusate Sodium 100 mg BIDPRN PRN PO 04/14/25 00:15 04/20/25 16:04 100 MG Acetaminophen 650 mg Q6HP PRN PO 04/14/25 00:15 Ergocalciferol 50,000 unit Q7D PO 04/17/25 07:00 04/17/25 08:56 50,000 UNIT Enteral Nutritional Formula 240 ml TIDWM PO 04/18/25 12:00 04/20/25 18:00 240 ML Pantoprazole Sodium 40 mg BID IV 04/18/25 17:30 04/21/25 09:49 40 MG Sucralfate 1 gm QID@0600,1130,1700,2200 PO 04/19/25 11:30 04/20/25 21:25 1 GM Sodium Chloride 1,000 ml @ 60 mls/hr [id number] IV 04/20/25 21:45 04/21/25 14:25 60 MLS/HR Examination Pt is lying on bed General Appearance: Alert, Oriented X3, Cooperative, Mild distress HEENT: Atraumatic, Mucous membranes moist/pink Respiratory: Clear to auscultation, Normal air movement, No added sounds Cardiovascular: Regular rate, Normal S1, Normal S2, No murmurs Abdominal/ : Active bowel sounds, Soft, no distention, no tenderness Extremities: No edema, Normal pulses, No tenderness/swelling Skin: No Significant rash, except past surgical scars Neuro: Normal speech, sensorimotor deficits none Psych/Mental Status: Mental status NL, Mood NL Nurse was there as reading coach during examination laboratory and microbiology Laboratory Tests 04/21/25 06:16 Test 04/21/25 06:16 Range/Units Serum Glucose 135 H 74-106 mg/dL Microbiology Date/Time Source Procedure Growth Status 04/15/25 01:30 Nose MRSA Screen - Final Complete Labs and/or images reviewed: Labs reviewed by me, Image(s) reviewed by me Problem List/Assessment/Plan Problem List/Assessment/Plan #Upper GI bleed secondary to erosive esophagitis and duodenitis #Diffuse esophageal wall thickening most likely esophagitis #Circumferential rectal thickening suggestive of proctitis On admission required NPO, currently tolerating soft mechanical diet, IV fluids given GI on board: Completed endoscopy which showed revealed, 3 cm sliding-type hiatal hernia with grade saline at erosive esophagitis with circumferential and linear ulcers extending into the distal 10 cm of the esophagus from which biopsies were obtained, mild gastroparesis with retained gastric food contents, [id number] duodenitis of the duodenal bulb and postbulbar area with superficial erosions. Patient placed on Carafate and Protonix b.i.d.. avoid blood thinners, patient is on SCDs for DVT prophylaxis Monitor H&H. #Musculoskeletal chest pain secondary to bone metastases #Ruled out acute coronary syndrome #Ruled out pulmonary embolism Troponin negative x3, EKG shows no ST-elevation, noncardiac chest pain (stabbing and reproduces with palpation). Completed angio CT which ruled out pulmonary embolism, evidenced thickening of esophagus. #Prostate cancer with bone metastases (spine and sternum) - status post ureteral stent placement #History of multiple UTIs #KETTY due to VMN Urinalysis ordered IV fluids given Follow up with urology specialist as outpatient #Hypokalemia Replenish #Normocytic anemia, possible due to GI bleeding No need of transfusion for now #Questionable COPD, stable #Ex tobacco abuse (20 pack-year history of smoking) Patient does not require home oxygen and time Counseled on continuing cessation of tobacco for over 16 minutes. #Questionable dementia Patient presented in previous admission neuroimaging to rule out brain metastases, which was negative. Patient should follow up with neurologist as outpatient #Hypertension Continue home medication Cardiac diet Gave advice on healthy lifestyle GI prophylaxis: Protonix DVT prophylaxis: patient has GI bleeding; on SCDs Diet: Soft mechanical diet Goals of care discussed with the patient for 20 minutes: Full code status Case discussed with Dr. Purcell, patient and RN Plan discussed with: Patient, Other My Orders My Orders Orders - ISRAEL LONGORIA RESIDENT Procedure Category Date Status Time Discharge DISCHARGE 04/21/25 Transmitted 15:32 Dietary Evaluation Review Comments: protein and energy supplementation when off NPO, Pro-stat 1 pkt BID, Glucerna PO 240ml BID Expected Outcomes/Goals: Improved nutrition status, gradual wt increase Date of Service: Apr 21, 2025 Billing Provider: ISMAEL PURCELL MD Common Visit Codes: [id number] INP/OBS CARE(HIGH) ISRAEL LONGORIA RESIDENT Apr 21, 2025 17:06 KESHAV MERCEDES RESIDENT Apr 23, 2025 22:51 ISMAEL PURCELL MD Apr 24, 2025 22:16
[2025-04-22 01:00] VITALS: BP 110/73; PULSE 83; RESP 18; TEMP 98.2; O2SAT 99
[2025-04-22 05:00] VITALS: BP 126/82; PULSE 83; RESP 18; TEMP 98.2; O2SAT 95
[2025-04-22 07:34] VITALS: BP 95/61; PULSE 86; RESP 18; TEMP 97.9; O2SAT 95
[2025-04-22 13:00] VITALS: BP 103/68; PULSE 85; RESP 18; TEMP 97.6; O2SAT 94
[2025-04-22] MEDS ORDERED: LIDOCAINE 2% (LOCAL ANESTH.) PF 5ml SDV IJ ONE (13:20)
--- NOTE | 2025-04-22 13:50 | DVHPN2 ---
Progress Note - Dictate Date Seen: Apr 22, 2025 Medical Necessity Reason Pt with a Central, PICC or Fol: No Subjective Patient is resting comfortably Tolerating diet Upper endoscopy revealed hiatal hernia with severe esophagitis vital signs Vital Sign Date Time Temp Pulse Resp B/P (MAP) Pulse Ox O2 Delivery O2 Flow Rate FiO2 04/22/25 08:00 Room Air* 0 21 04/22/25 07:34 97.9 86 18 95/61 (72) 95 97.9 Total Intake and Output 04/21/25 04/21/25 04/22/25 15:00 23:00 07:00 Intake Total 20 ml 1000 ml Balance 20 ml 1000 ml medications Current Medications Medications Dose Ordered Sig/Murali Route Start Time Stop Time Status Last Admin Dose Admin Sodium Chloride 10 ml Q8HR IV 04/14/25 06:00 04/22/25 05:15 10 ML Acetaminophen/ Hydrocodone Bitart 1 tab Q4HP PRN PO 04/14/25 00:15 Docusate Sodium 100 mg BIDPRN PRN PO 04/14/25 00:15 04/20/25 16:04 100 MG Acetaminophen 650 mg Q6HP PRN PO 04/14/25 00:15 Ergocalciferol 50,000 unit Q7D PO 04/17/25 07:00 04/17/25 08:56 50,000 UNIT Enteral Nutritional Formula 240 ml TIDWM PO 04/18/25 12:00 04/21/25 17:58 240 ML Pantoprazole Sodium 40 mg BID IV 04/18/25 17:30 04/22/25 10:37 40 MG Sucralfate 1 gm QID@0600,1130,1700,2200 PO 04/19/25 11:30 04/22/25 10:46 1 GM Sodium Chloride 1,000 ml @ 60 mls/hr [id number] IV 04/20/25 21:45 04/22/25 05:16 60 MLS/HR objective General Appearance: Alert, Oriented X3, Cooperative, weak and lethargic HEENT: Atraumatic, Mucous membranes moist/pink Respiratory: Clear to auscultation, Normal air movement, No added sounds Cardiovascular: Regular rate, Normal S1, Normal S2, No murmurs Abdominal/ : Active bowel sounds, Soft, no distention, no tenderness Extremities: No edema, Normal pulses, No tenderness/swelling Skin: No Significant rash, except past surgical scars Neuro: Normal speech, sensorimotor deficits none Psych/Mental Status: Mental status NL, Mood NL laboratory and microbiology Laboratory Tests 04/21/25 06:16 Test 04/21/25 06:16 Range/Units Serum Glucose 135 H 74-106 mg/dL Problems(with codes): (1) Esophagitis (2) Coffee ground emesis (3) Cancer, metastatic to bone Prognosis Plan Protonix 40 mg p.o. twice a day Carafate 1 g p.o. twice a day Discharge planning is in progress Advance diet as tolerated Lifestyle and dietary modifications for GERD Dietary Evaluation Review Comments: protein and energy supplementation when off NPO, Pro-stat 1 pkt BID, Glucerna PO 240ml BID Expected Outcomes/Goals: Improved nutrition status, gradual wt increase Plan discussed with: Patient, Other (Nurse) GERARDO PERSAUD MD Apr 22, 2025 13:50
--- NOTE | 2025-04-22 14:48 | DVHDSRES ---
Discharge Summary Date of Admission Resident Creating Document: ISRAEL LONGORIA Apr 14, 2025 at 00:12 Date of Discharge: Apr 17, 2025 Labs/Diagnostic Data: Laboratory Results Test 04/21/25 06:16 04/20/25 22:00 04/20/25 05:53 04/18/25 17:40 White Blood Count 7.4 10^3/uL (4.4-10.8) Red Blood Count 3.05 10^6/uL (4.5-5.90) Hemoglobin 8.9 g/dL (13.5-17.5) Hematocrit 26.0 % (41.0-53.0) Mean Corpuscular Volume 85.1 fL (80.0-100.0) Mean Corpuscular Hemoglobin 29.0 pg (28.0-32.0) Mean Corpuscular Hemoglobin Concent 34.1 g/dL (32.0-36.0) Red Cell Distribution Width 17.9 % (11.8-14.3) Platelet Count 416 10^3/uL (140-450) Mean Platelet Volume 7.0 fL (6.9-10.8) Neutrophils (%) (Auto) 64.3 % (37.0-80.0) Lymphocytes (%) (Auto) 27.0 % (10.0-50.0) Monocytes (%) (Auto) 6.8 % (0.0-12.0) Eosinophils (%) (Auto) 1.3 % (0.0-7.0) Basophils (%) (Auto) 0.6 % (0.0-2.0) Neutrophils # (Auto) 4.8 10 ^3/uL (1.6-8.6) Lymphocytes # (Auto) 2.0 10 ^3/uL (0.4-5.4) Monocytes # (Auto) 0.5 10 ^3/uL (0-1.3) Eosinophils # (Auto) 0.1 10 ^3/uL (0-0.8) Basophils # (Auto) 0 10 ^3/uL (0-0.2) Nucleated Red Blood Cells 0.1 % Sodium Level 143 mmol/L (136-145) Potassium Level 3.5 mmol/L (3.5-5.1) Chloride Level 108 mmol/L (98-107) Carbon Dioxide Level 26 mmol/L (20-31) Anion Gap 9 (5-15) Blood Urea Nitrogen 20 mg/dL (9-23) Creatinine 1.50 mg/dL (0.700-1.30) Glomerular Filtration Rate Calc 51 mL/min (>90) BUN/Creatinine Ratio 13.3 (10.0-20.0) Serum Glucose 135 mg/dL (74-106) Calcium Level 8.4 mg/dL (8.7-10.4) Urine Color Light-orange (Yellow) Urine Clarity Ex.turbid (Clear) Urine pH 8.0 (5.0-9.0) Urine Specific [place] 1.012 (1.001-1.035) Urine Protein 2+ (Negative) Urine Ketones Negative (Negative) Urine Blood 1+ /uL (Negative) Urine Nitrite 1+ (Negative) Urine Bilirubin Negative (Negative) Urine Urobilinogen Normal mg/dL (Negative) Urine Leukocyte Esterase 3+ /uL (Negative) Urine RBC 131 /hpf (0 - 3) Urine WBC Clumps Present /hpf (None Seen) Urine Microscopic WBC 345 /HPF (0-3) Urine Squamous Epithelial Cells None seen /hpf (<5) Urine Bacteria Many /hpf (None Seen) Urine Mucus Few (None Seen) Urine Glucose Normal mg/dL (Normal) Phosphorus Level 3.3 mg/dL (2.4-5.1) Magnesium Level 1.9 mg/dL (1.6-2.6) Total Bilirubin 0.6 mg/dL (0.2-1.0) Aspartate Amino Transferase (AST) 14 U/L (13-40) Alanine Aminotransferase (ALT) 10 U/L (7-40) Alkaline Phosphatase 72 U/L (46-116) Total Protein 6.0 g/dL (5.7-8.2) Albumin 3.1 g/dL (3.2-4.8) Test 04/16/25 05:59 04/15/25 01:30 04/14/25 10:33 04/14/25 01:14 Differential Total Cells Counted 100.0 (100) Neutrophils % (Manual) 80 (37.0-80.0) Band Neutrophils % (Manual) 1 Lymphocytes % (Manual) 17 (10.0-50.0) Monocytes % (Manual) 2 (0-12) Eosinophils % (Manual) 0 (0-7) Basophils % (Manual) 0 (0.0-2.0) Metamyelocytes % (manual) 0 Myelocytes % (Manual) 0 Promyelocytes % (Manual) 0 Blast Cells % (Manual) 0 Reactive Lymphocytes 0 Platelet Estimate Adequate Influenza Type A Antigen Negative (Negative) Influenza Type B Antigen Negative (Negative) SARS-CoV-2 Antigen (Rapid) Negative (NEGATIVE) Prothrombin Time 10.9 sec (9.3-11.8) Prothrombin Time INR 1.03 (0.9-1.15) Activated Partial Thromboplast Time 25.9 SEC (24.5-34.5) Vitamin B12 Level 381 pg/mL (211-911) Vitamin D 25-Hydroxy 7.7 ng/mL (30.0-100) Troponin I High Sensitivity 3 ng/L (</=54) Triglycerides Level 122 mg/dL (< 150) Cholesterol Level 136 mg/dL (< 200) LDL Cholesterol 81 mg/dL (< 100) HDL Cholesterol 40 mg/dL (40-59) Thyroid Stimulating Hormone (TSH) 1.44 uIU/mL (0.55-4.78) Test 04/13/25 22:04 Hemoglobin A1c 6.0 % A1C (<5.7) B-Type Natriuretic Peptide 76.54 pg/mL (0-100) Other Laboratory Tests 04/21/25 06:[address] abdomen pelvis: abdomen pelvis CT:1. Adequately positioned left ureteral stent with bilateral hydroureter. No evidence of ureteral stone. Nonobstructing calcifications in the right collecting system and the urinary bladder. 2. Circumferential bladder wall thickening and prostatomegaly suggesting chronic outlet obstruction. 3. Circumferential rectal thickening suggestive of proctitis, correlate with symptoms. 4. Unchanged pancreatic tail mass. CT angiogram: No evidence of pulmonary embolism, notable for esophageal wall thickening, raising concern for possible upper GI pathology. EKG: No ischemic changes. Findings not consistent with acute coronary syndrome. Chest x-ray: 1. Bilateral interstitial opacities new from prior exam suggesting pulmonary edema or atypical infection. Endoscopy of the upper GI tract: 3 cm sliding-type hiatal hernia with grade C linear erosive esophagitis with circumferential and linear ulcers extending into the distal 10 cm of the esophagus from which biopsies were obtained, mild gastroparesis with retained gastric food contents, [id number] duodenitis of the duodenal bulb and postbulbar area with superficial erosions. Condition at Discharge: Stable Final Diagnosis/Problems List Musculoskeletal chest pain secondary to bone metastasis. Discharge Disposition: Assisted Facility Discharge Instruct/Medications Diet: Consistent carbohydrate, Cardiac 2g Na,low cholest Activity: No Restrictions, As Tolerated Follow Up/Referral: Follow up with PCP in 2 weeks Scheduled Ergocalciferol (Vitamin D 12045 Unit), 50,000 UNIT PO Q7D Pantoprazole Sodium Sesquihydr (Pantoprazole Sodium), 40 MG PO DAILY@0600 Scheduled PRN Acetaminophen (Acetaminophen), 650 MG PO Q6HP PRN Discharge Statement: "Patient was advised to return to the ER or call 911 if any headaches, dizziness, shortness of breath, chest pain, abdominal pain, bleeding, fevers, or worsening of medical condition. Patient was counseled about treatment plan, medications, possible side effects, patientverbalized understanding. All questions were answered to the best of my ability. This discharge took greater then 30 minutes in planning, reviewing documentation, counseling the patient, and discussing with other team members." ASSESSMENT ASSESSMENT Assessment Musculoskeletal chest pain secondary to bone metastasis. ISRAEL LONGORIA RESIDENT Apr 22, 2025 14:48
--- NOTE | 2025-04-22 14:54 | DVHPNRES ---
Progress Note Date Seen: Apr 22, 2025 Resident Creating Document: ISRAEL LONGORIA RESIDENT Medical Necessity Reason Pt with a Central, PICC or Fol: No Subjective Review of Systems A 65-year-old male patient who presents to ED with chief complaint of ground coffee emesis, dyspnea in Functional Class III and increased stabbing chest pain in the past 24 hours. Patient has relevant history of prostate cancer with metastases to bone (including spine and sternum). Patient denies chills, fever, unintentional weight loss, diarrhea, constipation, nausea and motor or sensory deficits. Past medical history: Hypertension, prostate cancer with bone metastases (including spine and sternum) status post ureteral stent placement, stable pancreatic tail mass, GERD, history of multiple UTIs, dementia, questionable COPD Surgical history: Ureteral stents placed Family history: Noncontributory Social history: Lives in [place] alone (next of kin are two sons). Current tobacco abuse (20 pack-year history of smoking). Denies current alcohol and other drug abuse Allergies: Denies Home medication: Pantoprazole Patient was seen and examined at bedside. No acute event happened overnight. He denies any chest pain, sob, fever, abdominal pain or any other complaints today Objective vital signs Vital Sign Date Time Temp Pulse Resp B/P (MAP) Pulse Ox O2 Delivery O2 Flow Rate FiO2 04/22/25 13:00 97.6 85 18 103/68 (80) 94 97.6 04/22/25 08:00 Room Air* 0 21 Total Intake and Output 04/21/25 04/21/25 04/22/25 15:00 23:00 07:00 Intake Total 20 ml 1000 ml Balance 20 ml 1000 ml medications Current Medications Medications Dose Ordered Sig/Murali Route Start Time Stop Time Status Last Admin Dose Admin Sodium Chloride 10 ml Q8HR IV 04/14/25 06:00 04/22/25 14:32 10 ML Acetaminophen/ Hydrocodone Bitart 1 tab Q4HP PRN PO 04/14/25 00:15 Docusate Sodium 100 mg BIDPRN PRN PO 04/14/25 00:15 04/20/25 16:04 100 MG Acetaminophen 650 mg Q6HP PRN PO 04/14/25 00:15 Ergocalciferol 50,000 unit Q7D PO 04/17/25 07:00 04/17/25 08:56 50,000 UNIT Enteral Nutritional Formula 240 ml TIDWM PO 04/18/25 12:00 04/22/25 12:00 240 ML Pantoprazole Sodium 40 mg BID IV 04/18/25 17:30 04/22/25 10:37 40 MG Sucralfate 1 gm QID@0600,1130,1700,2200 PO 04/19/25 11:30 04/22/25 10:46 1 GM Sodium Chloride 1,000 ml @ 60 mls/hr [id number] IV 04/20/25 21:45 04/22/25 05:16 60 MLS/HR Examination General Appearance: Alert, Oriented X3, Cooperative, Mild distress HEENT: Atraumatic, Mucous membranes moist/pink Respiratory: Clear to auscultation, Normal air movement, No added sounds Cardiovascular: Regular rate, Normal S1, Normal S2, No murmurs Abdominal/ : Active bowel sounds, Soft, no distention, no tenderness Extremities: No edema, Normal pulses, No tenderness/swelling Skin: No Significant rash, except past surgical scars Neuro: Normal speech, sensorimotor deficits none Psych/Mental Status: Mental status NL, Mood NL Nurse was there as as400 consultant during examination laboratory and microbiology Laboratory Tests 04/21/25 06:16 Test 04/21/25 06:16 Range/Units Serum Glucose 135 H 74-106 mg/dL Microbiology Date/Time Source Procedure Growth Status 04/15/25 01:30 Nose MRSA Screen - Final Complete Problem List/Assessment/Plan Problem List/Assessment/Plan #Upper GI bleed secondary to erosive esophagitis and duodenitis #Diffuse esophageal wall thickening most likely esophagitis #Circumferential rectal thickening suggestive of proctitis On admission required NPO, currently tolerating soft mechanical diet, IV fluids given GI on board: Completed endoscopy which showed revealed, 3 cm sliding-type hiatal hernia with grade saline at erosive esophagitis with circumferential and linear ulcers extending into the distal 10 cm of the esophagus from which biopsies were obtained, mild gastroparesis with retained gastric food contents, [id number] duodenitis of the duodenal bulb and postbulbar area with superficial erosions. Patient placed on Carafate and Protonix b.i.d.. avoid blood thinners, patient is on SCDs for DVT prophylaxis Monitor H&H. #Musculoskeletal chest pain secondary to bone metastases #Ruled out acute coronary syndrome #Ruled out pulmonary embolism Troponin negative x3, EKG shows no ST-elevation, noncardiac chest pain (stabbing and reproduces with palpation). Completed angio CT which ruled out pulmonary embolism, evidenced thickening of esophagus. #Prostate cancer with bone metastases (spine and sternum) - status post ureteral stent placement #History of multiple UTIs #KETTY due to VMN Urinalysis ordered IV fluids given Follow up with urology specialist as outpatient #Hypokalemia Replenish #Normocytic anemia, possible due to GI bleeding No need of transfusion for now #Questionable COPD, stable #Ex tobacco abuse (20 pack-year history of smoking) Patient does not require home oxygen and time Counseled on continuing cessation of tobacco for over 16 minutes. #Questionable dementia #Deconditioning Patient presented in previous admission neuroimaging to rule out brain metastases, which was negative. Patient should follow up with neurologist as outpatient Hemstitcher on board: Arranging discharge planning to SNF for physical therapy sessions. #Hypertension Continue home medication Cardiac diet Gave advice on healthy lifestyle GI prophylaxis: Protonix DVT prophylaxis: patient has GI bleeding; on SCDs Diet: Soft mechanical diet Goals of care discussed with the patient for 20 minutes: Full code status Case discussed with Dr. Purcell, patient and RN: Patient currently discharge, awaiting placement in SNF for physical therapy sessions when bed available. Continue with Carafate and Protonix. Patient will benefit from follow up with PCP, urologist, neurologist and GI doctor. Patient has poor prognosis Plan discussed with: Patient, Other (RN) My Orders My Orders Orders - ISRAEL LONGORIA RESIDENT Procedure Category Date Status Time Discharge DISCHARGE 04/21/25 Transmitted 15:32 Dietary Evaluation Review Comments: protein and energy supplementation when off NPO, Pro-stat 1 pkt BID, Glucerna PO 240ml BID Expected Outcomes/Goals: Improved nutrition status, gradual wt increase Date of Service: Apr 22, 2025 Billing Provider: ISMAEL PURCELL MD Common Visit Codes: [id number] INP/OBS CARE(HIGH) ISRAEL LONGORIA Apr 22, 2025 14:54 KESHAV MERCEDES RESIDENT Apr 23, 2025 22:53 ISMAEL PURCELL MD Apr 24, 2025 22:32
--- NOTE | 2025-04-23 14:51 | ECG ---
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
== END 2025-04-22 14:55 | DRG 380 ==
LOC: EDUNIT# 20:58 → ER 20:58 → OVERFLOW 04-14 00:12 → TELE-CENTR 04-14 15:50 → CENTRAL 04-17 01:29
PROVIDERS: ADMIT Student in an Organized Health Care Education/Training Program; ATTEND Student in an Organized Health Care Education/Training Program
PROC: 0DB68ZX Excision of Stomach, Via Natural or Artificial Opening Endoscopic, Diagnostic (ICD-10-PCS; 2025-04-21)
PROC: 0DB58ZX Excision of Esophagus, Via Natural or Artificial Opening Endoscopic, Diagnostic (ICD-10-PCS; 2025-04-21)
PROC: 0DB98ZX Excision of Duodenum, Via Natural or Artificial Opening Endoscopic, Diagnostic (ICD-10-PCS; principal; 2025-04-21 13:24)
DX: K22.11 Ulcer of esophagus with bleeding (principal); G93.41 Metabolic encephalopathy; N17.0 Acute kidney failure with tubular necrosis; C79.51 Secondary malignant neoplasm of bone; I50.42 Chronic combined systolic (congestive) and diastolic (congestive) heart failure; K62.89 Other specified diseases of anus and rectum; G89.3 Neoplasm related pain (acute) (chronic); K31.84 Gastroparesis; K29.70 Gastritis, unspecified, without bleeding; K26.9 Duodenal ulcer, unspecified as acute or chronic, without hemorrhage or perforation; K21.9 Gastro-esophageal reflux disease without esophagitis; E87.6 Hypokalemia; J44.9 Chronic obstructive pulmonary disease, unspecified; D64.9 Anemia, unspecified; Z20.822 Contact with and (suspected) exposure to COVID-19; F03.90 Unspecified dementia, unspecified severity, without behavioral disturbance, psychotic disturbance, mood disturbance, and anxiety; R73.9 Hyperglycemia, unspecified; K44.9 Diaphragmatic hernia without obstruction or gangrene; C61 Malignant neoplasm of prostate; I11.0 Hypertensive heart disease with heart failure; Z87.442 Personal history of urinary calculi; Z80.0 Family history of malignant neoplasm of digestive organs; Z87.891 Personal history of nicotine dependence; Z86.74 Personal history of sudden cardiac arrest; R07.9 Chest pain, unspecified
CPT/HCPCS: 36415; 71045; 71275; 74018; 74176; 80048; 80053; 80061; 81001; 82306; 82607; 83036; 83735; 83880; 84100; 84443; 84484; 85007; 85025; 85027; 85610; 85730; 87081; 87426; 87804; 93005; 96374; 96375; 96376; 97110; 97163; G0378; J2003; J2405; J2470; J2704; J3480

== ENCOUNTER 2025-05-30 00:21 | Inpatient (IN) | payer MEDICARE, MEDICAID ==
[~2025-05-30] VITALS: Ht 180.3 cm; Wt 71.2 kg
[~2025-05-30 00:21] MED LIST: ACET-1882 PO; ERGO1CAP23 PO; PANT40T PO
[2025-05-30] MEDS: LIDOCAINE VISCOUS 2% 15ML UD PO ONE (00:45)
[2025-05-30] MEDS: MAALOX PLUS or MAALOX 30 ML PO ONE (00:45)
[2025-05-30] MEDS: ALBUTEROL SULF 2.5 MG/0.5ML(0.5%) NEB SOLN NEB ONE (00:49)
[2025-05-30] MEDS: IPRATROPIUM BROM 0.5 MG/2.5ML INH SOL NEB ONE (00:50)
--- NOTE | 2025-05-30 01:00 | DVH ---
CHEST RADIOGRAPH Indication: Shortness of breath Technique: Single frontal view of the chest was obtained COMPARISON: CT CT ANGIO CHEST CONTRAST on DOS: 04/14/25, XY CHEST PORTABLE on DOS: 04/13/25, XY CHEST P ORTABLE on DOS: 01/19/25 FINDINGS: Lines and Tubes: None Lungs: Clear Pleura: No effusion. No pneumothorax. Cardiomediastinal contours: Unremarkable Bones: Unremarkable IMPRESSION: 1. No acute disease.
--- NOTE | 2025-05-30 01:44 | ED.PDOC ---
HPI Comments This patient is a 65-year-old male who was brought in from a post acute Care Center for evaluation of burning abdominal and chest pain concerns as well as shortness a breath. Patient has a history of GERD and states he feels like he has got a burning sensation from her stomach into his chest. Additionally, patient complains of shortness a breath issues. Patient has a history of COPD. Patient was slightly tachycardic and slightly tachypneic at arrival. Patient was not in respiratory distress at any time during evaluation. 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 Allergies: Coded Allergies: NO KNOWN ALLERGIES (Unverified , 01/19/25) Home Meds Active Scripts Pantoprazole Sodium Sesquihydr (Pantoprazole Sodium) 40 Mg Tab, 40 MG PO DAILY@0600 for 30 Days, #30 TAB Prov:ISRAEL ECHEVERRIA 04/17/25 Ergocalciferol (VITAMIN D 22111 UNIT) 50,000 [place], [address] UNIT PO Q7D for 30 Days, #4 CAP Prov:ISRAEL ECHEVERRIA 04/17/25 Acetaminophen (Acetaminophen) 325 Mg Tab, 650 MG PO Q6HP PRN for 5 Days, #40 TAB Prov:ISRAEL ECHEVERRIA 04/17/25 Information Source: Patient, Emergency Med Personnel Mode of Arrival: Ambulatory Severity: Moderate Timing: Hours Duration: Since onset Prehospital treatment: None Location: Substernal Radiation: Abdomen Quality: Burning, Tightness Onset: At Rest Cardiac Risk Factors: None PE Risk Factors: None History of: Similar pain in past Associated Signs and Symptoms: SOB, Abdominal Pain Past Medical History PAST MEDICAL HISTORY: CHF, HTN Surgical History: Unknown Family History Family History: Unknown Social History Smoker: Non-Smoker Alcohol: Denies ETOH Use Drugs: Denies Drug Use Lives In: Home Constitutional: denies: chills, diaphoresis, fatigue, fever, malaise, sweats, weakness, others EENTM: denies: blurred vision, double vision, ear bleeding, ear discharge, ear drainage, ear pain, ear ringing, eye pain, eye redness, hearing loss, mouth pain, mouth swelling, nasal discharge, nose bleeding, nose congestion, nose pain, photophobia, tearing, throat pain, throat swelling, voice changes, others Respiratory: reports: shortness of breath; denies: cough, hemoptysis, orthopnea, SOB at rest, SOB with excertion, stridor, wheezing, others Cardiovascular: reports: chest pain; denies: dizzy spells, diaphoresis, Dyspnea on exertion, edema, irregular heart beat, left arm pain, lightheadedness, palpitations, PND, syncope, others Gastrointestinal: reports: abdominal pain; denies: abdomen distended, blood streaked bowels, constipated, diarrhea, dysphagia, difficulty swallowing, hematemesis, melena, nausea, poor appetite, poor fluid intake, rectal bleeding, rectal pain, vomiting, others Genitourinary: denies: burning, dysuria, flank pain, frequency, hematuria, incontinence, penile discharge, penile sore, pain, testicle pain, testicle swelling, urgency, others Neurological: denies: dizziness, fainting, headache, left sided numbness, left sided weakness, numbness, paresthesia, pre-existing deficit, right sided numbness, right sided weakness, seizure, speech problems, tingling, tremors, weakness, others Musculoskeletal: denies: back pain, gout, joint pain, joint swelling, muscle pain, muscle stiffness, neck pain, others Integumetry: denies: bruises, change in color, change in hair/nails, dryness, laceration, lesions, lumps, rash, wounds, others Allergic/Immunocompromised: denies: Difficulty Healing, Frequent Infections, Hives, Itching, others Hematologic/Lymphatic: denies: anemia, blood clots, easy bleeding, easy bruising, swollen glands, others Endocrine: denies: excessive hunger, excessive sweating, excessive thirst, excessive urination, flushing, intolerance to cold, intolerance to heat, unexplained weight gain, unexplained weight loss, others Psychiatric: denies: anxiety, bipolar disorder, depression, hopeless, panic disorder, schizophrenia, sleepless, suicidal, others Physical Exam General Appearance: Mild Distress (Patient appears to be in mild distress due to shortness a breath concerns. Patient states the burning sensation has mostly resolved. Patient appears to be in poor overall health and much older than his chronology.), Normal HEENT: Normal ENT Inspection, Pharynx Normal, TMs Normal Neck: Full Range of Motion, Non-Tender, Normal, Normal Inspection Respiratory: Chest Non-Tender, Lungs Clear, No Accessory Muscle Use, No Respiratory Distress, Normal Breath Sounds, Other (Unremarkable auscultation bilateral lung [place].) Cardiovascular: No Edema, No JVD, No Murmur, No Gallop, Normal Peripheral Pulses, Regular Rate/Rhythm Breast Exam: Deferred Gastrointestinal: Non Tender, No Pulsatile Mass, Normal Bowel Sounds, Soft, Other (Diffuse mild epigastric tenderness to palpation radiating into the chest.) Genitalia: Deferred Pelvic: Deferred Rectal: Deferred Extremities: No calf tenderness, Normal capillary refill, Normal inspection Neurologic: Alert Cerebellar Function: NOT DONE Reflexes: NOT DONE Skin: Dry, Normal Color, Warm Lymphatic: No Adenopathy Was a procedure done? Was a procedure done?: No CP Differential Dx Differential Diagnosis: Other (COPD exacerbation, pneumonia, electrolyte abnormality, acute coronary syndrome, GERD) Differential Diagnosis: CHF Differential Diagnosis: Chest Wall Pain X-Ray, Labs, Meds, VS Vital Signs Date Time Temp Pulse Resp B/P (MAP) Pulse Ox O2 Delivery O2 Flow Rate FiO2 05/30/25 00:50 20 100 Nasal Cannula* 3 32 05/30/25 00:27 118 05/30/25 00:21 98.6 119 22 111/66 100 98.6 Current Medications Medications (Trade) Dose Ordered Sig/Murali Route Start Time Stop Time Status Last Admin Albuterol (Ventolin Medneb) 5 mg ONCE ONCE NEB 05/30/25 00:45 05/30/25 00:46 DC 05/30/25 00:49 Ipratropium Gerlach (Atrovent Medneb) 0.5 mg ONCE ONCE NEB 05/30/25 00:45 05/30/25 00:46 DC 05/30/25 00:50 X-Ray, Labs, Meds, VS Comment Multiple studies were pending at time of this note. Chest x-ray was unremarkable for any consolidation or signs of intrapulmonary concerns. Patient will be admitted for shortness a breath and chest pain concerns due to his post acute living situation. Patient will be re-evaluated in the a.m.. Time of 1ST Reevaluation: 01:43 Reevaluation 1ST: Improved Consultation: PCP, Cardiology Patient Education/Counseling: Diagnosis, Treatment Family Education/Counseling: Diagnosis, Treatment SEPSIS Sepsis Screen Date sepsis recognized/suspect: May 30, 2025 Time Sepsis recognized/suspect: 0021 Recent Procedure: No On Antibiotic Therapy: No Respiratory Rate >20: No Heart Rate >90: No Temp<36 C (96.8 F) or >38.3 C: No SBP <90 or MAP <65 mmHG: No New Acute Mental Status Change: No Is the patient on CPAP, BIPAP,: No Physician Orders Chest Portable (05/30/25 00:32) Electrocardigram (05/30/25 00:32) Troponin-I Hs (05/30/25 01:34) Complete Blood Count (05/30/25 01:34) Urinalysis (05/30/25 01:34) Basic Metabolic Panel (05/30/25 01:34) Electrocardigram (05/30/25 01:34) Troponin-I Hs (05/30/25 02:34) Troponin-I Hs (05/30/25 04:34) Electrocardigram (05/30/25 02:34) Electrocardigram (05/30/25 04:34) Vital Signs Date Time Temp Pulse Resp B/P (MAP) Pulse Ox O2 Delivery O2 Flow Rate FiO2 05/30/25 00:50 20 100 Nasal Cannula* 3 32 05/30/25 00:27 118 05/30/25 00:21 98.6 119 22 111/66 100 98.6 Medications Medications Dose Ordered Sig/Murali Route Start Time Stop Time Status Last Admin Dose Admin Albuterol 5 mg ONCE ONCE NEB 05/30/25 00:45 05/30/25 00:46 DC 05/30/25 00:49 Ipratropium Gerlach 0.5 mg ONCE ONCE NEB 05/30/25 00:45 05/30/25 00:46 DC 05/30/25 00:50 Departure 1 Departure Time of Disposition: 01:43 Impression: Primary Impression: COPD exacerbation Additional Impression: Acid reflux Disposition: 09 ADMITTED INPATIENT Condition: Fair Discharged With: Self Critical Care Note Critical Care Time?: No Stability Stability form required: No Heart Score Heart Score: Heart Score Response (Comments) Value History N/A 0 EKG N/A 0 Age N/A 0 Risk Factors N/A 0 Troponin N/A 0 Total 0 DINA PEDRAZA PAC May 30, 2025 01:44
--- NOTE | 2025-05-30 02:06 | DVHHPRES ---
History of Present Illness Resident Creating Document: KESHAV MERCEDES RESIDENT History of Present Illness Aaron De Oliveira is a 65-year-old male patient who presents to ED brought in by EMS from [facility] with chief complaint of burning epigastric pain and increased stabbing chest pain in the past 24 hours. Patient has relevant history of prostate cancer with metastases to bone (including spine and sternum) and esophagitis with recent GI bleed s/p EGD. Patient denies chills, fever, unintentional weight loss, diarrhea, constipation, nausea and motor or sensory deficits. Past medical history: Hypertension, prostate cancer with bone metastases (including spine and sternum) status post ureteral stent placement, stable pancreatic tail mass, GERD with recent GI bleed, history of multiple UTIs, dementia, questionable COPD, vitamin-D deficiency Surgical history: Ureteral stents placed Family history: Noncontributory Social history: Lives in [place] alone (next of kin are two sons). Current tobacco abuse (20 pack-year history of smoking). Denies current alcohol and other drug abuse Allergies: Denies Home medication: Pantoprazole, vitamin-D, Tylenol Patient seen and examined at bedside. Currently has no new complaints. Patient admitted for further evaluation. Past Medical History Per HPI Past Surgical History Per HPI Family History Per HPI Past Social History Per HPI Review of Systems Review of Systems Per HPI Allergies: Coded Allergies: NO KNOWN ALLERGIES (Unverified , 01/19/25) Exam Vital Signs Vital Signs Date Time Temp Pulse Resp B/P (MAP) Pulse Ox O2 Delivery O2 Flow Rate FiO2 05/30/25 00:50 20 100 Nasal Cannula* 3 32 05/30/25 00:27 118 05/30/25 00:21 98.6 111/66 98.6 Exam Patient lying in bed, in no acute distress General: Lucid, afebrile, mucosae are moist Cardiovascular: Normal S1 and S2. No murmurs, gallops or rubs Respiratory: Normal ventilation mechanics. Clear lung sounds on auscultation. Saturating 88% in room air Abdomen: Soft, nontender, no organomegaly, normal bowel sounds MSK/skin: Mobilizes 4 limbs. Skin is dry and warm Neurological: Oriented in 3 spheres, Bradypsychia. No motor no sensitive deficits. Pupils are isocoric and reactive SEPSIS Sepsis Screen Date sepsis recognized/suspect: May 30, 2025 Time Sepsis recognized/suspect: 0021 Recent Procedure: No On Antibiotic Therapy: No Respiratory Rate >20: No Heart Rate >90: No Temp<36 C (96.8 F) or >38.3 C: No SBP <90 or MAP <65 mmHG: No New Acute Mental Status Change: No Is the patient on CPAP, BIPAP,: No Physician Orders Chest Portable (05/30/25 00:32) Electrocardigram (05/30/25 00:32) Troponin-I Hs (05/30/25 01:34) Complete Blood Count (05/30/25 01:34) Urinalysis (05/30/25 01:34) Basic Metabolic Panel (05/30/25 01:34) Electrocardigram (05/30/25 01:34) Troponin-I Hs (05/30/25 02:34) Troponin-I Hs (05/30/25 04:34) Electrocardigram (05/30/25 02:34) Electrocardigram (05/30/25 04:34) B-Type Natriuretic Peptide (05/30/25 01:39) Ct Angio Chest Contrast (05/30/25 02:02) Vitamin D, 25-Hydroxy (05/30/25 02:02) Vitamin B12 (05/30/25 02:02) Urinalysis (05/30/25 02:02) Thyroid Stimulating Hormone (05/30/25 02:02) PTPTT (05/30/25 02:02) Phosphorus (05/30/25 02:02) Magnesium (05/30/25 02:02) Lipid Panel (05/30/25 02:02) Lactic Acid W/ Reflex Order (05/30/25 02:02) Hemoglobin A1c (05/30/25 02:02) Drug Screen (05/30/25 02:02) Comprehensive Metabolic Panel (05/30/25 02:02) Ammonia (05/30/25 02:02) Admit (05/30/25 02:02) Code Status (05/30/25 02:02) Acetaminophen Tablet (Tylenol Tablet) (05/30/25 02:15) Ondansetron Hcl (Zofran) (05/30/25 02:15) Npo (Nothing By Mouth) Diet (05/30/25 Breakfast) Morphine Sulfate Injection (05/30/25 02:15) Oxygen By Nasal Cannula (05/30/25 02:02) Stat Ekg For Chest Pain (05/30/25 02:02) Notify Of Changes From Base (05/30/25 02:02) Metal Ceiling Builder For 24 Hours (05/30/25 02:02) Emergency Dysrhythmia Protocol (05/30/25 02:02) Rhythm Strips Once Every Shift (05/30/25 02:02) Vital Signs Date Time Temp Pulse Resp B/P (MAP) Pulse Ox O2 Delivery O2 Flow Rate FiO2 05/30/25 00:50 20 100 Nasal Cannula* 3 32 05/30/25 00:27 118 05/30/25 00:21 98.6 119 22 111/66 100 98.6 Medications Medications Dose Ordered Sig/Murali Route Start Time Stop Time Status Last Admin Dose Admin Albuterol 5 mg ONCE ONCE NEB 05/30/25 00:45 05/30/25 00:46 DC 05/30/25 00:49 5 MG Ipratropium Tillar 0.5 mg ONCE ONCE NEB 05/30/25 00:45 05/30/25 00:46 DC 05/30/25 00:50 0.5 MG Assessment/Plan Assessment/Plan ASSESSMENT Sepsis secondary to UTI Complicated UTI/Pyelonephritis KETTY hemodynamically Ruled out acute coronary syndrome Musculoskeletal chest pain secondary to bone metastases Prostate cancer with bone metastases (spine and sternum) - status post ureteral stent placement Hypokalemia Hypophosphatemia Normocytic anemia Questionable COPD Stable pancreatic tail mass GERD History of multiple UTIs Hypertension PLAN Patient tachycardic, tachypnea, leukocytosis and increased lactic acid. Urine analysis compatible with UTI. Ordered blood, urine and sputum culture. Currently under empiric IV antibiotic (Cefepime). Patient had recent admission in hospital and has been in nursing facility for approximately three weeks Currently on IV pantoprazole, avoid blood thinners, patient is on SCDs for DVT prophylaxis Progress diet to clear liquid diet Negative troponin, EKG with no ST alteration (sinus tachycardia) and non cardiac chest pain (GERD and musculoskeletal secondary to metastases) Patient is currently full code. We will like to re-evaluate chemotherapy treatment. To be discussed as outpatient. Electrolytes replenished Ordered anemia work up Goals of care discussed with patient for over 18 minutes: Full code status. Discussed plan with Dr. Mcleod, patient and nurses: Patient admitted to tele metry. On empiric IV antibiotics, awaiting cultures. Plan discussed with: Patient, Other (Nurses) My Orders Orders - KESHAV MERCEDES Procedure Category Date Status Time Ct Angio Chest CT 05/30/25 Logged Contrast 02:02 Vitamin D, 25-Hydroxy LAB 05/30/25 Transmitted 02:02 Vitamin B12 LAB 05/30/25 Transmitted 02:02 Urinalysis LAB 05/30/25 Transmitted 02:02 Thyroid Stimulating LAB 05/30/25 Transmitted Hormone 02:02 PTPTT LAB 05/30/25 Transmitted 02:02 Phosphorus LAB 05/30/25 Transmitted 02:02 Magnesium LAB 05/30/25 Transmitted 02:02 Lipid Panel LAB 05/30/25 Transmitted 02:02 Lactic Acid W/ Reflex LAB 05/30/25 Transmitted Order 02:02 Hemoglobin A1c LAB 05/30/25 Transmitted 02:02 Drug Screen LAB 05/30/25 Transmitted 02:02 Comprehensive LAB 05/30/25 Transmitted Metabolic Panel 02:02 Ammonia LAB 05/30/25 Transmitted 02:02 Admit ADMIT 05/30/25 Transmitted 02:02 Code Status CODE 05/30/25 Transmitted 02:02 Acetaminophen Tablet PHA 05/30/25 Transmitted (Tylenol Tablet) 02:15 Ondansetron Hcl PHA 05/30/25 Transmitted (Zofran) 02:15 Npo (Nothing By DIET 05/30/25 Transmitted Mouth) Diet Breakfast Morphine Sulfate PHA 05/30/25 Transmitted Injection 02:15 Oxygen By Nasal RT 05/30/25 Transmitted Cannula 02:02 Stat Ekg For Chest [facility] 05/30/25 Transmitted Pain 02:02 Notify Of Changes [facility] 05/30/25 Transmitted From Base 02:02 Metal Ceiling Builder For [facility] 05/30/25 Transmitted 24 Hours 02:02 Emergency Dysrhythmia [facility] 05/30/25 Transmitted Protocol 02:02 Rhythm Strips Once [facility] 05/30/25 Transmitted Every Shift 02:02 Date of Service: May 30, 2025 Billing Provider: ISMAEL MCLEOD MD Common Visit Codes: [id number] INP/OBS CARE (HIGH) Secondary Visit Codes: [id number] CARE PLAN 30 MINUTES KESHAV MERCEDES RESIDENT May 30, 2025 02:06
[2025-05-30] MEDS ORDERED: MORPHINE SULFATE INJ 2 MG/ml SYRG IV PRN (02:15)
[2025-05-30 02:27] LABS: Hemoglobin 9.7 g/dL (13.5-17.5); Mean Corpuscular Hemoglobin 26.4 pg (28.0-32.0); Nucleated Red Blood Cells % 0.0 %
[2025-05-30 02:29] LABS: Hematocrit 29.7 % (41.0-53.0); Mean Corpuscular Volume 81.4 fL (80.0-100.0)
[2025-05-30 02:42] LABS: INR 0.92 (0.9-1.15); Partial Thromboplastin Time 27.6 SEC (24.5-34.5); Prothrombin Time 9.8 sec (9.3-11.8)
[2025-05-30 03:30] LABS: Albumin 3.4 g/dL (3.2-4.8); Alkaline Phosphatase 68 U/L (46-116); Anion Gap 14 (5-15); BUN/Creatinine Ratio 18.4 (10.0-20.0); Carbon Dioxide 23 mmol/L (20-31); Chloride 106 mmol/L (98-107); Cholesterol 144 mg/dL (< 200); HDL Cholesterol 41 mg/dL (40-59); Magnesium 1.7 mg/dL (1.6-2.6); Sodium 143 mmol/L (136-145); Total Protein 6.4 g/dL (5.7-8.2); Triglycerides 122 mg/dL (< 150)
[2025-05-30 03:32] LABS: Blood Urea Nitrogen 26 mg/dL (9-23); Glucose 169 mg/dL (74-106); Potassium 3.4 mmol/L (3.5-5.1)
[2025-05-30 03:33] LABS: Alanine Aminotransferase < 9 U/L (7-40); Bilirubin, Total 0.2 mg/dL (0.2-1.0); Calcium 8.5 mg/dL (8.7-10.4)
[2025-05-30 04:29] LABS: Lactic Acid w/Reflex 3.2 mmol/L (0.4-2.0)
[2025-05-30] MEDS: PANTOPRAZOLE 40 MG/10 ML VIAL INJ IV ONE (05:00)
[2025-05-30] MEDS: POTASSIUM CHL 20MEQ/100ML 100 ML IV ONE (05:15)
[2025-05-30] MEDS: POTASSIUM PHOSPHATE 22 MEQ in SODIUM CHL 0.9% 100 ML IV ONE (05:15)
--- NOTE | 2025-05-30 05:33 | ECG ---
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
[2025-05-30 06:26] LABS: Urine Protein, UAD 1+ (Negative); Urine WBC Clumps PRESENT /hpf (None Seen)
[2025-05-30 06:29] LABS: Opiate Scree,Urine Neg (NEGATIVE)
[2025-05-30 06:35] LABS: Amphetamine Screen, Urine Neg (NEGATIVE); Barbiturate Scree,Urine Neg (NEGATIVE); Benzodiazephine Screen, Urine Neg (NEGATIVE); Cannabinoid Screen, Urine Neg (NEGATIVE); Cocaine Screen, Urine Neg (NEGATIVE); Phencyclidine Screen, Urine Neg (NEGATIVE)
[2025-05-30 06:37] LABS: Iron 28.0 ug/dL (65-175); Total Iron Binding Capacity 200.0 ug/dL (250-425)
[2025-05-30 09:13] LABS: Ferritin 556.2 ng/mL (22-322)
[2025-05-30] MEDS ORDERED: ERGOCALCIFEROL 50,000 UNIT(1.25MG) CAP PO SCH (10:15)
[2025-05-30 11:44] LABS: Hematocrit 30.2 % (41.0-53.0); Hemoglobin 9.8 g/dL (13.5-17.5); Mean Corpuscular Hemoglobin 26.9 pg (28.0-32.0); Mean Corpuscular Volume 82.6 fL (80.0-100.0); Nucleated Red Blood Cells % 0.1 %
[2025-05-30 11:48] LABS: Chloride 106 mmol/L (98-107); Potassium 4.3 mmol/L (3.5-5.1); Sodium 141 mmol/L (136-145)
[2025-05-30 11:49] LABS: Anion Gap 12 (5-15); Carbon Dioxide 23 mmol/L (20-31)
[2025-05-30 11:54] LABS: BUN/Creatinine Ratio 23.1 (10.0-20.0); Blood Urea Nitrogen 30 mg/dL (9-23); Calcium 8.5 mg/dL (8.7-10.4); Glucose 178 mg/dL (74-106)
[2025-05-30 11:58] LABS: Lactic Acid w/Reflex 2.8 mmol/L (0.4-2.0)
[2025-05-30] MEDS: CEFEPIME 1GM/50ML 50 ML IV ONE (12:08)
[2025-05-30 14:48] VITALS: PULSE 103; RESP 18; O2SAT 98
[2025-05-30 14:57] VITALS: BP 135/74; PULSE 98; RESP 19; TEMP 98.2; O2SAT 99
[2025-05-30] MEDS: SODIUM CHLORIDE 0.9% 1,000 ML IV ONE (15:00)
--- NOTE | 2025-05-30 18:14 | DVHPN2 ---
Assessment/Plan Assessment/Plan progress note 65 M with prostate cancer w/ bone mets, s/p ureteral stent, UGIB, dementia, admitted for ams and abd pain. seen today. spoke with son on phone. c/w abx, iv bolus. confused physical exam aox1 comfortable on RA clear breath sounds tender chest wall s1 s2 rrr abdomen soft no LE edema labs ekg imaging reviewed assessment and plan sepsis UTI complicated UTI KETTY VMN ACS ruled out chest pain 2/2 bone mets prostate cancer GERD recurrent UTI cefepime ivf protonix diet pt dispo return to SNF diet cardiac dvt ppx hold full code discussed GOC w/ son 30 minutes Plan discussed with: Son My Orders Orders - ISMAEL MCLEOD MD Procedure Category Date Status Time Basic Metabolic Panel LAB 05/31/25 Verified 04:00 Complete Blood Count LAB 05/31/25 Verified 04:00 Date of Service: May 30, 2025 Billing Provider: ISMAEL MCLEOD MD Common Visit Codes: [id number] INP/OBS CARE(HIGH) Secondary Visit Codes: [id number] CARE PLAN 30 MINUTES ISMAEL MCLEOD MD May 30, 2025 18:14
[2025-05-30] MEDS: CEFEPIME 1GM/50ML 50 ML IV SCH (23:59)
[2025-05-31] VITALS (8 sets, daily range): BP systolic 116–149; BP diastolic 74–97; PULSE 88–99; RESP 16–18; TEMP 97.6–98.1; O2SAT 93–99
[2025-05-31] MEDS: PANTOPRAZOLE 40 MG/10 ML VIAL INJ IV SCH
[2025-05-31 06:37] LABS: Hemoglobin 9.9 g/dL (13.5-17.5); Nucleated Red Blood Cells % 0.0 %
[2025-05-31 06:40] LABS: Hematocrit 29.4 % (41.0-53.0); Mean Corpuscular Hemoglobin 27.6 pg (28.0-32.0); Mean Corpuscular Volume 82.1 fL (80.0-100.0)
[2025-05-31 06:50] LABS: Anion Gap 10 (5-15); Carbon Dioxide 24 mmol/L (20-31); Potassium 3.8 mmol/L (3.5-5.1); Sodium 143 mmol/L (136-145)
[2025-05-31 06:51] LABS: Calcium 8.7 mg/dL (8.7-10.4)
[2025-05-31 06:56] LABS: BUN/Creatinine Ratio 19.2 (10.0-20.0); Blood Urea Nitrogen 20 mg/dL (9-23)
[2025-05-31 06:57] LABS: Chloride 109 mmol/L (98-107); Glucose 111 mg/dL (74-106)
[2025-05-31] MEDS: ACETAMINOPHEN 325 MG TAB PO PRN (15:03)
--- NOTE | 2025-05-31 18:53 | DVHPN2 ---
Assessment/Plan Assessment/Plan progress note 65 M with prostate cancer w/ bone mets, s/p ureteral stent, UGIB, dementia, admitted for ams and abd pain. seen today. improved, still confused physical exam aox1 comfortable on RA clear breath sounds tender chest wall s1 s2 rrr abdomen soft no LE edema labs ekg imaging reviewed assessment and plan sepsis UTI complicated UTI KETTY VMN ACS ruled out chest pain 2/2 bone mets prostate cancer GERD recurrent UTI cefepime ivf protonix diet pt dispo return to SNF diet cardiac dvt ppx hold full code discussed GOC w/ son 30 minutes Plan discussed with: Patient, Other My Orders Orders - ISMAEL MCLEOD MD Procedure Category Date Status Time Mechanical Soft Diet DIET 05/31/25 Transmitted Lunch Date of Service: May 31, 2025 Billing Provider: ISMAEL MCLEOD MD Common Visit Codes: [id number] INP/OBS CARE(HIGH) ISMAEL MCLEOD MD May 31, 2025 18:53
[2025-06-01] VITALS (7 sets, daily range): BP systolic 110–143; BP diastolic 75–90; PULSE 87–100; RESP 16–18; TEMP 97.6–98.6; O2SAT 91–98
[2025-06-01 10:34] LABS: Hematocrit 28.5 % (41.0-53.0); Hemoglobin 9.6 g/dL (13.5-17.5); Mean Corpuscular Hemoglobin 27.1 pg (28.0-32.0); Mean Corpuscular Volume 80.8 fL (80.0-100.0); Nucleated Red Blood Cells % 0.1 %
[2025-06-01 10:44] LABS: Potassium 3.8 mmol/L (3.5-5.1); Sodium 142 mmol/L (136-145)
[2025-06-01 10:45] LABS: Anion Gap 10 (5-15); Carbon Dioxide 24 mmol/L (20-31)
[2025-06-01 10:48] LABS: Calcium 8.6 mg/dL (8.7-10.4); Chloride 108 mmol/L (98-107)
[2025-06-01 10:50] LABS: BUN/Creatinine Ratio 16.8 (10.0-20.0); Blood Urea Nitrogen 21 mg/dL (9-23)
[2025-06-01 10:51] LABS: Glucose 117 mg/dL (74-106)
[2025-06-01] MEDS: ONDANSETRON HCL 4 MG/2 ML VIAL IV ONE (14:17)
--- NOTE | 2025-06-01 15:41 | MEDREC ---
[facility] ASP Intervention Section I [facility] ASP Intervention: Review courses of therapy (URINE CULTURE GROWING PROTEUS MIRABILIS ESBL, PLEASE CONSIDER SWITCHING CEFEPIME TO ERTAPENEM ) LISE GARCIA PHARMACIST Jun 01, 2025 15:41
--- NOTE | 2025-06-01 18:13 | DVHPN2 ---
Assessment/Plan Assessment/Plan progress note 65 M with prostate cancer w/ bone mets, s/p ureteral stent, UGIB, dementia, admitted for ams and abd pain. seen today.ESBL proteus, switching to invanz physical exam aox1 comfortable on RA clear breath sounds tender chest wall s1 s2 rrr abdomen soft no LE edema labs ekg imaging reviewed ESBL proteus assessment and plan sepsis UTI complicated UTI KETTY VMN ACS ruled out chest pain 2/2 bone mets prostate cancer GERD recurrent UTI cefepime dc, switch to invanz ivf protonix diet pt dispo return to SNF diet cardiac dvt ppx hold full code discussed GOC w/ son 30 minutes Plan discussed with: Patient My Orders Orders - ISMAEL MCLEOD MD Procedure Category Date Status Time Invanz 1gm Ivpb X One PHA 06/01/25 Verified 18:15 Invanz 1gm Ivpb Daily PHA 06/02/25 Verified 10:00 Date of Service: Jun 01, 2025 Billing Provider: ISMAEL MCLEOD MD Common Visit Codes: [id number] INP/OBS CARE(HIGH) ISMAEL MCLEOD MD Jun 01, 2025 18:13
[2025-06-01] MEDS: ERTAPENEM SOD INJ 1 GM in SODIUM CHL 0.9% 50 ML IV ONE (18:25)
[2025-06-01] MEDS: ONDANSETRON HCL 4 MG/2 ML VIAL IV PRN (21:32)
[2025-06-02] VITALS (7 sets, daily range): BP systolic 74–120; BP diastolic 45–77; PULSE 83–102; RESP 16–18; TEMP 97–98.1; O2SAT 95–100
[2025-06-02 05:58] LABS: Hematocrit 31.3 % (41.0-53.0); Hemoglobin 10.4 g/dL (13.5-17.5); Mean Corpuscular Hemoglobin 27.2 pg (28.0-32.0); Mean Corpuscular Volume 81.6 fL (80.0-100.0); Nucleated Red Blood Cells % 0.0 %
[2025-06-02 06:10] LABS: Anion Gap 10 (5-15); Carbon Dioxide 26 mmol/L (20-31); Potassium 3.9 mmol/L (3.5-5.1); Sodium 144 mmol/L (136-145)
[2025-06-02 06:11] LABS: Calcium 8.9 mg/dL (8.7-10.4)
[2025-06-02 06:16] LABS: BUN/Creatinine Ratio 13.6 (10.0-20.0); Blood Urea Nitrogen 17 mg/dL (9-23); Glucose 100 mg/dL (74-106)
[2025-06-02 06:19] LABS: Chloride 108 mmol/L (98-107)
[2025-06-02] MEDS: ERTAPENEM SOD INJ 1 GM in SODIUM CHL 0.9% 50 ML IV SCH (10:59)
--- NOTE | 2025-06-02 15:15 | DVHPN2 ---
Assessment/Plan Assessment/Plan progress note 65 M with prostate cancer w/ bone mets, s/p ureteral stent, UGIB, dementia, admitted for ams and abd pain. seen today. improved. c/w iv abx physical exam aox1 comfortable on RA clear breath sounds tender chest wall s1 s2 rrr abdomen soft no LE edema labs ekg imaging reviewed ESBL proteus assessment and plan sepsis UTI complicated UTI KETTY VMN ACS ruled out chest pain 2/2 bone mets prostate cancer GERD recurrent UTI cefepime dc, switch to invanz ivf protonix diet pt dispo return to SNF diet cardiac dvt ppx hold full code discussed GOC w/ son 30 minutes Plan discussed with: Patient My Orders Orders - ISMAEL MCLEOD MD Procedure Category Date Status Time Ertapenem Sod Inj PHA 06/02/25 In Process (Invanz) 10:00 Date of Service: Jun 02, 2025 Billing Provider: ISMAEL MCLEOD MD Common Visit Codes: [id number] INP/OBS CARE(HIGH) ISMAEL MCLEOD MD Jun 02, 2025 15:15
[2025-06-02] MEDS: MAALOX PLUS or MAALOX 30 ML PO PRN (21:56)
[2025-06-03] VITALS (8 sets, daily range): BP systolic 110–142; BP diastolic 71–93; PULSE 91–107; RESP 16–18; TEMP 97.8–98.7; O2SAT 97–100
[2025-06-03 06:21] LABS: Hematocrit 29.5 % (41.0-53.0); Hemoglobin 9.6 g/dL (13.5-17.5); Mean Corpuscular Volume 81.4 fL (80.0-100.0); Nucleated Red Blood Cells % 0.1 %
[2025-06-03 06:24] LABS: Mean Corpuscular Hemoglobin 26.6 pg (28.0-32.0)
[2025-06-03 06:26] LABS: Calcium 8.9 mg/dL (8.7-10.4); Potassium 3.5 mmol/L (3.5-5.1)
[2025-06-03 06:27] LABS: Anion Gap 12 (5-15); Carbon Dioxide 27 mmol/L (20-31)
[2025-06-03 06:31] LABS: Chloride 107 mmol/L (98-107); Sodium 146 mmol/L (136-145)
[2025-06-03 06:33] LABS: BUN/Creatinine Ratio 18.2 (10.0-20.0); Blood Urea Nitrogen 22 mg/dL (9-23); Glucose 138 mg/dL (74-106)
--- NOTE | 2025-06-03 14:16 | DVHPN2 ---
Assessment/Plan Assessment/Plan progress note 65 M with prostate cancer w/ bone mets, s/p ureteral stent, UGIB, dementia, admitted for ams and abd pain. seen today. midline, dc carlin with ertapenem physical exam aox1 comfortable on RA clear breath sounds tender chest wall s1 s2 rrr abdomen soft no LE edema labs ekg imaging reviewed ESBL proteus assessment and plan sepsis UTI complicated UTI KETTY VMN ACS ruled out chest pain 2/2 bone mets prostate cancer GERD recurrent UTI cefepime dc, switch to invanz ivf protonix diet pt dispo return to SNF diet cardiac dvt ppx hold full code discussed GOC w/ son 30 minutes Plan discussed with: Patient My Orders Orders - ISMAEL MCLEOD MD Procedure Category Date Status Time Discontinue Tele JON 06/03/25 In Process 09:36 Transfer Orders XFER 06/03/25 Transmitted 09:36 Insert Midline ORDERS 06/03/25 Transmitted 11:52 * Hand Paint Mixer CONS 06/03/25 Transmitted Consult Ss Consult To Arrange JON 06/03/25 In Process Home Iv 11:52 Date of Service: Jun 03, 2025 Billing Provider: ISMAEL MCLEOD MD Common Visit Codes: [id number] INP/OBS CARE(HIGH) ISMAEL MCLEOD MD Jun 03, 2025 14:16
[2025-06-04] VITALS (9 sets, daily range): BP systolic 96–141; BP diastolic 56–85; PULSE 69–94; RESP 16–19; TEMP 97.8–98.8; O2SAT 94–98
--- NOTE | 2025-06-04 09:04 | DVHDS2 ---
Discharge Summary Date of Admission May 30, 2025 at 02:02 Date of Discharge: Jun 04, 2025 Labs/Diagnostic Data: Laboratory Results Test 06/03/25 04:50 06/01/25 10:18 05/30/25 14:56 05/30/25 09:14 White Blood Count 9.9 10^3/uL (4.4-10.8) Red Blood Count 3.63 10^6/uL (4.5-5.90) Hemoglobin 9.6 g/dL (13.5-17.5) Hematocrit 29.5 % (41.0-53.0) Mean Corpuscular Volume 81.4 fL (80.0-100.0) Mean Corpuscular Hemoglobin 26.6 pg (28.0-32.0) Mean Corpuscular Hemoglobin Concent 32.7 g/dL (32.0-36.0) Red Cell Distribution Width 15.5 % (11.8-14.3) Platelet Count 510 10^3/uL (140-450) Mean Platelet Volume 6.2 fL (6.9-10.8) Neutrophils (%) (Auto) 65.6 % (37.0-80.0) Lymphocytes (%) (Auto) 26.5 % (10.0-50.0) Monocytes (%) (Auto) 5.7 % (0.0-12.0) Eosinophils (%) (Auto) 1.7 % (0.0-7.0) Basophils (%) (Auto) 0.5 % (0.0-2.0) Neutrophils # (Auto) 6.5 10 ^3/uL (1.6-8.6) Lymphocytes # (Auto) 2.6 10 ^3/uL (0.4-5.4) Monocytes # (Auto) 0.6 10 ^3/uL (0-1.3) Eosinophils # (Auto) 0.2 10 ^3/uL (0-0.8) Basophils # (Auto) 0.1 10 ^3/uL (0-0.2) Nucleated Red Blood Cells 0.1 % Sodium Level 146 mmol/L (136-145) Potassium Level 3.5 mmol/L (3.5-5.1) Chloride Level 107 mmol/L (98-107) Carbon Dioxide Level 27 mmol/L (20-31) Anion Gap 12 (5-15) Blood Urea Nitrogen 22 mg/dL (9-23) Creatinine 1.21 mg/dL (0.700-1.30) Glomerular Filtration Rate Calc 66 mL/min (>90) BUN/Creatinine Ratio 18.2 (10.0-20.0) Serum Glucose 138 mg/dL (74-106) Calcium Level 8.9 mg/dL (8.7-10.4) Lactic Acid Level 0.7 mmol/L (0.4-2.0) Stool Occult Blood Negative (Negative) Stool Occult Blood Sample #3 (Negative) Haptoglobin 316 mg/dL (32-363) Test 05/30/25 06:09 05/30/25 04:59 05/30/25 01:52 Urine Color Colorless (Yellow) Urine Clarity Ex.turbid (Clear) Urine pH 8.0 (5.0-9.0) Urine Specific [place] 1.015 (1.001-1.035) Urine Protein 1+ (Negative) Urine Ketones Negative (Negative) Urine Blood 1+ /uL (Negative) Urine Nitrite 1+ (Negative) Urine Bilirubin Negative (Negative) Urine Urobilinogen Normal mg/dL (Negative) Urine Leukocyte Esterase 2+ /uL (Negative) Urine RBC 30 /hpf (0 - 3) Urine WBC Clumps Present /hpf (None Seen) Urine Microscopic WBC 554 /HPF (0-3) Urine Squamous Epithelial Cells None seen /hpf (<5) Urine Bacteria Few /hpf (None Seen) Urine Glucose Normal mg/dL (Normal) Urine Opiates Screen Neg (NEGATIVE) Urine Fentanyl Screen Neg (NEGATIVE) Urine Barbiturates Screen Neg (NEGATIVE) Urine Phencyclidine Screen Neg (NEGATIVE) Urine Amphetamines Screen Neg (NEGATIVE) Urine Benzodiazepines Screen Neg (NEGATIVE) Urine Cocaine Screen Neg (NEGATIVE) Urine Cannabinoids Screen Neg (NEGATIVE) Reticulocyte Count (auto) 1.29 % (0.5-1.5) Iron Level 28 ug/dL (65-175) Total Iron Binding Capacity 200 ug/dL (250-425) Percent Iron Saturation 14.0 % (20-55) Ferritin 556.2 ng/mL (22-322) Troponin I High Sensitivity 4 ng/L (</=54) Vitamin B12 Level 342 pg/mL (211-911) Vitamin D 25-Hydroxy 48.1 ng/mL (30.0-100) Folic Acid 7.11 ng/mL (>5.38) Prothrombin Time 9.8 sec (9.3-11.8) Prothrombin Time INR 0.92 (0.9-1.15) Activated Partial Thromboplast Time 27.6 SEC (24.5-34.5) Hemoglobin A1c 5.2 % A1C (<5.7) Phosphorus Level 2.1 mg/dL (2.4-5.1) Magnesium Level 1.7 mg/dL (1.6-2.6) Total Bilirubin 0.2 mg/dL (0.2-1.0) Aspartate Amino Transferase (AST) 10 U/L (13-40) Alanine Aminotransferase (ALT) < 9 U/L (7-40) Alkaline Phosphatase 68 U/L (46-116) Ammonia 12 umol/L (11-32) B-Type Natriuretic Peptide 56.79 pg/mL (0-100) Total Protein 6.4 g/dL (5.7-8.2) Albumin 3.4 g/dL (3.2-4.8) Triglycerides Level 122 mg/dL (< 150) Cholesterol Level 144 mg/dL (< 200) LDL Cholesterol 90 mg/dL (< 100) HDL Cholesterol 41 mg/dL (40-59) Thyroid Stimulating Hormone (TSH) 0.90 uIU/mL (0.55-4.78) Other Laboratory Tests 06/03/25 04:50 Final Diagnosis/Problems List ESBL UTI Discharge Disposition: Senior Living Facility Discharge Instruct/Medications Diet: Consistent carbohydrate, Cardiac 2g Na,low cholest Activity: No Restrictions, As Tolerated Medications: IV abx Scheduled Ergocalciferol (Vitamin D 70318 Unit), 50,000 UNIT PO Q7D Pantoprazole Sodium Sesquihydr (Pantoprazole Sodium), 40 MG PO DAILY@0600 Scheduled PRN Acetaminophen (Acetaminophen), 650 MG PO Q6HP PRN Discharge Statement: "Patient was advised to return to the ER or call 911 if any headaches, dizziness, shortness of breath, chest pain, abdominal pain, bleeding, fevers, or worsening of medical condition. Patient was counseled about treatment plan, medications, possible side effects, patientverbalized understanding. All questions were answered to the best of my ability. This discharge took greater then 30 minutes in planning, reviewing documentation, counseling the patient, and discussing with other team members." ASSESSMENT ASSESSMENT Assessment ESBL UTI Date of Service: Jun 04, 2025 Billing Provider: ISMAEL MCLEOD MD Common Visit Codes: 41084-UJS/OBS DISCH DAY >30min ISMAEL MCLEOD MD Jun 04, 2025 09:04
[2025-06-05 00:55] VITALS: BP 119/82; PULSE 86; RESP 19; TEMP 98; O2SAT 96
[2025-06-05 04:49] VITALS: BP 125/80; PULSE 89; RESP 19; TEMP 98; O2SAT 94
[2025-06-05 07:30] VITALS: PULSE 90; RESP 18; O2SAT 96
[2025-06-05 09:00] VITALS: BP 116/79; PULSE 90; RESP 18; TEMP 97.7; O2SAT 96
[2025-06-05] MEDS: HYDROmorphone HCL 2 MG/ML VL/or syr IV PRN (10:55)
--- NOTE | 2025-06-05 11:13 | DVHPN2 ---
Reviewed: H&P Changes from previous H/P or p: No Changes General: Per HPI Objective Vitals Vital Signs Date Time Temp Pulse Resp B/P (MAP) Pulse Ox O2 Delivery O2 Flow Rate FiO2 06/05/25 10:55 90 18 116/79 06/05/25 09:00 97.7 96 97.7 06/05/25 07:30 Room Air* 0 21 Intake/Output Intake and Output 06/05/25 07:00 Intake Total 1200 ml Balance 1200 ml Intake Oral 1200 ml # Voids 6 # Bowel Movements 4 Exam physical exam aox1 comfortable on RA clear breath sounds tender chest wall s1 s2 rrr abdomen soft no LE edema Medications Current Medications Medications Dose Ordered Sig/Murali Route Start Time Stop Time Status Last Admin Dose Admin Acetaminophen 325 mg Q4HP PRN PO 05/30/25 02:15 06/03/25 17:34 325 MG Ondansetron HCl 4 mg Q4HP PRN IV 05/30/25 02:15 06/03/25 21:05 4 MG Pantoprazole Sodium 40 mg BID IV 05/30/25 22:00 06/05/25 09:08 40 MG Al Hydrox/Mg Hydrox/Simethicone 15 ml Q8HP PRN PO 05/30/25 05:00 06/02/25 21:56 15 ML Ertapenem 1 gm/ Sodium Chloride 50 ml @ 100 mls/hr DAILY IV 06/02/25 10:00 06/05/25 09:08 100 MLS/HR Hydromorphone HCl 0.5 mg Q4HPRN PRN IV 06/05/25 10:30 06/05/25 10:55 0.5 MG Laboratory Results Laboratory Tests 06/03/25 04:50 Urinalysis Test 05/30/25 06:09 Urine Color Colorless (Yellow) Urine Clarity Ex.turbid (Clear) Urine pH 8.0 (5.0-9.0) Urine Specific [place] 1.015 (1.001-1.035) Urine Protein 1+ (Negative) H Urine Ketones Negative (Negative) Urine Blood 1+ /uL (Negative) H Urine Nitrite 1+ (Negative) H Urine Bilirubin Negative (Negative) Urine Urobilinogen Normal mg/dL (Negative) Urine Leukocyte Esterase 2+ /uL (Negative) Urine RBC 30 /hpf (0 - 3) Urine WBC Clumps Present /hpf (None Seen) Urine Microscopic WBC 554 /HPF (0-3) H Urine Squamous Epithelial Cells None seen /hpf (<5) Urine Bacteria Few /hpf (None Seen) H Urine Glucose Normal mg/dL (Normal) Microbiology Microbiology Date/Time Source Procedure Growth Status 05/30/25 11:04 Blood Blood Culture - Final NO GROWTH AFTER 5 DAYS OF INCUBATION. Complete 05/30/25 06:09 Voided Urine Urine Culture - Final Proteus mirabilis - ESBL Complete Labs and/or images reviewed: Labs reviewed by me, Image(s) reviewed by me Assessment/Plan Assessment/Plan 65 M with prostate cancer w/ bone mets, s/p ureteral stent, UGIB, dementia, admitted for ams and abd pain. 06/03: seen today. midline, dc carlin with ertapenem 06/04: dc. see dc summary. to snf. 06/05: Patient discharged yesterday to SNF for IV antibiotics for ESBL UTI. Patient doing well today, PICC line site clean CDI, we will continue primary providers plan, pending SNF placement and bed placement. labs ekg imaging reviewed ESBL proteus assessment and plan sepsis UTI complicated UTI KETTY VMN ACS ruled out chest pain 2/2 bone mets prostate cancer GERD recurrent UTI cefepime dc, switch to invanz ivf protonix diet pt dispo return to SNF diet cardiac dvt ppx hold full code Plan discussed with: Patient My Orders Orders - SANFORD STARR MD Procedure Category Date Status Time Hydromorphone PHA 06/05/25 In Process Injection (Dilaudid 10:30 Date of Service: Jun 05, 2025 Billing Provider: SANFORD STARR MD Common Visit Codes: [id number] INP/OBS CARE(MOD) SANFORD STARR MD Jun 05, 2025 11:13
[2025-06-05 12:57] VITALS: BP 94/60; PULSE 87; RESP 18; TEMP 97.7; O2SAT 91
[2025-06-05] MEDS: KETOROLAC TROMETH 30 MG/ML 1ML VIAL IV ONE (14:02)
--- NOTE | 2025-06-06 09:36 | ECG ---
[facility] Test Date: 2025-06-05 Test Time: 12:53:48 Pat Name: MAGUI YSUUF Department: Respiratoy Room: 0204 A Gender: M Subscription Crew Leader: MACIEL. : 1960 Requested By: SANFORD CORREIA Order Number: [id number] Reading MD: Maxi Yeung Measurements Intervals [place] Rate: 93 P: 70 ID: [id number] QRS: 31 QRSD: 111 T: -58 QT: 351 QTc: 437 Interpretive Statements Sinus rhythm Low voltage, extremity leads Electronically Signed On 06-06-2025 17:36:23 PDT by Maxi Yeung Please click the below link to view image of tracing.
== END 2025-06-05 16:45 | DRG 871 ==
LOC: EDBD 00:21 → ER 00:25 → OVERFLOW 02:02 → TELE-CENTR 05-31 01:39 → CENTRAL 06-03 14:04
PROVIDERS: ADMIT Student in an Organized Health Care Education/Training Program; ATTEND Student in an Organized Health Care Education/Training Program
PROC: 05H933Z Insertion of Infusion Device into Right Brachial Vein, Percutaneous Approach (ICD-10-PCS; principal; 2025-06-04)
PROC: B54MZZA Ultrasonography of Right Upper Extremity Veins, Guidance (ICD-10-PCS; 2025-06-04)
DX: A41.9 Sepsis, unspecified organism (principal); N17.0 Acute kidney failure with tubular necrosis; N12 Tubulo-interstitial nephritis, not specified as acute or chronic; C79.51 Secondary malignant neoplasm of bone; J44.1 Chronic obstructive pulmonary disease with (acute) exacerbation; Z16.12 Extended spectrum beta lactamase (ESBL) resistance; E83.39 Other disorders of phosphorus metabolism; E87.6 Hypokalemia; K21.9 Gastro-esophageal reflux disease without esophagitis; I11.0 Hypertensive heart disease with heart failure; I50.9 Heart failure, unspecified; D64.9 Anemia, unspecified; F03.90 Unspecified dementia, unspecified severity, without behavioral disturbance, psychotic disturbance, mood disturbance, and anxiety; Z85.46 Personal history of malignant neoplasm of prostate; Z79.899 Other long term (current) drug therapy
CPT/HCPCS: 36415; 71045; 80048; 80053; 80061; 80307; 81001; 82140; 82270; 82306; 82607; 82728; 82746; 83010; 83036; 83540; 83550; 83605; 83735; 83880; 84100; 84443; 84484; 85025; 85045; 85610; 85730; 87040; 87086; 87088; 87186; 93005; 94640; 96365; G0378; J1100; J1335; J1885; J2405; J2470; J3480

== ENCOUNTER 2025-06-19 20:06 | Inpatient (IN) | payer MEDICARE, MEDICAID ==
[~2025-06-19] VITALS: Ht 182.9 cm; Wt 64.8 kg
[2025-06-19] MEDS: SODIUM CHLORIDE 0.9% 1,000 ML IV ONE (21:00)
[2025-06-19] MEDS: PANTOPRAZOLE 40 MG/10 ML VIAL INJ IV ONE (21:28)
[2025-06-19] MEDS: ONDANSETRON HCL 4 MG/2 ML VIAL IV ONE (21:29)
--- NOTE | 2025-06-19 21:36 | DVH ---
Exam: CT CT AB PEL WO CON-NO ORAL OR IV History: gi bleed Comparison Study: CT CT AB PEL WO CON-NO ORAL OR IV on DOS: 04/13/25, MRI MRI ABDOMEN W AND WO on DOS: 01/21/25, US ABDOMEN COMPLETE SONOGRAM on DOS: 01/19/25, CT CT AB PEL WITH IV CON ONLY on DOS: 01/19/25 Technique: Multidetector spiral CT of the abdomen was performed from lung bases to pubic symphysis. I maging was performed without IV contrast. Axial, coronal and sagittal multiplanar reformats were obta ined from the axial data set by the technologist. Radiation Dose : 1. Abdomen/Pelvis: CTDIvol 9.97 mGy, DLP 563.09 mGy*cm. Findings: Evaluation of solid organs is limited due to lack of intravenous contrast use. Lung Bases: No acute or significant lung base finding. Normal heart size. No pleural or pericardial effusion. Liver: The liver is normal in size. No focal lesions. Gallbladder and Biliary Tree: Unremarkable Spleen: Unremarkable Pancreas: The pancreas is grossly normal in appearance. Adrenal Glands: Unremarkable Kidneys: Left-sided nephroureterostomy tube in-situ. Moderate bilateral hydronephrosis secondary to an over distended urinary bladder. Bladder: Urinary bladder is markedly distended. Bowel: Marked stool filled distention of the rectum measuring up to 8.2 cm in diameter. No colitis, diverticulitis, obstruction, or other significant abnormality. No obvious hyperdensity within the GI tract. Stomach and proximal small bowel appear unremarkable. Ascites: Absent Lymphadenopathy: No mesenteric, retroperitoneal or periportal lymphadenopathy. Abdominal Wall and Mesentery: Unremarkable. Vasculature: The visualized abdominal aorta is normal in size and caliber. Evaluation of abdominal a nd pelvic vessels is limited due to lack of intravenous contrast. Pelvic Organs: Unremarkable Musculoskeletal: Multiple sclerotic rounded bony lesions again noted. IMPRESSION: No clear source for bleeding. Marked stool filled distention of the rectum. Urinary retention with grossly distended urinary bladder and moderate bilateral hydronephrosis. This may be secondary to the fecal loading. Radiation optimization: All CT scans at this facility use at least one of these dose optimization tami hniques: automated exposure control mA and/or kV adjustment per patient size (includes targeted exam s where dose is matched to clinical indication) or iterative reconstruction.
[2025-06-19 21:48] LABS: Alkaline Phosphatase 75 U/L (46-116); Anion Gap 14 (5-15); BUN/Creatinine Ratio 18.1 (10.0-20.0); Calcium 9.5 mg/dL (8.7-10.4); Carbon Dioxide 26 mmol/L (20-31); Lipase 38 U/L (12-53); Total Protein 7.2 g/dL (5.7-8.2)
[2025-06-19 21:49] LABS: Albumin 3.8 g/dL (3.2-4.8); Bilirubin, Total 0.5 mg/dL (0.2-1.0)
[2025-06-19 21:50] LABS: Alanine Aminotransferase < 9 U/L (7-40); Blood Urea Nitrogen 34 mg/dL (9-23); Chloride 114 mmol/L (98-107); Glucose 144 mg/dL (74-106); Potassium 3.2 mmol/L (3.5-5.1); Sodium 154 mmol/L (136-145)
--- NOTE | 2025-06-19 22:00 | ED.PDOC ---
GI ASSESSMENT HPI Comments Patient was recently admitted and discharged this month with the following Final Diagnosis/Problems List sepsis UTI complicated UTI KETTY VMN ACS ruled out chest pain 2/2 bone mets prostate cancer GERD recurrent UTI ESBL UTI HPI: Poor Historian. Patient brought in with a very limited information of suspected GI bleed and history of dementia and nausea and vomiting coffee-ground emesis. No other information available to us. REVIEW OF SYSTEMS: Limited given the patient's history of dementia CONSTITUTIONAL: Denies acute: fever, diaphoresis, chills, HEAD: Denies acute: headache, photophobia Eyes: Denies acute: Double vision, vision loss, eye pain, eye discharge. EARS: Denies acute: tinnitus, hearing loss, ear discharge, ear pain, THROAT: Denies acute: sore throat, swelling, difficulty swallowing , pain with swallowing, change in voice. NECK: Denies acute: neck pain, neck swelling, stiff neck. HEART: Denies acute : chest pain, palpitations, LUNGS: Denies acute: SOB, wheezing, cough, hemoptysis ABDOMEN: Denies acute: , diarrhea, melena , hematochezia SKIN: Denies acute: rash, redness, lesions, itchiness. EXTREMITIES: Denies acute: calf pain, numbness, tingling, weakness, denies pain in extremity. Denies acute: Low back pain. Neuro: Denies acute: focal neurological deficit, motor or sensory focal neurological deficit, tremors, seizure like activity, confusion, dizziness, change in mental status, loss of bowel or bladder function, cauda equina like symptoms. : Denies acute: dysuria, hematuria, flank pain, increase in urinary frequency. PSYCH: Denies acute: hallucination, suicidal ideation, homicidal ideation. PHYSICAL EXAM: General: -----moderate---acute distress, awake and alert. Head: normocephalic, atraumatic. No raccoon's eyes, no baltazar sign. Neck: supple, trachea is midline, no swelling. Throat: Normal phonation. Eyes:, no erythema, no purulent discharge, no proptosis, no icterus. Heart: regular rate, regular rhythm, no significant murmur appreciated. Lungs: no apparent respiratory distress, Able to speak in full sentences. No wheezing, no rhonchi, no crackles. No stridors Clear to auscultation bilaterally. Abdomen: Lower abdomen tender to palpation, non distended, soft, no guarding, no rebound, + bowel sounds. Suspected urinary bladder distention/ Neuro: Awake, Alert, oriented to name, self, situation, follows commands at baseline dementia Skin: no petechia, no purpura, no cyanosis, non-pale, not jaundice. Lower extremities: --no - Pitting edema no deformity, no focal swelling, no calf TTP. Makes eye contact. moves all four extremities. Face: no apparent facial droop. ED COURSE: DISCLAIMER: This medical document was created using an electronic medical record system with voice recognition software and computerized dictation system. Although this document has been carefully reviewed, there might still be some phonetic and typographical errors. Occasional wrong-word or "sound-alike" substitutions may have occurred due to the inherent limitations of voice recognition software. These areas are purely typographical due to imperfections of the software programs and do not reflect any compromise in the patient's medical care. Please read the chart carefully and recognize, using context, where these substitutions have occurred. Chief Complaint: Nausea/Vomiting Time Seen by MD: 20:50 Reviewed Notes: Allergies Allergies: Coded Allergies: NO KNOWN ALLERGIES (Unverified , 01/19/25) Home Meds Active Scripts Pantoprazole Sodium Sesquihydr (Pantoprazole Sodium) 40 Mg Tab, 40 MG PO DAILY@0600 for 30 Days, #30 TAB Prov:ISRAEL ECHEVERRIA 04/17/25 Ergocalciferol (VITAMIN D 78442 UNIT) 50,000 [place], [address] UNIT PO Q7D for 30 Days, #4 CAP Prov:ISRAEL ECHEVERRIA 04/17/25 Acetaminophen (Acetaminophen) 325 Mg Tab, 650 MG PO Q6HP PRN for 5 Days, #40 TAB Prov:ISRAEL ECHEVERRIA 04/17/25 Information Source: Patient Mode of Arrival: EMS Past Medical History PAST MEDICAL HISTORY: CHF, HTN Surgical History: Unknown Family History Family History: Unknown Social History Smoker: Non-Smoker Alcohol: Denies ETOH Use Drugs: Denies Drug Use Lives In: Home Was a procedure done? Was a procedure done?: No GI differential Dx Differential Diagnosis: Other (Diverticulitis, colitis, fistula, neoplasm, hemorrhoids, anal fissures, constipation, Crohn's disease, ulcerative colitis) Other Differential Diagnosis DDX include but not limited to diverticulitis, colitis, gastroenteritis, acute abdomen, SBO, enteritis, constipation, volvulus, appendicitis, Gallbladder disease, choledocolithiasis, ascending cholangitis, pancreatitis, intraAbdominal mass/neoplasm, hepatitis, UTI, pylonephritis, kidney stone, aneurysm, dissec tion, Inflammatory bowel disease, gastroparesis, ischemic bowel. Food poisoning, bacterial/parasitic/viral etiology, trauma, diabetes DKA, X-Ray, Labs, Meds, VS Vital Signs Date Time Temp Pulse Resp B/P (MAP) Pulse Ox O2 Delivery O2 Flow Rate FiO2 06/19/25 23:10 12 98 Room Air* 0 21 06/19/25 22:00 109 19 137/84 (101) 100 06/19/25 20:42 98.2 109 18 173/83 (113) 99 98.2 06/19/25 20:42 Room Air* 0 21 06/19/25 20:13 97.6 80 16 91/57 93 97.6 Lab Test 06/19/25 22:35 06/19/25 21:23 Range/Units White Blood Count 9.1 4.4-10.8 10^3/uL Red Blood Count 4.86 4.5-5.90 10^6/uL Hemoglobin 12.6 L 13.5-17.5 g/dL Hematocrit 41.7 41.0-53.0 % Mean Corpuscular Volume 85.9 80.0-100.0 fL Mean Corpuscular Hemoglobin 26.0 L 28.0-32.0 pg Mean Corpuscular Hemoglobin Concent 30.3 L 32.0-36.0 g/dL Red Cell Distribution Width 15.9 H 11.8-14.3 % Platelet Count 395 140-450 10^3/uL Mean Platelet Volume 7.3 6.9-10.8 fL Neutrophils (%) (Auto) 76.2 37.0-80.0 % Lymphocytes (%) (Auto) 16.3 10.0-50.0 % Monocytes (%) (Auto) 6.4 0.0-12.0 % Eosinophils (%) (Auto) 0.4 0.0-7.0 % Basophils (%) (Auto) 0.7 0.0-2.0 % Neutrophils # (Auto) 6.9 1.6-8.6 10 ^3/uL Lymphocytes # (Auto) 1.5 0.4-5.4 10 ^3/uL Monocytes # (Auto) 0.6 0-1.3 10 ^3/uL Eosinophils # (Auto) 0 0-0.8 10 ^3/uL Basophils # (Auto) 0.1 0-0.2 10 ^3/uL Nucleated Red Blood Cells 0.1 % Prothrombin Time 11.2 9.3-11.8 sec Prothrombin Time INR 1.06 0.9-1.15 Activated Partial Thromboplast Time 27.0 24.5-34.5 SEC Sodium Level 154 H 136-145 mmol/L Potassium Level 3.2 L 3.5-5.1 mmol/L Chloride Level 114 H 98-107 mmol/L Carbon Dioxide Level 26 20-31 mmol/L Anion Gap 14 5-15 Blood Urea Nitrogen 34 H 9-23 mg/dL Creatinine 1.88 H 0.700-1.30 mg/dL Glomerular Filtration Rate Calc 39 >90 mL/min BUN/Creatinine Ratio 18.1 10.0-20.0 Serum Glucose 144 H 74-106 mg/dL Calcium Level 9.5 8.7-10.4 mg/dL Total Bilirubin 0.5 0.2-1.0 mg/dL Aspartate Amino Transferase (AST) 12 L 13-40 U/L Alanine Aminotransferase (ALT) < 9 7-40 U/L Alkaline Phosphatase 75 46-116 U/L Troponin I High Sensitivity 67 *H </=54 ng/L Total Protein 7.2 5.7-8.2 g/dL Albumin 3.8 3.2-4.8 g/dL Lipase 38 12-53 U/L Current Medications Medications (Trade) Dose Ordered Sig/Murali Route Start Time Stop Time Status Last Admin Ondansetron HCl (Zofran) 8 mg ONCE ONCE IV 06/19/25 21:00 06/19/25 21:01 CT 06/19/25 21:29 Pantoprazole Sodium (Protonix) 40 mg ONCE ONCE IV 06/19/25 21:00 06/19/25 21:01 CT 06/19/25 21:[address] - [address] Ph: [phone] DIAGNOSTIC IMAGING Diagnostic Imaging Report : [id number] Signed PATIENT: MAGUI YUSUF ACCT: [id number] UNIT: [id number] : 1960 LOC: ER ROOM / BED: / AGE / SEX: 65 / M ADM STATUS: REG ER SERVICE 46 ORDERING PHYSICIAN: PATRICIA MILLS DO PROCEDURE(s): ABPL - CT AB PEL WO CON-NO ORAL OR IV REASON: gi bleed ORDER NUMBER(s): [id number], ACCESSION NUMBER(s): [id number] Exam: CT CT AB PEL WO CON-NO ORAL OR IV History: gi bleed Comparison Study: CT CT AB PEL WO CON-NO ORAL OR IV on DOS: 04/13/25, MRI MRI ABDOMEN W AND WO on DOS: 01/21/25, US ABDOMEN COMPLETE SONOGRAM on DOS: 01/19/25, CT CT AB PEL WITH IV CON ONLY on DOS: 01/19/25 Technique: Multidetector spiral CT of the abdomen was performed from lung bases to pubic symphysis. Imaging was performed without IV contrast. Axial, coronal and sagittal multiplanar reformats were obtained from the axial data set by the technologist. Radiation Dose : 1. Abdomen/Pelvis: CTDIvol 9.97 mGy, DLP 563.09 mGy*cm. Findings: Evaluation of solid organs is limited due to lack of intravenous contrast use. Lung Bases: No acute or significant lung base finding. Normal heart size. No pleural or pericardial effusion. Liver: The liver is normal in size. No focal lesions. Gallbladder and Biliary Tree: Unremarkable Spleen: Unremarkable Pancreas: The pancreas is grossly normal in appearance. Adrenal Glands: Unremarkable Kidneys: Left-sided nephroureterostomy tube in-situ. Moderate bilateral hydronephrosis secondary to an over distended urinary bladder. Bladder: Urinary bladder is markedly distended. Bowel: Marked stool filled distention of the rectum measuring up to 8.2 cm in diameter. No colitis, diverticulitis, obstruction, or other significant abnormality. No obvious hyperdensity within the GI tract. Stomach and proximal small bowel appear unremarkable. Ascites: Absent Lymphadenopathy: No mesenteric, retroperitoneal or periportal lymphadenopathy. Abdominal Wall and Mesentery: Unremarkable. Vasculature: The visualized abdominal aorta is normal in size and caliber. Evaluation of abdominal and pelvic vessels is limited due to lack of intravenous contrast. Pelvic Organs: Unremarkable Musculoskeletal: Multiple sclerotic rounded bony lesions again noted. IMPRESSION: No clear source for bleeding. Marked stool filled distention of the rectum. Urinary retention with grossly distended urinary bladder and moderate bilateral hydronephrosis. This may be secondary to the fecal loading. Radiation optimization: All CT scans at this facility use at least one of these dose optimization techniques: automated exposure control mA and/or kV adjustment per patient size (includes targeted exams where dose is matched to clinical indication) or iterative reconstruction. ATED BY: GAVIOTA PLASCENCIA MD DICTATED DATE/TIME: 06/19/252133 SIGNED BY: GAVIOTA PLASCENCIA MD SIGNED DATE/TIME: 06/19/252133 CC: Time of 1ST Reevaluation: 22:30 (All labs are still pending accept chemistry) Reevaluation 1ST: Unchanged Time of 2ND Reevaluation: 00:37 Reevaluation 2ND: Improved Patient Education/Counseling: Other Family Education/Counseling: Other Comments Fluids were held by the nurse because patient has history of CHF. Maldonado catheter was placed in the setting of acute urinary retention on CT scan. MDM: patient presented with the above HPI.---suspected GI bleed---workup was initiated. patient was found with the above mentioned diagnosis. the following medications were ordered: please refer to order lists of meds and tests obtained by myself Dr. Mills. Patient ED course and VS have been stabilized. Patient has been reassessed in the ED and remained in a stable condition. Patient has been observed in the ED adequate length of time to insure improvement/stability. Escalation of care considered: Consideration of escalation to observation or admission Patient was given Zosyn. Maldonado catheter was placed given the urinary retention. Given history GI bleed, Protonix was given and Zofran and fluids. Patient was ADMITTED to the medicine team for further evaluation and treatment of their presentation. All the reports of any imaging studies that were ordered by myself were reviewed by myself. Departure 1 Departure Time of Disposition: 22:41 Impression: Primary Impression: Acute urinary retention Additional Impressions: Fecal impaction Hypernatremia Elevated troponin GI bleed Disposition: ADMITTED INPATIENT Admit to: Tele Condition: Guarded Discharged With: Self Critical Care Note Critical Care Time?: Yes (45 min-critical care time only) Heart Score Heart Score: Heart Score Response (Comments) Value History Slightly Suspicious 0 EKG Normal 0 Age >65 2 Risk Factors 1 or 2 risk factors 1 Troponin 1-2 x's Normal limit 1 Total 4 PATRICIA MILLS DO Jun 19, 2025 22:00
[2025-06-19 22:55] LABS: Hematocrit 41.7 % (41.0-53.0); Hemoglobin 12.6 g/dL (13.5-17.5); Mean Corpuscular Hemoglobin 26.0 pg (28.0-32.0); Mean Corpuscular Volume 85.9 fL (80.0-100.0); Nucleated Red Blood Cells % 0.1 %
[2025-06-19 23:09] LABS: INR 1.06 (0.9-1.15); Partial Thromboplastin Time 27.0 SEC (24.5-34.5); Prothrombin Time 11.2 sec (9.3-11.8)
[2025-06-19 23:10] VITALS: RESP 12; O2SAT 98
[2025-06-19] MEDS ORDERED: LABETALOL HCL 20 MG/4 ML VL IV PRN (23:15)
[2025-06-19] MEDS ORDERED: DOCUSATE SOD 100 MG CAP PO PRN (23:15)
[2025-06-19] MEDS ORDERED: ONDANSETRON HCL 4 MG/2 ML VIAL IV PRN (23:15)
[2025-06-19] MEDS ORDERED: HYDROcodone-ACET 5/325MG TAB PO PRN (23:15)
--- NOTE | 2025-06-19 23:42 | DVHHP2 ---
History of Present Illness Reason for Visit: Acute urinary retention History of Present Illness The patient is a 65-year-old male with past medical history of dementia, CHF, and hypertension who presented to [facility] ED with complaint of intractable nausea and vomiting. Patient has been experiencing nausea and vom iting coffee-ground emesis, getting worse that prompted this visit. Patient was seen and evaluated in the ED, laboratory data shows WBC 9.1, hemoglobin 12.6, hematocrit 41.7, platelets 395, sodium 154, potassium 3.2, BUN 34, creatinine 1.88, glucose 144, calcium 9.5, AST 12, ALT nine, lipase 38, troponin 67, BNP 215.11. Abdomen/pelvis CT revealing urinary retention with grossly distended urinary bladder and moderate bilateral hydronephrosis, this may be secondary to the fecal loading; marked stool filled distention of the rectum, no clear source for bleeding. Please see medication orders section in the computer. On my assessment, patient denied chest pain, no headache, diaphoresis, shortness of breath, no abdominal pain, nausea or vomiting at this moment, fever, no chills. Patient was admitted for further evaluation and medical management. Past Medical History CHF, HTN, Dementia Past Surgical History Unknown Family History Reviewed, noncontributory to the management of this case. Past Social History The patient lives at home, denies smoking, alcohol or illicit drugs abuse. Review of Systems Constitutional: Yes: Weakness; No: Fever, Chills, Sweats, Malaise, Other Eyes: No: Pain, Vision change, Conjunctivae inflammation, Eyelid inflammation, Other, Redness ENT: No: Ear pain, Ear discharge, Nose pain, Nose discharge, Nose congestion, Mouth pain, Mouth swelling, Throat pain, Throat swelling, Other Respiratory: No: Cough, Dry, Shortness of breath, SOB with excertion, Wheezing, Hemoptysis, Pleuritic Pain, Sputum, Wheezing, Other Cardiovascular: No: Chest Pain, Palpitations, Orthopnea, Paroxysmal Noc. Dyspnea, Edema, Lt Headedness, Other Gastrointestinal: Nausea, Vomiting, Other (Coffee-ground emesis); No: Abdominal Pain, Diarrhea, Constipation, Melena, Hematochezia Genitourinary: No Dysuria, No Frequency, No Incontinence, No Hematuria, No Retention, No Other Musculoskeletal: No: other, neck pain, shoulder pain, arm pain, back pain, hand pain, leg pain, foot pain Skin: No: Rash, Lesions, Jaundice, Bruising, Other Neurological: No: Weakness, Numbness, Incoordination, Change in speech, Confusion, Seizures, Other Allergies: Coded Allergies: NO KNOWN ALLERGIES (Unverified , 01/19/25) Medications Current Medications Medications Dose Ordered Sig/Murali Route Start Time Stop Time Status Last Admin Dose Admin Labetalol HCl 5 mg Q2HPRN PRN IV 06/19/25 23:15 Acetaminophen/ Hydrocodone Bitart 1 tab Q4HP PRN PO 06/19/25 23:15 Ondansetron HCl 4 mg Q4HP PRN IV 06/19/25 23:15 Docusate Sodium 100 mg BIDPRN PRN PO 06/19/25 23:15 Acetaminophen 650 mg Q6HP PRN PO 06/19/25 23:15 Famotidine 20 mg DAILY IV 06/20/25 10:00 Nitroglycerin 0.4 mg Q5MINP PRN SL 06/19/25 23:45 Morphine Sulfate 2 mg Q30M PRN IV 06/19/25 23:45 Exam Vital Signs Vital Signs Date Time Temp Pulse Resp B/P (MAP) Pulse Ox O2 Delivery O2 Flow Rate FiO2 06/19/25 20:42 98.2 109 18 173/83 (113) 99 98.2 06/19/25 20:42 Room Air* 0 21 General Appearance: Alert, Cooperative, No acute distress, Other (Oriented x2) HEENT: Atraumatic, PERRLA, EOMI, Mucous membr. moist/pink Respiratory: Normal air movement Cardiovascular: Regular rate, Normal S1, Normal S2, No murmurs Abdominal: Normal bowel sounds, Soft, No tenderness, No hepatospenomegaly, No masses Extremities: No clubbing, No cyanosis, No edema, Normal pulses, No tenderness/swelling Skin: No rashes, No significant lesion Neuro: Normal speech, Normal tone, Sensation intact, Cranial nerves 3-12 NL, Reflexes 2+, Other (Generalized weakness) Psych/Mental Status: Mood NL, Other (Altered mental status) Labs/Xrays Labs Test 06/19/25 22:35 06/19/25 21:23 Range/Units White Blood Count 9.1 4.4-10.8 10^3/uL Red Blood Count 4.86 4.5-5.90 10^6/uL Hemoglobin 12.6 L 13.5-17.5 g/dL Hematocrit 41.7 41.0-53.0 % Mean Corpuscular Volume 85.9 80.0-100.0 fL Mean Corpuscular Hemoglobin 26.0 L 28.0-32.0 pg Mean Corpuscular Hemoglobin Concent 30.3 L 32.0-36.0 g/dL Red Cell Distribution Width 15.9 H 11.8-14.3 % Platelet Count 395 140-450 10^3/uL Mean Platelet Volume 7.3 6.9-10.8 fL Neutrophils (%) (Auto) 76.2 37.0-80.0 % Lymphocytes (%) (Auto) 16.3 10.0-50.0 % Monocytes (%) (Auto) 6.4 0.0-12.0 % Eosinophils (%) (Auto) 0.4 0.0-7.0 % Basophils (%) (Auto) 0.7 0.0-2.0 % Neutrophils # (Auto) 6.9 1.6-8.6 10 ^3/uL Lymphocytes # (Auto) 1.5 0.4-5.4 10 ^3/uL Monocytes # (Auto) 0.6 0-1.3 10 ^3/uL Eosinophils # (Auto) 0 0-0.8 10 ^3/uL Basophils # (Auto) 0.1 0-0.2 10 ^3/uL Nucleated Red Blood Cells 0.1 % Prothrombin Time 11.2 9.3-11.8 sec Prothrombin Time INR 1.06 0.9-1.15 Activated Partial Thromboplast Time 27.0 24.5-34.5 SEC Sodium Level 154 H 136-145 mmol/L Potassium Level 3.2 L 3.5-5.1 mmol/L Chloride Level 114 H 98-107 mmol/L Carbon Dioxide Level 26 20-31 mmol/L Anion Gap 14 5-15 Blood Urea Nitrogen 34 H 9-23 mg/dL Creatinine 1.88 H 0.700-1.30 mg/dL Glomerular Filtration Rate Calc 39 >90 mL/min BUN/Creatinine Ratio 18.1 10.0-20.0 Serum Glucose 144 H 74-106 mg/dL Calcium Level 9.5 8.7-10.4 mg/dL Total Bilirubin 0.5 0.2-1.0 mg/dL Aspartate Amino Transferase (AST) 12 L 13-40 U/L Alanine Aminotransferase (ALT) < 9 7-40 U/L Alkaline Phosphatase 75 46-116 U/L Troponin I High Sensitivity 67 *H </=54 ng/L Total Protein 7.2 5.7-8.2 g/dL Albumin 3.8 3.2-4.8 g/dL Lipase 38 12-53 U/L PATIENT: MAGUI YUSUF ACCT: [id number] UNIT: [id number] : 1960 LOC: ER ROOM / BED: / AGE / SEX: 65 / M ADM STATUS: REG ER SERVICE 46 ORDERING PHYSICIAN: PATRICIA MILLS DO PROCEDURE(s): ABPL - CT AB PEL WO CON-NO ORAL OR IV REASON: gi bleed ORDER NUMBER(s): [id number], ACCESSION NUMBER(s): [id number] Exam: CT CT AB PEL WO CON-NO ORAL OR IV History: gi bleed Comparison Study: CT CT AB PEL WO CON-NO ORAL OR IV on DOS: 04/13/25, MRI MRI ABDOMEN W AND WO on DOS: 01/21/25, US ABDOMEN COMPLETE SONOGRAM on DOS: 01/19/25, CT CT AB PEL WITH IV CON ONLY on DOS: 01/19/25 Technique: Multidetector spiral CT of the abdomen was performed from lung bases to pubic symphysis. Imaging was performed without IV contrast. Axial, coronal and sagittal multiplanar reformats were obtained from the axial data set by the technologist. Radiation Dose: 1. Abdomen/Pelvis: CTDIvol 9.97 mGy, DLP 563.09 mGy*cm. Findings: Evaluation of solid organs is limited due to lack of intravenous contrast use. Lung Bases: No acute or significant lung base finding. Normal heart size. No pleural or pericardial effusion. Liver: The liver is normal in size. No focal lesions. Gallbladder and Biliary Tree: Unremarkable Spleen: Unremarkable Pancreas: The pancreas is grossly normal in appearance. Adrenal Glands: Unremarkable Kidneys: Left-sided nephroureterostomy tube in-situ. Moderate bilateral hydronephrosis secondary to an over distended urinary bladder. Bladder: Urinary bladder is markedly distended. Bowel: Marked stool filled distention of the rectum measuring up to 8.2 cm in diameter. No colitis, diverticulitis, obstruction, or other significant abnormality. No obvious hyperdensity within the GI tract. Stomach and proximal small bowel appear unremarkable. Ascites: Absent Lymphadenopathy: No mesenteric, retroperitoneal or periportal lymphadenopathy. Abdominal Wall and Mesentery: Unremarkable. Vasculature: The visualized abdominal aorta is normal in size and caliber. Evaluation of abdominal and pelvic vessels is limited due to lack of intravenous contrast. Pelvic Organs: Unremarkable Musculoskeletal: Multiple sclerotic rounded bony lesions again noted. IMPRESSION: No clear source for bleeding. Marked stool filled distention of the rectum. Urinary retention with grossly distended urinary bladder and moderate bilateral hydronephrosis. This may be secondary to the fecal loading. SEPSIS Sepsis Screen Date sepsis recognized/suspect: Jun 19, 2025 Time Sepsis recognized/suspect: 2048 Recent Procedure: No On Antibiotic Therapy: No Respiratory Rate >20: No Heart Rate >90: No Temp<36 C (96.8 F) or >38.3 C: No SBP <90 or MAP <65 mmHG: No New Acute Mental Status Change: No Is the patient on CPAP, BIPAP,: No Physician Orders Billing Services Manager (06/19/25 ) Lactic Acid W/ Reflex Order (06/19/25 20:47) Ct Ab Pel Wo Con-No Oral Or Iv (06/19/25 20:47) Type And Screen (06/19/25 20:47) Troponin-I Hs (06/19/25 21:47) Troponin-I Hs (06/19/25 23:47) Gastric Occult Blood (06/19/25 20:47) Insert Maldonado Catheter QSHIFT (06/19/25 21:43) * Urology Consult (06/19/25 23:03) *[facility] (06/19/25 23:03) Labetalol Hcl (Labetalol Hcl) (06/19/25 23:15) B-Type Natriuretic Peptide (06/19/25 23:03) Allergies (06/19/25 23:03) Code Status (06/19/25 23:03) Oxygen Per Hour (06/19/25 23:03) Hydrocodone-Acet 5/325mg Tab (Tarpley 5/32 (06/19/25 23:15) Ondansetron Hcl (Zofran) (06/19/25 23:15) Docusate Sodium Capsule (Colace Capsule) (06/19/25 23:15) Complete Blood Count (06/20/25 04:00) Comprehensive Metabolic Panel (06/20/25 04:00) Condition: Serious (06/19/25 23:03) Acetaminophen Tablet (Tylenol Tablet) (06/19/25 23:15) Clear Liq Diet (06/20/25 Breakfast) Bedrest With Bathroom Privileg (06/19/25 23:03) Maintain Bed Rest (06/19/25 23:03) Sequential Compression Device (06/19/25 ) Famotidine Injection (Pepcid Injection) (06/20/25 10:00) Admit (06/19/25 23:35) Nitroglycerin Sublingual (Ntrostat Subli (06/19/25 23:45) Morphine Sulfate Injection (06/19/25 23:45) Stat Ekg For Chest Pain (06/19/25 23:35) Notify Md Of Changes From Base (06/19/25 23:35) Physiatrist For 24 Hours (06/19/25 23:35) Emergency Dysrhythmia Protocol (06/19/25 23:35) Rhythm Strips Once Every Shift (06/19/25 23:35) Oxygen By Nasal Cannula (06/19/25 23:35) Aspirin Tablet (06/20/25 10:00) Aspirin Tablet (06/19/25 23:45) Vital Signs Date Time Temp Pulse Resp B/P (MAP) Pulse Ox O2 Delivery O2 Flow Rate FiO2 06/19/25 20:42 98.2 109 18 173/83 (113) 99 98.2 06/19/25 20:42 Room Air* 0 21 06/19/25 20:13 97.6 80 16 91/57 93 97.6 Laboratory Tests Test 06/19/25 22:35 White Blood Count 9.1 10^3/uL (4.4-10.8) Medications Medications Dose Ordered Sig/Murali Route Start Time Stop Time Status Last Admin Dose Admin Ondansetron HCl 8 mg ONCE ONCE IV 06/19/25 21:00 06/19/25 21:01 DC 06/19/25 21:29 8 MG Pantoprazole Sodium 40 mg ONCE ONCE IV 06/19/25 21:00 06/19/25 21:01 DC 06/19/25 21:28 40 MG Assessment/Plan Assessment/Plan Acute urinary retention Elevated troponin GI bleed Altered mental status Hypokalemia Fecal impaction Generalized weakness Hypernatremia Acute renal injury Bilateral hydronephrosis Intractable nausea and vomiting Plan 1. Admit to telemetry unit 2. Breathing treatment 3. Pain control management 4. Management of fluids and electrolytes 5. Consultation for Urology 6. Diagnostic tests abdomen/pelvis CT 7. DVT prophylaxis on SCDs 8. Repeat labs CBC, CMP in a.m. 9. Continue with current medical management 10. Treatment plan discussed with patient and RN. Patient verbalized understanding. Plan discussed with: Patient, Other (RN) My Orders Orders - BABAR HANNON DNP Procedure Category Date Status Time * Urology Consult CONS 06/19/25 Transmitted 23:03 *[facility] CONS 06/19/25 Transmitted -[place] 23:03 Labetalol Hcl PHA 06/19/25 In Process (Labetalol Hcl) 23:15 B-Type Natriuretic LAB 06/19/25 Logged Peptide 23:03 Allergies JON 06/19/25 In Process 23:03 Code Status CODE 06/19/25 Transmitted 23:03 Oxygen Per Hour RT 06/19/25 Transmitted 23:03 Hydrocodone-Acet PHA 06/19/25 In Process 5/325mg Tab (Tarpley 23:15 Ondansetron Hcl PHA 06/19/25 In Process (Zofran) 23:15 Docusate Sodium PHA 06/19/25 In Process Capsule (Colace 23:15 Complete Blood Count LAB 06/20/25 Verified 04:00 Comprehensive LAB 06/20/25 Verified Metabolic Panel 04:00 Condition: Serious JON 06/19/25 In Process 23:03 Acetaminophen Tablet PHA 06/19/25 In Process (Tylenol Tablet) 23:15 Clear Liq Diet DIET 06/20/25 Transmitted Breakfast Bedrest With Bathroom JON 06/19/25 In Process Privileg 23:03 Maintain Bed Rest JON 06/19/25 In Process 23:03 Sequential JON 06/19/25 In Process Compression Device Famotidine Injection PHA 06/20/25 In Process (Pepcid Injection) 10:00 Admit ADMIT 06/19/25 Transmitted 23:35 Nitroglycerin PHA 06/19/25 In Process Sublingual (Ntrostat 23:45 Morphine Sulfate [facility] 06/19/25 In Process Injection 23:45 Stat Ekg For Chest [facility] 06/19/25 In Process Pain 23:35 Notify Md Of Changes [facility] 06/19/25 In Process From Base 23:35 Physiatrist For [facility] 06/19/25 In Process 24 Hours 23:35 Emergency Dysrhythmia [facility] 06/19/25 In Process Protocol 23:35 Rhythm Strips Once [facility] 06/19/25 In Process Every Shift 23:35 Oxygen By Nasal RT 06/19/25 Transmitted Cannula 23:35 Aspirin Tablet [facility] 06/20/25 Transmitted 10:00 Aspirin Tablet [facility] 06/19/25 Transmitted 23:45 Problem List: (1) Acute urinary retention (2) Elevated troponin (3) GI bleed (4) Altered mental status (5) Hypokalemia (6) Fecal impaction (7) Generalized weakness (8) Hypernatremia (9) Acute renal injury (10) Bilateral hydronephrosis (11) Intractable nausea and vomiting Date of Service: Jun 19, 2025 Billing Provider: BABAR HANNON DNP Common Visit Codes: [id number] INP/OBS CARE (HIGH) BABAR HANNON DNP Jun 19, 2025 23:41
[2025-06-19] MEDS ORDERED: MORPHINE SULFATE INJ 2 MG/ml SYRG IV PRN (23:45)
[2025-06-19] MEDS ORDERED: NITROGLYCERIN 0.4 MG SL TAB SL PRN (23:45)
[2025-06-20] VITALS (8 sets, daily range): BP systolic 94–115; BP diastolic 59–81; PULSE 70–112; RESP 17–20; TEMP 97.7–98.5; O2SAT 94–97
[2025-06-20] MEDS: PIPERACILLIN-TAZOB 3.375GM 100 ML IV ONE (01:09)
[2025-06-20] MEDS: DIGOXIN (250MCG/ML) 2 ML AMPULE IV ONE (01:50)
[2025-06-20 02:39] LABS: Nucleated Red Blood Cells % 0.1 %
[2025-06-20 02:41] LABS: Hematocrit 36.4 % (41.0-53.0); Hemoglobin 11.5 g/dL (13.5-17.5); Mean Corpuscular Hemoglobin 26.4 pg (28.0-32.0); Mean Corpuscular Volume 83.5 fL (80.0-100.0)
[2025-06-20] MEDS: POTASSIUM CHL 20MEQ/100ML 100 ML IV ONE (04:51)
[2025-06-20] MEDS: FLEET ENEMA(ADULT) 135 ML PR ONE (04:58)
[2025-06-20 08:38] LABS: Albumin 3.7 g/dL (3.2-4.8); Alkaline Phosphatase 79 U/L (46-116); Anion Gap 14 (5-15); BUN/Creatinine Ratio 15.2 (10.0-20.0); Calcium 9.1 mg/dL (8.7-10.4); Carbon Dioxide 27 mmol/L (20-31); Potassium 4.0 mmol/L (3.5-5.1); Total Protein 7.3 g/dL (5.7-8.2)
[2025-06-20 08:39] LABS: Bilirubin, Total 0.6 mg/dL (0.2-1.0); Blood Urea Nitrogen 34 mg/dL (9-23); Chloride 114 mmol/L (98-107); Glucose 140 mg/dL (74-106); Sodium 155 mmol/L (136-145)
[2025-06-20 08:40] LABS: Alanine Aminotransferase < 9 U/L (7-40)
[2025-06-20] MEDS: FAMOTIDINE (10MG/ML) 2ML VL IV SCH (09:13)
[2025-06-20] MEDS ORDERED: FAMOTIDINE (10MG/ML) 2ML VL IV SCH (10:00)
--- NOTE | 2025-06-20 11:24 | DVHPN2 ---
Subjective 65 year old male with dementia, recent sepsis with UTI w proteus ESBL, admitted from SNF for N/V, urinary retention and constipation Confused Has Maldonado Changes from previous H/P or p: Changes Eyes: No Pain, No Vision change, No Conjunctivae inflammation, No Eyelid inflammation, No Other, No Redness ENT: No Ear pain, No Ear discharge, No Nose pain, No Nose discharge, No Nose congestion, No Mouth pain, No Mouth swelling, No Throat pain, No Throat swelling, No Other Cardiovascular: No Chest Pain, No Palpitations, No Orthopnea, No Paroxysmal Noc. Dyspnea, No Edema, No Lt Headedness, No Other Respiratory: No Cough, No Dry, No Shortness of breath, No SOB with excertion, No Wheezing, No Hemoptysis, No Pleuritic Pain, No Sputum, No Other Gastrointestinal: Nausea, Vomiting; No Abdominal Pain, No Diarrhea, No Constipation, No Melena, No Hematochezia; Other (Coffee-ground emesis) Genitourinary: No Dysuria, No Frequency, No Incontinence, No Hematuria, No Retention, No Other Musculoskeletal: No other, No neck pain, No shoulder pain, No arm pain, No back pain, No hand pain, No leg pain, No foot pain Skin: No Rash, No Lesions, No Jaundice, No Bruising, No Other Objective Vitals Vital Signs Date Time Temp Pulse Resp B/P (MAP) Pulse Ox O2 Delivery O2 Flow Rate FiO2 06/20/25 06:15 112 18 96 Room Air* 0 21 06/20/25 05:00 98.0 97/63 (74) 98.0 Intake/Output Intake and Output 06/20/25 07:00 Output Total 800 ml Balance -800 ml Output Urine Total 800 ml General Appearance: Alert Lungs: Clear to auscultation, Normal air movement Cardiovascular: Regular rate, Normal S1 Abdomen: Normal bowel sounds, Soft, No tenderness Extremities: No edema Medications Current Medications Medications Dose Ordered Sig/Muarli Route Start Time Stop Time Status Last Admin Dose Admin Labetalol HCl 5 mg Q2HPRN PRN IV 06/19/25 23:15 Acetaminophen/ Hydrocodone Bitart 1 tab Q4HP PRN PO 06/19/25 23:15 Ondansetron HCl 4 mg Q4HP PRN IV 06/19/25 23:15 Docusate Sodium 100 mg BIDPRN PRN PO 06/19/25 23:15 Acetaminophen 650 mg Q6HP PRN PO 06/19/25 23:15 Famotidine 20 mg DAILY IV 06/20/25 10:00 06/20/25 09:13 20 MG Nitroglycerin 0.4 mg Q5MINP PRN SL 06/19/25 23:45 Morphine Sulfate 2 mg Q30M PRN IV 06/19/25 23:45 Aspirin 81 mg DAILY PO 06/20/25 10:00 06/20/25 09:24 81 MG Dextrose 1,000 ml @ 125 mls/hr Q8H IV 06/20/25 09:45 Laboratory Results Laboratory Tests 06/20/25 02:21 06/20/25 08:13 Chemistry Test 06/19/25 21:23 06/20/25 08:13 Albumin 3.8 g/dL (3.2-4.8) 3.7 g/dL (3.2-4.8) Calcium Level 9.5 mg/dL (8.7-10.4) 9.1 mg/dL (8.7-10.4) Total Protein 7.2 g/dL (5.7-8.2) 7.3 g/dL (5.7-8.2) Coagulation Test 06/19/25 22:35 Prothrombin Time 11.2 sec (9.3-11.8) Prothrombin Time INR 1.06 (0.9-1.15) Activated Partial Thromboplast Time 27.0 SEC (24.5-34.5) Lipid panel Test 06/19/25 21:23 Lipase 38 U/L (12-53) Cardiac Markers Test 06/20/25 00:01 B-Type Natriuretic Peptide 215.11 pg/mL (0-100) LFT Test 06/19/25 21:23 06/20/25 08:13 Alanine Aminotransferase (ALT) < 9 U/L (7-40) < 9 U/L (7-40) Alkaline Phosphatase 75 U/L (46-116) 79 U/L (46-116) Aspartate Amino Transferase (AST) 12 U/L (13-40) L 22 U/L (13-40) Total Bilirubin 0.5 mg/dL (0.2-1.0) 0.6 mg/dL (0.2-1.0) Assessment/Plan Assessment/Plan Metabolic encephalopathy Acute urinary retention h/o UTI ESBL KETTY due to VMN GERD Recurrent UTIs Dementia HTN h/o HFpEF NSTEMI type 2 Hypernatremia Constipation PLAN: Rule out UTI UA Urine culture IV fluids: D5W Maldonado Sitter at the bedside Protonix Fleet enema Colace Zosyn IV Full code Called family ( Sons), no answer Plan discussed with: Patient, Other My Orders Orders - LANDON MARIE MD Procedure Category Date Status Time D5w 5% (Dextrose 5%) PHA 06/20/25 In Process 09:45 Date of Service: Jun 20, 2025 Billing Provider: LANDON MARIE MD Common Visit Codes: [id number] INP/OBS CARE(HIGH) LANDON MARIE MD Jun 20, 2025 11:24
[2025-06-20] MEDS: PANTOPRAZOLE 40 MG/10 ML VIAL INJ IV ONE (13:56)
[2025-06-20] MEDS: D5W 5% 1,000 ML IV SCH (14:01)
[2025-06-20 16:31] LABS: Urine Budding Yeast OCCASIONAL /hpf (None Seen); Urine Protein, UAD 2+ (Negative)
--- NOTE | 2025-06-20 17:11 | DVHINCON2 ---
Date of service: Jun 20, 2025 Referring Physician [facility] Reason for Consultation Acute kidney injury History of Present Illness 65 year old white male past medical history recently diagnosed prostate cancer with metastasis recently hospitalized for severe sepsis secondary to multidrug resistant ESBL Proteus urinary tract infection was discharged to chronic care facility patient has left ureteral stent due to chronic urinary obstruction he returns to the hospital less than two weeks later due to change in mental state. He was found to have bilateral hydronephrosis and distended bladder Maldonado catheter has been placed nephrology is consulted due to acute kidney injury. Patient is currently in isolation room confused and altered Per sitter at bedside patient appears to be hallucinating has been talking to the umana Allergies: Coded Allergies: NO KNOWN ALLERGIES (Unverified , 01/19/25) Home Meds Active Scripts Pantoprazole Sodium Sesquihydr (Pantoprazole Sodium) 40 Mg Tab, 40 MG PO DAILY@ 0600 for 30 Days, #30 TAB Prov:ISRAEL ECHEVERRIA 04/17/25 Ergocalciferol (VITAMIN D 63143 UNIT) 50,000 [place], [address] UNIT PO Q7D for 30 Days, #4 CAP Prov:ISRAEL ECHEVERRIA 04/17/25 Acetaminophen (Acetaminophen) 325 Mg Tab, 650 MG PO Q6HP PRN for 5 Days, #40 TAB Prov:ISRAEL ECHEVERRIA [facility] 04/17/25 Current Medications Current Medications Medications (Trade) Dose Ordered Sig/Murali Route PRN Reason Start Time Stop Time Status Last Admin Famotidine (Pepcid Injection) 20 mg Q12HR IV 06/20/25 10:00 06/19/25 23:13 DC Labetalol HCl (Labetalol HCl) 5 mg Q2HPRN PRN IV SBP>150 06/19/25 23:15 Acetaminophen/ Hydrocodone Bitart ([place] 5/325MG Tab) 1 tab Q4HP PRN PO MODERATE PAIN (4-6 PAIN SCALE) 06/19/25 23:15 06/20/25 13:30 DC Ondansetron HCl (Zofran) 4 mg Q4HP PRN IV NAUSEA / VOMITING 06/19/25 23:15 Docusate Sodium (Colace Capsule) 100 mg BIDPRN PRN PO FOR CONSTIPATION 06/19/25 23:15 Acetaminophen (Tylenol Tablet) 650 mg Q6HP PRN PO PAIN SCALE 1-3 OR TEMP>100.4 06/19/25 23:15 Famotidine (Pepcid Injection) 20 mg DAILY IV 06/20/25 10:00 06/20/25 13:33 DC 06/20/25 09:13 Nitroglycerin (Ntrostat Sublingual) 0.4 mg Q5MINP PRN SL FOR CHEST PAIN 06/19/25 23:45 Morphine Sulfate 2 mg Q30M PRN IV FOR CHEST PAIN 06/19/25 23:45 Aspirin 81 mg DAILY PO 06/20/25 10:00 06/20/25 09:24 Dextrose 1,000 ml @ 125 mls/hr Q8H IV 06/20/25 09:45 06/20/25 14:01 Pantoprazole Sodium (Protonix) 40 mg DAILY IV 06/21/25 10:00 Family History: FH: liver cancer G8 FATHER FH: stomach cancer G8 MOTHER Review of Systems Can not obtain due to altered mental state H&P Exam Vital Signs/I&O Vital Sign Date Time Temp Pulse Resp B/P (MAP) Pulse Ox O2 Delivery O2 Flow Rate FiO2 06/20/25 13:00 98.3 107 17 111/71 (84) 96 98.3 06/20/25 08:00 Room Air* 0 21 Intake and Output 06/19/25 06/20/25 19:00 07:00 Output Total 800 ml Balance -800 ml Output Urine Total 800 ml Physical Exam Frail cachectic ill-appearing white male Nonverbal confused does not visually track appears to be internally preoccupied Muscle wasting Maldonado catheter no pitting edema Labs/Diagnostic Data Labs/Diagnostic Data Laboratory Tests Test 06/20/25 08:13 06/20/25 02:21 06/20/25 00:07 06/20/25 00:01 Range/Units Sodium Level 155 H 136-145 mmol/L Potassium Level 4.0 3.5-5.1 mmol/L Chloride Level 114 H 98-107 mmol/L Carbon Dioxide Level 27 20-31 mmol/L Anion Gap 14 5-15 Blood Urea Nitrogen 34 H 9-23 mg/dL Creatinine 2.23 H 0.700-1.30 mg/dL Glomerular Filtration Rate Calc 32 >90 mL/min BUN/Creatinine Ratio 15.2 10.0-20.0 Serum Glucose 140 H 74-106 mg/dL Calcium Level 9.1 8.7-10.4 mg/dL Total Bilirubin 0.6 0.2-1.0 mg/dL Aspartate Amino Transferase (AST) 22 13-40 U/L Alanine Aminotransferase (ALT) < 9 7-40 U/L Alkaline Phosphatase 79 46-116 U/L Total Protein 7.3 5.7-8.2 g/dL Albumin 3.7 3.2-4.8 g/dL White Blood Count 8.1 4.4-10.8 10^3/uL Red Blood Count 4.35 L 4.5-5.90 10^6/uL Hemoglobin 11.5 L 13.5-17.5 g/dL Hematocrit 36.4 #L 41.0-53.0 % Mean Corpuscular Volume 83.5 80.0-100.0 fL Mean Corpuscular Hemoglobin 26.4 L 28.0-32.0 pg Mean Corpuscular Hemoglobin Concent 31.6 L 32.0-36.0 g/dL Red Cell Distribution Width 15.7 H 11.8-14.3 % Platelet Count 390 140-450 10^3/uL Mean Platelet Volume 7.7 6.9-10.8 fL Neutrophils (%) (Auto) 69.4 37.0-80.0 % Lymphocytes (%) (Auto) 23.3 10.0-50.0 % Monocytes (%) (Auto) 6.1 0.0-12.0 % Eosinophils (%) (Auto) 0.6 0.0-7.0 % Basophils (%) (Auto) 0.6 0.0-2.0 % Neutrophils # (Auto) 5.6 1.6-8.6 10 ^3/uL Lymphocytes # (Auto) 1.9 0.4-5.4 10 ^3/uL Monocytes # (Auto) 0.5 0-1.3 10 ^3/uL Eosinophils # (Auto) 0 0-0.8 10 ^3/uL Basophils # (Auto) 0 0-0.2 10 ^3/uL Nucleated Red Blood Cells 0.1 % Troponin I High Sensitivity 61 *H 64 *H </=54 ng/L Lactic Acid Level 1.3 0.4-2.0 mmol/L B-Type Natriuretic Peptide 215.11 0-100 pg/mL Test 06/20/25 00:00 06/19/25 22:35 06/19/25 21:23 Range/Units Urine Color Dark-brown Yellow Urine Clarity Ex.turbid Clear Urine pH 6.0 5.0-9.0 Urine Specific [place] 1.019 1.001-1.035 Urine Protein 2+ H Negative Urine Ketones Negative Negative Urine Blood 2+ H Negative /uL Urine Nitrite Negative Negative Urine Bilirubin Negative Negative Urine Urobilinogen Normal Negative mg/dL Urine Leukocyte Esterase 3+ Negative /uL Urine RBC 600 0 - 3 /hpf Urine Microscopic WBC 3603 H 0-3 /HPF Urine Squamous Epithelial Cells None seen <5 /hpf Urine Bacteria Mod H None Seen /hpf Urine Mucus Few None Seen Urine Yeast (Budding) Occasional None Seen /hpf Urine Glucose Normal Normal mg/dL White Blood Count 9.1 4.4-10.8 10^3/uL Red Blood Count 4.86 4.5-5.90 10^6/uL Hemoglobin 12.6 L 13.5-17.5 g/dL Hematocrit 41.7 41.0-53.0 % Mean Corpuscular Volume 85.9 80.0-100.0 fL Mean Corpuscular Hemoglobin 26.0 L 28.0-32.0 pg Mean Corpuscular Hemoglobin Concent 30.3 L 32.0-36.0 g/dL Red Cell Distribution Width 15.9 H 11.8-14.3 % Platelet Count 395 140-450 10^3/uL Mean Platelet Volume 7.3 6.9-10.8 fL Neutrophils (%) (Auto) 76.2 37.0-80.0 % Lymphocytes (%) (Auto) 16.3 10.0-50.0 % Monocytes (%) (Auto) 6.4 0.0-12.0 % Eosinophils (%) (Auto) 0.4 0.0-7.0 % Basophils (%) (Auto) 0.7 0.0-2.0 % Neutrophils # (Auto) 6.9 1.6-8.6 10 ^3/uL Lymphocytes # (Auto) 1.5 0.4-5.4 10 ^3/uL Monocytes # (Auto) 0.6 0-1.3 10 ^3/uL Eosinophils # (Auto) 0 0-0.8 10 ^3/uL Basophils # (Auto) 0.1 0-0.2 10 ^3/uL Nucleated Red Blood Cells 0.1 % Prothrombin Time 11.2 9.3-11.8 sec Prothrombin Time INR 1.06 0.9-1.15 Activated Partial Thromboplast Time 27.0 24.5-34.5 SEC Sodium Level 154 H 136-145 mmol/L Potassium Level 3.2 L 3.5-5.1 mmol/L Chloride Level 114 H 98-107 mmol/L Carbon Dioxide Level 26 20-31 mmol/L Anion Gap 14 5-15 Blood Urea Nitrogen 34 H 9-23 mg/dL Creatinine 1.88 H 0.700-1.30 mg/dL Glomerular Filtration Rate Calc 39 >90 mL/min BUN/Creatinine Ratio 18.1 10.0-20.0 Serum Glucose 144 H 74-106 mg/dL Calcium Level 9.5 8.7-10.4 mg/dL Total Bilirubin 0.5 0.2-1.0 mg/dL Aspartate Amino Transferase (AST) 12 L 13-40 U/L Alanine Aminotransferase (ALT) < 9 7-40 U/L Alkaline Phosphatase 75 46-116 U/L Troponin I High Sensitivity 67 *H </=54 ng/L Total Protein 7.2 5.7-8.2 g/dL Albumin 3.8 3.2-4.8 g/dL Lipase 38 12-53 U/L Microbiology Date/Time Source Procedure Growth Status 06/20/25 05:50 Nose MRSA Screen - Final Complete Assessment Acute kidney injury hemodynamically mediated (superimposed urinary obstruction Maldonado catheter placed urine output noted however given patient's bilateral hydronephrosis and renal stent there has possibility of obstruction at the level of the stent Sepsis secondary to ESBL urine Chronic kidney disease Metastatic prostate cancer Altered mental state Protein calorie malnutrition Maldonado catheter Hypotonic fluid due to hypernatremia Strict I&O IV antibiotics Obtain cultures Given metastatic prostate cancer recommend consideration for palliative care versus hospice Renal function does not improve with Maldonado catheter placement and consider wilder luation by Urology of patient's nephroureteral stent poor overall prognosis Plan discussed with: Other (nurse) DANA DRISCOLL MD Jun 20, 2025 17:11
[2025-06-21] VITALS (7 sets, daily range): BP systolic 95–116; BP diastolic 51–84; PULSE 94–100; RESP 17–20; TEMP 96.4–98; O2SAT 97–99
--- NOTE | 2025-06-21 09:23 | DVHPN2 ---
Progress Note Date Seen: Jun 21, 2025 Medical Necessity Reason Pt with a Central, PICC or Fol: Yes The following are medically ne: Maldonado Catheter Subjective Review of Systems: Deferred Objective vital signs Vital Sign Date Time Temp Pulse Resp B/P (MAP) Pulse Ox O2 Delivery O2 Flow Rate FiO2 06/21/25 09:00 100 18 113/71 (85) 06/21/25 05:00 97.8 98 97.8 06/20/25 20:00 Room Air* 0 21 Total Intake and Output 06/20/25 06/20/25 06/21/25 15:00 23:00 07:00 Intake Total 1375 ml 1050 ml Output Total 375 ml 300 ml Balance 1000 ml 750 ml medications Current Medications Medications Dose Ordered Sig/Murali Route Start Time Stop Time Status Last Admin Dose Admin Labetalol HCl 5 mg Q2HPRN PRN IV 06/19/25 23:15 Ondansetron HCl 4 mg Q4HP PRN IV 06/19/25 23:15 Docusate Sodium 100 mg BIDPRN PRN PO 06/19/25 23:15 Acetaminophen 650 mg Q6HP PRN PO 06/19/25 23:15 Nitroglycerin 0.4 mg Q5MINP PRN SL 06/19/25 23:45 Morphine Sulfate 2 mg Q30M PRN IV 06/19/25 23:45 Aspirin 81 mg DAILY PO 06/20/25 10:00 06/20/25 09:24 81 MG Dextrose 1,000 ml @ 125 mls/hr Q8H IV 06/20/25 09:45 06/20/25 17:45 125 MLS/HR Pantoprazole Sodium 40 mg DAILY IV 06/21/25 10:00 Examination: GENERAL:Abnormal, ABDOMEN:Abnormal, NEURO:Abnormal laboratory and microbiology Laboratory Tests 06/20/25 08:13 06/20/25 02:21 Test 06/20/25 08:13 Range/Units Serum Glucose 140 H 74-106 mg/dL Microbiology Date/Time Source Procedure Growth Status 06/20/25 05:50 Nose MRSA Screen - Final Complete Problem List/Assessment/Plan Problem List/Assessment/Plan Acute kidney injury hemodynamically mediated (superimposed urinary obstruction Maldonado catheter placed urine output noted however given patient's bilateral hydronephrosis and renal stent there has possibility of obstruction at the level of the stent Sepsis secondary to ESBL urine Chronic kidney disease Metastatic prostate cancer Altered mental state Protein calorie malnutrition pending labs Maldonado catheter Hypotonic fluid due to hypernatremia, continue D5W Strict I&O IV antibiotics Obtain cultures Given metastatic prostate cancer recommend consideration for palliative care versus hospice Renal function does not improve with Maldonado catheter placement and consider evaluation by Urology of patient's nephroureteral stent poor overall prognosis Plan discussed with: Other DANA DRISCOLL MD Jun 21, 2025 09:23
[2025-06-21] MEDS: PANTOPRAZOLE 40 MG/10 ML VIAL INJ IV SCH (09:53)
--- NOTE | 2025-06-21 09:53 | DVHPN2 ---
Subjective Confused Lethargic Changes from previous H/P or p: Changes Eyes: No Pain, No Vision change, No Conjunctivae inflammation, No Eyelid inflammation, No Other, No Redness ENT: No Ear pain, No Ear discharge, No Nose pain, No Nose discharge, No Nose congestion, No Mouth pain, No Mouth swelling, No Throat pain, No Throat swelling, No Other Cardiovascular: No Chest Pain, No Palpitations, No Orthopnea, No Paroxysmal Noc. Dyspnea, No Edema, No Lt Headedness, No Other Respiratory: No Cough, No Dry, No Shortness of breath, No SOB with excertion, No Wheezing, No Hemoptysis, No Pleuritic Pain, No Sputum, No Other Gastrointestinal: Nausea, Vomiting; No Abdominal Pain, No Diarrhea, No Constipation, No Melena, No Hematochezia; Other (Coffee-ground emesis) Genitourinary: No Dysuria, No Frequency, No Incontinence, No Hematuria, No Retention, No Other Musculoskeletal: No other, No neck pain, No shoulder pain, No arm pain, No back pain, No hand pain, No leg pain, No foot pain Skin: No Rash, No Lesions, No Jaundice, No Bruising, No Other Objective Vitals Vital Signs Date Time Temp Pulse Resp B/P (MAP) Pulse Ox O2 Delivery O2 Flow Rate FiO2 06/21/25 09:00 100 18 113/71 (85) 06/21/25 08:00 Room Air* 0 21 06/21/25 05:00 97.8 98 97.8 Intake/Output Intake and Output 06/21/25 07:00 Intake Total 2425 ml Output Total 675 ml Balance 1750 ml Intake Oral 425 ml IV Total 2000 ml Output Urine Total 675 ml # Bowel Movements 1 General Appearance: Alert Lungs: Clear to auscultation, Normal air movement Cardiovascular: Regular rate, Normal S1 Abdomen: Normal bowel sounds, Soft, No tenderness Extremities: No edema Medications Current Medications Medications Dose Ordered Sig/Murali Route Start Time Stop Time Status Last Admin Dose Admin Labetalol HCl 5 mg Q2HPRN PRN IV 06/19/25 23:15 Ondansetron HCl 4 mg Q4HP PRN IV 06/19/25 23:15 Docusate Sodium 100 mg BIDPRN PRN PO 06/19/25 23:15 Acetaminophen 650 mg Q6HP PRN PO 06/19/25 23:15 Nitroglycerin 0.4 mg Q5MINP PRN SL 06/19/25 23:45 Morphine Sulfate 2 mg Q30M PRN IV 06/19/25 23:45 Aspirin 81 mg DAILY PO 06/20/25 10:00 06/20/25 09:24 81 MG Dextrose 1,000 ml @ 125 mls/hr Q8H IV 06/20/25 09:45 06/20/25 17:45 125 MLS/HR Pantoprazole Sodium 40 mg DAILY IV 06/21/25 10:00 Laboratory Results Laboratory Tests 06/20/25 02:21 06/20/25 08:13 Urinalysis Test 06/20/25 00:00 Urine Color Dark-brown (Yellow) Urine Clarity Ex.turbid (Clear) Urine pH 6.0 (5.0-9.0) Urine Specific [place] 1.019 (1.001-1.035) Urine Protein 2+ (Negative) H Urine Ketones Negative (Negative) Urine Blood 2+ /uL (Negative) H Urine Nitrite Negative (Negative) Urine Bilirubin Negative (Negative) Urine Urobilinogen Normal mg/dL (Negative) Urine Leukocyte Esterase 3+ /uL (Negative) Urine RBC 600 /hpf (0 - 3) Urine Microscopic WBC 3603 /HPF (0-3) H Urine Squamous Epithelial Cells None seen /hpf (<5) Urine Bacteria Mod /hpf (None Seen) H Urine Mucus Few (None Seen) Urine Yeast (Budding) Occasional /hpf (None Urine Glucose Normal mg/dL (Normal) Microbiology Microbiology Date/Time Source Procedure Growth Status 06/20/25 05:50 Nose MRSA Screen - Final Complete Assessment/Plan Assessment/Plan Metabolic encephalopathy Acute urinary retention h/o UTI ESBL KETTY due to VMN GERD Recurrent UTIs Dementia HTN h/o HFpEF NSTEMI type 2 Hypernatremia Constipation PLAN: Rule out UTI UA Urine culture IV fluids: D5W Maldonado Sitter at the bedside Protonix Fleet enema Colace Zosyn IV Full code Called family ( Sons), no answer 06/21/2025: KETTY: Continue IV fluids Hypernatremia Metabolic encephalopathy Nephrology consult Monitor closely Plan discussed with: Patient, Other My Orders Orders - LANDON MARIE MD Procedure Category Date Status Time Complete Blood Count LAB 06/21/25 Logged 04:00 Comprehensive LAB 06/21/25 Logged Metabolic Panel 04:00 Magnesium LAB 06/21/25 Logged 04:00 Urine Bacterial SOFI 06/20/25 In Process Culture 13:30 Pantoprazole PHA 06/21/25 In Process (Protonix) 10:00 Pureed DIET 06/20/25 Transmitted Dinner Date of Service: Jun 21, 2025 Billing Provider: LANDON MARIE MD Common Visit Codes: [id number] INP/OBS CARE(HIGH) LANDON MARIE MD Jun 21, 2025 09:53
[2025-06-21 15:36] LABS: Hemoglobin 10.9 g/dL (13.5-17.5); Nucleated Red Blood Cells % 0.2 %
[2025-06-21 15:38] LABS: Hematocrit 33.2 % (41.0-53.0); Mean Corpuscular Hemoglobin 26.6 pg (28.0-32.0); Mean Corpuscular Volume 80.7 fL (80.0-100.0)
[2025-06-21 15:47] LABS: Alkaline Phosphatase 70 U/L (46-116); Anion Gap 10 (5-15); BUN/Creatinine Ratio 22.8 (10.0-20.0); Bilirubin, Total 0.6 mg/dL (0.2-1.0); Calcium 8.7 mg/dL (8.7-10.4); Carbon Dioxide 26 mmol/L (20-31); Magnesium 1.7 mg/dL (1.6-2.6); Total Protein 6.0 g/dL (5.7-8.2)
[2025-06-21 15:50] LABS: Alanine Aminotransferase < 9 U/L (7-40); Albumin 3.1 g/dL (3.2-4.8); Blood Urea Nitrogen 37 mg/dL (9-23); Chloride 109 mmol/L (98-107); Glucose 156 mg/dL (74-106); Potassium 3.1 mmol/L (3.5-5.1); Sodium 145 mmol/L (136-145)
--- NOTE | 2025-06-21 16:23 | DVHINCON2 ---
Date of service: Jun 21, 2025 Referring Physician Thad Reason for Consultation urinary retention History of Present Illness 65 yo with dementia admitted with urinary retention,silva in place currently;underwent prostate biopsy per Dr Jenkins 04/24 which is positive for cancer pt also with indwelling left ureteral stent, multiple stone fragments s/p eswl pt has bilateral hydroureteronephrosis as per CT; metastatic prostate ca Past Medical History reviewed Past Surgical History reviewed Family History: FH: liver cancer G8 FATHER FH: stomach cancer G8 MOTHER Allergies: Coded Allergies: NO KNOWN ALLERGIES (Unverified , 01/19/25) Home Meds Active Scripts Pantoprazole Sodium Sesquihydr (Pantoprazole Sodium) 40 Mg Tab, 40 MG PO DAILY@0600 for 30 Days, #30 TAB Prov:ISRAEL ECHEVERRIA 04/17/25 Ergocalciferol (VITAMIN D 37224 UNIT) 50,000 [place], [address] UNIT PO Q7D for 30 Days, #4 CAP Prov:ISRAEL ECHEVERRIA 04/17/25 Acetaminophen (Acetaminophen) 325 Mg Tab, 650 MG PO Q6HP PRN for 5 Days, #40 TAB Prov:ISRAEL ECHEVERRIA 04/17/25 Current Medications Current Medications Medications (Trade) Dose Ordered Sig/Murali Route PRN Reason Start Time Stop Time Status Last Admin Pantoprazole Sodium (Protonix) 40 mg DAILY IV 06/21/25 10:00 06/21/25 09:53 Review of Systems reviewed Vital Signs Vital Signs Date Time Temp Pulse Resp B/P (MAP) Pulse Ox O2 Delivery O2 Flow Rate FiO2 06/21/25 09:00 100 18 113/71 (85) 06/21/25 08:00 Room Air* 0 21 06/21/25 05:00 97.8 98 97.8 Physical Exam silva in place Labs/Diagnostic Data Labs Test 06/21/25 15:20 06/20/25 02:21 06/20/25 00:07 06/20/25 00:01 Range/Units White Blood Count 9.5 4.4-10.8 10^3/uL Red Blood Count 4.12 L 4.5-5.90 10^6/uL Hemoglobin 10.9 L 13.5-17.5 g/dL Hematocrit 33.2 L 41.0-53.0 % Mean Corpuscular Volume 80.7 80.0-100.0 fL Mean Corpuscular Hemoglobin 26.6 L 28.0-32.0 pg Mean Corpuscular Hemoglobin Concent 32.9 32.0-36.0 g/dL Red Cell Distribution Width 15.4 H 11.8-14.3 % Platelet Count 352 140-450 10^3/uL Mean Platelet Volume 7.5 6.9-10.8 fL Neutrophils (%) (Auto) 67.3 37.0-80.0 % Lymphocytes (%) (Auto) 21.3 10.0-50.0 % Monocytes (%) (Auto) 7.7 0.0-12.0 % Eosinophils (%) (Auto) 3.3 0.0-7.0 % Basophils (%) (Auto) 0.4 0.0-2.0 % Neutrophils # (Auto) 6.4 1.6-8.6 10 ^3/uL Lymphocytes # (Auto) 2.0 0.4-5.4 10 ^3/uL Monocytes # (Auto) 0.7 0-1.3 10 ^3/uL Eosinophils # (Auto) 0.3 0-0.8 10 ^3/uL Basophils # (Auto) 0 0-0.2 10 ^3/uL Nucleated Red Blood Cells 0.2 % Sodium Level 145 # 136-145 mmol/L Potassium Level 3.1 L 3.5-5.1 mmol/L Chloride Level 109 H 98-107 mmol/L Carbon Dioxide Level 26 20-31 mmol/L Anion Gap 10 5-15 Blood Urea Nitrogen 37 H 9-23 mg/dL Creatinine 1.62 H 0.700-1.30 mg/dL Glomerular Filtration Rate Calc 46 >90 mL/min BUN/Creatinine Ratio 22.8 H 10.0-20.0 Serum Glucose 156 H 74-106 mg/dL Calcium Level 8.7 8.7-10.4 mg/dL Magnesium Level 1.7 1.6-2.6 mg/dL Total Bilirubin 0.6 0.2-1.0 mg/dL Aspartate Amino Transferase (AST) 13 13-40 U/L Alanine Aminotransferase (ALT) < 9 7-40 U/L Alkaline Phosphatase 70 46-116 U/L Total Protein 6.0 5.7-8.2 g/dL Albumin 3.1 L 3.2-4.8 g/dL Troponin I High Sensitivity 61 *H </=54 ng/L Lactic Acid Level 1.3 0.4-2.0 mmol/L B-Type Natriuretic Peptide 215.11 0-100 pg/mL Test 06/20/25 00:00 06/19/25 22:35 06/19/25 21:23 Range/Units Urine Color Dark-brown Yellow Urine Clarity Ex.turbid Clear Urine pH 6.0 5.0-9.0 Urine Specific [place] 1.019 1.001-1.035 Urine Protein 2+ H Negative Urine Ketones Negative Negative Urine Blood 2+ H Negative /uL Urine Nitrite Negative Negative Urine Bilirubin Negative Negative Urine Urobilinogen Normal Negative mg/dL Urine Leukocyte Esterase 3+ Negative /uL Urine RBC 600 0 - 3 /hpf Urine Microscopic WBC 3603 H 0-3 /HPF Urine Squamous Epithelial Cells None seen <5 /hpf Urine Bacteria Mod H None Seen /hpf Urine Mucus Few None Seen Urine Yeast (Budding) Occasional None Seen /hpf Urine Glucose Normal Normal mg/dL Prothrombin Time 11.2 9.3-11.8 sec Prothrombin Time INR 1.06 0.9-1.15 Activated Partial Thromboplast Time 27.0 24.5-34.5 SEC Lipase 38 12-53 U/L Microbiology Date/Time Source Procedure Growth Status 06/20/25 05:50 Nose MRSA Screen - Final Complete 06/20/25 00:00 Urine - [place] Urine Culture - Preliminary Resulted Assessment as above urinary retention ,s/p left eswl and stent Plan/Recommendation cont silva Plan discussed with: Other (primary nurse) KARLY ANN MD Jun 21, 2025 16:22
[2025-06-21] MEDS: POTASSIUM CHL 20MEQ/100ML 100 ML IV ONE (21:02)
[2025-06-22 08:00] VITALS: PULSE 73
[2025-06-22 09:00] VITALS: BP 91/58; PULSE 71; RESP 18; TEMP 98.3; O2SAT 96
--- NOTE | 2025-06-22 10:33 | DVHPN2 ---
Progress Note Date Seen: Jun 22, 2025 Medical Necessity Reason Pt with a Central, PICC or Fol: Yes The following are medically ne: Maldonado Catheter Subjective Patient reports: No new complaints Other Systems: Patient seen and examined by myself today in follow-up Objective vital signs Vital Sign Date Time Temp Pulse Resp B/P (MAP) Pulse Ox O2 Delivery O2 Flow Rate FiO2 06/22/25 08:00 73 06/22/25 07:38 Room Air* 0 21 06/21/25 21:10 97.9 20 95/62 (73) 97 97.9 Total Intake and Output 06/21/25 06/21/25 06/22/25 15:00 23:00 07:00 Intake Total 1250 ml 100 ml Output Total 150 ml Balance 1100 ml 100 ml medications Current Medications Medications Dose Ordered Sig/Murali Route Start Time Stop Time Status Last Admin Dose Admin Labetalol HCl 5 mg Q2HPRN PRN IV 06/19/25 23:15 Ondansetron HCl 4 mg Q4HP PRN IV 06/19/25 23:15 Docusate Sodium 100 mg BIDPRN PRN PO 06/19/25 23:15 Acetaminophen 650 mg Q6HP PRN PO 06/19/25 23:15 Nitroglycerin 0.4 mg Q5MINP PRN SL 06/19/25 23:45 Morphine Sulfate 2 mg Q30M PRN IV 06/19/25 23:45 Aspirin 81 mg DAILY PO 06/20/25 10:00 06/20/25 09:24 81 MG Dextrose 1,000 ml @ 125 mls/hr Q8H IV 06/20/25 09:45 06/22/25 10:07 125 MLS/HR Pantoprazole Sodium 40 mg DAILY IV 06/21/25 10:00 06/22/25 08:51 40 MG Examination: LUNGS:Normal, CVS:Normal, MSK:Normal laboratory and microbiology Laboratory Tests 06/21/25 15:20 Test 06/22/25 10:06 Range/Units Serum Glucose Pending Microbiology Date/Time Source Procedure Growth Status 06/20/25 05:50 Nose MRSA Screen - Final Complete 06/20/25 00:00 Urine - [place] Urine Culture - Preliminary Resulted Problem List/Assessment/Plan Problem List/Assessment/Plan Acute kidney injury superimposed Chronic Kidney Disease secondary to urinary obstruction Bilateral hydronephrosis Right nephrostomy tube Sepsis secondary to ESBL urine Metastatic prostate cancer Altered mental state Protein calorie malnutrition Hypokalemia Recommendations Kidney function is improving Increased urine output Strict I&Os IV antibiotics KCL replacement We will continue to follow Plan discussed with: Patient Dietary Evaluation Review Comments: 1) Initiate Ensure Enlive tid 2) Encourage optimal PO intake 3) Follow-up with gastroenterology, oncology, and cardiology 4) Continue to monitor I&O, labs, and skin integrity Expected Outcomes/Goals: 1) appetite and labs to improve 2) gradual wt gain 3) f/u in 3-5 days BRANDON PERERA MD Jun 22, 2025 10:33
[2025-06-22 10:37] LABS: Chloride 104 mmol/L (98-107); Sodium 139 mmol/L (136-145)
[2025-06-22 10:38] LABS: Anion Gap 9 (5-15); Carbon Dioxide 26 mmol/L (20-31)
[2025-06-22 10:43] LABS: BUN/Creatinine Ratio 12.6 (10.0-20.0); Blood Urea Nitrogen 17 mg/dL (9-23)
[2025-06-22 10:47] LABS: Calcium 8.1 mg/dL (8.7-10.4); Glucose 147 mg/dL (74-106); Potassium 3.1 mmol/L (3.5-5.1)
--- NOTE | 2025-06-22 11:09 | DVHPN2 ---
Subjective Still confused and lethargic Potassium is 3.1 Creatinine is better at 1.3 Sodium is better at 139 Changes from previous H/P or p: Changes Eyes: No Pain, No Vision change, No Conjunctivae inflammation, No Eyelid inflammation, No Other, No Redness ENT: No Ear pain, No Ear discharge, No Nose pain, No Nose discharge, No Nose congestion, No Mouth pain, No Mouth swelling, No Throat pain, No Throat swelling, No Other Cardiovascular: No Chest Pain, No Palpitations, No Orthopnea, No Paroxysmal Noc. Dyspnea, No Edema, No Lt Headedness, No Other Respiratory: No Cough, No Dry, No Shortness of breath, No SOB with excertion, No Wheezing, No Hemoptysis, No Pleuritic Pain, No Sputum, No Other Gastrointestinal: Nausea, Vomiting; No Abdominal Pain, No Diarrhea, No Constipation, No Melena, No Hematochezia; Other (Coffee-ground emesis) Genitourinary: No Dysuria, No Frequency, No Incontinence, No Hematuria, No Retention, No Other Musculoskeletal: No other, No neck pain, No shoulder pain, No arm pain, No back pain, No hand pain, No leg pain, No foot pain Skin: No Rash, No Lesions, No Jaundice, No Bruising, No Other Objective Vitals Vital Signs Date Time Temp Pulse Resp B/P (MAP) Pulse Ox O2 Delivery O2 Flow Rate FiO2 06/22/25 08:00 73 06/22/25 07:38 Room Air* 0 21 06/21/25 21:10 97.9 20 95/62 (73) 97 97.9 Intake/Output Intake and Output 06/22/25 07:00 Intake Total 1350 ml Output Total 150 ml Balance 1200 ml Intake Oral 0 ml IV Total 1350 ml Output Urine Total 150 ml General Appearance: Alert Lungs: Clear to auscultation, Normal air movement Cardiovascular: Regular rate, Normal S1 Abdomen: Normal bowel sounds, Soft, No tenderness Extremities: No edema Medications Current Medications Medications Dose Ordered Sig/Murali Route Start Time Stop Time Status Last Admin Dose Admin Labetalol HCl 5 mg Q2HPRN PRN IV 06/19/25 23:15 Ondansetron HCl 4 mg Q4HP PRN IV 06/19/25 23:15 Docusate Sodium 100 mg BIDPRN PRN PO 06/19/25 23:15 Acetaminophen 650 mg Q6HP PRN PO 06/19/25 23:15 Nitroglycerin 0.4 mg Q5MINP PRN SL 06/19/25 23:45 Morphine Sulfate 2 mg Q30M PRN IV 06/19/25 23:45 Aspirin 81 mg DAILY PO 06/20/25 10:00 06/20/25 09:24 81 MG Dextrose 1,000 ml @ 125 mls/hr Q8H IV 06/20/25 09:45 06/22/25 10:07 125 MLS/HR Pantoprazole Sodium 40 mg DAILY IV 06/21/25 10:00 06/22/25 08:51 40 MG Laboratory Results Laboratory Tests 06/21/25 15:20 06/22/25 10:06 Chemistry Test 06/21/25 15:20 06/22/25 10:06 Albumin 3.1 g/dL (3.2-4.8) L Calcium Level 8.7 mg/dL (8.7-10.4) 8.1 mg/dL (8.7-10.4) L Magnesium Level 1.7 mg/dL (1.6-2.6) Total Protein 6.0 g/dL (5.7-8.2) LFT Test 06/21/25 15:20 Alanine Aminotransferase (ALT) < 9 U/L (7-40) Alkaline Phosphatase 70 U/L (46-116) Aspartate Amino Transferase (AST) 13 U/L (13-40) Total Bilirubin 0.6 mg/dL (0.2-1.0) Urinalysis Test 06/20/25 00:00 Urine Color Dark-brown (Yellow) Urine Clarity Ex.turbid (Clear) Urine pH 6.0 (5.0-9.0) Urine Specific [place] 1.019 (1.001-1.035) Urine Protein 2+ (Negative) H Urine Ketones Negative (Negative) Urine Blood 2+ /uL (Negative) H Urine Nitrite Negative (Negative) Urine Bilirubin Negative (Negative) Urine Urobilinogen Normal mg/dL (Negative) Urine Leukocyte Esterase 3+ /uL (Negative) Urine RBC 600 /hpf (0 - 3) Urine Microscopic WBC 3603 /HPF (0-3) H Urine Squamous Epithelial Cells None seen /hpf (<5) Urine Bacteria Mod /hpf (None Seen) H Urine Mucus Few (None Seen) Urine Yeast (Budding) Occasional /hpf (None Urine Glucose Normal mg/dL (Normal) Microbiology Microbiology Date/Time Source Procedure Growth Status 06/20/25 05:50 Nose MRSA Screen - Final Complete 06/20/25 00:00 Urine - [place] [place] Urine Culture - Preliminary Resulted Assessment/Plan Assessment/Plan Metabolic encephalopathy Acute urinary retention h/o UTI ESBL KETTY due to VMN GERD Recurrent UTIs Dementia HTN h/o HFpEF NSTEMI type 2 Hypernatremia Constipation PLAN: Rule out UTI UA Urine culture IV fluids: D5W Maldonado Sitter at the bedside Protonix Fleet enema Colace Zosyn IV Full code Called family ( Sons), no answer 06/21/2025: KETTY: Continue IV fluids Hypernatremia Metabolic encephalopathy Nephrology consult Monitor closely 06/22/2025: Hypernatremia: Improved Acute kidney injury superimposed on chronic kidney disease secondary to urinary obstruction Bilateral hydronephrosis and urinary obstruction Sepsis due to ESBL UTI Metastatic prostate cancer Protein calorie malnutrition Hypokalemia Constipation Continue IV fluids D5W Zosyn Plan discussed with: Patient Date of Service: Jun 22, 2025 Billing Provider: LANDON MARIE MD Common Visit Codes: [id number] INP/OBS CARE(HIGH) LANDON MARIE MD Jun 22, 2025 11:09
[2025-06-22] MEDS: POTASSIUM EFFERVESENT TAB 25 MEQ PO ONE (12:46)
[2025-06-22 13:00] VITALS: BP 102/68; PULSE 75; RESP 18; TEMP 98.2; O2SAT 97
[2025-06-22] MEDS: PIPERACILLIN-TAZOB 3.375GM 100 ML IV SCH (14:19)
[2025-06-22] MEDS: ACETAMINOPHEN 325 MG TAB PO PRN (16:13)
[2025-06-22 17:00] VITALS: BP 103/69; PULSE 79; RESP 17; TEMP 98.2; O2SAT 99
[2025-06-22 20:00] VITALS: PULSE 90
[2025-06-22 21:04] VITALS: BP 91/61; PULSE 86; RESP 18; TEMP 98.2; O2SAT 98
[2025-06-23] VITALS (7 sets, daily range): BP systolic 91–111; BP diastolic 52–71; PULSE 82–95; RESP 17–20; TEMP 97.4–98.2; O2SAT 96–100
--- NOTE | 2025-06-23 09:35 | DVHPN2 ---
Subjective More alert and oriented today He is actually speaking and he knows he is in the hospital He is not cooperating with care however Changes from previous H/P or p: Changes Eyes: No Pain, No Vision change, No Conjunctivae inflammation, No Eyelid inflammation, No Other, No Redness ENT: No Ear pain, No Ear discharge, No Nose pain, No Nose discharge, No Nose congestion, No Mouth pain, No Mouth swelling, No Throat pain, No Throat swelling, No Other Cardiovascular: No Chest Pain, No Palpitations, No Orthopnea, No Paroxysmal Noc. Dyspnea, No Edema, No Lt Headedness, No Other Respiratory: No Cough, No Dry, No Shortness of breath, No SOB with excertion, No Wheezing, No Hemoptysis, No Pleuritic Pain, No Sputum, No Other Gastrointestinal: Nausea, Vomiting; No Abdominal Pain, No Diarrhea, No Constipation, No Melena, No Hematochezia; Other (Coffee-ground emesis) Genitourinary: No Dysuria, No Frequency, No Incontinence, No Hematuria, No Retention, No Other Musculoskeletal: No other, No neck pain, No shoulder pain, No arm pain, No back pain, No hand pain, No leg pain, No foot pain Skin: No Rash, No Lesions, No Jaundice, No Bruising, No Other Objective Vitals Vital Signs Date Time Temp Pulse Resp B/P (MAP) Pulse Ox O2 Delivery O2 Flow Rate FiO2 06/23/25 05:47 98.2 89 18 103/61 (75) 97 98.2 06/22/25 19:32 Room Air* 0 21 Intake/Output Intake and Output 06/23/25 07:00 Intake Total 1525 ml Output Total 1645 ml Balance -120 ml Intake Oral 200 ml IV Total 1325 ml Output Urine Total 1645 ml # Bowel Movements 6 General Appearance: Alert Lungs: Clear to auscultation, Normal air movement Cardiovascular: Regular rate, Normal S1 Abdomen: Normal bowel sounds, Soft, No tenderness Extremities: No edema Medications Current Medications Medications Dose Ordered Sig/Murali Route Start Time Stop Time Status Last Admin Dose Admin Labetalol HCl 5 mg Q2HPRN PRN IV 06/19/25 23:15 Ondansetron HCl 4 mg Q4HP PRN IV 06/19/25 23:15 Docusate Sodium 100 mg BIDPRN PRN PO 06/19/25 23:15 Acetaminophen 650 mg Q6HP PRN PO 06/19/25 23:15 06/22/25 16:13 650 MG Nitroglycerin 0.4 mg Q5MINP PRN SL 06/19/25 23:45 Morphine Sulfate 2 mg Q30M PRN IV 06/19/25 23:45 Aspirin 81 mg DAILY PO 06/20/25 10:00 06/20/25 09:24 81 MG Dextrose 1,000 ml @ 125 mls/hr Q8H IV 06/20/25 09:45 06/23/25 01:39 125 MLS/HR Pantoprazole Sodium 40 mg DAILY IV 06/21/25 10:00 06/22/25 08:51 40 MG Piperacillin Sod/ Tazobactam Sod 100 ml @ 25 mls/hr Q8HR IV 06/22/25 14:00 06/23/25 06:29 25 MLS/HR Laboratory Results Laboratory Tests 06/21/25 15:20 06/22/25 10:06 Chemistry Test 06/22/25 10:06 Calcium Level 8.1 mg/dL (8.7-10.4) L Urinalysis Test 06/20/25 00:00 Urine Color Dark-brown (Yellow) Urine Clarity Ex.turbid (Clear) Urine pH 6.0 (5.0-9.0) Urine Specific [place] 1.019 (1.001-1.035) Urine Protein 2+ (Negative) H Urine Ketones Negative (Negative) Urine Blood 2+ /uL (Negative) H Urine Nitrite Negative (Negative) Urine Bilirubin Negative (Negative) Urine Urobilinogen Normal mg/dL (Negative) Urine Leukocyte Esterase 3+ /uL (Negative) Urine RBC 600 /hpf (0 - 3) Urine Microscopic WBC 3603 /HPF (0-3) H Urine Squamous Epithelial Cells None seen /hpf (<5) Urine Bacteria Mod /hpf (None Seen) H Urine Mucus Few (None Seen) Urine Yeast (Budding) Occasional /hpf (None Urine Glucose Normal mg/dL (Normal) Microbiology Microbiology Date/Time Source Procedure Growth Status 06/20/25 05:50 Nose MRSA Screen - Final Complete 06/20/25 00:00 Urine - [place] Urine Culture - Preliminary Resulted Assessment/Plan Assessment/Plan Metabolic encephalopathy Acute urinary retention h/o UTI ESBL KETTY due to VMN GERD Recurrent UTIs Dementia HTN h/o HFpEF NSTEMI type 2 Hypernatremia Constipation PLAN: Rule out UTI UA Urine culture IV fluids: D5W Maldonado Sitter at the bedside Protonix Fleet enema Colace Zosyn IV Full code Called family ( Sons), no answer 06/21/2025: KETTY: Continue IV fluids Hypernatremia Metabolic encephalopathy Nephrology consult Monitor closely 06/22/2025: Hypernatremia: Improved Acute kidney injury superimposed on chronic kidney disease secondary to urinary obstruction Bilateral hydronephrosis and urinary obstruction Sepsis due to ESBL UTI Metastatic prostate cancer Protein calorie malnutrition Hypokalemia Constipation Continue IV fluids D5W Zosyn 06/23/2025: Hypernatremia: Improving continue IV fluids Hypokalemia check the potassium again today Acute kidney injury: Improving with IV fluids Metabolic encephalopathy is also improving with hydration Continue IV fluids Continue IV antibiotics Physical therapy evaluation Plan discussed with: Patient My Orders Orders - LANDON MARIE MD Procedure Category Date Status Time Piperacillin-Tazob PHA 06/22/25 In Process 3.375gm (Zosyn 3.375g 14:00 Comprehensive LAB 06/23/25 Logged Metabolic Panel 04:00 Complete Blood Count LAB 06/23/25 Logged 04:00 Magnesium LAB 06/23/25 Logged 04:00 Pt Request For Service PT 06/22/25 Logged 11:10 Date of Service: Jun 23, 2025 Billing Provider: LANDON MARIE MD Common Visit Codes: [id number] INP/OBS CARE(HIGH) LANDON MARIE MD Jun 23, 2025 09:35
--- NOTE | 2025-06-23 10:14 | DVHPN2 ---
Progress Note Date Seen: Jun 23, 2025 Medical Necessity Reason Pt with a Central, PICC or Fol: Yes The following are medically ne: Maldonado Catheter Subjective Patient reports: No new complaints Other Systems: Patient seen and examined by myself today in follow-up Objective vital signs Vital Sign Date Time Temp Pulse Resp B/P (MAP) Pulse Ox O2 Delivery O2 Flow Rate FiO2 06/23/25 05:47 98.2 89 18 103/61 (75) 97 98.2 06/22/25 19:32 Room Air* 0 21 Total Intake and Output 06/22/25 06/22/25 06/23/25 14:59 22:59 06:59 Intake Total 1425 ml 100 ml Output Total 995 ml 650 ml Balance 430 ml -550 ml medications Current Medications Medications Dose Ordered Sig/Murali Route Start Time Stop Time Status Last Admin Dose Admin Labetalol HCl 5 mg Q2HPRN PRN IV 06/19/25 23:15 Ondansetron HCl 4 mg Q4HP PRN IV 06/19/25 23:15 Docusate Sodium 100 mg BIDPRN PRN PO 06/19/25 23:15 Acetaminophen 650 mg Q6HP PRN PO 06/19/25 23:15 06/22/25 16:13 650 MG Nitroglycerin 0.4 mg Q5MINP PRN SL 06/19/25 23:45 Morphine Sulfate 2 mg Q30M PRN IV 06/19/25 23:45 Aspirin 81 mg DAILY PO 06/20/25 10:00 06/20/25 09:24 81 MG Dextrose 1,000 ml @ 125 mls/hr Q8H IV 06/20/25 09:45 06/23/25 01:39 125 MLS/HR Pantoprazole Sodium 40 mg DAILY IV 06/21/25 10:00 06/22/25 08:51 40 MG Piperacillin Sod/ Tazobactam Sod 100 ml @ 25 mls/hr Q8HR IV 06/22/25 14:00 06/23/25 06:29 25 MLS/HR Examination: LUNGS:Normal, CVS:Normal, MSK:Normal laboratory and microbiology Laboratory Tests 06/22/25 10:06 06/21/25 15:20 Test 06/22/25 10:06 Range/Units Serum Glucose 147 H 74-106 mg/dL Microbiology Date/Time Source Procedure Growth Status 06/20/25 05:50 Nose MRSA Screen - Final Complete 06/20/25 00:00 Urine - [place] Urine Culture - Preliminary Resulted Problem List/Assessment/Plan Problem List/Assessment/Plan Acute kidney injury superimposed Chronic Kidney Disease secondary to urinary obstruction Bilateral hydronephrosis Right nephrostomy tube Sepsis secondary to ESBL urine Metastatic prostate cancer Altered mental state Protein calorie malnutrition Hypernatremia due to dehydration Hypokalemia Recommendations Kidney function is improving Increased urine output Hypernatremia appropriately resolving Strict I&Os IV antibiotics KCL replacement We will continue to follow Plan discussed with: Patient Dietary Evaluation Review Comments: 1) Initiate Ensure Enlive tid 2) Encourage optimal PO intake 3) Follow-up with gastroenterology, oncology, and cardiology 4) Continue to monitor I&O, labs, and skin integrity Expected Outcomes/Goals: 1) appetite and labs to improve 2) gradual wt gain 3) f/u in 3-5 days BRANDON PERERA MD Jun 23, 2025 10:14
[2025-06-23 13:37] LABS: Hematocrit 30.6 % (41.0-53.0); Hemoglobin 10.2 g/dL (13.5-17.5); Mean Corpuscular Hemoglobin 26.3 pg (28.0-32.0); Mean Corpuscular Volume 79.2 fL (80.0-100.0); Nucleated Red Blood Cells % 0.0 %
[2025-06-23 13:57] LABS: Alkaline Phosphatase 68 U/L (46-116); Anion Gap 11 (5-15); BUN/Creatinine Ratio 10.1 (10.0-20.0); Blood Urea Nitrogen 18 mg/dL (9-23); Carbon Dioxide 25 mmol/L (20-31); Chloride 103 mmol/L (98-107); Magnesium 1.6 mg/dL (1.6-2.6); Sodium 139 mmol/L (136-145)
[2025-06-23 13:58] LABS: Alanine Aminotransferase < 9 U/L (7-40); Albumin 2.8 g/dL (3.2-4.8); Bilirubin, Total 0.6 mg/dL (0.2-1.0); Calcium 8.0 mg/dL (8.7-10.4); Glucose 151 mg/dL (74-106); Potassium 3.4 mmol/L (3.5-5.1); Total Protein 5.5 g/dL (5.7-8.2)
[2025-06-24] VITALS (8 sets, daily range): BP systolic 89–120; BP diastolic 47–64; PULSE 76–91; RESP 15–18; TEMP 97–98.2; O2SAT 98–99
[2025-06-24 07:04] LABS: Hematocrit 31.2 % (41.0-53.0); Hemoglobin 10.3 g/dL (13.5-17.5); Mean Corpuscular Hemoglobin 26.4 pg (28.0-32.0); Mean Corpuscular Volume 80.2 fL (80.0-100.0); Nucleated Red Blood Cells % 0.1 %
[2025-06-24 07:22] LABS: Alkaline Phosphatase 68 U/L (46-116); Carbon Dioxide 25 mmol/L (20-31); Chloride 103 mmol/L (98-107); Glucose 95 mg/dL (74-106); Magnesium 1.7 mg/dL (1.6-2.6); Sodium 139 mmol/L (136-145)
[2025-06-24 07:23] LABS: Anion Gap 11 (5-15); BUN/Creatinine Ratio 7.9 (10.0-20.0); Blood Urea Nitrogen 15 mg/dL (9-23); Total Protein 5.8 g/dL (5.7-8.2)
[2025-06-24 07:24] LABS: Bilirubin, Total 0.5 mg/dL (0.2-1.0)
[2025-06-24 07:28] LABS: Alanine Aminotransferase < 9 U/L (7-40); Albumin 2.9 g/dL (3.2-4.8); Calcium 8.1 mg/dL (8.7-10.4); Potassium 3.1 mmol/L (3.5-5.1)
--- NOTE | 2025-06-24 10:37 | DVHPN2 ---
Subjective More alert and oriented Weak Changes from previous H/P or p: Changes Eyes: No Pain, No Vision change, No Conjunctivae inflammation, No Eyelid inflammation, No Other, No Redness ENT: No Ear pain, No Ear discharge, No Nose pain, No Nose discharge, No Nose congestion, No Mouth pain, No Mouth swelling, No Throat pain, No Throat swelling, No Other Cardiovascular: No Chest Pain, No Palpitations, No Orthopnea, No Paroxysmal Noc. Dyspnea, No Edema, No Lt Headedness, No Other Respiratory: No Cough, No Dry, No Shortness of breath, No SOB with excertion, No Wheezing, No Hemoptysis, No Pleuritic Pain, No Sputum, No Other Gastrointestinal: Nausea, Vomiting; No Abdominal Pain, No Diarrhea, No Constipation, No Melena, No Hematochezia; Other (Coffee-ground emesis) Genitourinary: No Dysuria, No Frequency, No Incontinence, No Hematuria, No Retention, No Other Musculoskeletal: No other, No neck pain, No shoulder pain, No arm pain, No back pain, No hand pain, No leg pain, No foot pain Skin: No Rash, No Lesions, No Jaundice, No Bruising, No Other Objective Vitals Vital Signs Date Time Temp Pulse Resp B/P (MAP) Pulse Ox O2 Delivery O2 Flow Rate FiO2 06/24/25 05:00 98.0 79 18 120/60 (80) 98 98.0 06/23/25 20:20 Room Air* 0 21 Intake/Output Intake and Output 06/24/25 07:00 Intake Total 661 ml Output Total 1100 ml Balance -439 ml Intake Oral 261 ml IV Total 400 ml Output Urine Total 1100 ml # Bowel Movements 10 General Appearance: Alert Lungs: Clear to auscultation, Normal air movement Cardiovascular: Regular rate, Normal S1 Abdomen: Normal bowel sounds, Soft, No tenderness Extremities: No edema Medications Current Medications Medications Dose Ordered Sig/Murali Route Start Time Stop Time Status Last Admin Dose Admin Labetalol HCl 5 mg Q2HPRN PRN IV 06/19/25 23:15 Ondansetron HCl 4 mg Q4HP PRN IV 06/19/25 23:15 Docusate Sodium 100 mg BIDPRN PRN PO 06/19/25 23:15 Acetaminophen 650 mg Q6HP PRN PO 06/19/25 23:15 06/23/25 18:03 650 MG Nitroglycerin 0.4 mg Q5MINP PRN SL 06/19/25 23:45 Morphine Sulfate 2 mg Q30M PRN IV 06/19/25 23:45 Aspirin 81 mg DAILY PO 06/20/25 10:00 06/24/25 09:51 81 MG Dextrose 1,000 ml @ 125 mls/hr Q8H IV 06/20/25 09:45 06/24/25 09:55 125 MLS/HR Pantoprazole Sodium 40 mg DAILY IV 06/21/25 10:00 06/24/25 09:50 40 MG Piperacillin Sod/ Tazobactam Sod 100 ml @ 25 mls/hr Q8HR IV 06/22/25 14:00 06/24/25 05:54 25 MLS/HR Magnesium Oxide 400 mg BID PO 06/24/25 22:00 Laboratory Results Laboratory Tests 06/24/25 06:20 Chemistry Test 06/23/25 13:03 06/24/25 06:20 Albumin 2.8 g/dL (3.2-4.8) L 2.9 g/dL (3.2-4.8) L Calcium Level 8.0 mg/dL (8.7-10.4) L 8.1 mg/dL (8.7-10.4) L Magnesium Level 1.6 mg/dL (1.6-2.6) 1.7 mg/dL (1.6-2.6) Total Protein 5.5 g/dL (5.7-8.2) L 5.8 g/dL (5.7-8.2) LFT Test 06/23/25 13:03 06/24/25 06:20 Alanine Aminotransferase (ALT) < 9 U/L (7-40) < 9 U/L (7-40) Alkaline Phosphatase 68 U/L (46-116) 68 U/L (46-116) Aspartate Amino Transferase (AST) 15 U/L (13-40) 13 U/L (13-40) Total Bilirubin 0.6 mg/dL (0.2-1.0) 0.5 mg/dL (0.2-1.0) Urinalysis Test 06/20/25 00:00 Urine Color Dark-brown (Yellow) Urine Clarity Ex.turbid (Clear) Urine pH 6.0 (5.0-9.0) Urine Specific [place] 1.019 (1.001-1.035) Urine Protein 2+ (Negative) H Urine Ketones Negative (Negative) Urine Blood 2+ /uL (Negative) H Urine Nitrite Negative (Negative) Urine Bilirubin Negative (Negative) Urine Urobilinogen Normal mg/dL (Negative) Urine Leukocyte Esterase 3+ /uL (Negative) Urine RBC 600 /hpf (0 - 3) Urine Microscopic WBC 3603 /HPF (0-3) H Urine Squamous Epithelial Cells None seen /hpf (<5) Urine Bacteria Mod /hpf (None Seen) H Urine Mucus Few (None Seen) Urine Yeast (Budding) Occasional /hpf (None Urine Glucose Normal mg/dL (Normal) Microbiology Microbiology Date/Time Source Procedure Growth Status 06/20/25 05:50 Nose MRSA Screen - Final Complete 06/20/25 00:00 Urine - [place] Urine Culture - Final Yeast, not Sonam albicans Complete Assessment/Plan Assessment/Plan Metabolic encephalopathy Acute urinary retention h/o UTI ESBL KETTY due to VMN GERD Recurrent UTIs Dementia HTN h/o HFpEF NSTEMI type 2 Hypernatremia Constipation PLAN: Rule out UTI UA Urine culture IV fluids: D5W Maldonado Sitter at the bedside Protonix Fleet enema Colace Zosyn IV Full code Called family ( Sons), no answer 06/21/2025: KETTY: Continue IV fluids Hypernatremia Metabolic encephalopathy Nephrology consult Monitor closely 06/22/2025: Hypernatremia: Improved Acute kidney injury superimposed on chronic kidney disease secondary to urinary obstruction Bilateral hydronephrosis and urinary obstruction Sepsis due to ESBL UTI Metastatic prostate cancer Protein calorie malnutrition Hypokalemia Constipation Continue IV fluids D5W Zosyn 06/23/2025: Hypernatremia: Improving continue IV fluids Hypokalemia check the potassium again today Acute kidney injury: Improving with IV fluids Metabolic encephalopathy is also improving with hydration Continue IV fluids Continue IV antibiotics Physical therapy evaluation 06/24/25: Physical therapy Consult hospice Continue IV fluids Start Macrobid Discussed with son Aaron, he is agreeable to hospice but he said they cannot take care of him, they would like him to go to a board and longterm or a hospice facility Consult the social work administrator for hospice arrangements Plan discussed with: Patient My Orders Orders - LANDON MARIE MD Procedure Category Date Status Time Magnesium Oxide PHA 06/24/25 In Process Tablet (Mag-Ox Tablet) 22:00 Date of Service: Jun 24, 2025 Billing Provider: LANDON MARIE MD Common Visit Codes: [id number] INP/OBS CARE(HIGH) LANDON MARIE MD Jun 24, 2025 10:37
[2025-06-24] MEDS ORDERED: MICAFUNGIN SODIUM 100 MG in SODIUM CHL 0.9% 100 ML IV ONE (10:45)
[2025-06-24] MEDS: POTASSIUM CHL 20 Meq TABLET PO ONE (11:27)
--- NOTE | 2025-06-24 11:40 | DVHPN2 ---
Progress Note Date Seen: Jun 24, 2025 Medical Necessity Reason Pt with a Central, PICC or Fol: Yes The following are medically ne: Maldonado Catheter Subjective Patient reports: No new complaints Other Systems: Patient seen and examined by myself today in follow-up Objective vital signs Vital Sign Date Time Temp Pulse Resp B/P (MAP) Pulse Ox O2 Delivery O2 Flow Rate FiO2 06/24/25 05:00 98.0 79 18 120/60 (80) 98 98.0 06/23/25 20:20 Room Air* 0 21 Total Intake and Output 06/23/25 06/23/25 06/24/25 15:00 23:00 07:00 Intake Total 100 ml 343 ml 218 ml Output Total 600 ml 500 ml Balance 100 ml -257 ml -282 ml medications Current Medications Medications Dose Ordered Sig/Murali Route Start Time Stop Time Status Last Admin Dose Admin Labetalol HCl 5 mg Q2HPRN PRN IV 06/19/25 23:15 Ondansetron HCl 4 mg Q4HP PRN IV 06/19/25 23:15 Docusate Sodium 100 mg BIDPRN PRN PO 06/19/25 23:15 Acetaminophen 650 mg Q6HP PRN PO 06/19/25 23:15 06/23/25 18:03 650 MG Nitroglycerin 0.4 mg Q5MINP PRN SL 06/19/25 23:45 Morphine Sulfate 2 mg Q30M PRN IV 06/19/25 23:45 Aspirin 81 mg DAILY PO 06/20/25 10:00 06/24/25 09:51 81 MG Dextrose 1,000 ml @ 125 mls/hr Q8H IV 06/20/25 09:45 06/24/25 09:55 125 MLS/HR Pantoprazole Sodium 40 mg DAILY IV 06/21/25 10:00 06/24/25 09:50 40 MG Magnesium Oxide 400 mg BID PO 06/24/25 22:00 Nitrofurantoin Macrocrystals 100 mg BID PO 06/24/25 22:00 Examination: LUNGS:Normal, CVS:Normal, MSK:Normal laboratory and microbiology Laboratory Tests 06/24/25 06:20 Test 06/24/25 06:20 Range/Units Serum Glucose 95 74-106 mg/dL Microbiology Date/Time Source Procedure Growth Status 06/20/25 05:50 Nose MRSA Screen - Final Complete 06/20/25 00:00 Urine - [place] Urine Culture - Final Yeast, not Sonam albicans Complete Problem List/Assessment/Plan Problem List/Assessment/Plan Acute kidney injury superimposed Chronic Kidney Disease secondary to urinary obstruction Bilateral hydronephrosis Right nephrostomy tube Sepsis secondary to ESBL urine Metastatic prostate cancer Altered mental state Protein calorie malnutrition Hypernatremia due to dehydration Hypokalemia Hypomagnesemia Recommendations Kidney function slightly worsened today Increased urine output Hypernatremia appropriately resolving Strict I&Os Change IV to D5 half NS at 125 cc/hour IV antibiotics Magnesium sulfate IV piggyback KCL replacement We will continue to follow Plan discussed with: Patient My Orders My Orders Orders - BRANDON PERERA MD Procedure Category Date Status Time Urine Sodium LAB 06/24/25 Logged 11:32 Urine LAB 06/24/25 Logged Protein/Creatinine Urine Creatinine LAB 06/24/25 Logged 11:32 Urinalysis LAB 06/24/25 Logged 11:32 Phosphorus LAB 06/24/25 Logged 11:32 Parathyroid Hormone LAB 06/24/25 Logged Intact 11:32 Vitamin D, 25-Hydroxy LAB 06/24/25 Logged 11:32 Dietary Evaluation Review Comments: 1) Initiate Ensure Enlive tid 2) Encourage optimal PO intake 3) Follow-up with gastroenterology, oncology, and cardiology 4) Continue to monitor I&O, labs, and skin integrity Expected Outcomes/Goals: 1) appetite and labs to improve 2) gradual wt gain 3) f/u in 3-5 days BRANDON PERERA MD Jun 24, 2025 11:40
[2025-06-24] MEDS: MAGNESIUM SULFATE 1GM/100ML 100 ML IV SCH (13:08)
[2025-06-24 15:53] LABS: Urine Budding Yeast FEW /hpf (None Seen); Urine Protein, UAD TRACE (Negative)
[2025-06-24 15:57] LABS: Protein, Urine 31.1 mg/dL (1-14)
[2025-06-24] MEDS: D5W/SOD CHL 0.45% 1,000 ML IV SCH (17:29)
[2025-06-24] MEDS: MAGNESIUM OXIDE 400 MG TAB PO SCH (21:28)
[2025-06-25 05:00] VITALS: BP 120/70; PULSE 90; RESP 18; TEMP 97.1; O2SAT 100
[2025-06-25 06:00] LABS: Hematocrit 30.5 % (41.0-53.0); Hemoglobin 10.2 g/dL (13.5-17.5); Mean Corpuscular Hemoglobin 26.7 pg (28.0-32.0); Mean Corpuscular Volume 79.9 fL (80.0-100.0); Nucleated Red Blood Cells % 0.0 %
[2025-06-25 06:17] LABS: Alkaline Phosphatase 66 U/L (46-116); Anion Gap 10 (5-15); BUN/Creatinine Ratio 8.2 (10.0-20.0); Blood Urea Nitrogen 13 mg/dL (9-23); Carbon Dioxide 23 mmol/L (20-31); Chloride 106 mmol/L (98-107); Magnesium 2.0 mg/dL (1.6-2.6); Sodium 139 mmol/L (136-145)
[2025-06-25 06:18] LABS: Bilirubin, Total 0.3 mg/dL (0.2-1.0)
[2025-06-25 06:23] LABS: Alanine Aminotransferase < 9 U/L (7-40); Albumin 2.9 g/dL (3.2-4.8); Calcium 8.1 mg/dL (8.7-10.4); Glucose 117 mg/dL (74-106); Potassium 3.2 mmol/L (3.5-5.1); Total Protein 5.7 g/dL (5.7-8.2)
[2025-06-25 08:00] VITALS: PULSE 89; RESP 16; O2SAT 99
[2025-06-25 08:43] VITALS: BP 99/56; PULSE 89; RESP 16; TEMP 97.3; O2SAT 99
[2025-06-25] MEDS ORDERED: MICAFUNGIN SODIUM 100 MG in SODIUM CHL 0.9% 100 ML IV SCH (10:00)
[2025-06-25 12:36] VITALS: BP 87/53; PULSE 86; RESP 16; TEMP 97.9; O2SAT 100
--- NOTE | 2025-06-25 13:07 | DVHDS2 ---
Discharge Summary Date of Admission Jun 19, 2025 at 23:35 Date of Discharge: Jun 25, 2025 Labs/Diagnostic Data: Laboratory Results Test 06/25/25 05:40 06/24/25 15:35 06/24/25 12:44 06/24/25 06:20 White Blood Count 7.9 10^3/uL (4.4-10.8) Red Blood Count 3.81 10^6/uL (4.5-5.90) Hemoglobin 10.2 g/dL (13.5-17.5) Hematocrit 30.5 % (41.0-53.0) Mean Corpuscular Volume 79.9 fL (80.0-100.0) Mean Corpuscular Hemoglobin 26.7 pg (28.0-32.0) Mean Corpuscular Hemoglobin Concent 33.4 g/dL (32.0-36.0) Red Cell Distribution Width 15.0 % (11.8-14.3) Platelet Count 355 10^3/uL (140-450) Mean Platelet Volume 7.1 fL (6.9-10.8) Neutrophils (%) (Auto) 63.1 % (37.0-80.0) Lymphocytes (%) (Auto) 23.0 % (10.0-50.0) Monocytes (%) (Auto) 9.8 % (0.0-12.0) Eosinophils (%) (Auto) 3.7 % (0.0-7.0) Basophils (%) (Auto) 0.4 % (0.0-2.0) Neutrophils # (Auto) 5.0 10 ^3/uL (1.6-8.6) Lymphocytes # (Auto) 1.8 10 ^3/uL (0.4-5.4) Monocytes # (Auto) 0.8 10 ^3/uL (0-1.3) Eosinophils # (Auto) 0.3 10 ^3/uL (0-0.8) Basophils # (Auto) 0 10 ^3/uL (0-0.2) Nucleated Red Blood Cells 0.0 % Sodium Level 139 mmol/L (136-145) Potassium Level 3.2 mmol/L (3.5-5.1) Chloride Level 106 mmol/L (98-107) Carbon Dioxide Level 23 mmol/L (20-31) Anion Gap 10 (5-15) Blood Urea Nitrogen 13 mg/dL (9-23) Creatinine 1.58 mg/dL (0.700-1.30) Glomerular Filtration Rate Calc 48 mL/min (>90) BUN/Creatinine Ratio 8.2 (10.0-20.0) Serum Glucose 117 mg/dL (74-106) Calcium Level 8.1 mg/dL (8.7-10.4) Magnesium Level 2.0 mg/dL (1.6-2.6) Total Bilirubin 0.3 mg/dL (0.2-1.0) Aspartate Amino Transferase (AST) 15 U/L (13-40) Alanine Aminotransferase (ALT) < 9 U/L (7-40) Alkaline Phosphatase 66 U/L (46-116) Total Protein 5.7 g/dL (5.7-8.2) Albumin 2.9 g/dL (3.2-4.8) Urine Color Colorless (Yellow) Urine Clarity Turbid (Clear) Urine pH 5.5 (5.0-9.0) Urine Specific [place] 1.006 (1.001-1.035) Urine Protein Trace (Negative) Urine Ketones Negative (Negative) Urine Blood 2+ /uL (Negative) Urine Nitrite Negative (Negative) Urine Bilirubin Negative (Negative) Urine Urobilinogen Normal mg/dL (Negative) Urine Leukocyte Esterase 3+ /uL (Negative) Urine RBC 8 /hpf (0 - 3) Urine Microscopic WBC 89 /HPF (0-3) Urine Squamous Epithelial Cells Few /hpf (<5) Urine Bacteria Few /hpf (None Seen) Urine Yeast (Budding) Few /hpf (None Seen) Urine Creatinine 28.35 mg/dL (30.0-125.0) Urine Protein/Creatinine Ratio 1.10 Urine Sodium 23 mmol/L (40-220) Urine Glucose Normal mg/dL (Normal) Urine Total Protein 31.1 mg/dL (1-14) Vitamin D 25-Hydroxy 59.0 ng/mL (30.0-100) Phosphorus Level 4.3 mg/dL (2.4-5.1) Parathyroid Hormone (Intact) 52.0 pg/mL (18.4-80.1) Test 06/20/25 02:21 06/20/25 00:07 06/20/25 00:01 06/20/25 00:00 Troponin I High Sensitivity 61 ng/L (</=54) Lactic Acid Level 1.3 mmol/L (0.4-2.0) B-Type Natriuretic Peptide 215.11 pg/mL (0-100) Urine Mucus Few (None Seen) Test 06/19/25 22:35 06/19/25 21:23 Prothrombin Time 11.2 sec (9.3-11.8) Prothrombin Time INR 1.06 (0.9-1.15) Activated Partial Thromboplast Time 27.0 SEC (24.5-34.5) Lipase 38 U/L (12-53) Other Laboratory Tests 06/25/25 05:40 Brief Hx & Hospital Course: Final diagnoses: Metabolic encephalopathy Acute urinary retention h/o UTI ESBL KETTY due to VMN GERD Recurrent UTIs Dementia HTN h/o HFpEF NSTEMI type 2 Hypernatremia 65-year-old male was admitted for generalized weakness and metabolic encephalopathy and nausea and vomiting and urinary retention and constipation He has a history of UTI with ESBL previously He was started on IV antibiotics His sodium was high at 154 and therefore he was given D5W until his sodium improved With the treatment of his hypernatremia and UTI his mental status improved slowly and he regained alertness and became more oriented He is still confused hallucinating but he is able to walk and eat now Overall he remained very weak and very confused We discussed his plan of care with the his family He apparently lives in an apartment he rents a room by himself He has 2 sons in town who look after him but he for the most part he lives alone We also discussed his case with his primary care physician Dr. Flynn who knows him very well, even though he is improving now but this is recurrent and he has dementia and therefore his prognosis remains very poor and therefore we recommended hospice to the family and they agreed At this time we will put the patient on Macrobid and he should stay on 100 mg p.o. daily for UTI prophylaxis upon discharge however he is being discharged home on hospice Hospice and the social workers are assisting with the discharge planning because the family can not take care of him at their home and therefore he needs to be placed in a facility with hospice Condition at Discharge: Stable Final Diagnosis/Problems List Metabolic encephalopathy Acute urinary retention h/o UTI ESBL KETTY due to VMN GERD Recurrent UTIs Dementia HTN h/o HFpEF NSTEMI type 2 Hypernatremia Discharge Disposition: Hospice - Home SNF Discharge Will this Physician continue t: No Discharge Instruct/Medications Diet: See Comment Diet comment: Pureed Activity: No Restrictions, As Tolerated Follow Up/Referral: Hospice Medications: Macrobid 100 mg qd Scheduled Ergocalciferol (Vitamin D 11659 Unit), 50,000 UNIT PO Q7D Pantoprazole Sodium Sesquihydr (Pantoprazole Sodium), 40 MG PO DAILY@0600 Scheduled PRN Acetaminophen (Acetaminophen), 650 MG PO Q6HP PRN Discharge Statement: "Patient was advised to return to the ER or call 911 if any headaches, dizziness, shortness of breath, chest pain, abdominal pain, bleeding, fevers, or worsening of medical condition. Patient was counseled about treatment plan, medications, possible side effects, patientverbalized understanding. All questions were answered to the best of my ability. This discharge took greater then 30 minutes in planning, reviewing documentation, counseling the patient, and discussing with other team members." ASSESSMENT ASSESSMENT Assessment Metabolic encephalopathy Acute urinary retention h/o UTI ESBL KETTY due to VMN GERD Recurrent UTIs Dementia HTN h/o HFpEF NSTEMI type 2 Hypernatremia Date of Service: Jun 25, 2025 Billing Provider: LANDON MARIE MD Common Visit Codes: 79510-ZHE/[id number] DISCH DAY >30min LANDON MARIE MD Jun 25, 2025 13:07
--- NOTE | 2025-06-25 14:09 | DVHPN2 ---
Progress Note Date Seen: Jun 25, 2025 Medical Necessity Reason Pt with a Central, PICC or Fol: Yes The following are medically ne: Maldonado Catheter Subjective Patient reports: No new complaints Other Systems: Patient seen and examined by myself today in follow-up Objective vital signs Vital Sign Date Time Temp Pulse Resp B/P (MAP) Pulse Ox O2 Delivery O2 Flow Rate FiO2 06/25/25 12:36 97.9 86 16 87/53 (64) 100 97.9 06/25/25 08:00 Room Air* 0 21 Total Intake and Output 06/24/25 06/24/25 06/25/25 15:00 23:00 07:00 Intake Total 500 ml 400 ml Output Total 400 ml 850 ml Balance 100 ml -450 ml medications Current Medications Medications Dose Ordered Sig/Murali Route Start Time Stop Time Status Last Admin Dose Admin Labetalol HCl 5 mg Q2HPRN PRN IV 06/19/25 23:15 Ondansetron HCl 4 mg Q4HP PRN IV 06/19/25 23:15 Docusate Sodium 100 mg BIDPRN PRN PO 06/19/25 23:15 Acetaminophen 650 mg Q6HP PRN PO 06/19/25 23:15 06/25/25 08:58 650 MG Nitroglycerin 0.4 mg Q5MINP PRN SL 06/19/25 23:45 Morphine Sulfate 2 mg Q30M PRN IV 06/19/25 23:45 Aspirin 81 mg DAILY PO 06/20/25 10:00 06/25/25 08:58 81 MG Pantoprazole Sodium 40 mg DAILY IV 06/21/25 10:00 06/25/25 08:57 40 MG Magnesium Oxide 400 mg BID PO 06/24/25 22:00 06/25/25 08:58 400 MG Nitrofurantoin Macrocrystals 100 mg BID PO 06/24/25 22:00 06/25/25 08:58 100 MG Dextrose/Sodium Chloride 1,000 ml @ 125 mls/hr Q8H IV 06/24/25 11:45 06/25/25 10:42 125 MLS/HR Examination: LUNGS:Normal, CVS:Normal, MSK:Normal laboratory and microbiology Laboratory Tests 06/25/25 05:40 Test 06/25/25 05:40 Range/Units Serum Glucose 117 H 74-106 mg/dL Microbiology Date/Time Source Procedure Growth Status 06/20/25 05:50 Nose MRSA Screen - Final Complete 06/20/25 00:00 Urine - Maldonado [place] Urine Culture - Final Yeast, not Sonam albicans Complete Problem List/Assessment/Plan Problem List/Assessment/Plan Acute kidney injury superimposed Chronic Kidney Disease secondary to urinary obstruction Bilateral hydronephrosis Right nephrostomy tube Sepsis secondary to ESBL urine Metastatic prostate cancer Altered mental state Protein calorie malnutrition Hypernatremia due to dehydration Hypokalemia Hypomagnesemia Recommendations Kidney function is improving Increased urine output Hypernatremia appropriately resolving Strict I&Os Change IV to D5 half NS at 125 cc/hour IV antibiotics Magnesium sulfate IV piggyback KCL replacement We will continue to follow Plan discussed with: Patient Dietary Evaluation Review Comments: 1) Initiate Ensure Enlive tid 2) Encourage optimal PO intake 3) Follow-up with gastroenterology, oncology, and cardiology 4) Continue to monitor I&O, labs, and skin integrity Expected Outcomes/Goals: 1) appetite and labs to improve 2) gradual wt gain 3) f/u in 3-5 days BRANDON PERERA MD Jun 25, 2025 14:09
[2025-06-25] MEDS: POTASSIUM CHL 20MEQ/100ML 100 ML IV SCH (15:07)
[2025-06-25 16:30] VITALS: BP 91/56; PULSE 87; RESP 16; TEMP 97.8; O2SAT 98
[2025-06-25 20:00] VITALS: PULSE 88; RESP 17; O2SAT 96
[2025-06-26 01:00] VITALS: BP 116/65; PULSE 95; RESP 16; RESP 18; TEMP 97.5; O2SAT 98
[2025-06-26 05:00] VITALS: BP 139/82; PULSE 97; RESP 17; O2SAT 97
[2025-06-26 08:50] VITALS: BP 133/79; PULSE 92; RESP 20; TEMP 98.6; O2SAT 99
--- NOTE | 2025-06-26 10:13 | DVHPN2 ---
Subjective More alert and oriented Weak Plan to go to SNF on Hospice Changes from previous H/P or p: Changes Eyes: No Pain, No Vision change, No Conjunctivae inflammation, No Eyelid inflammation, No Other, No Redness ENT: No Ear pain, No Ear discharge, No Nose pain, No Nose discharge, No Nose congestion, No Mouth pain, No Mouth swelling, No Throat pain, No Throat swelling, No Other Cardiovascular: No Chest Pain, No Palpitations, No Orthopnea, No Paroxysmal Noc. Dyspnea, No Edema, No Lt Headedness, No Other Respiratory: No Cough, No Dry, No Shortness of breath, No SOB with excertion, No Wheezing, No Hemoptysis, No Pleuritic Pain, No Sputum, No Other Gastrointestinal: Nausea, Vomiting; No Abdominal Pain, No Diarrhea, No Constipation, No Melena, No Hematochezia; Other (Coffee-ground emesis) Genitourinary: No Dysuria, No Frequency, No Incontinence, No Hematuria, No Retention, No Other Musculoskeletal: No other, No neck pain, No shoulder pain, No arm pain, No back pain, No hand pain, No leg pain, No foot pain Skin: No Rash, No Lesions, No Jaundice, No Bruising, No Other Objective Vitals Vital Signs Date Time Temp Pulse Resp B/P (MAP) Pulse Ox O2 Delivery O2 Flow Rate FiO2 06/26/25 08:50 98.6 92 20 133/79 (97) 99 98.6 06/25/25 20:00 Room Air* 0 21 Intake/Output Intake and Output 06/26/25 07:00 Intake Total 705 ml Output Total 1500 ml Balance -795 ml Intake Oral 405 ml IV Total 300 ml Output Urine Total 1500 ml # Bowel Movements 4 General Appearance: Alert Lungs: Clear to auscultation, Normal air movement Cardiovascular: Regular rate, Normal S1 Abdomen: Normal bowel sounds, Soft, No tenderness Extremities: No edema Medications Current Medications Medications Dose Ordered Sig/Murali Route Start Time Stop Time Status Last Admin Dose Admin Labetalol HCl 5 mg Q2HPRN PRN IV 06/19/25 23:15 Ondansetron HCl 4 mg Q4HP PRN IV 06/19/25 23:15 Docusate Sodium 100 mg BIDPRN PRN PO 06/19/25 23:15 Acetaminophen 650 mg Q6HP PRN PO 06/19/25 23:15 06/25/25 08:58 650 MG Nitroglycerin 0.4 mg Q5MINP PRN SL 06/19/25 23:45 Morphine Sulfate 2 mg Q30M PRN IV 06/19/25 23:45 Aspirin 81 mg DAILY PO 06/20/25 10:00 06/26/25 10:00 81 MG Pantoprazole Sodium 40 mg DAILY IV 06/21/25 10:00 06/26/25 09:59 40 MG Magnesium Oxide 400 mg BID PO 06/24/25 22:00 06/26/25 10:00 400 MG Nitrofurantoin Macrocrystals 100 mg BID PO 06/24/25 22:00 06/26/25 09:59 100 MG Dextrose/Sodium Chloride 1,000 ml @ 125 mls/hr Q8H IV 06/24/25 11:45 06/26/25 06:42 125 MLS/HR Laboratory Results Laboratory Tests 06/25/25 05:40 Urinalysis Test 06/20/25 00:00 06/24/25 15:35 Urine Mucus Few (None Seen) Urine Color Colorless (Yellow) Urine Clarity Turbid (Clear) H Urine pH 5.5 (5.0-9.0) Urine Specific [place] 1.006 (1.001-1.035) Urine Protein Trace (Negative) H Urine Ketones Negative (Negative) Urine Blood 2+ /uL (Negative) H Urine Nitrite Negative (Negative) Urine Bilirubin Negative (Negative) Urine Urobilinogen Normal mg/dL (Negative) Urine Leukocyte Esterase 3+ /uL (Negative) Urine RBC 8 /hpf (0 - 3) Urine Microscopic WBC 89 /HPF (0-3) H Urine Squamous Epithelial Cells Few /hpf (<5) Urine Bacteria Few /hpf (None Seen) H Urine Yeast (Budding) Few /hpf (None Seen) Urine Creatinine 28.35 mg/dL (30.0-125.0) L Urine Protein/Creatinine Ratio 1.10 Urine Sodium 23 mmol/L (40-220) L Urine Glucose Normal mg/dL (Normal) Urine Total Protein 31.1 mg/dL (1-14) H Microbiology Microbiology Date/Time Source Procedure Growth Status 06/20/25 05:50 Nose MRSA Screen - Final Complete 06/20/25 00:00 Urine - [place] Urine Culture - Final Yeast, not Sonam albicans Complete Assessment/Plan Assessment/Plan Metabolic encephalopathy Acute urinary retention h/o UTI ESBL KETTY due to VMN GERD Recurrent UTIs Dementia HTN h/o HFpEF NSTEMI type 2 Hypernatremia Constipation PLAN: Rule out UTI UA Urine culture IV fluids: D5W Maldonado Sitter at the bedside Protonix Fleet enema Colace Zosyn IV Full code Called family ( Sons), no answer 06/21/2025: KETTY: Continue IV fluids Hypernatremia Metabolic encephalopathy Nephrology consult Monitor closely 06/22/2025: Hypernatremia: Improved Acute kidney injury superimposed on chronic kidney disease secondary to urinary obstruction Bilateral hydronephrosis and urinary obstruction Sepsis due to ESBL UTI Metastatic prostate cancer Protein calorie malnutrition Hypokalemia Constipation Continue IV fluids D5W Zosyn 06/23/2025: Hypernatremia: Improving continue IV fluids Hypokalemia check the potassium again today Acute kidney injury: Improving with IV fluids Metabolic encephalopathy is also improving with hydration Continue IV fluids Continue IV antibiotics Physical therapy evaluation 06/24/25: Physical therapy Consult hospice Continue IV fluids Start Macrobid Discussed with son Aaron, he is agreeable to hospice but he said they cannot take care of him, they would like him to go to a board and senior care or a hospice facility Consult the secondary social studies teacher for hospice arrangements 06/26/25: DC on hospice Continue Macrobid 100 mg qd Plan discussed with: Patient, Son, Other My Orders Orders - LANDON MARIE MD Procedure Category Date Status Time Discharge DISCHARGE 06/25/25 Transmitted 12:01 Transfer Orders XFER 06/25/25 Transmitted 17:34 Date of Service: Jun 26, 2025 Billing Provider: LANDON MARIE MD Common Visit Codes: [id number] INP/OBS CARE(MOD) LANDON MARIE MD Jun 26, 2025 10:13
--- NOTE | 2025-06-26 10:53 | DVHPN2 ---
Progress Note Date Seen: Jun 26, 2025 Medical Necessity Reason Pt with a Central, PICC or Fol: Yes The following are medically ne: Maldonado Catheter Subjective Patient reports: No new complaints Other Systems: Patient seen and examined by myself today in follow-up Objective vital signs Vital Sign Date Time Temp Pulse Resp B/P (MAP) Pulse Ox O2 Delivery O2 Flow Rate FiO2 06/26/25 08:50 98.6 92 20 133/79 (97) 99 98.6 06/25/25 20:00 Room Air* 0 21 Total Intake and Output 06/25/25 06/25/25 06/26/25 15:00 23:00 07:00 Intake Total 450 ml 255 ml Output Total 625 ml 875 ml Balance -175 ml -620 ml medications Current Medications Medications Dose Ordered Sig/Murali Route Start Time Stop Time Status Last Admin Dose Admin Labetalol HCl 5 mg Q2HPRN PRN IV 06/19/25 23:15 Ondansetron HCl 4 mg Q4HP PRN IV 06/19/25 23:15 Docusate Sodium 100 mg BIDPRN PRN PO 06/19/25 23:15 Acetaminophen 650 mg Q6HP PRN PO 06/19/25 23:15 06/25/25 08:58 650 MG Nitroglycerin 0.4 mg Q5MINP PRN SL 06/19/25 23:45 Morphine Sulfate 2 mg Q30M PRN IV 06/19/25 23:45 Aspirin 81 mg DAILY PO 06/20/25 10:00 06/26/25 10:00 81 MG Pantoprazole Sodium 40 mg DAILY IV 06/21/25 10:00 06/26/25 09:59 40 MG Magnesium Oxide 400 mg BID PO 06/24/25 22:00 06/26/25 10:00 400 MG Nitrofurantoin Macrocrystals 100 mg BID PO 06/24/25 22:00 06/26/25 09:59 100 MG Dextrose/Sodium Chloride 1,000 ml @ 125 mls/hr Q8H IV 06/24/25 11:45 06/26/25 06:42 125 MLS/HR Examination: LUNGS:Normal, CVS:Normal, MSK:Normal laboratory and microbiology Laboratory Tests 06/25/25 05:40 Test 06/25/25 05:40 Range/Units Serum Glucose 117 H 74-106 mg/dL Microbiology Date/Time Source Procedure Growth Status 06/20/25 05:50 Nose MRSA Screen - Final Complete 06/20/25 00:00 Urine - [place] Urine Culture - Final Yeast, not Sonam albicans Complete Problem List/Assessment/Plan Problem List/Assessment/Plan Acute kidney injury superimposed Chronic Kidney Disease secondary to urinary obstruction Bilateral hydronephrosis Right nephrostomy tube Sepsis secondary to ESBL urine Metastatic prostate cancer Altered mental state Protein calorie malnutrition Hypernatremia due to dehydration Hypokalemia Hypomagnesemia Recommendations Kidney function is improving Increased urine output Hypernatremia appropriately resolving Strict I&Os Change IV to D5 half NS at 125 cc/hour IV antibiotics Magnesium sulfate IV piggyback KCL replacement We will continue to follow Plan discussed with: Patient Dietary Evaluation Review Comments: 1) Initiate Ensure Enlive tid 2) Encourage optimal PO intake 3) Follow-up with gastroenterology, oncology, and cardiology 4) Continue to monitor I&O, labs, and skin integrity Expected Outcomes/Goals: 1) appetite and labs to improve 2) gradual wt gain 3) f/u in 3-5 days BRANDON PERERA MD Jun 26, 2025 10:53
[2025-06-26] MEDS ORDERED: MAGNESIUM SULFATE 1GM/100ML 100 ML IV SCH (11:00)
[2025-06-26 18:19] VITALS: PULSE 152; TEMP 37
[2025-06-26 20:00] VITALS: RESP 19; O2SAT 96
== END 2025-06-26 21:30 | disposition hospice, home (50) | DRG 70 ==
LOC: EDBD 20:06 → ER 20:06 → OVERFLOW 23:35 → TELE-EAST 06-20 04:15
PROVIDERS: ADMIT Internal Medicine Geriatric Medicine; ATTEND Internal Medicine Geriatric Medicine
DX: G93.41 Metabolic encephalopathy (principal); I21.A1 Myocardial infarction type 2; N17.0 Acute kidney failure with tubular necrosis; E46 Unspecified protein-calorie malnutrition; K92.2 Gastrointestinal hemorrhage, unspecified; E87.0 Hyperosmolality and hypernatremia; N13.6 Pyonephrosis; Z51.5 Encounter for palliative care; I13.0 Hypertensive heart and chronic kidney disease with heart failure and stage 1 through stage 4 chronic kidney disease, or unspecified chronic kidney disease; N18.9 Chronic kidney disease, unspecified; F03.90 Unspecified dementia, unspecified severity, without behavioral disturbance, psychotic disturbance, mood disturbance, and anxiety; I50.32 Chronic diastolic (congestive) heart failure; Z68.1 Body mass index [BMI] 19.9 or less, adult; E86.0 Dehydration; K21.9 Gastro-esophageal reflux disease without esophagitis; K56.41 Fecal impaction; E87.6 Hypokalemia; E83.42 Hypomagnesemia; Z80.0 Family history of malignant neoplasm of digestive organs; Z85.46 Personal history of malignant neoplasm of prostate; Z79.899 Other long term (current) drug therapy
CPT/HCPCS: 36415; 74176; 80048; 80053; 81001; 82306; 82570; 83605; 83690; 83735; 83880; 83970; 84100; 84156; 84300; 84484; 85025; 85610; 85730; 86850; 86900; 86901; 87081; 87086; 87088; 96374; 96375; 97110; 97116; 97163; 97530; 99291; G0378; J2405; J2470; J2543; J3480; J3490

== ENCOUNTER 2025-06-27 19:00 | Inpatient (IN) | payer MEDICARE, MEDICAID ==
[~2025-06-27] VITALS: Ht 175.3 cm; Wt 66.0 kg
--- NOTE | 2025-06-27 19:07 | ED.PDOC ---
History of Present Illness HPI Comments HPI: Past Medical History: Surgical History: Family History: Personal and Social History: MADELIN: PATIENT ON HOSPICE ACUTE URINARY RETENTION, UTI ESBL, VA, DEMENTIA, HYPERTENSION, HEART FAILURE, NSTEMI, HYPERNATREMIA. FECAL IMPACTION, GI BLEED, HYDRONEPHROSIS, ACUTE RENAL INJURY, SEPSIS, METABOLIC ENCEPHALOPATHY, SECONDARY MALIGNANT NEOPLASM, CHRONIC KIDNEY DISEASE, PROSTATE CANCER, SEPSIS, BONE CANCER, COPD, ANEMIA, HPI: Poor Historian. Patient comes in from [facility] Brought in by ambulance for evaluation of right ankle right hip pain. However on evaluation patient's pain is not in the right hip area but actually in the right lower quadrant area. EMS suggest he may have hit the rail of a bed when they were changing his clothes at the [facility]. No head injury no back injury no fall. Patient is bed-bound. Pre-hospital course vital signs were unremarkable. Patient points to his right ankle and right lower quadrant area where his pain is. REVIEW OF SYSTEMS: CONSTITUTIONAL: Denies acute: fever, diaphoresis, chills, generalized weakness. HEAD: Denies acute: headache, photophobia Eyes: Denies acute: Double vision, vision loss, eye pain, eye discharge. EARS: Denies acute: tinnitus, hearing loss, ear discharge, ear pain, THROAT: Denies acute: sore throat, swelling, difficulty swallowing , pain with swallowing, change in voice. NECK: Denies acute: neck pain, neck swelling, stiff neck. HEART: Denies acute : chest pain, palpitations, LUNGS: Denies acute: SOB, wheezing, cough, hemoptysis ABDOMEN: Denies acute: , Nausea, Vomiting, diarrhea, melena , hematemesis, hematochezia SKIN: Denies acute: rash, redness, lesions, itchiness. EXTREMITIES: Denies acute: calf pain, numbness, tingling, weakness, Denies acute: Low back pain. Neuro: Denies acute: focal neurological deficit, motor or sensory focal neurological deficit, tremors, seizure like activity, confusion, dizziness, change in mental status, loss of bowel or bladder function, cauda equina like symptoms. : Denies acute: dysuria, hematuria, flank pain, increase in urinary frequency. PSYCH: Denies acute: hallucination, suicidal ideation, homicidal ideation. PHYSICAL EXAM: General: ----no----acute distress, awake and alert. Head: normocephalic, atraumatic. No raccoon's eyes, no baltazra sign. Neck: supple, trachea is midline, no swelling. Throat: Normal phonation. Eyes:, no erythema, no purulent discharge, no proptosis, no icterus. Heart: regular rate, regular rhythm, no significant murmur appreciated. Lungs: no apparent respiratory distress, Able to speak in full sentences. No wheezing, no rhonchi, no crackles. No stridors Clear to auscultation bilaterally. Abdomen: Right lower quadrant tender to palpation, non distended, soft, no guarding, no rebound, + bowel sounds. Neuro: Awake, Alert, oriented to name, self, situation, follows commands GCS=15. Speech is normal. Skin: no petechia, no purpura, no cyanosis, slightly-pale, not jaundice. Lower extremities: --no - Pitting edema no deformity, , no calf TTP. Evaluation of the area of complaint: Right ankle lateral malleoli minimal swelling and focal tenderness to palpation. No erythema or deformity appreciated. Patient is neurovascularly intact in the affected extremity. Makes eye contact. moves all four extremities. Face: no apparent facial droop. Pedal pulses are palpable. ED COURSE: DISCLAIMER: This medical document was created using an electronic medical record system with voice recognition software and computerized dictation system. Although this document has been carefully reviewed, there might still be some phonetic and typographical errors. Occasional wrong-word or "sound-alike" substitutions may have occurred due to the inherent limitations of voice recognition software. These areas are purely typographical due to imperfections of the software programs and do not reflect any compromise in the patient's medical care. Please read the chart carefully and recognize, using context, where these substitutions have occurred. Time Seen by MD: 19:05 Reviewed Notes: Allergies Allergies: Coded Allergies: NO KNOWN ALLERGIES (Unverified , 01/19/25) Home Meds Active Scripts Pantoprazole Sodium Sesquihydr (Pantoprazole Sodium) 40 Mg Tab, 40 MG PO DAILY@0600 for 30 Days, #30 TAB Prov:ISRAEL ECHEVERRIA 04/17/25 Ergocalciferol (VITAMIN D 61189 UNIT) 50,000 [place], [address] UNIT PO Q7D for 30 Days, #4 CAP Prov:ISRAEL ECHEVERRIA 04/17/25 Acetaminophen (Acetaminophen) 325 Mg Tab, 650 MG PO Q6HP PRN for 5 Days, #40 TAB Prov:ISRAEL ECHEVERRIA 04/17/25 Information Source: Patient, Emergency Med Personnel Past Medical History PAST MEDICAL HISTORY: CHF, HTN Surgical History: Unknown Family History Family History: Unknown Social History Smoker: Non-Smoker Alcohol: Denies ETOH Use Drugs: Denies Drug Use Lives In: Home Was a procedure done? Was a procedure done?: No Differential Dx Considerations may include: Fracture, dislocation, bruise, contusion, ligamental injury, sepsis, arthritis, neurovascular injury, hematoma, X-Ray, Labs, Meds, VS Vital Signs Date Time Temp Pulse Resp B/P (MAP) Pulse Ox O2 Delivery O2 Flow Rate FiO2 06/28/25 01:09 98.0 104 16 138/90 (106) 97 98.0 06/27/25 19:07 97.8 84 15 138/76 98 97.8 Lab Test 06/27/25 19:18 Range/Units White Blood Count 8.5 4.4-10.8 10^3/uL Red Blood Count 4.02 L 4.5-5.90 10^6/uL Hemoglobin 10.5 L 13.5-17.5 g/dL Hematocrit 32.3 L 41.0-53.0 % Mean Corpuscular Volume 80.2 80.0-100.0 fL Mean Corpuscular Hemoglobin 26.1 L 28.0-32.0 pg Mean Corpuscular Hemoglobin Concent 32.5 32.0-36.0 g/dL Red Cell Distribution Width 15.8 H 11.8-14.3 % Platelet Count 382 140-450 10^3/uL Mean Platelet Volume 7.0 6.9-10.8 fL Neutrophils (%) (Auto) 76.5 37.0-80.0 % Lymphocytes (%) (Auto) 15.0 10.0-50.0 % Monocytes (%) (Auto) 7.1 0.0-12.0 % Eosinophils (%) (Auto) 1.0 0.0-7.0 % Basophils (%) (Auto) 0.4 0.0-2.0 % Neutrophils # (Auto) 6.5 1.6-8.6 10 ^3/uL Lymphocytes # (Auto) 1.3 0.4-5.4 10 ^3/uL Monocytes # (Auto) 0.6 0-1.3 10 ^3/uL Eosinophils # (Auto) 0.1 0-0.8 10 ^3/uL Basophils # (Auto) 0 0-0.2 10 ^3/uL Nucleated Red Blood Cells 0.1 % Sodium Level 145 # 136-145 mmol/L Potassium Level 4.3 3.5-5.1 mmol/L Chloride Level 109 H 98-107 mmol/L Carbon Dioxide Level 25 20-31 mmol/L Anion Gap 11 5-15 Blood Urea Nitrogen 11 9-23 mg/dL Creatinine 1.06 0.700-1.30 mg/dL Glomerular Filtration Rate Calc 77 >90 mL/min BUN/Creatinine Ratio 10.4 10.0-20.0 Serum Glucose 92 74-106 mg/dL Lactic Acid Level 0.9 0.4-2.0 mmol/L Calcium Level 8.3 L 8.7-10.4 mg/dL Total Bilirubin 0.4 0.2-1.0 mg/dL Aspartate Amino Transferase (AST) 16 13-40 U/L Alanine Aminotransferase (ALT) < 9 7-40 U/L Alkaline Phosphatase 78 46-116 U/L Total Protein 5.8 5.7-8.2 g/dL Albumin 3.0 L 3.2-4.8 g/dL [place] [address] Ph: [phone] DIAGNOSTIC IMAGING Diagnostic Imaging Report : [id number] Signed PATIENT: MAGUI YUSUF ACCT: [id number] UNIT: [id number] : 1960 LOC: ER ROOM / BED: / AGE / SEX: 65 / M ADM STATUS: REG ER SERVICE 04 ORDERING PHYSICIAN: PATRICIA MILLS DO PROCEDURE(s): RANKL - R ANKLE 3 VIEW REASON: PAIN ORDER NUMBER(s): [id number], ACCESSION NUMBER(s): [id number] CLINICAL INDICATION: Right ankle pain TECHNIQUE: XY R ANKLE 3 VIEW Comparison: None FINDINGS/IMPRESSION: : There is no evidence of acute fracture or dislocation. Dorsal and plantar calcaneal enthesophytes. Note is Made of an os peroneum. Overlying soft tissues are intact. ATED BY: SP LIU MD DICTATED DATE/TIME: 06/27/252052 SIGNED BY: SP LIU MD SIGNED DATE/TIME: 06/27/252052 CC: [place] [address] Ph: [phone] DIAGNOSTIC IMAGING Diagnostic Imaging Report : [id number] Signed PATIENT: MAGUI YUSUF ACCT: [id number] UNIT: [id number] : 1960 LOC: ER ROOM / BED: / AGE / SEX: 65 / M ADM STATUS: REG ER SERVICE 04 ORDERING PHYSICIAN: PATRICIA MILLS DO PROCEDURE(s): ABPL - CT AB PEL WO CON-NO ORAL OR IV REASON: RLQ PAIN ORDER NUMBER(s): [id number], ACCESSION NUMBER(s): [id number] Exam: CT CT AB PEL WO CON-NO ORAL OR IV History: RLQ PAIN Comparison Study: CT CT AB PEL WO CON-NO ORAL OR IV on DOS: 06/19/25, CT CT AB PEL WO CON-NO ORAL OR IV on DOS: 04/13/25, MRI MRI ABDOMEN W AND WO on DOS: 01/21/25, US ABDOMEN COMPLETE SONOGRAM on DOS: 01/19/25, CT CT AB PEL WITH IV CON ONLY on DOS: 01/19/25 Technique: Multidetector spiral CT of the abdomen was performed from lung bases to pubic symphysis. Imaging was performed without IV contrast. Axial, coronal and sagittal multiplanar reformats were obtained from the axial data set by the technologist. Radiation Dose : 1. Abdomen/Pelvis: CTDIvol 13.93 mGy, DLP 855.17 mGy*cm. Findings: Evaluation of solid organs is limited due to lack of intravenous contrast use. Lung Bases: No acute or significant lung base finding. Normal heart size. No pleural or pericardial effusion. Liver: The liver is normal in size. No focal lesions. Gallbladder and Biliary Tree: Unremarkable Spleen: Unremarkable Pancreas: The pancreas is grossly normal in appearance. Adrenal Glands: Unremarkable Kidneys: Double-J ureteric stent on the left. No overt hydronephrosis. Right lower pole renal cyst measuring 4.5 cm. Bladder: Urinary bladder is diffusely thickened. Maldonado catheter in-situ. Bowel: The stomach is grossly normal in appearance. Small bowel and colon are normal in caliber and distribution. The appendix is not visualized; however, no secondary findings of acute appendicitis identified. Circumferential rectal wall thickening. Ascites: Absent Lymphadenopathy: No mesenteric, retroperitoneal or periportal lymphadenopathy. Abdominal Wall and Mesentery: Unremarkable. Vasculature: The visualized abdominal aorta is normal in size and caliber. Evaluation of abdominal and pelvic vessels is limited due to lack of intravenous contrast. Pelvic Organs: Prostate gland is enlarged measuring 5.5 x 5.0 cm. Musculoskeletal: Grossly stable osteoblastic metastatic disease. IMPRESSION: Circumferential rectal wall thickening. Please correlate with any symptoms of a proctocolitis. Otherwise no acute abnormality. BPH with diffuse bladder wall thickening. Multifocal osseous metastatic disease that appears stable. Radiation optimization: All CT scans at this facility use at least one of these dose optimization techniques: automated exposure control mA and/or kV adjustment per patient size (includes targeted exams where dose is matched to clinical indication) or iterative reconstruction. ATED BY: GAVIOTA PLASCENCIA MD DICTATED DATE/TIME: 06/27/252101 SIGNED BY: GAVIOTA PLASCENCIA MD SIGNED DATE/TIME: 06/27/252101 CC: Time of 1ST Reevaluation: 00:00 Reevaluation 1ST: N/A Patient Education/Counseling: Diagnosis, Treatment Family Education/Counseling: Other Comments MDM: patient presented with the above HPI.--right hip pain right ankle pain----workup was initiated. patient was found with the above mentioned diagnosis. the following medications were ordered: please refer to order lists of meds and tests obtained by myself Dr. Mills. Patient ED course and VS have been stabilized. Patient has been reassessed in the ED and remained in a stable condition. Pertinent incidental findings were discussed with the patient and/or family. Patient/family voices understanding and is agreeable with plan. Patient has been observed in the ED adequate length of time to insure improvement/stability. Escalation of care considered: Consideration of escalation to observation or admission Imaging studies were unremarkable. Patient was DISCHARGED home in a stable condition. Patient has been waiting for many hours for his right. All the reports of any imaging studies that were ordered by myself were reviewed by myself. SEPSIS Sepsis Screen Physician Orders Clinical Documentation Clerk (06/27/25 ) Ct Ab Pel Wo Con-No Oral Or Iv (06/27/25 19:05) R Ankle 3 View (06/27/25 19:05) Vital Signs Date Time Temp Pulse Resp B/P (MAP) Pulse Ox O2 Delivery O2 Flow Rate FiO2 06/28/25 01:09 98.0 104 16 138/90 (106) 97 98.0 06/27/25 19:07 97.8 84 15 138/76 98 97.8 Laboratory Tests Test 06/27/25 19:18 Lactic Acid Level 0.9 mmol/L (0.4-2.0) White Blood Count 8.5 10^3/uL (4.4-10.8) Departure 1 Departure Time of Disposition: 21:57 Impression: Primary Impression: Constipation Additional Impressions: Enlarged prostate Bone cancer Anemia Disposition: HOME / SELF CARE / HOMELESS Condition: Stable Additional Instructions: Additional instructions: Please read all instructions provided in this packet carefully. You MUST follow-up with your primary care/family doctor in 1 to 2 days. If you are unable to see your primary care/family doctor, please return to our emergency room for re-assessment and re-evaluation in 1 to 2 days. Return to the emergency room here in our facility or to the nearest ER TERE if your symptoms change or worsen. CONSULTATIONS: you MUST Follow-up for consultation as soon as possible with: -gastroenterology in 1-2 days. You MUST call the consultants office yourself to make an appointment. You may need to arrange that through your insurance and/or your primary/family doctor. If you are unable to see the building performance consultant in 1 to 2 days, you must return to our emergency room (or any other ER of your choice) for re-assessment and re- evaluation. Adequate fluid hydration. Although you have been discharged from the Emergency Department, this does not mean that you have a "clean bill of health". No definitive diagnosis for your symptoms has been made today. It is possible that you are in the process of developing a serious illness. This is why you must return to the ED without fail if any new or worsening symptoms develop. Liquid diet in next 72 hours. Increase fiber intake. Below is a copy of your radiological report for follow up: [place] [address] Ph: [phone] DIAGNOSTIC IMAGING Diagnostic Imaging Report : [id number] Signed PATIENT: MAGUI YUSUF ACCT: [id number] UNIT: [id number] : 1960 LOC: ER ROOM / BED: / AGE / SEX: 65 / M ADM STATUS: REG ER SERVICE 04 ORDERING PHYSICIAN: PATRICIA MILLS DO PROCEDURE(s): RANKL - R ANKLE 3 VIEW REASON: PAIN ORDER NUMBER(s): [id number], ACCESSION NUMBER(s): [id number] CLINICAL INDICATION: Right ankle pain TECHNIQUE: XY R ANKLE 3 VIEW Comparison: None FINDINGS/IMPRESSION: : There is no evidence of acute fracture or dislocation. Dorsal and plantar calcaneal enthesophytes. Note is Made of an os peroneum. Overlying soft tissues are intact. ATED BY: SP LIU MD DICTATED DATE/TIME: 06/27/252052 SIGNED BY: SP LIU MD SIGNED DATE/TIME: 06/27/252052 CC: [place] [address] Ph: [phone] DIAGNOSTIC IMAGING Diagnostic Imaging Report : [id number] Signed PATIENT: MAGUI YUSUF ACCT: [id number] UNIT: [id number] : 1960 LOC: ER ROOM / BED: / AGE / SEX: 65 / M ADM STATUS: REG ER SERVICE 04 ORDERING PHYSICIAN: PATRICIA MILLS DO PROCEDURE(s): ABPL - CT AB PEL WO CON-NO ORAL OR IV REASON: RLQ PAIN ORDER NUMBER(s): [id number], ACCESSION NUMBER(s): [id number] Exam: CT CT AB PEL WO CON-NO ORAL OR IV History: RLQ PAIN Comparison Study: CT CT AB PEL WO CON-NO ORAL OR IV on DOS: 06/19/25, CT CT AB PEL WO CON-NO ORAL OR IV on DOS: 04/13/25, MRI MRI ABDOMEN W AND WO on DOS: 01/21/25, US ABDOMEN COMPLETE SONOGRAM on DOS: 01/19/25, CT CT AB PEL WITH IV CON O NLY on DOS: 01/19/25 Technique: Multidetector spiral CT of the abdomen was performed from lung bases to pubic symphysis. Imaging was performed without IV contrast. Axial, coronal and sagittal multiplanar reformats were obtained from the axial data set by the technologist. Radiation Dose : 1. Abdomen/Pelvis: CTDIvol 13.93 mGy, DLP 855.17 mGy*cm. Findings: Evaluation of solid organs is limited due to lack of intravenous contrast use. Lung Bases: No acute or significant lung base finding. Normal heart size. No pleural or pericardial effusion. Liver: The liver is normal in size. No focal lesions. Gallbladder and Biliary Tree: Unremarkable Spleen: Unremarkable Pancreas: The pancreas is grossly normal in appearance. Adrenal Glands: Unremarkable Kidneys: Double-J ureteric stent on the left. No overt hydronephrosis. Right lower pole renal cyst measuring 4.5 cm. Bladder: Urinary bladder is diffusely thickened. Maldonado catheter in-situ. Bowel: The stomach is grossly normal in appearance. Small bowel and colon are normal in caliber and distribution. The appendix is not visualized; however, no secondary findings of acute appendicitis identified. Circumferential rectal wall thickening. Ascites: Absent Lymphadenopathy: No mesenteric, retroperitoneal or periportal lymphadenopathy. Abdominal Wall and Mesentery: Unremarkable. Vasculature: The visualized abdominal aorta is normal in size and caliber. Evaluation of abdominal and pelvic vessels is limited due to lack of intravenous contrast. Pelvic Organs: Prostate gland is enlarged measuring 5.5 x 5.0 cm. Musculoskeletal: Grossly stable osteoblastic metastatic disease. IMPRESSION: Circumferential rectal wall thickening. Please correlate with any symptoms of a proctocolitis. Otherwise no acute abnormality. BPH with diffuse bladder wall thickening. Multifocal osseous metastatic disease that appears stable. Radiation optimization: All CT scans at this facility use at least one of these dose optimization techniques: automated exposure control mA and/or kV adjustment per patient size (includes targeted exams where dose is matched to clinical indication) or iterative reconstruction. ATED BY: GAVIOTA PLASCENCIA MD DICTATED DATE/TIME: 06/27/252101 SIGNED BY: GAVIOTA PLASCENCIA MD SIGNED DATE/TIME: 06/27/252101 CC: Discharged With: Self Critical Care Note Critical Care Time?: No I personally scribed for PATRICIA MILLS DO ([email or web address]) on 06/27/25 at 19:07. Electronically submitted by Hao Heath ([facility]). I personally scribed for PATRICIA MILLS DO ([email or web address]) on 06/27/25 at 22:00. Electronically submitted by Hao Heath ([email or web address]). PATRICIA MILLS DO Jun 27, 2025 19:07
[2025-06-27 19:41] LABS: Hematocrit 32.3 % (41.0-53.0); Hemoglobin 10.5 g/dL (13.5-17.5); Mean Corpuscular Hemoglobin 26.1 pg (28.0-32.0); Mean Corpuscular Volume 80.2 fL (80.0-100.0); Nucleated Red Blood Cells % 0.1 %
[2025-06-27 19:54] LABS: Alkaline Phosphatase 78 U/L (46-116); BUN/Creatinine Ratio 10.4 (10.0-20.0); Bilirubin, Total 0.4 mg/dL (0.2-1.0); Blood Urea Nitrogen 11 mg/dL (9-23); Carbon Dioxide 25 mmol/L (20-31); Glucose 92 mg/dL (74-106); Potassium 4.3 mmol/L (3.5-5.1); Sodium 145 mmol/L (136-145); Total Protein 5.8 g/dL (5.7-8.2)
[2025-06-27 20:03] LABS: Anion Gap 11 (5-15)
[2025-06-27 20:12] LABS: Alanine Aminotransferase < 9 U/L (7-40); Albumin 3.0 g/dL (3.2-4.8); Calcium 8.3 mg/dL (8.7-10.4); Chloride 109 mmol/L (98-107)
--- NOTE | 2025-06-27 20:56 | DVH ---
CLINICAL INDICATION: Right ankle pain TECHNIQUE: XY R ANKLE 3 VIEW Comparison: None FINDINGS/IMPRESSION: : There is no evidence of acute fracture or dislocation. Dorsal and plantar calcaneal enthesophytes. Note is Made of an os peroneum. Overlying soft tissues are intact.
--- NOTE | 2025-06-27 21:05 | DVH ---
Exam: CT CT AB PEL WO CON-NO ORAL OR IV History: RLQ PAIN Comparison Study: CT CT AB PEL WO CON-NO ORAL OR IV on DOS: 06/19/25, CT CT AB PEL WO CON-NO ORAL OR IV on DOS: 04/13/25, MRI MRI ABDOMEN W AND WO on DOS: 01/21/25, US ABDOMEN COMPLETE SONOGRAM on DOS: 01/19/25, CT CT AB PEL WITH IV CON ONLY on DOS: 01/19/25 Technique: Multidetector spiral CT of the abdomen was performed from lung bases to pubic symphysis. Imaging was performed without IV contrast. Axial, coronal and sagittal multiplanar reformats were obtained from the axial data set by the technologist. Radiation Dose : 1. Abdomen/Pelvis: CTDIvol 13.93 mGy, DLP 855.17 mGy*cm. Findings: Evaluation of solid organs is limited due to lack of intravenous contrast use. Lung Bases: No acute or significant lung base finding. Normal heart size. No pleural or pericardial effusion. Liver: The liver is normal in size. No focal lesions. Gallbladder and Biliary Tree: Unremarkable Spleen: Unremarkable Pancreas: The pancreas is grossly normal in appearance. Adrenal Glands: Unremarkable Kidneys: Double-J ureteric stent on the left. No overt hydronephrosis. Right lower pole renal cyst measuring 4.5 cm. Bladder: Urinary bladder is diffusely thickened. Maldonado catheter in-situ. Bowel: The stomach is grossly normal in appearance. Small bowel and colon are normal in caliber and distribution. The appendix is not visualized; however, no secondary findings of acute appendicitis identified. Circumferential rectal wall thickening. Ascites: Absent Lymphadenopathy: No mesenteric, retroperitoneal or periportal lymphadenopathy. Abdominal Wall and Mesentery: Unremarkable. Vasculature: The visualized abdominal aorta is normal in size and caliber. Evaluation of abdominal and pelvic vessels is limited due to lack of intravenous contrast. Pelvic Organs: Prostate gland is enlarged measuring 5.5 x 5.0 cm. Musculoskeletal: Grossly stable osteoblastic metastatic disease. IMPRESSION: Circumferential rectal wall thickening. Please correlate with any symptoms of a proctocolitis. Otherwise no acute abnormality. BPH with diffuse bladder wall thickening. Multifocal osseous metastatic disease that appears stable. Radiation optimization: All CT scans at this facility use at least one of these dose optimization techniques: automated exposure control mA and/or kV adjustment per patient size (includes targeted exams where dose is matched to clinical indication) or iterative reconstruction.
--- NOTE | 2025-06-28 19:06 | ECG ---
[facility] Test Date: 2025-06-28 Test Time: 19:00:42 Pat Name: MAGUI YUSUF Department: [facility] ED Room: [address] [place] [address] Gender: M Electric Sign Wirer: karis : 1960 Requested By: EMERGENCY EMERGENCY Order Number: [id number] Reading MD: Maxi Yeung Measurements Intervals [place] Rate: 109 P: 90 MT: 164 QRS: 86 QRSD: 110 T: -45 QT: 347 QTc: 468 Interpretive Statements Sinus tachycardia Borderline right axis deviation Borderline low voltage, extremity leads Minimal ST depression, inferior leads Electronically Signed On 06-29-2025 11:00:34 PST by Maxi Yeung Please click the below link to view image of tracing.
--- NOTE | 2025-06-29 08:19 | ED.PDOC ---
Departure 1 Departure Time of Disposition: 08:18 (Patient with a intractable vomiting. SNF is unable to take patient back. Family is unable to care for patient. We will admit patient here for further workup) Impression: Primary Impression: Intractable nausea and vomiting Additional Impressions: Constipation Enlarged prostate Anemia Bone cancer Intractable abdominal pain Disposition: 09 ADMITTED INPATIENT Admit to: Med Surg Condition: Serious MOMO SEARS MD Jun 29, 2025 08:19
[2025-06-29] MEDS: PANTOPRAZOLE 40 MG/10 ML VIAL INJ IV ONE (08:30)
[2025-06-29] MEDS ORDERED: DOCUSATE SOD 100 MG CAP PO PRN (09:00)
[2025-06-29] MEDS ORDERED: MORPHINE SULFATE INJ 2 MG/ml SYRG IV PRN ×2 (09:00)
[2025-06-29] MEDS ORDERED: ONDANSETRON HCL 4 MG/2 ML VIAL IV PRN (09:00)
[2025-06-29] MEDS ORDERED: NITROGLYCERIN 0.4 MG SL TAB SL PRN (09:00)
--- NOTE | 2025-06-29 09:50 | DVHHPRES ---
History of Present Illness Resident Creating Document: ELZA BLANTON RESIDENT History of Present Illness Mr. De Oliveira, a 65-year-old male with a history of dementia, congestive heart failure HFpEF, recurrent UTIs with ESBL, GERD, and hypertension presented to [facility]'s emergency department with worsening intractable nausea and vomiting, including coffee-ground emesis needing admission on 06/19 with anemia, constipation, enlarged prostate, bone mass and abdominal painwas admitted to the medical-surgical unit after being denied readmission to [facility] jail facility due to behavioral issues, and his family was unable to care for him. Hospice options were explored, but [facility] due to the patients combative and noncompliant behavior. Social work attempted to contact his son Hasmukh, who manages his care, but was only able to leave a voicemail after speaking with another son, Aaron. The patient had previously been discharged from [facility], which confirmed removal from their census after three days of ER absence. He was treated for hypernatremia and a UTI with IV antibiotics and D5W, resulting in gradual mental status improvement, though he remained confused and weak. Given his poor prognosis and limited family support, hospice care was recommended and accepted, and discharge planning is underway for placement in a hospice facility, with Macrobid prescribed for UTI prophylaxis. PMHx: dementia, recurrent UTIs with ESBL, GERD, hypertension, HFpEF, KETTY due to vomiting, and a recent type 2 NSTEMI. PSHx: None Social Hx: Social history is noncontributory, with no tobacco, alcohol, or drug use. Family Hx: Non contributory Review of Systems Constitutional: Yes: Weakness, Malaise; No: Fever, Chills, Sweats, Other Eyes: No: Pain, Vision change, Conjunctivae inflammation, Eyelid inflammation, Other, Redness ENT: No: Ear pain, Ear discharge, Nose pain, Nose discharge, Nose congestion, Mouth pain, Mouth swelling, Throat pain, Throat swelling, Other Respiratory: No: Cough, Dry, Shortness of breath, SOB with excertion, Wheezing, Hemoptysis, Pleuritic Pain, Sputum, Wheezing, Other Cardiovascular: No: Chest Pain, Palpitations, Orthopnea, Paroxysmal Noc. Dyspnea, Edema, Lt Headedness, Other Gastrointestinal: Nausea, Vomiting; No: Abdominal Pain, Diarrhea, Constipation, Melena, Hematochezia, Other Genitourinary: Dysuria, Frequency, Incontinence; No Hematuria, No Retention, No Other Musculoskeletal: back pain; No: other, neck pain, shoulder pain, arm pain, hand pain, leg pain, foot pain Skin: No: Rash, Lesions, Jaundice, Bruising, Other Neurological: No: Weakness, Numbness, Incoordination, Change in speech, Confusion, Seizures, Other Allergies: Coded Allergies: NO KNOWN ALLERGIES (Unverified , 01/19/25) Exam Vital Signs Vital Signs Date Time Temp Pulse Resp B/P (MAP) Pulse Ox O2 Delivery O2 Flow Rate FiO2 06/29/25 08:00 Room Air* 0 21 06/29/25 06:00 97 18 139/81 (100) 100 06/29/25 03:36 98.0 98.0 General Appearance: Alert, No acute distress HEENT: Atraumatic, PERRLA, EOMI, Other (dry mucosa) Respiratory: Clear to auscultation, Normal air movement Cardiovascular: Regular rate, Normal S1, Normal S2, No murmurs Abdominal: Normal bowel sounds, Soft, No hepatospenomegaly, Other (left deep palpation LUQ. LLQ tenderness. ) Extremities: No clubbing, No cyanosis, No edema, Normal pulses, No tenderness/swelling Skin: No rashes, No breakdown, No significant lesion Neuro: Normal speech (soft speeck), Normal tone, Other (unable to check. not open to follow commands. ) Psych/Mental Status: Other (alert but oriented to self, calm, not agitated. ) Labs/Xrays Labs Test 06/27/25 19:18 Range/Units White Blood Count 8.5 4.4-10.8 10^3/uL Red Blood Count 4.02 L 4.5-5.90 10^6/uL Hemoglobin 10.5 L 13.5-17.5 g/dL Hematocrit 32.3 L 41.0-53.0 % Mean Corpuscular Volume 80.2 80.0-100.0 fL Mean Corpuscular Hemoglobin 26.1 L 28.0-32.0 pg Mean Corpuscular Hemoglobin Concent 32.5 32.0-36.0 g/dL Red Cell Distribution Width 15.8 H 11.8-14.3 % Platelet Count 382 140-450 10^3/uL Mean Platelet Volume 7.0 6.9-10.8 fL Neutrophils (%) (Auto) 76.5 37.0-80.0 % Lymphocytes (%) (Auto) 15.0 10.0-50.0 % Monocytes (%) (Auto) 7.1 0.0-12.0 % Eosinophils (%) (Auto) 1.0 0.0-7.0 % Basophils (%) (Auto) 0.4 0.0-2.0 % Neutrophils # (Auto) 6.5 1.6-8.6 10 ^3/uL Lymphocytes # (Auto) 1.3 0.4-5.4 10 ^3/uL Monocytes # (Auto) 0.6 0-1.3 10 ^3/uL Eosinophils # (Auto) 0.1 0-0.8 10 ^3/uL Basophils # (Auto) 0 0-0.2 10 ^3/uL Nucleated Red Blood Cells 0.1 % Sodium Level 145 # 136-145 mmol/L Potassium Level 4.3 3.5-5.1 mmol/L Chloride Level 109 H 98-107 mmol/L Carbon Dioxide Level 25 20-31 mmol/L Anion Gap 11 5-15 Blood Urea Nitrogen 11 9-23 mg/dL Creatinine 1.06 0.700-1.30 mg/dL Glomerular Filtration Rate Calc 77 >90 mL/min BUN/Creatinine Ratio 10.4 10.0-20.0 Serum Glucose 92 74-106 mg/dL Lactic Acid Level 0.9 0.4-2.0 mmol/L Calcium Level 8.3 L 8.7-10.4 mg/dL Total Bilirubin 0.4 0.2-1.0 mg/dL Aspartate Amino Transferase (AST) 16 13-40 U/L Alanine Aminotransferase (ALT) < 9 7-40 U/L Alkaline Phosphatase 78 46-116 U/L Total Protein 5.8 5.7-8.2 g/dL Albumin 3.0 L 3.2-4.8 g/dL SEPSIS Sepsis Screen Date sepsis recognized/suspect: Jun 29, 2025 Time Sepsis recognized/suspect: 299 Recent Procedure: No On Antibiotic Therapy: No Respiratory Rate >20: No Heart Rate >90: Yes Temp<36 C (96.8 F) or >38.3 C: No SBP <90 or MAP <65 mmHG: No New Acute Mental Status Change: No Is the patient on CPAP, BIPAP,: No Physician Orders Admit (06/29/25 08:53) Allergies (06/29/25 08:53) Code Status (06/29/25 08:53) Ondansetron Hcl (Zofran) (06/29/25 09:00) Docusate Sodium Capsule (Colace Capsule) (06/29/25 09:00) Fall Risk Precautions In Place QSHIFT (06/29/25 08:53) Complete Blood Count (06/30/25 04:00) Comprehensive Metabolic Panel (06/30/25 04:00) Pt Request For Service (06/29/25:53) Condition: Serious (06/29/25:53) Morphine Sulfate Injection (06/29/25 09:00) Sequential Compression Device (06/29/25 ) Nitroglycerin Sublingual (Ntrostat Subli (06/29/25 09:00) Morphine Sulfate Injection (06/29/25 09:00) Oxygen By Nasal Cannula (06/29/25:53) Stat Ekg For Chest Pain (06/29/25:53) Notify Md Of Changes From Base (06/29/25 08:53) Foreclosure Specialist For 24 Hours (06/29/25 08:53) Emergency Dysrhythmia Protocol (06/29/25:53) Rhythm Strips Once Every Shift (06/29/25 08:53) Fall Risk Precautions In Place QSHIFT (06/29/25 08:53) Fall Precautions Initiated (06/29/25 08:53) * Shingle B[employer] Cutter Consult (06/29/25 ) Vital Signs Date Time Temp Pulse Resp B/P (MAP) Pulse Ox O2 Delivery O2 Flow Rate FiO2 06/29/25 08:00 Room Air* 0 21 06/29/25 06:00 97 18 139/81 (100) 100 06/29/25 04:00 97 18 145/83 (103) 99 06/29/25 03:36 98.0 96 18 144/92 (109) 98 98.0 06/29/25 03:00 Room Air* 0 21 06/29/25 02:49 97.6 96 18 135/75 (95) 99 97.6 Assessment/Plan Assessment/Plan Assessment and Plan: #Acute abdominal pain: left later upper and lower deep palpation tenderness. lipase to check. iv fluids. NPO, 03/30 CT abdomen pelvis intraabdominal infection, no watery diarrhea, will cover with cipro + flagyl #Hematemesis: 1 episode, Hemodynamically stable, antiemetics, check hnh, ppi and sucralfate to continue. #Chronic normocytic anemia: follow hnh with CBC #GERD/PUD: sucralfate + pantoprazole. #Hypovitaminosis D: Vitamin D to continue. #Bone pain: [place] 5/325 PRN #BPH with diffuse bladder wall thickening: bladder scan and foleys as needed. bladder scan >300 cc threshold. #Multifocal osseous metastatic disease that appears stable: look for ca++ and uric acid. #Metastatic prostate cancer, bone metastasis, tolerable pain in lower limbs #Protein calorie malnutrition: aspiration precaution, TID protein supplements. #Constipation: high fiber diet, laxatives. #High risk for delirium: fall precaution, delirium prevention, frequent reorientation. IF combative will consider introducing Seroquel checking EKG for qTC #Prior history of recurrent UTI: last month ESBL treated with ertapenem iv, yeast, recheck. Barriers to discharge: Medical diagnosis and management in progress. Patient used to live in facility but disposition is now challenging. PT and SW consult as needed. PCP: Dr. Alas. Diet: Regular DVT PPx: Lovenox sc Case discussed with Dr. Alas. Code Status: Full Code. Discussion needed total 29 minutes bedside. Plan discussed with: Patient, Other (primary team RN) My Orders Orders - ELZA BLANTON RESIDENT Procedure Category Date Status Time Admit ADMIT 06/29/25 Transmitted 08:53 Allergies JON 06/29/25 In Process 08:53 Code Status CODE 06/29/25 Transmitted 08:53 Ondansetron Hcl PHA 06/29/25 Logged (Zofran) 09:00 Docusate Sodium PHA 06/29/25 Logged Capsule (Colace 09:00 Fall Risk Precautions JON 06/29/[address] 08:53 Complete Blood Count LAB 06/30/25 Verified 04:00 Comprehensive LAB 06/30/25 Verified Metabolic Panel 04:00 Pt Request For Service PT 06/29/25 Logged 08:53 Condition: Serious JON 06/29/25 In Process 08:53 Morphine Sulfate [facility] 06/29/25 Logged Injection 09:00 Sequential JON 06/29/25 In Process Compression Device Nitroglycerin [facility] 06/29/25 Logged Sublingual (Ntrostat 09:00 Morphine Sulfate [facility] 06/29/25 Logged Injection 09:00 Oxygen By Nasal RT 06/29/25 Transmitted Cannula 08:53 Stat Ekg For Chest [facility] 06/29/25 In Process Pain 08:53 Notify Of Changes [facility] 06/29/25 In Process From Base 08:53 Foreclosure Specialist For [facility] 06/29/25 In Process 24 Hours 08:53 Emergency Dysrhythmia [facility] 06/29/25 In Process Protocol 08:53 Rhythm Strips Once [facility] 06/29/25 In Process Every Shift 08:53 Fall Risk Precautions [facility] 06/29/[address] 08:53 Fall Precautions [facility] 06/29/25 In Process Initiated 08:53 * Shingle [employer] Cutter CONS 06/29/25 Transmitted Consult Date of Service: Jun 29, 2025 Billing Provider: LAVONNE ALAS MD Common Visit Codes: [id number] INP/OBS CARE (HIGH) Secondary Visit Codes: [id number] CARE PLAN 30 MINUTES ELZA BLANTON RESIDENT Jun 29, 2025 09:50
[2025-06-29] MEDS ORDERED: MORPHINE SULFATE 4 MG/ML SYR/VIAL IV PRN ×2 (10:00)
[2025-06-29] MEDS ORDERED: ENOXAPARIN SOD 40 MG/0.4 ML SYRINGE SC SCH (10:00)
[2025-06-29] MEDS: ERGOCALCIFEROL 50,000 UNIT(1.25MG) CAP PO SCH (10:24)
[2025-06-29] MEDS: PANTOPRAZOLE 40 MG TAB PO SCH (10:25)
[2025-06-29] MEDS: LACTATED RINGER'S 1,000 ML IV ONE (10:46)
[2025-06-29 11:08] LABS: Hematocrit 31.6 % (41.0-53.0); Hemoglobin 10.4 g/dL (13.5-17.5); Mean Corpuscular Hemoglobin 26.4 pg (28.0-32.0); Mean Corpuscular Volume 79.9 fL (80.0-100.0); Nucleated Red Blood Cells % 0.0 %
[2025-06-29 11:25] LABS: Alkaline Phosphatase 78 U/L (46-116); Anion Gap 13 (5-15); BUN/Creatinine Ratio 12.7 (10.0-20.0); Bilirubin, Total 0.4 mg/dL (0.2-1.0); Blood Urea Nitrogen 13 mg/dL (9-23); Calcium 8.9 mg/dL (8.7-10.4); Carbon Dioxide 25 mmol/L (20-31); Potassium 3.8 mmol/L (3.5-5.1); Total Protein 5.9 g/dL (5.7-8.2)
[2025-06-29 11:58] LABS: Alanine Aminotransferase < 9 U/L (7-40); Albumin 3.1 g/dL (3.2-4.8); Chloride 108 mmol/L (98-107); Glucose 115 mg/dL (74-106); Sodium 146 mmol/L (136-145)
[2025-06-29] MEDS: CIPROFLOXACIN 400MG/200ML 200 ML IV ONE (12:47)
[2025-06-29] MEDS: Ensure HIGH Protein Chocolate 8oz Bottle PO SCH (13:30)
[2025-06-29] MEDS: SUCRALFATE 1 GM/10 ML ORAL SUSP PO SCH (14:35)
[2025-06-29 20:14] VITALS: PULSE 100; RESP 20
[2025-06-29] MEDS: CIPROFLOXACIN 400MG/200ML 200 ML IV SCH (21:36)
[2025-06-30 06:55] LABS: Hematocrit 28.2 % (41.0-53.0); Hemoglobin 9.3 g/dL (13.5-17.5); Nucleated Red Blood Cells % 0.0 %
[2025-06-30 06:56] LABS: Mean Corpuscular Hemoglobin 26.5 pg (28.0-32.0); Mean Corpuscular Volume 79.9 fL (80.0-100.0)
[2025-06-30 07:13] LABS: Alkaline Phosphatase 72 U/L (46-116); Anion Gap 13 (5-15); BUN/Creatinine Ratio 22.9 (10.0-20.0); Calcium 8.8 mg/dL (8.7-10.4); Carbon Dioxide 27 mmol/L (20-31); Glucose 87 mg/dL (74-106); Potassium 3.9 mmol/L (3.5-5.1)
[2025-06-30 07:14] LABS: Bilirubin, Total 0.4 mg/dL (0.2-1.0)
[2025-06-30 07:32] LABS: Alanine Aminotransferase < 9 U/L (7-40); Albumin 2.8 g/dL (3.2-4.8); Blood Urea Nitrogen 24 mg/dL (9-23); Chloride 108 mmol/L (98-107); Sodium 148 mmol/L (136-145); Total Protein 5.2 g/dL (5.7-8.2)
--- NOTE | 2025-06-30 12:18 | DVHPN2 ---
Subjective seen in bed with less pain Reviewed: H&P Changes from previous H/P or p: No Changes Eyes: No Pain, No Vision change, No Conjunctivae inflammation, No Eyelid inflammation, No Other, No Redness ENT: No Ear pain, No Ear discharge, No Nose pain, No Nose discharge, No Nose congestion, No Mouth pain, No Mouth swelling, No Throat pain, No Throat swelling, No Other Cardiovascular: No Chest Pain, No Palpitations, No Orthopnea, No Paroxysmal Noc. Dyspnea, No Edema, No Lt Headedness, No Other Respiratory: No Cough, No Dry, No Shortness of breath, No SOB with excertion, No Wheezing, No Hemoptysis, No Pleuritic Pain, No Sputum, No Other Gastrointestinal: Nausea, Vomiting; No Abdominal Pain, No Diarrhea, No Constipation, No Melena, No Hematochezia, No Other Genitourinary: Dysuria, Frequency, Incontinence; No Hematuria, No Retention, No Other Musculoskeletal: No other, No neck pain, No shoulder pain, No arm pain; back pain; No hand pain, No leg pain, No foot pain Skin: No Rash, No Lesions, No Jaundice, No Bruising, No Other Objective Vitals Vital Signs Date Time Temp Pulse Resp B/P (MAP) Pulse Ox O2 Delivery O2 Flow Rate FiO2 06/30/25 08:04 107 16 110/56 (74) 97 06/30/25 07:19 Room Air* 0 21 06/30/25 06:39 97.5 97.5 Intake/Output Intake and Output 06/30/25 07:00 Intake Total 1075 ml Output Total 400 ml Balance 675 ml Intake IV Total 1075 ml Output Urine Total 400 ml General Appearance: Alert, Oriented X3 HEENT: Atraumatic Lungs: Clear to auscultation Cardiovascular: Regular rate, Normal S1, Normal S2 Abdomen: Normal bowel sounds Medications Current Medications Medications Dose Ordered Sig/Murali Route Start Time Stop Time Status Last Admin Dose Admin Ondansetron HCl 4 mg Q4HP PRN IV 06/29/25 09:00 Docusate Sodium 100 mg BIDPRN PRN PO 06/29/25 09:00 Morphine Sulfate 2 mg Q4HPRN PRN IV 06/29/25 09:00 UNV Nitroglycerin 0.4 mg Q5MINP PRN SL 06/29/25 09:00 Morphine Sulfate 2 mg Q30M PRN IV 06/29/25 09:00 UNV Pantoprazole Sodium 40 mg DAILY PO 06/29/25 10:00 06/30/25 09:52 40 MG Sucralfate 1 gm TID PO 06/29/25 14:00 06/30/25 06:24 1 GM Ergocalciferol 50,000 unit Q7D PO 06/29/25 09:45 06/29/25 10:24 50,000 UNIT Acetaminophen/ Hydrocodone Bitart 1 tab Q6HP PRN PO 06/29/25 09:45 Morphine Sulfate 2 mg Q4HPRN PRN IV 06/29/25 10:00 Morphine Sulfate 2 mg Q30MIN PRN IV 06/29/25 10:00 Enteral Nutritional Formula 240 ml TIDWM PO 06/29/25 12:00 06/30/25 12:02 240 ML Ciprofloxacin 200 ml @ 200 mls/hr Q12HR IV 06/29/25 22:00 06/30/25 09:52 200 MLS/HR Metronidazole 100 ml @ 100 mls/hr Q8HR IV 06/29/25 14:00 06/30/25 06:24 100 MLS/HR Quetiapine Fumarate 25 mg BID PO 06/29/25 22:00 06/30/25 09:52 25 MG Laboratory Results Laboratory Tests 06/30/25 06:24 Chemistry Test 06/30/25 06:24 Albumin 2.8 g/dL (3.2-4.8) L Calcium Level 8.8 mg/dL (8.7-10.4) Total Protein 5.2 g/dL (5.7-8.2) L LFT Test 06/30/25 06:24 Alanine Aminotransferase (ALT) < 9 U/L (7-40) Alkaline Phosphatase 72 U/L (46-116) Aspartate Amino Transferase (AST) 14 U/L (13-40) Total Bilirubin 0.4 mg/dL (0.2-1.0) Assessment/Plan Assessment/Plan #Acute abdominal pain: left later upper and lower deep palpation tenderness. lipase to check. iv fluids. NPO, 03/30 CT abdomen pelvis intraabdominal infection, no watery diarrhea, will cover with cipro + flagyl #Hematemesis: 1 episode, Hemodynamically stable, antiemetics, check hnh, ppi and sucralfate to continue. #Chronic normocytic anemia: follow hnh with CBC #GERD/PUD: sucralfate + pantoprazole. #Hypovitaminosis D: Vitamin D to continue. #Bone pain: [place] 5/325 PRN #BPH with diffuse bladder wall thickening: bladder scan and foleys as needed. bladder scan >300 cc threshold. #Multifocal osseous metastatic disease that appears stable: look for ca++ and uric acid. #Metastatic prostate cancer, bone metastasis, tolerable pain in lower limbs #Protein calorie malnutrition: aspiration precaution, TID protein supplements. #Constipation: high fiber diet, laxatives. #High risk for delirium: fall precaution, delirium prevention, frequent reorientation. IF combative will consider introducing Seroquel checking EKG for qTC #Prior history of recurrent UTI: last month ESBL treated with ertapenem iv, yeast, recheck. Plan discussed with: Patient Date of Service: Jun 30, 2025 Billing Provider: RHEA THORNTON MD Common Visit Codes: [id number] INP/OBS CARE(HIGH) RHEA THORNTON MD Jun 30, 2025 12:18
[2025-06-30 14:59] VITALS: BP 145/68; PULSE 80; RESP 18; TEMP 98.1; O2SAT 98
[2025-06-30 15:00] VITALS: BP 109/72; PULSE 86; RESP 20; TEMP 97.9; O2SAT 95
[2025-06-30 21:00] VITALS: BP 114/64; PULSE 98; RESP 18; TEMP 98; O2SAT 97
[2025-07-01] VITALS (7 sets, daily range): BP systolic 92–115; BP diastolic 50–74; PULSE 73–101; RESP 16–19; TEMP 96.6–97.9; O2SAT 95–99
[2025-07-01 11:06] LABS: Hemoglobin 8.9 g/dL (13.5-17.5)
[2025-07-01 11:07] LABS: Hematocrit 27.8 % (41.0-53.0); Mean Corpuscular Hemoglobin 26.1 pg (28.0-32.0); Mean Corpuscular Volume 81.3 fL (80.0-100.0); Nucleated Red Blood Cells % 0.0 %
[2025-07-01 11:12] LABS: Anion Gap 10 (5-15); Carbon Dioxide 28 mmol/L (20-31)
[2025-07-01 11:17] LABS: Calcium 8.3 mg/dL (8.7-10.4); Chloride 109 mmol/L (98-107); Potassium 3.5 mmol/L (3.5-5.1); Sodium 147 mmol/L (136-145)
[2025-07-01 11:18] LABS: BUN/Creatinine Ratio 11.7 (10.0-20.0); Blood Urea Nitrogen 13 mg/dL (9-23)
[2025-07-01 11:19] LABS: Glucose 163 mg/dL (74-106)
--- NOTE | 2025-07-01 13:41 | DVHPN2 ---
Subjective seen in bed with less pain Reviewed: H&P Changes from previous H/P or p: No Changes Eyes: No Pain, No Vision change, No Conjunctivae inflammation, No Eyelid inflammation, No Other, No Redness ENT: No Ear pain, No Ear discharge, No Nose pain, No Nose discharge, No Nose congestion, No Mouth pain, No Mouth swelling, No Throat pain, No Throat swelling, No Other Cardiovascular: No Chest Pain, No Palpitations, No Orthopnea, No Paroxysmal Noc. Dyspnea, No Edema, No Lt Headedness, No Other Respiratory: No Cough, No Dry, No Shortness of breath, No SOB with excertion, No Wheezing, No Hemoptysis, No Pleuritic Pain, No Sputum, No Other Gastrointestinal: Nausea, Vomiting; No Abdominal Pain, No Diarrhea, No Constipation, No Melena, No Hematochezia, No Other Genitourinary: Dysuria, Frequency, Incontinence; No Hematuria, No Retention, No Other Musculoskeletal: No other, No neck pain, No shoulder pain, No arm pain; back pain; No hand pain, No leg pain, No foot pain Skin: No Rash, No Lesions, No Jaundice, No Bruising, No Other Objective Vitals Vital Signs Date Time Temp Pulse Resp B/P (MAP) Pulse Ox O2 Delivery O2 Flow Rate FiO2 07/01/25 13:00 96.7 98 16 101/63 (76) 99 96.7 07/01/25 08:00 Room Air* 0 21 Intake/Output Intake and Output 07/01/25 07:00 Intake Total 350 ml Output Total 1150 ml Balance -800 ml Intake Oral 50 ml IV Total 300 ml Output Urine Total 1150 ml General Appearance: Alert, Oriented X3 HEENT: Atraumatic Lungs: Clear to auscultation Cardiovascular: Regular rate, Normal S1, Normal S2 Abdomen: Normal bowel sounds Medications Current Medications Medications Dose Ordered Sig/Murali Route Start Time Stop Time Status Last Admin Dose Admin Ondansetron HCl 4 mg Q4HP PRN IV 06/29/25 09:00 Docusate Sodium 100 mg BIDPRN PRN PO 06/29/25 09:00 Morphine Sulfate 2 mg Q4HPRN PRN IV 06/29/25 09:00 UNV Nitroglycerin 0.4 mg Q5MINP PRN SL 06/29/25 09:00 Morphine Sulfate 2 mg Q30M PRN IV 06/29/25 09:00 UNV Pantoprazole Sodium 40 mg DAILY PO 06/29/25 10:00 07/01/25 09:25 40 MG Sucralfate 1 gm TID PO 06/29/25 14:00 07/01/25 13:30 1 GM Ergocalciferol 50,000 unit Q7D PO 06/29/25 09:45 06/29/25 10:24 50,000 UNIT Acetaminophen/ Hydrocodone Bitart 1 tab Q6HP PRN PO 06/29/25 09:45 Morphine Sulfate 2 mg Q4HPRN PRN IV 06/29/25 10:00 Morphine Sulfate 2 mg Q30MIN PRN IV 06/29/25 10:00 Enteral Nutritional Formula 240 ml TIDWM PO 06/29/25 12:00 07/01/25 12:00 240 ML Ciprofloxacin 200 ml @ 200 mls/hr Q12HR IV 06/29/25 22:00 07/01/25 09:26 200 MLS/HR Metronidazole 100 ml @ 100 mls/hr Q8HR IV 06/29/25 14:00 07/01/25 13:30 100 MLS/HR Quetiapine Fumarate 25 mg BID PO 06/29/25 22:00 07/01/25 09:25 25 MG Laboratory Results Laboratory Tests 07/01/25 10:42 Chemistry Test 07/01/25 10:42 Calcium Level 8.3 mg/dL (8.7-10.4) L Assessment/Plan Assessment/Plan #Acute abdominal pain: left later upper and lower deep palpation tenderness. lipase to check. iv fluids. NPO, 03/30 CT abdomen pelvis intraabdominal infection, no watery diarrhea, will cover with cipro + flagyl #Hematemesis: 1 episode, Hemodynamically stable, antiemetics, check hnh, ppi and sucralfate to continue. Hb stable #Chronic normocytic anemia: follow hnh with CBC #GERD/PUD: sucralfate + pantoprazole. #Hypovitaminosis D: Vitamin D to continue. #Bone pain: [place] 5/325 PRN #BPH with diffuse bladder wall thickening: bladder scan and foleys as needed. bladder scan >300 cc threshold. #Multifocal osseous metastatic disease that appears stable: look for ca++ and uric acid. #Metastatic prostate cancer, bone metastasis, tolerable pain in lower limbs #Protein calorie malnutrition: aspiration precaution, TID protein supplements. #Constipation: high fiber diet, laxatives. #High risk for delirium: fall precaution, delirium prevention, frequent reorientation. IF combative will consider introducing Seroquel checking EKG for qTC #Prior history of recurrent UTI: last month ESBL treated with ertapenem iv, yeast, recheck. Hospice eval Plan discussed with: Patient Date of Service: Jul 01, 2025 Common Visit Codes: [id number] INP/OBS CARE(HIGH) RHEA THORNTON MD Jul 01, 2025 13:41
[2025-07-01 15:02] LABS: Urine Budding Yeast MANY /hpf (None Seen); Urine Protein, UAD 2+ (Negative); Urine WBC Clumps PRESENT /hpf (None Seen)
[2025-07-02 00:57] VITALS: BP 105/72; PULSE 90; RESP 20; TEMP 98; O2SAT 100
[2025-07-02 05:00] VITALS: BP 115/72; PULSE 80; RESP 19; TEMP 98.1; O2SAT 99
[2025-07-02 09:30] VITALS: BP 117/60; PULSE 98; RESP 18; O2SAT 98
[2025-07-02] MEDS: HYDROcodone-ACET 5/325MG TAB PO PRN (10:41)
--- NOTE | 2025-07-02 12:42 | DVHPN2 ---
Subjective seen in bed with less pain Reviewed: H&P Changes from previous H/P or p: No Changes Eyes: No Pain, No Vision change, No Conjunctivae inflammation, No Eyelid inflammation, No Other, No Redness ENT: No Ear pain, No Ear discharge, No Nose pain, No Nose discharge, No Nose congestion, No Mouth pain, No Mouth swelling, No Throat pain, No Throat swelling, No Other Cardiovascular: No Chest Pain, No Palpitations, No Orthopnea, No Paroxysmal Noc. Dyspnea, No Edema, No Lt Headedness, No Other Respiratory: No Cough, No Dry, No Shortness of breath, No SOB with excertion, No Wheezing, No Hemoptysis, No Pleuritic Pain, No Sputum, No Other Gastrointestinal: Nausea, Vomiting; No Abdominal Pain, No Diarrhea, No Constipation, No Melena, No Hematochezia, No Other Genitourinary: Dysuria, Frequency, Incontinence; No Hematuria, No Retention, No Other Musculoskeletal: No other, No neck pain, No shoulder pain, No arm pain; back pain; No hand pain, No leg pain, No foot pain Skin: No Rash, No Lesions, No Jaundice, No Bruising, No Other Objective Vitals Vital Signs Date Time Temp Pulse Resp B/P (MAP) Pulse Ox O2 Delivery O2 Flow Rate FiO2 07/02/25 09:30 98 18 117/60 (79) 98 07/02/25 05:00 98.1 98.1 07/01/25 20:00 Room Air* 0 21 Intake/Output Intake and Output 07/02/25 07:00 Intake Total 1400 ml Output Total 750 ml Balance 650 ml Intake Oral 700 ml IV Total 700 ml Output Urine Total 750 ml # Bowel Movements 2 General Appearance: Alert, Oriented X3 HEENT: Atraumatic Lungs: Clear to auscultation Cardiovascular: Regular rate, Normal S1, Normal S2 Abdomen: Normal bowel sounds Medications Current Medications Medications Dose Ordered Sig/Murali Route Start Time Stop Time Status Last Admin Dose Admin Ondansetron HCl 4 mg Q4HP PRN IV 06/29/25 09:00 Docusate Sodium 100 mg BIDPRN PRN PO 06/29/25 09:00 Morphine Sulfate 2 mg Q4HPRN PRN IV 06/29/25 09:00 UNV Nitroglycerin 0.4 mg Q5MINP PRN SL 06/29/25 09:00 Morphine Sulfate 2 mg Q30M PRN IV 06/29/25 09:00 UNV Pantoprazole Sodium 40 mg DAILY PO 06/29/25 10:00 07/02/25 09:34 40 MG Sucralfate 1 gm TID PO 06/29/25 14:00 07/02/25 05:10 1 GM Ergocalciferol 50,000 unit Q7D PO 06/29/25 09:45 06/29/25 10:24 50,000 UNIT Acetaminophen/ Hydrocodone Bitart 1 tab Q6HP PRN PO 06/29/25 09:45 07/02/25 10:41 1 TAB Morphine Sulfate 2 mg Q4HPRN PRN IV 06/29/25 10:00 Morphine Sulfate 2 mg Q30MIN PRN IV 06/29/25 10:00 Enteral Nutritional Formula 240 ml TIDWM PO 06/29/25 12:00 07/02/25 08:00 240 ML Ciprofloxacin 200 ml @ 200 mls/hr Q12HR IV 06/29/25 22:00 07/02/25 09:34 200 MLS/HR Metronidazole 100 ml @ 100 mls/hr Q8HR IV 06/29/25 14:00 07/02/25 00:25 100 MLS/HR Quetiapine Fumarate 25 mg BID PO 06/29/25 22:00 07/02/25 09:34 25 MG Laboratory Results Laboratory Tests 07/01/25 10:42 Urinalysis Test 07/01/25 14:36 Urine Color Light-orange (Yellow) Urine Clarity Ex.turbid (Clear) Urine pH 5.5 (5.0-9.0) Urine Specific [place] 1.020 (1.001-1.035) Urine Protein 2+ (Negative) H Urine Ketones 1+ (Negative) H Urine Blood 2+ /uL (Negative) H Urine Nitrite Negative (Negative) Urine Bilirubin Negative (Negative) Urine Urobilinogen Normal mg/dL (Negative) Urine Leukocyte Esterase 3+ /uL (Negative) Urine RBC 188 /hpf (0 - 3) Urine WBC Clumps Present /hpf (None Seen) Urine Microscopic WBC 1797 /HPF (0-3) H Urine Squamous Epithelial Cells None seen /hpf (<5) Urine Bacteria None seen /hpf (None Seen) Urine Mucus Few (None Seen) Urine Yeast (Budding) Many /hpf (None Seen) Urine Glucose Normal mg/dL (Normal) Assessment/Plan Assessment/Plan #Acute abdominal pain: left later upper and lower deep palpation tenderness. lipase to check. iv fluids. NPO, 03/30 CT abdomen pelvis intraabdominal infection, no watery diarrhea, will cover with cipro + flagyl #Hematemesis: 1 episode, Hemodynamically stable, antiemetics, check hnh, ppi and sucralfate to continue. Hb stable #Chronic normocytic anemia: follow hnh with CBC #GERD/PUD: sucralfate + pantoprazole. #Hypovitaminosis D: Vitamin D to continue. #Bone pain: [place] 5/325 PRN #BPH with diffuse bladder wall thickening: bladder scan and foleys as needed. bladder scan >300 cc threshold. #Multifocal osseous metastatic disease that appears stable: look for ca++ and uric acid. #Metastatic prostate cancer, bone metastasis, tolerable pain in lower limbs #Protein calorie malnutrition: aspiration precaution, TID protein supplements. #Constipation: high fiber diet, laxatives. #High risk for delirium: fall precaution, delirium prevention, frequent reorientation. IF combative will consider introducing Seroquel checking EKG for qTC #Prior history of recurrent UTI: last month ESBL treated with ertapenem iv, yeast, recheck. Hospice eval pending placement Plan discussed with: Patient Date of Service: Jul 02, 2025 Billing Provider: RHEA THORNTON MD Common Visit Codes: [id number] INP/OBS CARE(HIGH) RHEA THORNTON MD Jul 02, 2025 12:42
[2025-07-02 13:00] VITALS: BP 91/57; PULSE 98; RESP 18; TEMP 98; O2SAT 98
--- NOTE | 2025-07-02 13:30 | DVHDS2 ---
Discharge Summary Date of Admission Jun 29, 2025 at 08:56 Date of Discharge: Jul 02, 2025 Labs/Diagnostic Data: Laboratory Results Test 07/01/25 14:36 07/01/25 10:42 06/30/25 06:24 06/29/25 10:45 Urine Color Light-orange (Yellow) Urine Clarity Ex.turbid (Clear) Urine pH 5.5 (5.0-9.0) Urine Specific [place] 1.020 (1.001-1.035) Urine Protein 2+ (Negative) Urine Ketones 1+ (Negative) Urine Blood 2+ /uL (Negative) Urine Nitrite Negative (Negative) Urine Bilirubin Negative (Negative) Urine Urobilinogen Normal mg/dL (Negative) Urine Leukocyte Esterase 3+ /uL (Negative) Urine RBC 188 /hpf (0 - 3) Urine WBC Clumps Present /hpf (None Seen) Urine Microscopic WBC 1797 /HPF (0-3) Urine Squamous Epithelial Cells None seen /hpf (<5) Urine Bacteria None seen /hpf (None Seen) Urine Mucus Few (None Seen) Urine Yeast (Budding) Many /hpf (None Seen) Urine Glucose Normal mg/dL (Normal) White Blood Count 8.5 10^3/uL (4.4-10.8) Red Blood Count 3.42 10^6/uL (4.5-5.90) Hemoglobin 8.9 g/dL (13.5-17.5) Hematocrit 27.8 % (41.0-53.0) Mean Corpuscular Volume 81.3 fL (80.0-100.0) Mean Corpuscular Hemoglobin 26.1 pg (28.0-32.0) Mean Corpuscular Hemoglobin Concent 32.1 g/dL (32.0-36.0) Red Cell Distribution Width 17.1 % (11.8-14.3) Platelet Count 298 10^3/uL (140-450) Mean Platelet Volume 6.9 fL (6.9-10.8) Neutrophils (%) (Auto) 78.2 % (37.0-80.0) Lymphocytes (%) (Auto) 14.0 % (10.0-50.0) Monocytes (%) (Auto) 6.3 % (0.0-12.0) Eosinophils (%) (Auto) 0.9 % (0.0-7.0) Basophils (%) (Auto) 0.6 % (0.0-2.0) Neutrophils # (Auto) 6.6 10 ^3/uL (1.6-8.6) Lymphocytes # (Auto) 1.2 10 ^3/uL (0.4-5.4) Monocytes # (Auto) 0.5 10 ^3/uL (0-1.3) Eosinophils # (Auto) 0.1 10 ^3/uL (0-0.8) Basophils # (Auto) 0 10 ^3/uL (0-0.2) Nucleated Red Blood Cells 0.0 % Sodium Level 147 mmol/L (136-145) Potassium Level 3.5 mmol/L (3.5-5.1) Chloride Level 109 mmol/L (98-107) Carbon Dioxide Level 28 mmol/L (20-31) Anion Gap 10 (5-15) Blood Urea Nitrogen 13 mg/dL (9-23) Creatinine 1.11 mg/dL (0.700-1.30) Glomerular Filtration Rate Calc 73 mL/min (>90) BUN/Creatinine Ratio 11.7 (10.0-20.0) Serum Glucose 163 mg/dL (74-106) Calcium Level 8.3 mg/dL (8.7-10.4) Total Bilirubin 0.4 mg/dL (0.2-1.0) Aspartate Amino Transferase (AST) 14 U/L (13-40) Alanine Aminotransferase (ALT) < 9 U/L (7-40) Alkaline Phosphatase 72 U/L (46-116) Total Protein 5.2 g/dL (5.7-8.2) Albumin 2.8 g/dL (3.2-4.8) Lipase 29 U/L (12-53) Test 06/27/25 19:18 Lactic Acid Level 0.9 mmol/L (0.4-2.0) Other Laboratory Tests 07/01/25 10:42 Brief Hx & Hospital Course: 65-year-old male with a history of dementia, congestive heart failure HFpEF, recurrent UTIs with ESBL, GERD, and hypertension presented to [facility]'s emergency department with worsening intractable nausea and vomiting, including coffee-ground emesis needing admission on 06/19 with anemia, constipation, enlarged prostate, bone mass and abdominal painwas admitted to the medical-surgical unit after being denied readmission to his previous [facility] facility due to behavioral issues, and his family was unable to care for him. Hospice options were explored, but both [facility] due to the patients combative and noncompliant behavior. Social work attempted to contact his son Hasmukh, who manages his care, but was only able to leave a voicemail after speaking with another son, Aaron. The patient had previously been discharged from [facility], which confirmed removal from their census after three days of ER absence. He was treated for hypernatremia and a UTI with IV antibiotics and D5W, resulting in gradual mental status improvement, though he remained confused and weak. Given his poor prognosis and limited family support, hospice care was recommended and accepted, and discharge planning is underway for placement in a hospice facility, with Macrobid prescribed for UTI prophylaxis. He has advanced prostate cancer and weak with pain, unable to ambulate UTI improved After long discussion would like to go HOSPICE Condition at Discharge: Good Final Diagnosis/Problems List advanced prostate cancer UTI Discharge Disposition: Hospice- Medical Facility Discharge Instruct/Medications Diet: Regular Activity: No Restrictions, As Tolerated Follow Up/Referral: PCP in 7 days Medications: none Scheduled Ergocalciferol (Vitamin D 05178 Unit), 50,000 UNIT PO Q7D Pantoprazole Sodium Sesquihydr (Pantoprazole Sodium), 40 MG PO DAILY@0600 Scheduled PRN Acetaminophen (Acetaminophen), 650 MG PO Q6HP PRN Discharge Statement: "Patient was advised to return to the ER or call 911 if any headaches, dizziness, shortness of breath, chest pain, abdominal pain, bleeding, fevers, or worsening of medical condition. Patient was counseled about treatment plan, medications, possible side effects, patientverbalized understanding. All questions were answered to the best of my ability. This discharge took greater then 30 minutes in planning, reviewing documentation, counseling the patient, and discussing with other team members." ASSESSMENT ASSESSMENT Assessment advanced prostate cancer UTI Date of Service: Jul 02, 2025 Billing Provider: RHEA THORNTON MD Common Visit Codes: [id number] DISCH DAY >30min RHEA THORNTON MD Jul 02, 2025 13:30
[2025-07-02 20:00] VITALS: PULSE 86; RESP 18; O2SAT 98
[2025-07-02 21:00] VITALS: BP 99/50; PULSE 86; RESP 18; TEMP 98.5; O2SAT 98
[2025-07-03] VITALS (7 sets, daily range): BP systolic 105–127; BP diastolic 50–74; PULSE 54–100; RESP 16–17; TEMP 97–98.4; O2SAT 96–100
--- NOTE | 2025-07-03 18:04 | DVHPN2 ---
Subjective seen in bed with less pain Reviewed: H&P Changes from previous H/P or p: No Changes Eyes: No Pain, No Vision change, No Conjunctivae inflammation, No Eyelid inflammation, No Other, No Redness ENT: No Ear pain, No Ear discharge, No Nose pain, No Nose discharge, No Nose congestion, No Mouth pain, No Mouth swelling, No Throat pain, No Throat swelling, No Other Cardiovascular: No Chest Pain, No Palpitations, No Orthopnea, No Paroxysmal Noc. Dyspnea, No Edema, No Lt Headedness, No Other Respiratory: No Cough, No Dry, No Shortness of breath, No SOB with excertion, No Wheezing, No Hemoptysis, No Pleuritic Pain, No Sputum, No Other Gastrointestinal: Nausea, Vomiting; No Abdominal Pain, No Diarrhea, No Constipation, No Melena, No Hematochezia, No Other Genitourinary: Dysuria, Frequency, Incontinence; No Hematuria, No Retention, No Other Musculoskeletal: No other, No neck pain, No shoulder pain, No arm pain; back pain; No hand pain, No leg pain, No foot pain Skin: No Rash, No Lesions, No Jaundice, No Bruising, No Other Objective Vitals Vital Signs Date Time Temp Pulse Resp B/P (MAP) Pulse Ox O2 Delivery O2 Flow Rate FiO2 07/03/25 17:00 97.6 95 16 115/64 (81) 99 97.6 07/03/25 08:00 Room Air* 0 21 Intake/Output Intake and Output 07/03/25 05:00 Intake Total 770 ml Output Total 550 ml Balance 220 ml Intake Oral 770 ml Output Urine Total 550 ml General Appearance: Alert, Oriented X3 HEENT: Atraumatic Lungs: Clear to auscultation Cardiovascular: Regular rate, Normal S1, Normal S2 Abdomen: Normal bowel sounds Medications Current Medications Medications Dose Ordered Sig/Murali Route Start Time Stop Time Status Last Admin Dose Admin Ondansetron HCl 4 mg Q4HP PRN IV 06/29/25 09:00 Docusate Sodium 100 mg BIDPRN PRN PO 06/29/25 09:00 Morphine Sulfate 2 mg Q4HPRN PRN IV 06/29/25 09:00 UNV Nitroglycerin 0.4 mg Q5MINP PRN SL 06/29/25 09:00 Morphine Sulfate 2 mg Q30M PRN IV 06/29/25 09:00 UNV Pantoprazole Sodium 40 mg DAILY PO 06/29/25 10:00 07/02/25 09:34 40 MG Sucralfate 1 gm TID PO 06/29/25 14:00 07/03/25 16:24 1 GM Ergocalciferol 50,000 unit Q7D PO 06/29/25 09:45 06/29/25 10:24 50,000 UNIT Acetaminophen/ Hydrocodone Bitart 1 tab Q6HP PRN PO 06/29/25 09:45 07/02/25 10:41 1 TAB Morphine Sulfate 2 mg Q4HPRN PRN IV 06/29/25 10:00 Morphine Sulfate 2 mg Q30MIN PRN IV 06/29/25 10:00 Enteral Nutritional Formula 240 ml TIDWM PO 06/29/25 12:00 07/03/25 17:34 240 ML Ciprofloxacin 200 ml @ 200 mls/hr Q12HR IV 06/29/25 22:00 07/03/25 09:19 200 MLS/HR Metronidazole 100 ml @ 100 mls/hr Q8HR IV 06/29/25 14:00 07/03/25 16:24 100 MLS/HR Quetiapine Fumarate 25 mg BID PO 06/29/25 22:00 07/02/25 21:47 25 MG Laboratory Results Laboratory Tests 07/01/25 10:42 Urinalysis Test 07/01/25 14:36 Urine Color Light-orange (Yellow) Urine Clarity Ex.turbid (Clear) Urine pH 5.5 (5.0-9.0) Urine Specific [place] 1.020 (1.001-1.035) Urine Protein 2+ (Negative) H Urine Ketones 1+ (Negative) H Urine Blood 2+ /uL (Negative) H Urine Nitrite Negative (Negative) Urine Bilirubin Negative (Negative) Urine Urobilinogen Normal mg/dL (Negative) Urine Leukocyte Esterase 3+ /uL (Negative) Urine RBC 188 /hpf (0 - 3) Urine WBC Clumps Present /hpf (None Seen) Urine Microscopic WBC 1797 /HPF (0-3) H Urine Squamous Epithelial Cells None seen /hpf (<5) Urine Bacteria None seen /hpf (None Seen) Urine Mucus Few (None Seen) Urine Yeast (Budding) Many /hpf (None Seen) Urine Glucose Normal mg/dL (Normal) Microbiology Microbiology Date/Time Source Procedure Growth Status 07/01/25 13:47 Nose MRSA Screen - Final Methicillin Resistant S.aureus Complete Assessment/Plan Assessment/Plan #Acute abdominal pain: left later upper and lower deep palpation tenderness. lipase to check. iv fluids. NPO, 03/30 CT abdomen pelvis intraabdominal infection, no watery diarrhea, will cover with cipro + flagyl #Hematemesis: 1 episode, Hemodynamically stable, antiemetics, check hnh, ppi and sucralfate to continue. Hb stable #Chronic normocytic anemia: follow hnh with CBC #GERD/PUD: sucralfate + pantoprazole. #Hypovitaminosis D: Vitamin D to continue. #Bone pain: [place] 5/325 PRN #BPH with diffuse bladder wall thickening: bladder scan and foleys as needed. bladder scan >300 cc threshold. #Multifocal osseous metastatic disease that appears stable: look for ca++ and uric acid. #Metastatic prostate cancer, bone metastasis, tolerable pain in lower limbs #Protein calorie malnutrition: aspiration precaution, TID protein supplements. #Constipation: high fiber diet, laxatives. #High risk for delirium: fall precaution, delirium prevention, frequent reorientation. IF combative will consider introducing Seroquel checking EKG for qTC #Prior history of recurrent UTI: last month ESBL treated with ertapenem iv, yeast, recheck. Hospice eval pending placement Plan discussed with: Patient Date of Service: Jul 03, 2025 Billing Provider: RHEA THORNTON MD Common Visit Codes: [id number] INP/OBS CARE(HIGH) RHEA THORNTON MD Jul 03, 2025 18:04
[2025-07-04] VITALS (7 sets, daily range): BP systolic 92–117; BP diastolic 49–75; PULSE 82–95; RESP 16–20; TEMP 97.9–98.2; O2SAT 97–100
--- NOTE | 2025-07-04 13:17 | DVHPN2 ---
Subjective seen in bed with less pain Reviewed: H&P Changes from previous H/P or p: No Changes Eyes: No Pain, No Vision change, No Conjunctivae inflammation, No Eyelid inflammation, No Other, No Redness ENT: No Ear pain, No Ear discharge, No Nose pain, No Nose discharge, No Nose congestion, No Mouth pain, No Mouth swelling, No Throat pain, No Throat swelling, No Other Cardiovascular: No Chest Pain, No Palpitations, No Orthopnea, No Paroxysmal Noc. Dyspnea, No Edema, No Lt Headedness, No Other Respiratory: No Cough, No Dry, No Shortness of breath, No SOB with excertion, No Wheezing, No Hemoptysis, No Pleuritic Pain, No Sputum, No Other Gastrointestinal: Nausea, Vomiting; No Abdominal Pain, No Diarrhea, No Constipation, No Melena, No Hematochezia, No Other Genitourinary: Dysuria, Frequency, Incontinence; No Hematuria, No Retention, No Other Musculoskeletal: No other, No neck pain, No shoulder pain, No arm pain; back pain; No hand pain, No leg pain, No foot pain Skin: No Rash, No Lesions, No Jaundice, No Bruising, No Other Objective Vitals Vital Signs Date Time Temp Pulse Resp B/P (MAP) Pulse Ox O2 Delivery O2 Flow Rate FiO2 07/04/25 12:52 98.2 89 16 92/61 (71) 98 98.2 07/04/25 08:00 Room Air* 0 21 Intake/Output Intake and Output 07/04/25 07:00 Intake Total 1280 ml Output Total 600 ml Balance 680 ml Intake Oral 680 ml IV Total 600 ml Output Urine Total 600 ml General Appearance: Alert, Oriented X3 HEENT: Atraumatic Lungs: Clear to auscultation Cardiovascular: Regular rate, Normal S1, Normal S2 Abdomen: Normal bowel sounds Medications Current Medications Medications Dose Ordered Sig/Murali Route Start Time Stop Time Status Last Admin Dose Admin Ondansetron HCl 4 mg Q4HP PRN IV 06/29/25 09:00 Docusate Sodium 100 mg BIDPRN PRN PO 06/29/25 09:00 Morphine Sulfate 2 mg Q4HPRN PRN IV 06/29/25 09:00 UNV Nitroglycerin 0.4 mg Q5MINP PRN SL 06/29/25 09:00 Morphine Sulfate 2 mg Q30M PRN IV 06/29/25 09:00 UNV Pantoprazole Sodium 40 mg DAILY PO 06/29/25 10:00 07/04/25 08:21 40 MG Sucralfate 1 gm TID PO 06/29/25 14:00 07/04/25 05:45 1 GM Ergocalciferol 50,000 unit Q7D PO 06/29/25 09:45 06/29/25 10:24 50,000 UNIT Acetaminophen/ Hydrocodone Bitart 1 tab Q6HP PRN PO 06/29/25 09:45 07/04/25 08:22 1 TAB Morphine Sulfate 2 mg Q4HPRN PRN IV 06/29/25 10:00 Morphine Sulfate 2 mg Q30MIN PRN IV 06/29/25 10:00 Enteral Nutritional Formula 240 ml TIDWM PO 06/29/25 12:00 07/04/25 12:00 240 ML Ciprofloxacin 200 ml @ 200 mls/hr Q12HR IV 06/29/25 22:00 07/04/25 08:22 200 MLS/HR Metronidazole 100 ml @ 100 mls/hr Q8HR IV 06/29/25 14:00 07/04/25 05:45 100 MLS/HR Quetiapine Fumarate 25 mg BID PO 06/29/25 22:00 07/04/25 08:22 25 MG Laboratory Results Laboratory Tests 07/01/25 10:42 Urinalysis Test 07/01/25 14:36 Urine Color Light-orange (Yellow) Urine Clarity Ex.turbid (Clear) Urine pH 5.5 (5.0-9.0) Urine Specific [place] 1.020 (1.001-1.035) Urine Protein 2+ (Negative) H Urine Ketones 1+ (Negative) H Urine Blood 2+ /uL (Negative) H Urine Nitrite Negative (Negative) Urine Bilirubin Negative (Negative) Urine Urobilinogen Normal mg/dL (Negative) Urine Leukocyte Esterase 3+ /uL (Negative) Urine RBC 188 /hpf (0 - 3) Urine WBC Clumps Present /hpf (None Seen) Urine Microscopic WBC 1797 /HPF (0-3) H Urine Squamous Epithelial Cells None seen /hpf (<5) Urine Bacteria None seen /hpf (None Seen) Urine Mucus Few (None Seen) Urine Yeast (Budding) Many /hpf (None Seen) Urine Glucose Normal mg/dL (Normal) Microbiology Microbiology Date/Time Source Procedure Growth Status 07/01/25 13:47 Nose MRSA Screen - Final Methicillin Resistant S.aureus Complete Assessment/Plan Assessment/Plan #Acute abdominal pain: left later upper and lower deep palpation tenderness. lipase to check. iv fluids. NPO, 03/30 CT abdomen pelvis intraabdominal infection, no watery diarrhea, will cover with cipro + flagyl #Hematemesis: 1 episode, Hemodynamically stable, antiemetics, check hnh, ppi and sucralfate to continue. Hb stable #Chronic normocytic anemia: follow hnh with CBC #GERD/PUD: sucralfate + pantoprazole. #Hypovitaminosis D: Vitamin D to continue. #Bone pain: [place] 5/325 PRN #BPH with diffuse bladder wall thickening: bladder scan and foleys as needed. bladder scan >300 cc threshold. #Multifocal osseous metastatic disease that appears stable: look for ca++ and uric acid. #Metastatic prostate cancer, bone metastasis, tolerable pain in lower limbs #Protein calorie malnutrition: aspiration precaution, TID protein supplements. #Constipation: high fiber diet, laxatives. #High risk for delirium: fall precaution, delirium prevention, frequent reorientation. IF combative will consider introducing Seroquel checking EKG for qTC #Prior history of recurrent UTI: last month ESBL treated with ertapenem iv, yeast, recheck. Hospice eval pending placement Plan discussed with: Patient Date of Service: Jul 04, 2025 Billing Provider: RHEA THORNTON MD Common Visit Codes: [id number] INP/OBS CARE(HIGH) RHEA THORNTON MD Jul 04, 2025 13:17
[2025-07-05] VITALS (8 sets, daily range): BP systolic 110–139; BP diastolic 61–81; PULSE 60–102; RESP 16–18; TEMP 97.7–98.2; O2SAT 93–99
--- NOTE | 2025-07-05 12:41 | DVHPN2 ---
Subjective seen in bed with less pain Reviewed: H&P Changes from previous H/P or p: No Changes Eyes: No Pain, No Vision change, No Conjunctivae inflammation, No Eyelid inflammation, No Other, No Redness ENT: No Ear pain, No Ear discharge, No Nose pain, No Nose discharge, No Nose congestion, No Mouth pain, No Mouth swelling, No Throat pain, No Throat swelling, No Other Cardiovascular: No Chest Pain, No Palpitations, No Orthopnea, No Paroxysmal Noc. Dyspnea, No Edema, No Lt Headedness, No Other Respiratory: No Cough, No Dry, No Shortness of breath, No SOB with excertion, No Wheezing, No Hemoptysis, No Pleuritic Pain, No Sputum, No Other Gastrointestinal: Nausea, Vomiting; No Abdominal Pain, No Diarrhea, No Constipation, No Melena, No Hematochezia, No Other Genitourinary: Dysuria, Frequency, Incontinence; No Hematuria, No Retention, No Other Musculoskeletal: No other, No neck pain, No shoulder pain, No arm pain; back pain; No hand pain, No leg pain, No foot pain Skin: No Rash, No Lesions, No Jaundice, No Bruising, No Other Objective Vitals Vital Signs Date Time Temp Pulse Resp B/P (MAP) Pulse Ox O2 Delivery O2 Flow Rate FiO2 07/05/25 08:00 79 17 96 Room Air* 0 21 07/05/25 05:00 98.2 115/75 (88) 98.2 Intake/Output Intake and Output 07/05/25 07:00 Intake Total 1340 ml Output Total 850 ml Balance 490 ml Intake Oral 1040 ml IV Total 300 ml Output Urine Total 850 ml # Bowel Movements 1 General Appearance: Alert, Oriented X3 HEENT: Atraumatic Lungs: Clear to auscultation Cardiovascular: Regular rate, Normal S1, Normal S2 Abdomen: Normal bowel sounds Medications Current Medications Medications Dose Ordered Sig/Murali Route Start Time Stop Time Status Last Admin Dose Admin Ondansetron HCl 4 mg Q4HP PRN IV 06/29/25 09:00 Docusate Sodium 100 mg BIDPRN PRN PO 06/29/25 09:00 Morphine Sulfate 2 mg Q4HPRN PRN IV 06/29/25 09:00 UNV Nitroglycerin 0.4 mg Q5MINP PRN SL 06/29/25 09:00 Morphine Sulfate 2 mg Q30M PRN IV 06/29/25 09:00 UNV Pantoprazole Sodium 40 mg DAILY PO 06/29/25 10:00 07/05/25 09:59 40 MG Sucralfate 1 gm TID PO 06/29/25 14:00 07/05/25 05:32 1 GM Ergocalciferol 50,000 unit Q7D PO 06/29/25 09:45 06/29/25 10:24 50,000 UNIT Acetaminophen/ Hydrocodone Bitart 1 tab Q6HP PRN PO 06/29/25 09:45 07/05/25 10:00 1 TAB Morphine Sulfate 2 mg Q4HPRN PRN IV 06/29/25 10:00 Morphine Sulfate 2 mg Q30MIN PRN IV 06/29/25 10:00 Enteral Nutritional Formula 240 ml TIDWM PO 06/29/25 12:00 07/05/25 08:00 240 ML Ciprofloxacin 200 ml @ 200 mls/hr Q12HR IV 06/29/25 22:00 07/05/25 10:00 200 MLS/HR Metronidazole 100 ml @ 100 mls/hr Q8HR IV 06/29/25 14:00 07/05/25 05:32 100 MLS/HR Quetiapine Fumarate 25 mg BID PO 06/29/25 22:00 07/05/25 09:59 25 MG Laboratory Results Laboratory Tests 07/01/25 10:42 Urinalysis Test 07/01/25 14:36 Urine Color Light-orange (Yellow) Urine Clarity Ex.turbid (Clear) Urine pH 5.5 (5.0-9.0) Urine Specific [place] 1.020 (1.001-1.035) Urine Protein 2+ (Negative) H Urine Ketones 1+ (Negative) H Urine Blood 2+ /uL (Negative) H Urine Nitrite Negative (Negative) Urine Bilirubin Negative (Negative) Urine Urobilinogen Normal mg/dL (Negative) Urine Leukocyte Esterase 3+ /uL (Negative) Urine RBC 188 /hpf (0 - 3) Urine WBC Clumps Present /hpf (None Seen) Urine Microscopic WBC 1797 /HPF (0-3) H Urine Squamous Epithelial Cells None seen /hpf (<5) Urine Bacteria None seen /hpf (None Seen) Urine Mucus Few (None Seen) Urine Yeast (Budding) Many /hpf (None Seen) Urine Glucose Normal mg/dL (Normal) Microbiology Microbiology Date/Time Source Procedure Growth Status 07/01/25 13:47 Nose MRSA Screen - Final Methicillin Resistant S.aureus Complete Assessment/Plan Assessment/Plan #Acute abdominal pain: left later upper and lower deep palpation tenderness. lipase to check. iv fluids. NPO, 03/30 CT abdomen pelvis intraabdominal infection, no watery diarrhea, will cover with cipro + flagyl #Hematemesis: 1 episode, Hemodynamically stable, antiemetics, check hnh, ppi and sucralfate to continue. Hb stable #Chronic normocytic anemia: follow hnh with CBC #GERD/PUD: sucralfate + pantoprazole. #Hypovitaminosis D: Vitamin D to continue. #Bone pain: [place] 5/325 PRN #BPH with diffuse bladder wall thickening: bladder scan and foleys as needed. bladder scan >300 cc threshold. #Multifocal osseous metastatic disease that appears stable: look for ca++ and uric acid. #Metastatic prostate cancer, bone metastasis, tolerable pain in lower limbs #Protein calorie malnutrition: aspiration precaution, TID protein supplements. #Constipation: high fiber diet, laxatives. #High risk for delirium: fall precaution, delirium prevention, frequent reorientation. IF combative will consider introducing Seroquel checking EKG for qTC #Prior history of recurrent UTI: last month ESBL treated with ertapenem iv, yeast, recheck. Hospice eval pending placement Plan discussed with: Patient Date of Service: Jul 05, 2025 Billing Provider: RHEA THORNTON MD Common Visit Codes: [id number] INP/OBS CARE(HIGH) RHEA THORNTON MD Jul 05, 2025 12:41
[2025-07-06 01:00] VITALS: BP 100/65; PULSE 101; RESP 18; TEMP 97.7
[2025-07-06 04:48] VITALS: BP 111/63; PULSE 102; RESP 18; TEMP 98; O2SAT 98
[2025-07-06 08:00] VITALS: PULSE 77; RESP 16; O2SAT 97
[2025-07-06 09:00] VITALS: BP 99/60; PULSE 96; RESP 19; TEMP 97.3; O2SAT 91
--- NOTE | 2025-07-06 11:12 | DVHPN2 ---
Progress Note Date Seen: Jul 06, 2025 Has the PT tested + for MRSA If YES, has PT been informed?: Yes Medical Necessity Reason Pt with a Central, PICC or Fol: Yes The following are medically ne: Silva Catheter Reason for silva catheter: Bladder Retention/Obstruc Subjective Patient reports: No new complaints Review of Systems: HEENT:Normal, CVS:Normal, RESPIRATORY:Normal, GI:Normal, :Normal, MSK:Normal, NEURO:Normal Objective vital signs Vital Sign Date Time Temp Pulse Resp B/P (MAP) Pulse Ox O2 Delivery O2 Flow Rate FiO2 07/06/25 09:00 97.3 96 19 99/60 (73) 91 97.3 07/05/25 20:00 Room Air* 0 21 Total Intake and Output 07/05/25 07/05/25 07/06/25 15:00 23:00 07:00 Intake Total 475 ml 900 ml Output Total 400 ml 1000 ml Balance 75 ml -100 ml medications Current Medications Medications Dose Ordered Sig/Murali Route Start Time Stop Time Status Last Admin Dose Admin Ondansetron HCl 4 mg Q4HP PRN IV 06/29/25 09:00 Docusate Sodium 100 mg BIDPRN PRN PO 06/29/25 09:00 Morphine Sulfate 2 mg Q4HPRN PRN IV 06/29/25 09:00 UNV Nitroglycerin 0.4 mg Q5MINP PRN SL 06/29/25 09:00 Morphine Sulfate 2 mg Q30M PRN IV 06/29/25 09:00 UNV Pantoprazole Sodium 40 mg DAILY PO 06/29/25 10:00 07/06/25 10:15 40 MG Sucralfate 1 gm TID PO 06/29/25 14:00 07/06/25 05:06 1 GM Acetaminophen/ Hydrocodone Bitart 1 tab Q6HP PRN PO 06/29/25 09:45 07/06/25 10:14 1 TAB Morphine Sulfate 2 mg Q4HPRN PRN IV 06/29/25 10:00 Morphine Sulfate 2 mg Q30MIN PRN IV 06/29/25 10:00 Enteral Nutritional Formula 240 ml TIDWM PO 06/29/25 12:00 07/06/25 10:16 240 ML Quetiapine Fumarate 25 mg BID PO 06/29/25 22:00 07/06/25 10:15 25 MG Examination: GENERAL:Normal, HEENT:Normal, NECK:Normal, LUNGS:Normal, CVS:Normal, ABDOMEN:Normal, MSK:Normal, SKIN:Normal, NEURO:Normal, :Normal laboratory and microbiology Laboratory Tests 07/01/25 10:42 Test 07/01/25 10:42 Range/Units Serum Glucose 163 H 74-106 mg/dL Microbiology Date/Time Source Procedure Growth Status 07/01/25 13:47 Nose MRSA Screen - Final Methicillin Resistant S.aureus Complete Problem List/Assessment/Plan Problem List/Assessment/Plan #1 mets prostate cancer #2 dementia #3 uti #4 chronic diastolic heart failure #5 bph await hospice placement advance care placement- full code- time spent 19 mins Plan discussed with: Patient My Orders My Orders Orders - CARMEN RAMIREZ MD Procedure Category Date Status Time Discharge DISCHARGE 07/06/25 Transmitted 10:46 Dietary Evaluation Review Comments: Nutrition Recommendation: 1) MVI w/ minerals 1 tab daily 2) Monitor PO intake, lab values, weight trend, and I/O Expected Outcomes/Goals: Intake to meet >75% estimated needs FU 3-5 days Date of Service: Jul 06, 2025 Billing Provider: CARMEN RAMIREZ MD Common Visit Codes: [id number] INP/OBS CARE(HIGH) Secondary Visit Codes: [id number] CARE PLAN 30 MINUTES CARMEN RAMIREZ MD Jul 06, 2025 11:12
[2025-07-06 13:00] VITALS: BP 106/64; PULSE 86; RESP 19; TEMP 97.3; O2SAT 95
--- NOTE | 2025-07-07 07:01 | ECG ---
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
== END 2025-07-06 15:00 | disposition hospice, inpatient (51) | DRG 689 ==
LOC: ER 19:00 → EDBD 19:00 → OVERFLOW 06-29 08:56 → EAST 06-30 14:12
PROVIDERS: ADMIT Internal Medicine; ATTEND Internal Medicine
DX: N39.0 Urinary tract infection, site not specified (principal); E43 Unspecified severe protein-calorie malnutrition; C79.51 Secondary malignant neoplasm of bone; E87.0 Hyperosmolality and hypernatremia; I50.32 Chronic diastolic (congestive) heart failure; C61 Malignant neoplasm of prostate; D64.9 Anemia, unspecified; I11.0 Hypertensive heart disease with heart failure; K27.9 Peptic ulcer, site unspecified, unspecified as acute or chronic, without hemorrhage or perforation; F03.90 Unspecified dementia, unspecified severity, without behavioral disturbance, psychotic disturbance, mood disturbance, and anxiety; E55.9 Vitamin D deficiency, unspecified; N40.0 Benign prostatic hyperplasia without lower urinary tract symptoms; K59.00 Constipation, unspecified; K21.9 Gastro-esophageal reflux disease without esophagitis; M89.8X8 Other specified disorders of bone, other site; Z80.42 Family history of malignant neoplasm of prostate; Z82.5 Family history of asthma and other chronic lower respiratory diseases; Z87.440 Personal history of urinary (tract) infections; Z82.49 Family history of ischemic heart disease and other diseases of the circulatory system; Z91.199 Patient's noncompliance with other medical treatment and regimen due to unspecified reason; Z68.23 Body mass index [BMI] 23.0-23.9, adult
CPT/HCPCS: 36415; 73610; 74176; 80048; 80053; 81001; 83605; 83690; 85025; 86850; 86900; 86901; 87081; 93005; 97163; G0378; J3490